=== PATIENT | female | born 1965 | race Two or more races ===

== ENCOUNTER 2020-08-12 08:19 | Outpatient (REF) | payer MEDICAID, SELFPAY ==
--- NOTE | 2020-08-12 08:50 | EMG_ITS ---
HISTORY OF PRESENT ILLNESS: This is a 54-year-old woman with a 2-year history of bilateral upper extremity pain, numbness, and tingling. Both sides affected equally. She has a history of diabetes for more than 5 years. Complete list of medications not available. PHYSICAL EXAMINATION: On examination, she is alert and oriented with normal intellectual functions. Cranial nerves II through XII are normal. Muscle tone and strength are normal in all 4 extremities. There is mild flattening of the thenar eminences on both sides with weakness of abductor pollicis brevis muscle particularly on the right. No sensory deficits. IMPRESSION: Carpal tunnel syndrome. NERVE CONDUCTION EMG STUDY: Moderately severe carpal tunnel syndrome bilaterally, worse on the left. Normal EMG of the left C5 through T1 innervated muscles. MD RITA Lopez/YESIKA / [phone]
== END 2020-08-12 08:20 | disposition home or self-care (01) ==
LOC: HO.NEURO 08:19
PROVIDERS: Visit Provider Family Medicine
DX: G56.03 Carpal tunnel syndrome, bilateral upper limbs (principal)
CPT/HCPCS: 95860; 95913

== ENCOUNTER → 2020-11-04 13:51 | Outpatient (BNVA) | payer MEDICAID, SELFPAY | PROVIDERS: PCP Family Medicine; Visit Provider Orthopaedic Surgery | DX: G56.02 Carpal tunnel syndrome, left upper limb (principal); G56.01 Carpal tunnel syndrome, right upper limb | CPT/HCPCS: 99202 ==

== ENCOUNTER 2020-12-03 14:24 | Day surgery (SDC) | payer MEDICAID, SELFPAY ==
[2020-12-03 14:42] VITALS: BP 128/70; PULSE 88; RESP 18; TEMP 36.2; O2SAT 97; BMI 50.8
--- NOTE | 2020-12-03 15:02 | MHC.SHP ---
Pre-Procedural Eval Section B Chief Complaint: RTCTS Allergies: Allergies Allergy/AdvReac Type Severity Reaction Status Date / Time No Known Allergies Allergy Verified 11/04/20 13:56 [No Known Allergies*] Plan I have reviewed the history and physical and performed a pertinent physical examination on my patient. No changes have occurred unless specified.
--- NOTE | 2020-12-03 16:50 | W.PM.OPN ---
Operative Note Operative Note Date of Service: 12/03/20 Narrative: Preop diagnosis: 1. Right Carpal tunnel syndrome Postop diagnosis: 1. Right Carpal tunnel syndrome Procedure: 1. Right Carpal tunnel release Surgeon: Olimpia Esteves MD Anesthesia: local block using 1% lidocaine with epinephrine Findings: Thickened transverse carpal ligament. EBL: Less than 5 mL Specimens: None Complications: None Disposition: Brought to recovery room in stable condition Plan: Follow-up for 7-10 days for wound check and suture removal Indications: The patient is 55 years old, with right carpal tunnel syndrome that has been unresponsive to nonoperative management. The risks and benefits of operative treatment including but not limited to risk of damage to blood vessels, nerves, tendons, infection, persistent pain, persistent symptoms, or possible need for additional surgery were discussed with the patient and the patient wishes to proceed with surgery. Procedure: Once consent was obtained a local block was performed using a combination of 1% lidocaine with epinephrine. The patient was then brought back to the operating suite and placed on the operative table in supine position. A tourniquet was applied to the proximal aspect of the right upper extremity and the limb was prepped and draped in a standard surgical fashion. Once assured that we had a good block, a 1.5 cm longitudinal incision was made centered over the right carpal tunnel. The incision was made through the skin to the subcutaneous tissues using a #15 blade. Dissection was made down to the level of the transverse carpal ligament with care being taken to protect the palmar cutaneous nerve. Once the transverse carpal ligament was clearly visualized, a longitudinal incision was made in the transverse carpal ligament 1st using a #15 blade, then using tenotomy scissors under direct visualization. Care was taken to look for and protect the motor branch of the median nerve when seen in this area. Once satisfied with our carpal tunnel release the wound was copiously irrigated with normal saline and hemostasis was obtained with a brief period of local pressure. The skin edges were reapproximated with some 5.0 nylon suture material and a sterile dressing was applied. The patient appears to have tolerated the procedure well and with no complications. All digits were well vascularized at the conclusion of the case.
[2020-12-03 18:07] VITALS: BP 130/75; PULSE 82; RESP 20; TEMP 36.6; O2SAT 97
--- NOTE | 2020-12-03 18:15 | PC.NURSE ---
arrived to pacu awake conversing no complaints of pain. right wrist dressing c/d/i. reports pain controlled with regional local anesthetic. vss. assisted to dress at bedside.
== END 2020-12-03 18:18 | disposition home or self-care (01) ==
PROVIDERS: Visit Provider Orthopaedic Surgery
PROC: (CPT 64721; principal; 2020-12-03 15:40)
DX: G56.01 Carpal tunnel syndrome, right upper limb (principal); I10 Essential (primary) hypertension; J45.909 Unspecified asthma, uncomplicated; Z79.899 Other long term (current) drug therapy
CPT/HCPCS: 64721

== ENCOUNTER → 2020-12-16 09:27 | Outpatient (BNVA) | payer MEDICAID, SELFPAY | PROVIDERS: Visit Provider Orthopaedic Surgery | DX: G56.02 Carpal tunnel syndrome, left upper limb (principal); G56.01 Carpal tunnel syndrome, right upper limb | CPT/HCPCS: 99212 ==

== ENCOUNTER → 2021-01-13 11:03 | Outpatient (BNVA) | payer MEDICAID, SELFPAY | PROVIDERS: Visit Provider Orthopaedic Surgery | DX: G56.01 Carpal tunnel syndrome, right upper limb (principal); G56.02 Carpal tunnel syndrome, left upper limb | CPT/HCPCS: 99212 ==

== ENCOUNTER 2021-01-25 08:46 | Outpatient (REF) | payer MEDICAID, SELFPAY ==
--- NOTE | ~2021-01-25 | MM_ITS ---
EXAMINATION: MM SCREENING DIGITAL BREAST TOMOSYNTHESIS, BILATERAL CLINICAL INFORMATION: Screening. Asymptomatic. The lifetime risk of breast cancer based on the Tyrer-Cuzick Model is 11.4%. COMPARISON: Mammography: November 05, 2019 and studies dating back to July 31, 2018 TECHNIQUE: Digital breast tomosynthesis is performed in both the craniocaudal and mediolateral oblique views along with computer-aided detection (CAD). Synthesized 2D images are generated from the tomosynthesis. FINDINGS: The breasts are almost entirely fatty (ACR BI-RADS breast composition Category a). There are no significant masses, abnormal calcifications, or other abnormalities. Stable intramammary lymph nodes seen bilaterally. MM/MM tomosynthesis screening BI IMPRESSION: There are no significant changes from prior study. ASSESSMENT: BI-RADS 2: Benign RECOMMENDATION: Routine annual mammography screening. This patient's information was entered into a reminder system with a target due date for their next mammogram.
== END 2021-01-25 08:47 | disposition home or self-care (01) ==
LOC: HO.MAMMO 08:46
PROVIDERS: PCP Family Medicine; Visit Provider Family Medicine
DX: Z12.31 Encounter for screening mammogram for malignant neoplasm of breast (principal)
CPT/HCPCS: 77063; 77067

== ENCOUNTER 2021-03-04 09:44 | Day surgery (SDC) | payer MEDICAID, SELFPAY ==
[2021-03-04 10:59] VITALS: BMI 50.8
[2021-03-04 11:07] VITALS: BP 144/71; PULSE 80; RESP 18; TEMP 36.9; O2SAT 97
[2021-03-04] MEDS: Lidocaine HCl 1%/Epi 1:100,000 20 ML VIAL 9 ML INFILTRATI (13:35)
[2021-03-04 14:18] VITALS: BP 108/59; PULSE 79; RESP 18; TEMP 37; O2SAT 97
--- NOTE | 2021-03-04 14:51 | MHC.SHP ---
Pre-Procedural Eval Section B Chief Complaint: carpal tunnel syndrome Allergies: Allergies Allergy/AdvReac Type Severity Reaction Status Date / Time No Known Allergies Allergy Verified 01/13/21 11:14 [No Known Allergies*] Plan I have reviewed the history and physical and performed a pertinent physical examination on my patient. No changes have occurred unless specified.
--- NOTE | 2021-03-04 14:51 | W.PM.OPN ---
Operative Note Operative Note Date of Service: 03/04/21 Narrative: Preop diagnosis: 1. Left Carpal tunnel syndrome Postop diagnosis: same Procedure: 1. Left Carpal tunnel release Surgeon: Olimpia Esteves MD Anesthesia: local block using 1% lidocaine with epinephrine Findings: Thickened transverse carpal ligament. EBL: Less than 5 mL Specimens: None Complications: None Disposition: Brought to recovery room in stable condition Plan: Follow-up for 7-10 days for wound check and suture removal Indications: The patient is 55 years old, with left carpal tunnel syndrome that has been unresponsive to nonoperative management. The risks and benefits of operative treatment including but not limited to risk of damage to blood vessels, nerves, tendons, infection, persistent pain, persistent symptoms, or possible need for additional surgery were discussed with the patient and the patient wishes to proceed with surgery. Procedure: Once consent was obtained a local block was performed using a combination of 1% lidocaine with epinephrine. The patient was then brought back to the operating suite and placed on the operative table in supine position. A tourniquet was applied to the proximal aspect of the left upper extremity and the limb was prepped and draped in a standard surgical fashion. Once assured that we had a good block, a 1.5 cm longitudinal incision was made centered over the carpal tunnel. The incision was made through the skin to the subcutaneous tissues using a #15 blade. Dissection was made down to the level of the transverse carpal ligament with care being taken to protect the palmar cutaneous nerve. Once the transverse carpal ligament was clearly visualized, a longitudinal incision was made in the transverse carpal ligament 1st using a #15 blade, then using tenotomy scissors under direct visualization. Care was taken to look for and protect the motor branch of the median nerve when seen in this area. Once satisfied with our carpal tunnel release the wound was copiously irrigated with normal saline and hemostasis was obtained with a brief period of local pressure. The skin edges were reapproximated with some 5.0 nylon suture material and a sterile dressing was applied. The patient appears to have tolerated the procedure well and with no complications. All digits were well vascularized at the conclusion of the case.
== END 2021-03-04 14:59 | disposition home or self-care (01) ==
PROVIDERS: PCP Internal Medicine; Visit Provider Orthopaedic Surgery
PROC: (CPT 64721; principal; 2021-03-04 11:40)
DX: G56.02 Carpal tunnel syndrome, left upper limb (principal); I10 Essential (primary) hypertension; Z79.899 Other long term (current) drug therapy
CPT/HCPCS: 64721

== ENCOUNTER → 2021-03-15 08:08 | Outpatient (BNVA) | payer MEDICAID, SELFPAY | PROVIDERS: PCP Internal Medicine; Visit Provider Orthopaedic Surgery | DX: G56.02 Carpal tunnel syndrome, left upper limb (principal); G56.01 Carpal tunnel syndrome, right upper limb | CPT/HCPCS: 99212 ==

== ENCOUNTER → 2021-03-25 13:51 | Outpatient (REF) | payer MEDICAID, SELFPAY | LOC: HO.SL 13:51 | PROVIDERS: PCP Internal Medicine; Visit Provider Internal Medicine | DX: G47.9 Sleep disorder, unspecified (principal); R06.81 Apnea, not elsewhere classified | CPT/HCPCS: 95806 ==

== ENCOUNTER 2021-08-25 19:27 | Emergency (ER) | payer MEDICAID, SELFPAY ==
--- NOTE | ~2021-08-25 | XR_ITS ---
EXAMINATION: XR CHEST CLINICAL INFORMATION: Chest pain COMPARISON: 06/11/2019 TECHNIQUE: Frontal view of the chest was obtained. FINDINGS: Cardiac leads overlie the chest. The lungs are well expanded. There is no focal consolidation, edema, or effusion. No pneumothorax. The cardiomediastinal silhouette is within normal limits. No acute osseous abnormality. XR/XR chest 1V IMPRESSION: No acute pulmonary finding.
--- NOTE | 2021-08-25 19:31 | ECG_ITS ---
Test Reason : CHEST PAIN Blood Pressure : / mmHG Vent. Rate : 092 BPM Atrial Rate : 092 BPM P-R Int : 148 ms QRS Dur : 072 ms QT Int : 360 ms P-R-T Axes : 052 006 035 degrees QTc Int : 445 ms Normal sinus rhythm Possible Left atrial enlargement Borderline ECG No significant changes seen Referred By: Generic ED Physician Electronically Signed By:CUONG FATIMA MD
--- NOTE | 2021-08-25 19:58 | ED.CHESTPAIN ---
HPI - Chest Pain General Chief Complaint: Chest Pain Stated Complaint: chest pain and left arm Time Seen by Provider: 08/25/21 19:58 Source: patient and family Mode of arrival: ambulatory Limitations: language barrier History of Present Illness HPI narrative: Patient with history of hypertension been feeling dizzy for last 2 weeks especially on turning her head to the right side associated with nausea no headache for last 2 days patient having some sharp chest pain localized mid chest lasting for few minutes radiating to left shoulder and left head no diaphoresis no shortness of breath also she has tinnitus in the left ear no significant headache no fever no shortness of breath no history of coronary artery disease Related Data Home Medications Medication Instructions Recorded Confirmed losartan 25 mg tablet 25 mg PO DAILY 11/04/20 Previous Rx's Medication Instructions Recorded hydrocodone 5 mg-acetaminophen 325 1 tab PO BID PRN 3 Days #6 tab 03/05/21 mg tablet meclizine 25 mg tablet 25 mg PO TID PRN #30 tab 08/25/21 Allergies Allergy/AdvReac Type Severity Reaction Status Date / Time No Known Allergies Allergy Verified 03/15/21 08:12 [No Known Allergies*] Review of Systems Review of Systems: Yes all other systems are reviewed and are negative [facility] Past Medical History Medical History Asthma Diabetes Hypertension Migraines Surgical History History of carpal tunnel release (~12/03/20) Family History Family History Mother No problems noted. Father No problems noted. Social History Social History Alcohol intake: never Second Hand Smoke Exposure: No Advance Directives: No Patient : No Current occupational status: retired Current occupation: right and left handed Physical Exam Vital Signs: Vital Signs: Last Vital Signs Temp 98.3 F 08/25/21 21:26 Pulse 87 08/25/21 21:26 Resp 14 08/25/21 21:26 BP 143/76 H 08/25/21 21:26 Pulse Ox 97 08/25/21 21:26 Body Mass Index 48.8 Appearance: Alert. Oriented X3. No acute distress. Eyes: PERRLA, No Nystagmus increased dizziness on turning the head to the right side ENT: Pharynx normal. Oral Mucosa moist Neck: Normal inspection. Neck supple. CVS: Normal heart rate and rhythm. Pulses normal. Respiratory: No respiratory distress. Equal air entry bilateral, no wheezing/rales/rhonchi Abdomen: Soft and nontender. Bowel sounds are present, no mass palpable, no CVA tenderness Skin: Skin warm and dry. Normal skin color. Normal skin turgor. Extremities: No lower extremity edema. No calf tenderness Neuro: Oriented X 3. No motor deficit. No sensory deficit.No cerebellar signs , cranial nerves II-XII intact MDM - Chest Pain MDM Narrative Medical decision making narrative: Patient with benign positional vertigo with atypical chest pain workup is negative will discharge patient home on meclizine Lab Data Attestation: I reviewed the patient's lab results. Result diagrams: 08/25/21 19:57 08/25/21 19:57 Labs: Lab Results 08/25/21 08/25/21 08/25/21 Range/Units 19:57 19:57 19:57 WBC 11.5 H (4.8-10.8) X10*3/uL RBC 4.90 (4.20-5.50) X10*6/uL Hgb 13.7 (12.0-16.0) g/dl Hct 41.0 (37-47) % MCV 83.7 (80-98) fL MCH 28.0 (27.0-33.0) pg MCHC 33.4 (31.0-35.0) g/dl RDW 13.9 (11.0-16.0) % Plt Count 291 (160-400) X10*3/uL MPV 10.4 (9.4-12.3) fL Immature Gran % (Auto) 0.3 (0.0-0.4) % Neut % (Auto) 65.2 (45-73) % Lymph % (Auto) 26.2 (20-40) % Rankin % (Auto) 5.6 (2-11) % Eos % (Auto) 2.4 (0-4) % Baso % (Auto) 0.3 (0-2) % Lymph # (Auto) 3.0 (1.2-4.9) X10*3/uL Rankin # (Auto) 0.6 (0.1-1.2) X10*3/uL Eos # (Auto) 0.3 (0.0-0.4) X10*3/uL Baso # (Auto) 0.0 (0.0-0.2) X10*3/uL Abs Immat Gran (auto) 0.03 (0.00-0.03) X10*3/uL Absolute Neuts (auto) 7.5 (2.0-8.3) X10*3/uL Absolute Nucleated RBC 0.000 (0.0-0.012) X10*3/uL Nucleated RBC % (auto) 0.0 (0.0-0.2) /100WBC Sodium 141 (135-145) mmol/L Potassium 4.1 (3.3-5.1) mmol/L Chloride 104 (96-108) mmol/L Carbon Dioxide 26 (22-29) mmol/L Anion Gap 15 (12-20) BUN 11 (9-16) mg/dL Creatinine 0.77 (0.5-1.4) mg/dL Estim Creat Clear Calc 96.9 Estimated GFR > 60 Random Glucose 129 H (60-115) mg/dL Calcium 10.1 (8.4-10.2) mg/dL Troponin I High Sens < 3.5 (<3.5-17.0) ng/L ECG Data ECG #1: Attestation: I personally reviewed and interpreted this ECG as follows: Interpretation: Normal sinus rhythm heart rate 92 beats per minute normal intervals normal axis no acute ST wave changes no acute ischemia Discharge Plan Discharge Clinical Impression: Chest pain, Benign paroxysmal positional vertigo Patient Disposition: Home, Self-Care Instructions: Chest Pain (ED), Benign Paroxysmal Positional Vertigo (ED) Additional Instructions: Follow-up with your PCP of further management including stress test if chest pain continues Take baby aspirin daily Take medication for dizziness as prescribed Tami un seguimiento con hayward PCP para un tratamiento adicional, incluida doug prueba de esfuerzo, si el dolor en el pecho contin?a. [place] aspirina para beb?s todos los d?as [place] los medicamentos para los mareos seg?n lo prescrito. Prescriptions: New meclizine 25 mg tablet 25 mg PO TID PRN (Reason: dizziness) Qty: 30 RF: 0 No Action hydrocodone-acetaminophen 5-325 mg tablet 1 tab PO BID PRN (Reason: pain) 3 Days Qty: 6 RF: 0 Interventions: ED Discharge Assessment Last Done: 08/25/21 22:26 Discharge Date/Time: 08/25/21 22:26 Print Language: Taiwanese
[2021-08-25 20:04] LABS: MANUAL DIFF FLAG NO
[2021-08-25 20:05] VITALS: BP 141/72; PULSE 86; RESP 18; TEMP 37; O2SAT 97; BMI 48.8
[2021-08-25 20:19] LABS: Anion Gap 15 (12-20); Blood Urea Nitrogen 11 mg/dL (9-16); Calcium 10.1 mg/dL (8.4-10.2); Carbon Dioxide 26 mmol/L (22-29); Chloride 104 mmol/L (96-108); Creatinine Clr Calc Pharmacy 96.9; Estimated Glomerular Filt Rate > 60; Glucose Random 129 mg/dL (60-115); Potassium 4.1 mmol/L (3.3-5.1); Sodium 141 mmol/L (135-145)
[2021-08-25 20:25] LABS: Basophils Percent Auto 0.3 % (0-2); Eosinophils Absolute Auto 0.3 X10*3/uL (0.0-0.4); Eosinophils Percent Auto 2.4 % (0-4); Hemoglobin 13.7 g/dl (12.0-16.0); Imm Gran Abs Auto 0.03 X10*3/uL (0.00-0.03); Imm Gran Pct Auto 0.3 % (0.0-0.4); Lymphocytes Percent Auto 26.2 % (20-40); Mean Corpuscular HGB Conc 33.4 g/dl (31.0-35.0); Mean Corpuscular Volume 83.7 fL (80-98); Mean Platelet Volume 10.4 fL (9.4-12.3); Monocytes Absolute Auto 0.6 X10*3/uL (0.1-1.2); Monocytes Percent Auto 5.6 % (2-11); Neutrophils Absolute Auto 7.5 X10*3/uL (2.0-8.3); Neutrophils Percent Auto 65.2 % (45-73); Platelet Count 291 X10*3/uL (160-400); Red Cell Distribution Width 13.9 % (11.0-16.0); White Blood Count 11.5 X10*3/uL (4.8-10.8)
[2021-08-25 20:26] LABS: Troponin-I High Sensitivity < 3.5 ng/L (<3.5-17.0)
[2021-08-25 21:26] VITALS: BP 143/76; PULSE 87; RESP 14; TEMP 36.8; O2SAT 97
[2021-08-25] MEDS: Meclizine HCl 25 MG TABLET 50 MG PO (22:24)
== END 2021-08-25 22:26 | disposition home or self-care (01) ==
PROVIDERS: Emergency Provider Internal Medicine; PCP Emergency Medicine
DX: R07.9 Chest pain, unspecified (principal); H81.10 Benign paroxysmal vertigo, unspecified ear; I10 Essential (primary) hypertension; E11.9 Type 2 diabetes mellitus without complications; J45.909 Unspecified asthma, uncomplicated
CPT/HCPCS: 36415; 71045; 80048; 84484; 85025; 93005; 99283; 99284

== ENCOUNTER 2022-01-03 09:52 | Outpatient (REF) | payer MEDICAID, SELFPAY ==
--- NOTE | ~2022-01-03 | XR_ITS ---
EXAMINATION: RIGHT HIP 2 VIEWS LEFT HIP 2 VIEWS CLINICAL INFORMATION: Trochanteric bursitis bilateral hips COMPARISON: None TECHNIQUE: AP neutral and frog-leg lateral views of the right hip. AP neutral and frog-leg lateral views of the left hip. FINDINGS: Right hip: Alignment is anatomic. The joint space is preserved. No significant degenerative changes. No fracture or suspicious lesion. Left hip: Alignment is anatomic. The joint space is preserved. No significant degenerative changes. No fracture or suspicious lesion. XR/XR hip RT min 2V IMPRESSION: Unremarkable examination.
--- NOTE | ~2022-01-03 | XR_ITS ---
EXAMINATION: XR LUMBOSACRAL SPINE CLINICAL INFORMATION: Pain. COMPARISON: None TECHNIQUE: Three views of the lumbosacral spine. FINDINGS: Vertebral body heights are maintained. The disc spaces are preserved. Facet arthrosis at L4-L5 and L5-S1. The bowel gas pattern is unremarkable. XR/XR lumbar spine 2-3V IMPRESSION: Bilateral facet facet disease L4-L5 and L5-S1. No significant degenerative disc space narrowing.
--- NOTE | ~2022-01-03 | XR_ITS ---
EXAMINATION: XR KNEE, RIGHT CLINICAL INFORMATION: Right knee pain. COMPARISON: None TECHNIQUE: Two views of the right knee. FINDINGS: Bones and soft tissues are normal. No fracture or joint effusion. Alignment is anatomic. Joint spaces are well maintained. No abnormal soft tissue calcification. XR/XR knee RT 2V IMPRESSION: Normal right knee.
--- NOTE | ~2022-01-03 | XR_ITS ---
EXAMINATION: RIGHT HIP 2 VIEWS LEFT HIP 2 VIEWS CLINICAL INFORMATION: Trochanteric bursitis bilateral hips COMPARISON: None TECHNIQUE: AP neutral and frog-leg lateral views of the right hip. AP neutral and frog-leg lateral views of the left hip. FINDINGS: Right hip: Alignment is anatomic. The joint space is preserved. No significant degenerative changes. No fracture or suspicious lesion. Left hip: Alignment is anatomic. The joint space is preserved. No significant degenerative changes. No fracture or suspicious lesion. XR/XR hip LT min 2V IMPRESSION: Unremarkable examination.
== END 2022-01-03 09:53 | disposition home or self-care (01) ==
LOC: HO.XRAY 09:52
PROVIDERS: PCP Internal Medicine; Visit Provider Internal Medicine
DX: M25.561 Pain in right knee (principal); M70.61 Trochanteric bursitis, right hip; M70.62 Trochanteric bursitis, left hip
CPT/HCPCS: 72100; 73502; 73560

== ENCOUNTER 2022-01-07 09:28 | Emergency (ER) | payer MEDICAID, SELFPAY ==
--- NOTE | ~2022-01-07 | XR_ITS ---
EXAMINATION: XR CHEST CLINICAL INFORMATION: Elevated blood pressure. Pain and dizziness. COMPARISON: Previous chest x-ray most recent July 2021 TECHNIQUE: 2 views of the chest were obtained. FINDINGS: The cardiac and mediastinal contours are stable. The lungs are clear. There is no pleural effusion or pneumothorax. Bony structures are unremarkable. XR/XR chest 2V IMPRESSION: No evidence for acute disease in the chest.
--- NOTE | ~2022-01-07 | CT_ITS ---
EXAMINATION: CT angio head neck CLINICAL INFORMATION: Neck pain and dizziness. COMPARISON: CT scan of the head 01/07/2022. TECHNIQUE: Insect[employer] images were obtained. A CT angiogram of the head and neck was performed in the arterial phase after the intravenous administration of 70 mL Omnipaque 350. Delayed postcontrast images of the head were also obtained. MIP reconstructions were generated in multiple orientations at the acquisition workstation. Multiple three-dimensional surface rendered images and maximum intensity projection images were generated on a dedicated 3-D lab workstation. Arterial stenoses are measured in accordance with NASCET criteria or similar method if applicable. This CT examination was performed using dose optimization techniques as appropriate, including one or more of the following: Automated exposure control, iterative reconstruction, and adjustment of technique factors (mA and/or kVp) according to patient size (this includes techniques or standardized protocols for targeted exams where dose is matched to indication/reason for exam). Total exam dose-length product 1457 mGy-cm FINDINGS: Head: Postcontrast images reveal no abnormal intracranial mass or enhancement. There is no intracranial mass effect or midline shift. Lateral and third ventricles are normal. No hydrocephalus. Pavon-white matter differentiation is preserved and there is no evidence of acute territorial infarct. The calvarium and skull base are intact. Mastoid air cells and middle ear cavities are well aerated. No active paranasal sinus disease. CT angiogram neck: [place] is normal. Origins of the major aortic branches are patent. Common carotid arteries and carotid bifurcations are normal. No stenosis of the extracranial internal carotid arteries. The cervical segments of the vertebral arteries as well as their origins are patent. CT angiogram head: Intracranial internal carotid arteries are patent. The intradural vertebral artery segments and basilar artery are patent. Anterior, middle, and posterior cerebral artery complexes are normal. No intracranial large vessel occlusion. Other: There are a few symmetrically enlarged albeit otherwise unremarkable cervical lymph nodes involving level I. Soft tissues of the neck are otherwise unremarkable. Visualized lung apices are clear. No acute osseous finding. Specifically no worrisome lytic or blastic osseous lesion. CT/CT angio head neck IMPRESSION: There is no stenosis of the cervical carotid or vertebral arteries. No intracranial large vessel occlusion. No evidence of acute territorial infarct or hemorrhage. No abnormal intracranial mass or hydrocephalus. Incidentally there are a few symmetrically enlarged albeit otherwise unremarkable level I cervical lymph nodes.
--- NOTE | ~2022-01-07 | CT_ITS ---
EXAMINATION: CT HEAD WITHOUT CONTRAST CLINICAL INFORMATION: Elevated blood pressure, neck pain COMPARISON: None TECHNIQUE: Contiguous axial imaging was performed from the skull base to vertex without intravenous administration of contrast. This CT examination was performed using dose optimization techniques as appropriate, variously including the following: *Automated exposure control *Adjustment of mA and/or kV according to patient size (this includes techniques or standardized protocols for targeted exams where dose is matched to indication/reason for exam; i.e. extremities or head) *Use of iterative reconstruction technique DLP: 631 mGy-cm FINDINGS: There is no evidence of acute intracranial hemorrhage or territorial infarction. No abnormal mass effect or midline shift is seen. Pavon to white matter differentiation is well preserved. No extra-axial fluid collections are identified. The ventricles are normal in size. There is no abnormal attenuation within the brain parenchyma. The osseous structures and soft tissues are normal. The mastoid air cells and visualized portions of the paranasal sinuses are well aerated. CT/CT head/brain wo con IMPRESSION: Unremarkable exam.
[2022-01-07 09:59] VITALS: BP 147/87; PULSE 83; RESP 18; TEMP 36.6; O2SAT 97; BMI 50.5
--- NOTE | 2022-01-07 12:49 | ECG_ITS ---
Test Reason : NECK PAIN Blood Pressure : / mmHG Vent. Rate : 076 BPM Atrial Rate : 076 BPM P-R Int : 158 ms QRS Dur : 074 ms QT Int : 398 ms P-R-T Axes : 017 000 021 degrees QTc Int : 447 ms Normal sinus rhythm Normal ECG When compared with ECG of 25-AUG-2021 19:49, No significant change was found Referred By: Maris Dejesus Electronically Signed By:KENYETTA MERCADO MD
[2022-01-07 13:22] LABS: MANUAL DIFF FLAG NO
[2022-01-07] MEDS: diazePAM 5 MG TABLET PO (13:22)
[2022-01-07 13:28] LABS: Basophils Percent Auto 0.1 % (0-2); Eosinophils Absolute Auto 0.4 X10*3/uL (0.0-0.4); Eosinophils Percent Auto 3.7 % (0-4); Hematocrit 41.3 % (37.0-47.0); Hemoglobin 13.2 g/dl (12.0-16.0); Imm Gran Abs Auto 0.02 X10*3/uL (0.00-0.03); Imm Gran Pct Auto 0.2 % (0.0-0.4); Lymphocytes Absolute Auto 2.5 X10*3/uL (1.2-4.9); Lymphocytes Percent Auto 26.3 % (20-40); Mean Corpuscular Volume 84.5 fL (80.0-98.0); Mean Platelet Volume 10.2 fL (9.4-12.3); Monocytes Absolute Auto 0.6 X10*3/uL (0.1-1.2); Monocytes Percent Auto 6.3 % (2-11); Neutrophils Percent Auto 63.4 % (45-73); Platelet Count 285 X10*3/uL (160-400); Red Blood Count 4.89 X10*6/uL (4.20-5.50); Red Cell Distribution Width 13.8 % (11.0-16.0); White Blood Count 9.4 X10*3/uL (4.8-10.8)
[2022-01-07 13:34] LABS: INTERNATIONAL NORM RATIO 1.1 (0.9-1.1)
[2022-01-07 13:46] LABS: Troponin-I High Sensitivity < 3.5 ng/L (<3.5-17.0)
[2022-01-07 13:47] LABS: Alanine Aminotransferase 22 U/L (0-31); Albumin Level 4.2 g/dL (3.5-5.0); Alkaline Phosphatase 53 U/L (39-117); Anion Gap 16 (12-20); Aspartate Amino Transferase 23 U/L (5-31); Bilirubin Total 0.6 mg/dL (0.0-1.0); Blood Urea Nitrogen 9 mg/dL (9-16); Calcium 10.3 mg/dL (8.4-10.2); Carbon Dioxide 24 mmol/L (22-29); Chloride 105 mmol/L (96-108); Creatinine Clr Calc Pharmacy 123.6; Estimated Glomerular Filt Rate > 60; Glucose Random 98 mg/dL (60-115); Magnesium 1.8 mg/dL (1.6-2.6); Potassium 4.5 mmol/L (3.3-5.1); Sodium 140 mmol/L (135-145); Total Protein 7.7 g/dL (6.5-8.0)
[2022-01-07 14:04] LABS: B Type Natriuretic Peptide 21 pg/mL (<100)
[2022-01-07] MEDS: iohexoL 350 MG/ML 100 ML INFUS..BTL IV (14:12)
[2022-01-07 14:39] VITALS: BP 172/94; PULSE 78; O2SAT 99
[2022-01-07] MEDS: Lidocaine 4 % Patch ADH..PATCH 1 PATCH TRANSDERMA (14:40)
[2022-01-07 15:22] VITALS: BP 145/86; PULSE 75; O2SAT 100
--- NOTE | 2022-01-07 15:27 | ED.NECK ---
HPI - Neck Pain/Injury General Chief Complaint: General Medical Stated Complaint: hb l side pain Time Seen by Provider: 01/07/22 12:49 Source: patient Mode of arrival: ambulatory Limitations: language barrier ([place]ish-speaking) History of Present Illness HPI Narrative: 56-year-old female with a past medical history of hypertension currently on losartan taking as prescribed, asthma, migraine headaches and diabetes not on any medications for her diabetes presenting to the ED with complaints of a traumatic constant left-sided neck pain that has been present for approximately 1 week with associated intermittent headaches and intermittent dizziness and nausea. She reports that she was seen by her PCP and diagnosed trazodone, meloxicam and muscle relaxers in the past few days and no symptomatic relief. She reports that it feels like a neck spasm although she is nervous because her blood pressure has been high in the 150s over 90s when she has been checking it despite taking her blood pressure medication. She reports she has a history of photophobia. She denies any head trauma or injuries, being on any blood thinners, recent falls, changes in vision, paresthesias, jaw pain, vomiting, chest pain, shortness of breath, dyspnea on exertion, orthopnea, palpitations, lower extremity edema or calf tenderness, abdominal pain, constipation, black or bloody stools, dysuria, hematuria, rashes or any other symptoms complaints or concerns at this time. MD complaint: neck pain and other (And high blood pressure) Onset (ago): week(s) (1) Place: home Radiation: left lateral Severity: severe, constant and similar to prior neck pain Severity scale (1-10): >10 Quality: spasming Duration: constant and progressively worsening Relieving factors: none Exacerbating factors: movement of neck (And palpation of the neck) Context: unknown Associated symptoms: headache (And dizziness) and nausea Treatments prior to arrival: none Related Data Home Medications Medication Instructions Recorded Confirmed losartan 25 mg tablet 25 mg PO DAILY 11/04/20 Previous Rx's Medication Instructions Recorded hydrocodone 5 mg-acetaminophen 325 1 tab PO BID PRN 3 Days #6 tab 03/05/21 mg tablet meclizine 25 mg tablet 25 mg PO TID PRN #30 tab 08/25/21 diazepam 5 mg tablet (Valium) 5 mg PO TID PRN #14 tab 01/07/22 lidocaine 5 % topical patch 1 patch TOPICAL DAILY #15 ea 01/07/22 (Lidoderm) naproxen 500 mg tablet 500 mg PO BID PRN #10 tab 01/07/22 oxycodone 5 mg tablet 5 mg PO Q6H PRN #14 tab 01/07/22 Allergies Allergy/AdvReac Type Severity Reaction Status Date / Time No Known Allergies Allergy Verified 01/07/22 09:58 [No Known Allergies*] Review of Systems Review of Systems: Constitutional : No trauma, No Weight loss, No Fever, No Chills, ENT/Mouth : No Hearing loss, No Ear Pain, No Nasal Congestion, No Sinus Pain, No Hoarseness, No sore throat, No Rhinorrhea, No Swallowing Difficulty Cardiovascular : No Chest Pain, No SOB Respiratory : No Cough, No Dyspnea Gastrointestinal : No Nausea, No Vomiting, No Diarrhea, No abdominal Pain, No Hematochezia, No Melena Genitourinary : No Dysuria, No Urinary Frequency, No Hematuria, No Urinary or Bowel Incontinence/retention Musculoskeletal : + Neck pain, No Back pain, No joint stiffness, No joint swelling Skin : No Skin Lesions, No rash or signs of infection Neuro : nO Tingling to b/l arms/legs, No Weakness, No radiation, No Numbness, + headache/dizziness, no loss of bowel or bladder incontinence, no saddle anesthesia Denies history of IV drug usage. Yes all other systems are reviewed and are negative [facility] Past Medical History Attestation statement: The following information was validated with the patient. Medical History Asthma Diabetes Hypertension Migraines Surgical History History of carpal tunnel release (~12/03/20) Family History Family History Mother No problems noted. Father No problems noted. Social History Social History Alcohol intake: never Second Hand Smoke Exposure: No Advance Directives: No Advance Directives Information Provided: Yes Current occupational status: retired Current occupation: right and left handed Physical Exam Vital Signs: Vital Signs: Last Vital Signs Temp 97.8 F 01/07/22 09:59 Pulse 75 01/07/22 15:22 Resp 18 01/07/22 09:59 BP 145/86 H 01/07/22 15:22 Pulse Ox 100 01/07/22 15:22 BMI result Body Mass Index 50.5 vital signs have been reviewed as normal and appeared to be correct. Blood pressure 147/87. Heart rate normal. Respiration rate normal. Temperature normal. Oxygen saturation normal. Appearance: Alert. Oriented X3. No acute distress. Head: Normal external exam. Normocephalic. Atraumatic. Able to rotate head bilaterally. Eyes: PERRLA. EOMI. No nystagmus noted. Conjunctiva and sclera normal. Eyelids normal. Corneal reflex normal. ENT: EAC normal. TM's Normal. Hearing normal. Pharynx normal. Uvula midline. tongue midline. Moist mucous membranes. No trismus noted. No drooling noted. No muffled voice noted. No nystagmus noted. Neck: Normal inspection. Neck supple. FROM. No adenopathy. Thyroid Normal. Trachea midline. No meningeal signs. No neck mass noted. Tender to palpation of bilateral paracervical musculature althought worsde of left lateral aspect and neck spasm noted. No mid cervical tenderness. No step-offs or deformities noted. Patient neuro intact bilaterally and distally on all 4 extremities. Reflexes intact bilaterally and distally in all 4 extremities. No rashes/lesion/induration/fluctuance or signs of infection noted. No edema noted. CVS: Normal heart rate and rhythm. Heart sound normal. No murmurs noted. Pulses normal throughout. Respiratory: No respiratory distress. Painless inspiration. Breath sounds normal. No wheezes/rales/rhonchi noted. Chest nontender. No accessory muscle usage noted or decreased air movement noted. Abdomen: Soft and nontender. Bowel sounds normal in all 4 quadrants. No distention noted. No organomegaly noted. No visible injury noted. Back: No CVA tenderness. Full range of motion noted. Skin: Skin warm and dry. Normal skin color. Normal skin turgor. No rashes/lesions/lacerations noted. Extremities: No lower extremity edema. Extremities exhibit normal range of motion. Extremities nontender. Able to shrug shoulders bilaterally and keep up against resistance. Neuro: Oriented X 3. No motor deficit. No sensory deficit. Reflexes normal. Moving all extremities. No focal motor deficits. Cranial nerves II-XI intact bilaterally. Facial strength normal. Normal cognition. Speech normal. Gait normal. Strength 5/5 throughout. No pronator drift. No tremor noted. No fasciculations noted. No rigidity noted. Muscle tone normal throughout. No asterixis noted. [id number] test normal. Heel to trammell test normal. Tandem gait normal. Does not sway with eyes open. Romberg test negative. Rapid alternating movement upper extremity normal. Rapid alternating movement lower extremity normal. Hand drop from overhead Misses face. NIHSS score 0. Vascular: +2 radial pulses bilaterally. +2 distal pedal pulses bilaterally. No cyanosis noted to upper and lower extremities. Normal capillary refill to upper and lower extremities. Course Course Course Narrative: 1pm - 56-year-old female with a past medical history of hypertension currently on losartan taking as prescribed, asthma, migraine headaches and diabetes not on any medications for her diabetes presenting to the ED with complaints of a traumatic constant left-sided neck pain that has been present for approximately 1 week with associated intermittent headaches and intermittent dizziness and nausea. She reports that she was seen by her PCP and diagnosed trazodone, meloxicam and muscle relaxers in the past few days and no symptomatic relief. She reports that it feels like a neck spasm although she is nervous because her blood pressure has been high in the 150s over 90s when she has been checking it despite taking her blood pressure medication. She reports she has a history of photophobia. - Pt c likely muscular pain, but could be herniated disc. Neuro exam shows no deficits. Not c/w vascular etiology, perivertebral / other soft tissue neck / airway infection, or spinal fx / process. Plan: Labs, EKG, chest x-ray, CT scan of brain without contrast, CTA of head and neck. Provide a Lidoderm patch in 5 mg of Valium then re-evaluate. Reevaluation(s) Reevaluation #1: - labs reviewed and calcium 10.3 otherwise all other labs are within normal limits including troponin which is negative. - CT scan of brain within normal limits no acute processes are noted. - CTA of head and neck negative for any acute processes. - EKG is normal sinus rhythm no acute ischemic changes were noted and similar compared to priors. - patient reports mild improvement with the Lidoderm patch and Valium 5 mg. She reports it is worse when she moves her neck and when we palpate her neck therefore most likely this is all muscular due to all her labs and imaging is pretty much all negative. I explained to her that I can give her some Toradol and a short course of oxycodone and instructions to follow-up with PCP and to return if any new or worsening symptoms. Patient understands agrees with this plan. Time: 15:53 MDM - Neck Pain/Injury Medical Records Attestation: I reviewed the patient's medical records. Lab Data Attestation: I reviewed the patient's lab results. Result diagrams: 01/07/22 13:17 01/07/22 13:17 Labs: Lab Results 01/07/22 01/07/22 01/07/22 Range/Units 13:17 13:17 13:17 WBC 9.4 (4.8-10.8) X10*3/uL RBC 4.89 (4.20-5.50) X10*6/uL Hgb 13.2 (12.0-16.0) g/dl Hct 41.3 (37.0-47.0) % MCV 84.5 (80.0-98.0) fL MCH 27.0 (27.0-33.0) pg MCHC 32.0 (31.0-35.0) g/dl RDW 13.8 (11.0-16.0) % Plt Count 285 (160-400) X10*3/uL MPV 10.2 (9.4-12.3) fL Immature Gran % (Auto) 0.2 (0.0-0.4) % Neut % (Auto) 63.4 (45-73) % Lymph % (Auto) 26.3 (20-40) % [place] % (Auto) 6.3 (2-11) % Eos % (Auto) 3.7 (0-4) % Baso % (Auto) 0.1 (0-2) % Lymph # (Auto) 2.5 (1.2-4.9) X10*3/uL [place] # (Auto) 0.6 (0.1-1.2) X10*3/uL Eos # (Auto) 0.4 (0.0-0.4) X10*3/uL Baso # (Auto) 0.0 (0.0-0.2) X10*3/uL Abs Immat Gran (auto) 0.02 (0.00-0.03) X10*3/uL Absolute Neuts (auto) 6.0 (2.0-8.3) x10*3/uL Absolute Nucleated RBC 0.000 (0.0-0.012) X10*3/uL Nucleated RBC % (auto) 0.0 (0.0-0.2) /100WBC PT 12.0 (9.9-13.0) SEC INR 1.1 (0.9-1.1) Sodium 140 (135-145) mmol/L Potassium 4.5 (3.3-5.1) mmol/L Chloride 105 (96-108) mmol/L Carbon Dioxide 24 (22-29) mmol/L Anion Gap 16 (12-20) BUN 9 (9-16) mg/dL Creatinine 0.61 (0.5-1.4) mg/dL Estim Creat Clear Calc 123.6 Estimated GFR > 60 Random Glucose 98 (60-115) mg/dL Calcium 10.3 H (8.4-10.2) mg/dL Magnesium 1.8 (1.6-2.6) mg/dL Total Bilirubin 0.6 (0.0-1.0) mg/dL AST 23 (5-31) U/L ALT 22 (0-31) U/L Alkaline Phosphatase 53 (39-117) U/L Troponin I High Sens (<3.5-17.0) ng/L B-Natriuretic Peptide (<100) pg/mL Total Protein 7.7 (6.5-8.0) g/dL Albumin 4.2 (3.5-5.0) g/dL 01/07/22 01/07/22 Range/Units 13:17 13:17 WBC (4.8-10.8) X10*3/uL RBC (4.20-5.50) X10*6/uL Hgb (12.0-16.0) g/dl Hct (37.0-47.0) % MCV (80.0-98.0) fL MCH (27.0-33.0) pg MCHC (31.0-35.0) g/dl RDW (11.0-16.0) % Plt Count (160-400) X10*3/uL MPV (9.4-12.3) fL Immature Gran % (Auto) (0.0-0.4) % Neut % (Auto) (45-73) % Lymph % (Auto) (20-40) % [place] % (Auto) (2-11) % Eos % (Auto) (0-4) % Baso % (Auto) (0-2) % Lymph # (Auto) (1.2-4.9) X10*3/uL [place] # (Auto) (0.1-1.2) X10*3/uL Eos # (Auto) (0.0-0.4) X10*3/uL Baso # (Auto) (0.0-0.2) X10*3/uL Abs Immat Gran (auto) (0.00-0.03) X10*3/uL Absolute Neuts (auto) (2.0-8.3) x10*3/uL Absolute Nucleated RBC (0.0-0.012) X10*3/uL Nucleated RBC % (auto) (0.0-0.2) /100WBC PT (9.9-13.0) SEC INR (0.9-1.1) Sodium (135-145) mmol/L Potassium (3.3-5.1) mmol/L Chloride (96-108) mmol/L Carbon Dioxide (22-29) mmol/L Anion Gap (12-20) BUN (9-16) mg/dL Creatinine (0.5-1.4) mg/dL Estim Creat Clear Calc Estimated GFR Random Glucose (60-115) mg/dL Calcium (8.4-10.2) mg/dL Magnesium (1.6-2.6) mg/dL Total Bilirubin (0.0-1.0) mg/dL AST (5-31) U/L ALT (0-31) U/L Alkaline Phosphatase (39-117) U/L Troponin I High Sens < 3.5 (<3.5-17.0) ng/L B-Natriuretic Peptide 21 (<100) pg/mL Total Protein (6.5-8.0) g/dL Albumin (3.5-5.0) g/dL Imaging Data Chest x-ray: Attestation: I personally reviewed and interpreted this imaging study as follows: Radiologist's impression: FINDINGS: The cardiac and mediastinal contours are stable. The lungs are clear. There is no pleural effusion or pneumothorax. Bony structures are unremarkable. XR/XR chest 2V IMPRESSION: No evidence for acute disease in the chest. CT scan of brain without contrast: Attestation: I personally reviewed and interpreted this imaging study as follows: Radiologist's impression: FINDINGS: There is no evidence of acute intracranial hemorrhage or territorial infarction. No abnormal mass effect or midline shift is seen. Pavon to white matter differentiation is well preserved. No extra-axial fluid collections are identified. The ventricles are normal in size. There is no abnormal attenuation within the brain parenchyma. The osseous structures and soft tissues are normal. The mastoid air cells and visualized portions of the paranasal sinuses are well aerated. ? CT/CT head/brain wo con IMPRESSION: Unremarkable exam. CTA of head and neck with IV contrast: Attestation: I personally reviewed and interpreted this imaging study as follows: Radiologist's impression: FINDINGS: Head: Postcontrast images reveal no abnormal intracranial mass or enhancement. There is no intracranial mass effect or midline shift. Lateral and third ventricles are normal. No hydrocephalus. Pavon-white matter differentiation is preserved and there is no evidence of acute territorial infarct. The calvarium and skull base are intact. Mastoid air cells and middle ear cavities are well aerated. No active paranasal sinus disease. CT angiogram neck: [place] is normal. Origins of the major aortic branches are patent. Common carotid arteries and carotid bifurcations are normal. No stenosis of the extracranial internal carotid arteries. The cervical segments of the vertebral arteries as well as their origins are patent. CT angiogram head: Intracranial internal carotid arteries are patent. The intradural vertebral artery segments and basilar artery are patent. Anterior, middle, and posterior cerebral artery complexes are normal. No intracranial large vessel occlusion. Other: There are a few symmetrically enlarged albeit otherwise unremarkable cervical lymph nodes involving level I. Soft tissues of the neck are otherwise unremarkable. Visualized lung apices are clear. No acute osseous finding. Specifically no worrisome lytic or blastic osseous lesion. CT/CT angio head neck IMPRESSION: There is no stenosis of the cervical carotid or vertebral arteries. No intracranial large vessel occlusion. No evidence of acute territorial infarct or hemorrhage. No abnormal intracranial mass or hydrocephalus. Incidentally there are a few symmetrically enlarged albeit otherwise unremarkable level I cervical lymph nodes.? ? ECG Data Attestation: I personally reviewed and interpreted this ECG as follows: ECG interpretation date: 01/07/22 ECG interpretation time: 14:33 Interpretation: Normal sinus rhythm and a ventricular rate of 76 with a normal DE interval normal QRS duration normal QT/QTC interval. No acute ischemic change are noted similar compared to prior EKG 08/25/2021. Critical Care Time Critical Care Time Critical Care Time: Yes Total Critical Care Time: 60 Attestation: I personally attest to this time spent taking care of the patient Discharge Plan Discharge Clinical Impression: Cervical muscle strain Patient Disposition: Home, Self-Care Instructions: Cervical Strain (DC), Muscle Strain (DC) Additional Instructions: The naproxen I am giving you is like a Motrin therefore do not take any other NSAIDs with this naproxen. I am also giving you a muscle relaxer please do not take any other muscle relaxed with this. The muscle relaxer I am giving you is sedated along with oxycodone therefore you should not drink or drive or go to work on these medications. Return if any new or worsening symptoms follow up with her primary care provider. Prescriptions: New lidocaine [Lidoderm] 5 % adhesive patch,medicated 1 patch topical DAILY Qty: 15 0RF Rx Instructions: leave on most painful area for up to 12 hrs. May be substituted naproxen 500 mg tablet 500 mg PO BID PRN (Reason: pain) Qty: 10 0RF diazepam [Valium] 5 mg tablet 5 mg PO TID PRN (Reason: muscle spasm) Qty: 14 0RF oxycodone 5 mg tablet 5 mg PO Q6H PRN (Reason: pain) Qty: 14 0RF No Action hydrocodone-acetaminophen 5-325 mg tablet 1 tab PO BID PRN (Reason: pain) 3 Days Qty: 6 0RF meclizine 25 mg tablet 25 mg PO TID PRN (Reason: dizziness) Qty: 30 0RF Referrals: Vera rFeeman MD [Primary Care Provider] - 2 days Print Language: Luxembourgish
[2022-01-07] MEDS: Ketorolac Tromethamine 30 MG/ML VIAL IVPUSH (16:07)
[2022-01-07] MEDS: oxyCODONE HCl Immed Release 5 MG TABLET PO (16:07)
== END 2022-01-07 16:30 | disposition home or self-care (01) ==
PROVIDERS: Physician Assistant Medical; Emergency Provider Emergency Medicine; PCP Internal Medicine
DX: S16.1XXA Strain of muscle, fascia and tendon at neck level, initial encounter (principal); X58.XXXA Exposure to other specified factors, initial encounter; R51.9 Headache, unspecified; I10 Essential (primary) hypertension; E11.9 Type 2 diabetes mellitus without complications; Y93.9 Activity, unspecified; Y92.9 Unspecified place or not applicable; Y99.9 Unspecified external cause status
CPT/HCPCS: 36415; 70450; 70496; 70498; 71046; 80053; 83735; 83880; 84484; 85025; 85610; 93005; 96374; 99284; 99291; J1885; Q9967

== ENCOUNTER 2022-03-02 13:57 | Outpatient (REF) | payer MEDICAID, SELFPAY ==
[2022-03-03 14:53] LABS: H Pylori Breath Test Negative (Negative)
== END 2022-03-02 13:58 | disposition home or self-care (01) ==
LOC: HO.LNP 13:57
PROVIDERS: PCP Internal Medicine; Referring Provider Internal Medicine; Visit Provider Nurse Practitioner Family
DX: K21.9 Gastro-esophageal reflux disease without esophagitis (principal); K58.0 Irritable bowel syndrome with diarrhea; R10.13 Epigastric pain; E11.9 Type 2 diabetes mellitus without complications; I10 Essential (primary) hypertension; E55.9 Vitamin D deficiency, unspecified; E66.9 Obesity, unspecified; Z68.42 Body mass index [BMI] 45.0-49.9, adult; Z11.0 Encounter for screening for intestinal infectious diseases; Z12.11 Encounter for screening for malignant neoplasm of colon
CPT/HCPCS: 83013; 99202

== ENCOUNTER 2022-03-03 10:00 | Outpatient (RCR) | payer MEDICAID, SELFPAY ==
[2022-01-18 10:03] VITALS: BP 128/72; PULSE 91
== END 2022-03-03 10:55 | disposition home or self-care (01) ==
LOC: HO.PT 10:00
PROVIDERS: PCP Internal Medicine; Visit Provider Internal Medicine
DX: M25.561 Pain in right knee (principal)
CPT/HCPCS: 97110; 97112; 97140; 97161; 97530

== ENCOUNTER 2022-04-07 13:04 | Outpatient (REF) | payer MEDICAID, SELFPAY ==
[2022-04-07 14:29] LABS: Estimated Average Glucose 117 mg/dL; Hemoglobin A1C 129.7912 umol/L; Hemoglobin A1c % 5.7 %
[2022-04-07 15:00] LABS: TSH reflex Free T4 1.61 uIU/mL (0.32-4.0)
[2022-04-07 15:17] LABS: Folate 11.7 ng/mL (> or = 4.0); Vitamin B12 181 pg/mL (200-900)
[2022-04-12 13:36] LABS: Vitamin D 25-OH, D2 <4 ng/mL; Vitamin D 25-OH, D3 22 ng/mL; Vitamin D 25-OH, Total 22 ng/mL (30-100)
[2022-04-15 06:52] LABS: Transglutaminase Ab IgG <1.0 U/mL; Transglutaminase IgA <1.0 U/mL
== END 2022-04-07 13:05 | disposition home or self-care (01) ==
LOC: HO.LAB 13:04
PROVIDERS: PCP Internal Medicine; Visit Provider Nurse Practitioner Family
DX: R10.9 Unspecified abdominal pain (principal); E11.9 Type 2 diabetes mellitus without complications; R19.7 Diarrhea, unspecified; E55.9 Vitamin D deficiency, unspecified; K58.9 Irritable bowel syndrome, unspecified
CPT/HCPCS: 36415; 82306; 82607; 82746; 83036; 84443; 86140; 86364

== ENCOUNTER → 2022-05-04 13:55 | Outpatient (BNVA) | payer MEDICAID, SELFPAY | PROVIDERS: PCP Internal Medicine; Visit Provider Nurse Practitioner Family | DX: K58.2 Mixed irritable bowel syndrome (principal); K59.03 Drug induced constipation; T47.4X5A Adverse effect of other laxatives, initial encounter; R13.12 Dysphagia, oropharyngeal phase | CPT/HCPCS: 99212 ==

== ENCOUNTER 2022-05-31 11:20 | Outpatient (REF) | payer MEDICAID, SELFPAY ==
--- NOTE | ~2022-05-31 | MM_ITS ---
EXAMINATION: MM DIAGNOSTIC DIGITAL BREAST TOMOSYNTHESIS, BILATERAL US DIAGNOSTIC ULTRASOUND BREAST, LEFT CLINICAL INFORMATION: 56-year-old with 2 episodes of left breast bloody discharge approximately 2 months ago with squeezing. No spontaneous discharge. Also itchy sensation left nipple. No rash. No palpable mass. Due for yearly. The lifetime risk of breast cancer based on the Tyrer-Cuzick Model is 6%. COMPARISON: Mammography: 01/25/2021, 11/05/2019, 08/15/2018, 07/31/2018 TECHNIQUE: Digital breast tomosynthesis is performed in both the craniocaudal and mediolateral oblique views along with computer-aided detection (CAD). Synthesized 2D images are generated from the tomosynthesis. Additional bilateral CC and additional bilateral MLO views are obtained. Ultrasound left breast is targeted to the retroareolar and periareolar region. Grayscale imaging and color Doppler are performed without and with harmonics. FINDINGS: There are scattered areas of fibroglandular density (ACR BI-RADS breast composition Category b). Parenchymal pattern is similar to prior studies. There is scattered fine nodularity on the right similar to prior studies. Neither breast shows interval dominant mass or architectural abnormality or developing density. There is no retroareolar mass. No abnormal calcifications. The skin contours are smooth. The axilla are unremarkable. Ultrasound demonstrates no cystic or solid mass, architectural abnormality, or focal duct ectasia. No skin thickening or edema tracking in soft tissue planes. No abnormal color flow. Results are discussed with the patient at time of visit, using an system safety manager. MM/MM tomosynthesis diagnostic BI IMPRESSION: No mammographic evidence of malignancy or inflammatory changes. No significant changes from prior studies. ASSESSMENT: BI-RADS 2: Benign RECOMMENDATION: 1. Patient should be managed based on the clinical impression. If there is recurrent unexplained unilateral nipple discharge, further assessment may be considered with breast MRI without and with gadolinium contrast. 2. Otherwise, routine annual screening mammography. This patient's information was entered into a reminder system with a target due date for their next mammogram.
== END 2022-05-31 11:21 | disposition home or self-care (01) ==
LOC: HO.MAMMO 11:20
PROVIDERS: Visit Provider Internal Medicine
DX: N64.52 Nipple discharge (principal)
CPT/HCPCS: 76642; 77062; 77066

== ENCOUNTER 2022-06-20 14:07 | Outpatient (REF) | payer MEDICAID, SELFPAY ==
--- NOTE | ~2022-06-20 | FL_ITS ---
EXAMINATION: FL MODIFIED BARIUM SWALLOW CLINICAL INFORMATION: Dysphagia of the proximal esophagus times years. COMPARISON: None. TECHNIQUE: Routine modified barium swallow was performed in presence of speech therapist under lateral fluoroscopy in upright view. FINDINGS: Following oral administration of thick and thin barium, barium pudding, barium chicken and saltine crackers, there is normal propagation of bolus from the oral cavity through the pharynx and esophagus without obstruction, narrowing or retention in the valleculae or piriform sinuses. No laryngeal penetration or aspiration seen. FLUOROSCOPY TIME: 1.4 minutes. DOSE AREA PRODUCT: 3.355 uGy-m2 (microgray-meter squared). FL/FL barium swallow modified IMPRESSION: Normal modified barium swallow exam in presence of speech therapist. Correlate with speech therapy results.
--- NOTE | 2022-06-24 17:25 | MHC.SL.IMP ---
Date of Plan of Treatment: 06/20/22 Onset of Symptoms/Illness: 06/20/22 Date Treatment Started: 06/20/22 Admitting Diagnosis: Asthma Diabetes Hypertension Migraines Surgical hx: Carpal tunnel release Hysterectomy total Primary Speech & Language Diagnosis: R13.12 Oropharyngeal Phase Dysphagia Reason for Today's Visit: 42570 Modified Barium Swallow Study Pre-evaluation Dietary Consistencies: Regular Pre-evaluation Liquid Consistency: Thin Pre-evaluation Medication Administration: Whole with Liquid Medical History: [place] Modified Barium Swallow Study Fluoroscopic Evaluation of Swallowing Function CPT Code 62616 Evaluation Year: 2021 Reason for Study: Globus sensation Referring Physician: Lashell VAUGHN Evaluating Clinician: Stephania Gracia MA, CCC-ASSOCIATE [employer] Study Number: 1 Patient Name: Nereida Tejeda Status: Outpatient, Ambulatory Age: 56 Gender: Female MEDICAL HISTORY: Year of Onset or Diagnosis: 2021 Comorbidities: Asthma Diabetes Hypertension Migraines Surgical hx: Carpal tunnel release Hysterectomy total Current (pre-evaluation) Intake/Diet: Route: PO Diet Grade: Regular Liquid Consistencies: Thin Pre-Study Functional Oral Intake Scale (FOIS): 7- Total oral intake with no restrictions Pain: None reported at time of study SUBJECTIVE: Pt is a 56 year old female referred for a modified barium swallow study by Lashell VAUGHN from [facility]. Pt reported difficulty swallowing, mainly solids. Pt denied odynophagia and denied ever having choking episodes. Pt reports that when she eats solid food, she feels a sensation in her throat like she cannot clear her throat. Pt says she drinks water to clear the food. Pt denies having any difficulty swallowing liquids. Pt reports onset of dysphagia ?years ago.? Food and Liquid Trials: Oral Impairment: Lip Closure: Did not test Oral Impairment: Tongue Control During Bolus Hold: 0=Cohesive bolus between tongue to palatal seal Oral Impairment: Bolus Preparation/Mastication: 1=Slow prolonged chewing/mashing with complete re-collection Oral Impairment: Bolus Transport/Lingual Motion: 2=Slowed tongue motion Oral Impairment: Oral Residue: 1=Trace residue lining oral structures Oral Impairment:Initiation of Pharyngeal Swallow: 2=Bolus head at posterior laryngeal surface of epiglottis Pharyngeal Impairment: Soft Palate Elevation: 0=No bolus between soft palate (SP)/pharyngeal wall (PW) Pharyngeal Impairment: Laryngeal Elevation: 1=Partial thyroid cartilage/arytenoids to epiglottic petiole movement Pharyngeal Impairment: Anterior Hyoid Excursion: 1=Partial anterior movement Pharyngeal Impairment: Epiglottic Movement: 0=Complete inversion Pharyngeal Impairment: Laryngeal Vestibular Closure:: 0=Complete: no air/contrast in laryngeal vestibule Pharyngeal Impairment: Pharyngeal Stripping Wave: 1=Present: diminished Pharyngeal Impairment: Pharyngeal Contraction: Did not test Pharyngeal Impairment: Pharyngoesophageal Segment Openin=Complete distension and complete duration: no obstruction of flow Pharyngeal Impairment: Tongue Base (TB) Retraction: 1=Trace column of contrast/air between TB and posterior PW Pharyngeal Impairment: Pharyngeal Residue: 0=Complete pharyngeal clearance Pharyngeal Impairment: Esophageal Clearance Upright Position: 1=Esophageal retention Impressions and Recommendations Clinical Observations: OBJECTIVE: Time-out: performed at 02:45 Evaluation Start: 02:30; Stop: 02:40 Patient Positioning: Seated 70-90 degrees Viewing Planes: LATERAL ONLY Contrast: MBSImP? Standardized Protocol using commercially prepared, standardized Barium viscosities, including: Varibar? THIN LIQUID (40% w/v, <15 cps) , 1/2 Shortbread Cookie (1 x1 x.25 ) MBSImP ID: [id number] MBSImP Results: Lip closure for intraoral bolus containment could not be assessed due to logistical reasons not related to physiologic impairment. Tongue control during bolus hold maintained a cohesive bolus held between tongue to palate seal. Bolus preparation and mastication resulted in slow, prolonged chewing/mashing but with complete re-collection. Bolus transport/lingual motion was with slowed tongue motion. Oral residue was a trace, lining oral structures. Initiation of the pharyngeal swallow occurred as the bolus head was at the posterior laryngeal surface of the epiglottis. Soft palate elevation resulted in no bolus between the soft palate and the pharyngeal wall. Laryngeal elevation was decreased, with partial superior movement of the thyroid cartilage/partial approximation of the arytenoids to the epiglottic petiole. Anterior hyoid excursion demonstrated partial anterior movement. Epiglottic movement resulted in complete inversion. Laryngeal vestibular closure was complete, as indicated by no air or contrast within the laryngeal vestibule at the height of the swallow. Pharyngeal stripping wave was present, but diminished. Pharyngeal contraction could not be determined due to logistical reasons not related to physiologic impairment. Pharyngoesophageal segment opening was completely distended for complete duration with no obstruction of bolus flow. Tongue base retraction allowed a trace column of contrast or air between the retracted tongue base and the posterior pharyngeal wall. Pharyngeal residue was not present. There was complete pharyngeal clearance. Esophageal clearance in the upright position resulted in esophageal retention. Oral Impairment Score: 5 (absence of score, component 1) Pharyngeal Impairment Score: 3 (absence of score, component 13) Esophageal Impairment Score: 1 Laryngeal Penetration and Aspiration: Neither penetration nor aspiration was observed in today's study with Cookie, Thin. ASSESSMENT: Clinician Assessment: This exam was conducted by a multidisciplinary team, which included a speech pathologist, radiologist, and chemistry technician. Pt was seated at 90 degrees for lateral view only. Pt trialed the following liquid and solid consistencies: thin liquid barium by cup, pureed solid (mixture applesauce with barium paste), ground solid (mixture chicken salad with barium paste), and regular solid (Shanna Doone cookie coated with barium paste). Pt demonstrated good tongue control with no premature posterior escape of bolus. Lingual movements were mildly slow. Mastication was mildly slow and prolonged. There was trace oral residue which subsequently cleared. Pharyngeal swallow trigger initiated as bolus head reached posterior laryngeal surface of epiglottis. There was no nasopharyngeal reflux. Laryngeal elevation was incomplete with partial anterior hyoid excursion. Complete epiglottic inversion and complete laryngeal vestibular closure. There was no evidence of aspiration or penetration with solids and liquids during this exam. Complete pharyngeal clearance. There was no obstruction of flow through pharyngoesophageal segment opening. Noted esophageal retention. Liquid Intake Recommendation: Thin Liquid Intake Strategies: Small Sips Dietary Recommendations: Regular Medication Administration: Whole with Liquid Please contact the pharmacy regarding appropriate crushable or liquid drug formulations that are available whenever modified delivery is recommended. Compensatory Strategies Recommended: Sitting Upright (90 deg) Small Bites and Sips Alternate Liquids/Solids Rate of Ingestion Change Supervision during eating and or drinking: None Needed Recommendation for Speech Therapy: NA:Typical Evaluation Text Comment: PLAN: Intake Recommendations: Route: PO Diet Grade: Regular Liquid Consistencies: Thin Post-Study Functional Oral Intake Scale (FOIS): 7- Total oral intake with no restrictions Recommend resume unmodified diet regular solids and thin liquids, w/ continued workup with Denisa. Suggested Referrals: The patient might benefit from a referral to: Gastroenterology Therapy Recommendations: Therapy will be discontinued Prognosis for Improvement: The prognosis for the patient to meet nutritional needs by mouth is excellent based on degree of impairment. Clinician - Supplemental, Miscellaneous Communication: It is important to note MBSS objective studies are snapshots in time and Patient function might vary with factors such as time of day or concomitant medical conditions. For this reason, the final treatment plan for this patient should rest with their medical care team. Additional recommendations should be considered with the totality of the Patient in mind. Thank for the opportunity to participate in the care of this patient. If you have any questions about the content of this report, please contact the [facility] at [facility]. Education: Education regarding findings from today's study and plans for therapy were provided to Patient only through Verbal Instruction. Understanding was expressed by the Patient only. Leather Craftsman Clinician/Clinical Fellow: No Supervisory Statement: N/A Speech Language Pathologist: Stephania Gracia M.A., CCC-ASSOCIATE [employer]
== END 2022-06-20 14:08 | disposition home or self-care (01) ==
LOC: HO.XRAY 14:07
PROVIDERS: Visit Provider Nurse Practitioner Family
DX: R13.10 Dysphagia, unspecified (principal)
CPT/HCPCS: 74230; 92611

== ENCOUNTER → 2022-07-05 08:58 | Outpatient (BNVA) | payer MEDICAID, SELFPAY | PROVIDERS: PCP Internal Medicine; Visit Provider Nurse Practitioner Family | DX: Z12.11 Encounter for screening for malignant neoplasm of colon (principal); K59.04 Chronic idiopathic constipation; K58.1 Irritable bowel syndrome with constipation; K21.9 Gastro-esophageal reflux disease without esophagitis | CPT/HCPCS: 99212 ==

== ENCOUNTER 2022-08-30 09:54 | Outpatient (REF) | payer MEDICAID, SELFPAY ==
[2022-08-30 11:10] LABS: B Type Natriuretic Peptide 19 pg/mL (<100)
[2022-08-30 11:12] LABS: Anion Gap 18 (12-20); Blood Urea Nitrogen 9 mg/dL (9-16); Calcium 10.1 mg/dL (8.4-10.2); Carbon Dioxide 23 mmol/L (22-29); Chloride 105 mmol/L (96-108); Estimated Glomerular Filt Rate > 60; Glucose Random 96 mg/dL (60-115); Potassium 4.3 mmol/L (3.3-5.1); Sodium 142 mmol/L (135-145)
== END 2022-08-30 09:55 | disposition home or self-care (01) ==
LOC: HO.LAB 09:54
PROVIDERS: PCP Internal Medicine; Visit Provider Internal Medicine Cardiovascular Disease
DX: R06.02 Shortness of breath (principal)
CPT/HCPCS: 36415; 80048; 83880

== ENCOUNTER → 2022-09-27 08:51 | Outpatient (REF) | payer MEDICAID, SELFPAY ==
--- NOTE | ~2022-09-27 | NM_ITS ---
EXERCISE MYOCARDIAL PERFUSION STUDY INDICATION: Shortness of breath, assess for coronary disease and ischemia TECHNIQUE: The patient was brought in for an exercise perfusion study on 09/27/2022. Patient performed exercise as per Moisés protocol and was injected 40 mCi of sestamibi once target heart rate was achieved. Images were obtained using the SPECT gamma camera interlaced with the gating device. Images were obtained in supine position. Resting perfusion study was performed on 09/28/2022. Patient was administered 40 mCi of sestamibi intravenously at rest. Images were then obtained in supine position. Images were processed with the software and compared side to side in short axis, horizontal long axis and vertical long axis views. Total DLP 176mGy-cm. FINDINGS: Raw images were reviewed. The stress perfusion study showed no significant perfusion abnormalities. Both uncorrected as well as CT attenuation corrected images were reviewed. The gated study shows normal LV systolic function with calculated LVEF of 67%. LV cavity is normal in size. The gated study shows normal wall thickening and contraction of segments. Resting study shows no significant perfusion abnormality. Gating at rest reveals normal wall motion with ejection fraction at 60%. The findings are consistent with no reversible or fixed perfusion abnormality. NM/NM antonina perf SPECT rest & str IMPRESSION: 1. Myocardial perfusion imaging study shows likely normal myocardial perfusion. 2. Gated LVEF is 67% during stress and 60% during rest. 3. Transient ischemic dilatation not present. EKG component of the test reported separately.
--- NOTE | 2022-09-27 08:58 | CA_ITS ---
Acquisition Time: 2022-09-27 09:17:53 Total Exercise Time: 00:05:00 Test Indications: Dyspnea Medications: TRAZADONE PRO AIR MELOXICAM LOSARTAN LORATADINE CYCLOBENZAPRINE AMLODIPINE Protocol: SHARIF Max HR: 155 BPM 93% of Pred: 166 BPM Max BP: 164/084 mmHG Max Work Load: 7.0 METS Exercise stress test with exercise 5 min of Sharif protocol achieving 87% MPHR, with moderate to severe sob, report of 6/10 sharp left chest pain, without arrythmia, with normotensive response to exercise, without EKG changes meeting criteria for ischemia. In recovery her breathing gradually normalized and CP resolved with 4 min of rest. Nuclear images pending. Test reviewed with Dr Lay. Referred By: Ponce Mcconnell Overread By: TRISTIN HWANG
== END ==
LOC: HO.CARD 08:51
PROVIDERS: PCP Internal Medicine; Visit Provider Internal Medicine Cardiovascular Disease
DX: R06.02 Shortness of breath (principal)
CPT/HCPCS: 78452; 93017; A9500; J0280; J2785

== ENCOUNTER 2022-10-27 09:00 | Day surgery (SDC) | payer MEDICAID, SELFPAY ==
[2022-10-27 09:08] VITALS: BP 134/67; PULSE 65; RESP 16; TEMP 36.9; O2SAT 98
[2022-10-27 09:16] VITALS: BMI 46.8
--- NOTE | 2022-10-27 09:22 | P.CONAN_ITS ---
PENDING SALE TO [facility] Active Problems Active Problems: All Active Problems (Updated 10/21/22 @ 11:56 by Diana Hamilton RN) Carpal tunnel syndrome of left wrist (Acute) Carpal tunnel syndrome of right wrist (Acute) Migraines (Acute) Hypertension (Acute) Diabetes (Acute) Asthma (Acute) Past Medical History Medical History (Updated 10/21/22 @ 11:56 by Diana Hamilton RN) Asthma Chest pain Chronic TMJ pain Diabetes Hypercholesterolemia Hypertension Migraines Obesity Snoring Family History Family History Mother Diabetes Heart attack Ulcer of stomach due to bacteria Father Heart attack HTN (hypertension) Paternal Uncle Colon cancer Sister Lupus Family history of problems with anesthesia: No Surgical History Surgical History (Updated 10/21/22 @ 11:56 by Diana Hamilton RN) History of carpal tunnel release (~12/03/20) Hx of section Hx of cholecystectomy Hx of hysterectomy, total History of Problems with Anesthesia: No Social History Social History Alcohol intake: never Second Hand Smoke Exposure: No Advance Directives: No Advance Directives Information Provided: Yes Current occupational status: retired Current occupation: right and left handed Meds Allergies Allergy/AdvReac Type Severity Reaction Status Date / Time No Known Allergies Allergy Verified 10/21/22 11:56 [No Known Allergies*] Active Medications: Current Medications Albuterol Sulfate (Albuterol Sulfate (0.083%) 2.5 Mg/3 Ml Vial.Neb) 2.5 mg INHALE ONCE PRN PRN Reason: Shortness of Breath/Wheezing Lactated Ringer's (Lr) 1,000 mls @ 50 mls/hr IVCONT .Q20H [facility] Home Medications Medication Instructions Recorded Confirmed Last Taken Type albuterol sulfate 90 mcg/actuation 2 puff inhalation Q4-6H PRN 10/21/22 10/21/22 Unknown History aerosol inhaler (ProAir HFA) Wheezing amlodipine 10 mg tablet 1 tab PO DAILY 10/21/22 10/21/22 Unknown History furosemide 20 mg tablet 1 tab PO DAILY 10/21/22 10/21/22 Unknown History losartan 100 mg tablet 1 tab PO DAILY 10/21/22 10/21/22 Unknown History trazodone 50 mg tablet 0.5 - 1 tab PO BEDTIME 10/21/22 10/21/22 Unknown History Exam Exam Date and Time: October 27, 2022921 Height,Weight and Vital Signs: Last Vital Signs Temp 98.4 F 10/27/22 09:08 Pulse 65 10/27/22 09:08 Resp 16 10/27/22 09:08 BP 134/67 10/27/22 09:08 Pulse Ox 98 10/27/22 09:08 O2 Del Method 10/27/22 09:08 Airway Mallampati Class: III TM Dist: >3cm Neck ROM: Full Loose/Missing/Broken Teeth: Upper and Lower Assessment and Plan Assessment Anesthesia Assessment: Anesthesia Plan Discussed and Chart Reviewed Final Anesthetic Review Family History of Problems with Anesthesia: No History of Problems with Anesthesia: No NPO: Yes ASA Class: III Final Preanesthetic Review: No Changes in Pt Med Stat, Meds/Allgs Chart Reviewed, Consent Obtained/Reviewed and Anes Risks/Benef Reviewed Patient Risk: Intermediate Procedure Risk: Low Anesthetic Plan Anesthetic Plan: MAC: Disposition: Standard PACU
[2022-10-27 09:38] LABS: Glucose, Whole Blood 108 mg/dL (60-115)
[2022-10-27] MEDS: Lactated Ringers 1,000 ML 50 ML IVCONT (09:44)
--- NOTE | 2022-10-27 09:55 | MHC.SHP ---
Pre-Procedural Eval Section A Date of Service: 10/27/22 Section B Chief Complaint: diarrhea, dyspepsia Relevant Family History (Specify if Yes): No Relevant Social History: None Present Medications: see Short Stay Collaborative assessment Medical History: Significant History (Asthma Chest pain Chronic TMJ pain Diabetes Hypercholesterolemia Hypertension Migraines Obesity Snoring) History of Previous Operations: Relevant previous surgery/procedure and date(s) ( History of carpal tunnel release (~12/03/20) Hx of section Hx of cholecystectomy Hx of hysterectomy, total) Allergies: Allergies Allergy/AdvReac Type Severity Reaction Status Date / Time No Known Allergies Allergy Verified 10/27/22 09:28 [No Known Allergies*] Review of Systems Sugical H&P ROS: Negative: Constitution, Cardiovascular, Respiratory, Neurological, Psychiatric, Hem-Onc, Allergic/Immunologic, Gastrointestinal, Genitourinary, Musculoskeletal, Integumentary, Endocrine and Eyes/Ears/Nose/Throat Exam Surgical H&P Exam: Normal: HEENT, Normal: Heart, Normal: Lungs, Normal: Extremities, Normal: Abdomen, Normal: Skin and Normal: Neurological Plan Diagnosis/Plan: Unchanged I have reviewed the history and physical and performed a pertinent physical examination on my patient. No changes have occurred unless specified. Time Spent With Patient Time: Total time managing care of this patient today ____ minutes.
--- NOTE | 2022-10-27 10:18 | P.OP_ITS ---
Operative Note Operative Note Date of Service: 10/27/22 Narrative: Operative Information Procedure Description: EGD, Colonoscopy Indication: diarrhea, dyspepsia Anesthesia: MAC FLEXIBLE TRANSORAL UPPER GASTROINTESTINAL ENDOSCOPY AND COLONOSCOPY PROCEDURE NOTE UPPER ENDOSCOPY Consent: Indications for the procedure and potential complications of bleeding, perforation, reaction to medications and missed diagnosis were discussed with the patient and informed consent was obtained. Instrument: Olympus GIF H 190 J mid size upper endoscope Monitoring: Vital signs and clinical assessment, continuous EKG monitoring, Pulse oximetry, Carbon Dioxide monitoring and blood pressure monitoring were done throughout the procedure. Procedure: The patient was placed in the left lateral decubitis position and pre-procedure medications were administered and a bite block was placed. The endoscope was inserted into the mouth and advanced under direct vision to the third part of duodenum. A careful inspection was made as the upper endoscope was withdrawn including a retroflexed examination of the proximal stomach; Findings and interventions are described below. Findings: Larynx:normal Esophagus: GE junction at 35 cm, diaphragm hiatus at 35 cm, LA grade B erosive esophagitis noted at the GEJ, bx taken due to some nodularity Stomach: Patchy erythema. Biopsies were obtained. Grade 2 flap valve on retroflexed examination of the cardia. Duodenum: patchy erythema and blunting of mucosa, bx taken, but looked like peptic injury Intervention: Biopsies as noted above COLONOSCOPY Instrument: Olympus variable stiffness ADULT scope 190L Colonoscopy Monitoring: Vital signs and clinical assessment, continuous EKG monitoring, Pulse oximetry, Carbon Dioxide monitoring and blood pressure monitoring were done throughout the procedure. Colon withdrawal time was 8 minutes. Procedure: The patient was placed in the left lateral decubitis position and pre-procedure medications were administered. After a digital rectal examination of the ano-rectum, the video colonoscope was inserted into the rectum and advanced through the colon to the cecum/TI. The colonoscope was slowly withdrawn in a retrograde panoramic fashion and the colon mucosa was carefully examined including a retroflexed view of the rectum. Findings and interventions are described below. Procedure Difficulty:moderate due to tight sigmoid Findings: Terminal Ileum-normal, bx taken Random colon bx taken Cecum: 8-9 mm sessile polyp removed with cold snare and x 3 clips applied for hemostasis Ascending Colon: 8 mm sessile polyp removed with cold snare and x 1 clip applied for hemostasis Transverse Colon -normal Descending Colon:normal Sigmoid Colon: 7-9 mm sessile polyp removed piece meal with cold forceps Rectum: Retroflexion with small internal hemorrhoids, grade I Anorectum - normal Colon preparation: [place] Bowel Preparation Scale Right colon; 3 Transverse colon: 2 Left colon; 2 (0 = Unprepared colon segment with mucosa not seen due to solid stool that cannot be cleared. 1 = Portion of mucosa of the colon segment seen, but other areas of the colon segment not well seen due to staining, residual stool and/or opaque liquid. 2 = Minor amount of residual staining, small fragments of stool and/or opaque liquid, but mucosa of colon segment seen well. 3 = Entire mucosa of colon segment seen well with no residual staining, small fragments of stool or opaque liquid) Impression and Post Procedure Diagnosis: Endoscopy Findings: erosive esophagitis gastritis duodenitis Colonoscopy Findings: polyps internal hemorrhoids Plan: Await Pathology results Repeat Colonoscopy in 5 years due to adenomatous appearing polyps or earlier if clinically indicated High fiber diet leaflet avoid straining at stool, epsom salts and sitz bath, anusol supps or cream check nsaid use, PPI compliance, might need increased dose of PPI, if h pylori pos then treat lifestyle changes, weight loss Above findings were reviewed with the patient and relevant handouts were provided if indicated.
[2022-10-27 10:55] VITALS: BP 115/61; PULSE 62; RESP 22; TEMP 36.4; O2SAT 100
[2022-10-27 11:10] VITALS: BP 131/80; PULSE 62; RESP 20; O2SAT 100
[2022-10-27 11:25] VITALS: BP 142/70; PULSE 62; RESP 18; TEMP 36.2; O2SAT 100
== END 2022-10-27 12:13 | disposition home or self-care (01) ==
PROVIDERS: PCP Internal Medicine; Visit Provider Internal Medicine Gastroenterology
PROC: (CPT 45385; principal; 2022-10-27 11:00)
DX: Z12.11 Encounter for screening for malignant neoplasm of colon (principal); D12.0 Benign neoplasm of cecum; D12.2 Benign neoplasm of ascending colon; K51.40 Inflammatory polyps of colon without complications; K64.0 First degree hemorrhoids; K58.1 Irritable bowel syndrome with constipation; R19.7 Diarrhea, unspecified; K21.9 Gastro-esophageal reflux disease without esophagitis; K20.80 Other esophagitis without bleeding; K29.70 Gastritis, unspecified, without bleeding; K29.80 Duodenitis without bleeding; J45.909 Unspecified asthma, uncomplicated; I10 Essential (primary) hypertension; E78.00 Pure hypercholesterolemia, unspecified; E11.9 Type 2 diabetes mellitus without complications; E66.9 Obesity, unspecified; Z68.43 Body mass index [BMI] 50.0-59.9, adult; G43.909 Migraine, unspecified, not intractable, without status migrainosus; Z79.899 Other long term (current) drug therapy
CPT/HCPCS: 45385; 45380; 43239; 82947; 88305; 88342

== ENCOUNTER → 2022-11-11 08:55 | Outpatient (BNVA) | payer MEDICAID, SELFPAY | PROVIDERS: PCP Internal Medicine; Visit Provider Nurse Practitioner Family | DX: D12.2 Benign neoplasm of ascending colon (principal); K59.04 Chronic idiopathic constipation; K58.2 Mixed irritable bowel syndrome; K21.00 Gastro-esophageal reflux disease with esophagitis, without bleeding; K64.9 Unspecified hemorrhoids; Z79.899 Other long term (current) drug therapy; Z98.890 Other specified postprocedural states | CPT/HCPCS: 99212 ==

== ENCOUNTER 2022-11-15 17:14 | Emergency (ER) | payer MEDICAID, SELFPAY ==
--- NOTE | ~2022-11-15 | CT_ITS ---
EXAMINATION: CT ABDOMEN AND PELVIS WITHOUT CONTRAST CLINICAL INFORMATION: Left lower quadrant tenderness on palpation. Concern for diverticulitis. COMPARISON: None TECHNIQUE: Multidetector volumetric imaging was performed from the superior aspect of the liver through the pubic symphysis. Sagittal and coronal reformatted images were obtained on the technologist's workstation. This CT examination was performed using dose optimization techniques as appropriate, variously including the following: *Automated exposure control *Adjustment of mA and/or kV according to patient size (this includes techniques or standardized protocols for targeted exams where dose is matched to indication/reason for exam; i.e. extremities or head) *Use of iterative reconstruction technique DLP: 974 mGy-cm FINDINGS: LUNG BASES: The visualized lung bases are unremarkable. LIVER, GALLBLADDER, AND BILIARY TREE: The liver is normal in size, shape, and attenuation. No focal hepatic lesion or biliary ductal dilatation is present. The gallbladder is unremarkable with no evidence of radiopaque gallstones, gallbladder wall thickening, or obvious pericholecystic inflammatory changes. PANCREAS: Unremarkable. SPLEEN: Unremarkable. ADRENAL GLANDS: Unremarkable. KIDNEYS AND URETERS: There is a 2 mm stone at the upper pole of left kidney. No stone right kidney. No ureteral calculi or hydronephrosis. The BLADDER: Unremarkable. GASTROINTESTINAL TRACT: There are 4 metallic linear objects in the right colon that the cecum and ascending colon. Correlate with history. No dilated bowel loop. Nonobstructive bowel pattern. No focal inflammation. No subarticular for diverticulitis. The appendix is normal. The small bowel loops are unremarkable. Stomach is normal. There is a small hiatal hernia. ABDOMINAL WALL: No significant hernia is appreciated. LYMPH NODES: Normal. VASCULAR: Unremarkable. PELVIC VISCERA: Uterus is absent. No adnexal abnormality. OSSEOUS STRUCTURES: Unremarkable. CT/CT abdomen pelvis wo IV con IMPRESSION: 1. No acute abnormality CT scan abdomen pelvis. 2. There are 4 metallic linear objects in the right colon. Correlate with history. 3. Status post hysterectomy. Fleischner guidelines were followed.
[2022-11-15 17:52] VITALS: BP 143/66; PULSE 113; RESP 18; TEMP 36.3; O2SAT 98; BMI 47.6
--- NOTE | 2022-11-15 17:55 | ED.GENADULT ---
HPI - General Adult General Chief complaint: Abdominal Pain <PRATIMA Sandhu - Last Filed: 11/28/22 09:42> Stated complaint: abdominal pain/ diarrhea/ vomiting <PRATIMA Sandhu - Last Filed: 11/28/22 09:42> Time Seen by Provider: 11/15/22 22:21 <PRATIMA Sandhu - Last Filed: 11/28/22 09:42> Source: patient <Lauren Barrow CNP - Last Filed: 11/16/22 00:23> Mode of arrival: ambulatory <Lauren Barrow CNP - Last Filed: 11/16/22 00:23> Limitations: language barrier (Turkmen-speaking medical research associate utilized) <Lauren Barrow CNP - Last Filed: 11/16/22 00:23> History of Present Illness HPI narrative: Patient is a 56 old female who presents emergency department for evaluation of abdominal pain. Onset of pain was yesterday evening, it is described as sharp and uncomfortable. Abdominal pain is predominantly to the left upper quadrant and has associated nausea without vomiting, and multiple episodes of diarrhea without melena/hematochezia/mucus. Denies any fevers or chills. Denies any recent new foods or eating out at restaurants. No other individuals in home are ill with similar symptoms. She does report a history of IBS but typically she experiences constipation, she is followed by Gastroenterology at [place], and has upcoming colonoscopy scheduled. Denies any upper respiratory symptoms. Denies chest pain, shortness of breath, difficulty breathing, dysuria, urinary frequency/urgency/hesitancy. <Lauren Barrow CNP - Last Filed: 11/16/22 00:23> Related Data Home medications: Home Medications Medication Instructions Recorded Confirmed albuterol sulfate 90 mcg/actuation 2 puff inhalation Q4-6H PRN 10/21/22 10/27/22 aerosol inhaler (ProAir HFA) Wheezing amlodipine 10 mg tablet 1 tab PO DAILY 10/21/22 10/27/22 furosemide 20 mg tablet 1 tab PO DAILY 10/21/22 10/27/22 losartan 100 mg tablet 1 tab PO DAILY 10/21/22 10/27/22 trazodone 50 mg tablet 0.5 - 1 tab PO BEDTIME 10/21/22 10/27/22 Previous Rx's Medication Instructions Recorded meclizine 25 mg tablet 25 mg PO TID PRN dizziness #30 tabs 08/25/21 lidocaine 5 % topical patch 1 patch topical DAILY pain #15 ea 01/07/22 (Lidoderm) naproxen 500 mg tablet 500 mg PO BID PRN pain #10 tabs 01/07/22 cholecalciferol (vitamin D3) 50 50 mcg PO DAILY #90 caps 05/04/22 mcg (2,000 unit) capsule cyanocobalamin (vitamin B-12) 500 500 mcg PO DAILY #30 tabs 05/04/22 mcg tablet (Vitamin B-12) hydrocortisone 2.5 % topical cream 1 appl RI BID-QID PRN hemorrhoids 11/11/22 with perineal applicator #30 grams (Proctosol HC) methylcellulose (laxative) 500 mg 500 mg PO DAILY #90 tabs 11/11/22 tablet (Citrucel) omeprazole 20 mg capsule,delayed 20 mg PO BID #180 caps 11/11/22 release sennosides 8.6 mg tablet (Natural 17.2 mg PO BEDTIME constipation 11/11/22 Senna Laxative) #180 tabs <PRATIMA Sandhu - Last Filed: 11/28/22 09:42> Allergies/adverse reactions: Allergies Allergy/AdvReac Type Severity Reaction Status Date / Time No Known Allergies Allergy Verified 11/11/22 09:11 [No Known Allergies*] <PRATIMA Sandhu - Last Filed: 11/28/22 09:42> Review of Systems Review of Systems: Constitutional : No Weight loss, No Fever, No Chills ENT/Mouth :? No sore throat, No Rhinorrhea Eyes: No Swelling, No Redness Cardiovascular : No Chest Pain, No SOB, No Edema Respiratory : No Cough, No Sputum, No Wheezing Gastrointestinal : Positive Nausea, no Vomiting, positive Diarrhea, positive abdominal pain, No Hematochezia, No Melena Genitourinary : No Dysuria, No Urinary Frequency, No Hematuria, No Urgency? Musculoskeletal : No joint pain, No Myalgias, No Joint Swelling Skin : No Skin Lesions, No rash Neuro : No Weakness, No Numbness, No Dizziness, No Headache Psych : No Anxiety/Panic, No Depression Heme/Lymph: No Bruising, No Lymphadenopathy Endocrine : No Polyuria, No Polydipsia <Lauren Barrow CNP - Last Filed: 11/16/22 00:23> Yes all other systems are reviewed and are negative <Lauren Barrow CNP - Last Filed: 11/16/22 00:23> [facility] Past Medical History Attestation statement: The following information was validated with the patient. <Lauren Barrow CNP - Last Filed: 11/16/22 00:23> Source: old records reviewed <Lauren Barrow CNP - Last Filed: 11/16/22 00:23> Medical History: Medical History Asthma Chest pain Chronic TMJ pain Diabetes Hypercholesterolemia Hypertension Migraines Obesity Snoring Tubular adenoma <PRATIMA Sandhu - Last Filed: 11/28/22 09:42> Surgical History: Surgical History History of carpal tunnel release (~12/03/20) History of esophagogastroduodenoscopy (EGD) Hx of section Hx of cholecystectomy Hx of colonoscopy Hx of hysterectomy, total <PRATIMA Sandhu - Last Filed: 11/28/22 09:42> Family History Family History: Family History Mother Diabetes Heart attack Ulcer of stomach due to bacteria Father Heart attack HTN (hypertension) Paternal Uncle Colon cancer Sister Lupus <PRATIMA Sandhu - Last Filed: 11/28/22 09:42> Social History Social History: Social History Alcohol intake: never Patient Tobacco Use Status: Never used Tobacco Second Hand Smoke Exposure: No Advance Directives: No Advance Directives Information Provided: No Current occupational status: retired Current occupation: right and left handed <PRATIMA Sandhu - Last Filed: 11/28/22 09:42> Physical Exam ED Vital Signs: Vital Signs - 24 hr 11/15/22 17:52 11/15/22 21:44 11/15/22 22:00 Temperature 97.4 F 98.4 F 98.9 F Pulse Rate 113 H 102 H 73 Respiratory Rate 18 20 17 Blood Pressure 143/66 H 126/75 131/69 Pulse Oximetry 98 97 96 Oxygen Delivery Method Room Air Room Air Room Air 11/15/22 23:53 Temperature 98.0 F Pulse Rate 100 Respiratory Rate 18 Blood Pressure 132/74 Pulse Oximetry 95 Oxygen Delivery Method Room Air BMI result Body Mass Index 47.6 <PRATIMA Sandhu - Last Filed: 11/28/22 09:42> Vital Signs - 24 hr 11/15/22 17:52 11/15/22 21:44 11/15/22 22:00 Temperature 97.4 F 98.4 F 98.9 F Pulse Rate 113 H 102 H 73 Respiratory Rate 18 20 17 Blood Pressure 143/66 H 126/75 131/69 Pulse Oximetry 98 97 96 Oxygen Delivery Method Room Air Room Air Room Air 11/15/22 23:53 Temperature 98.0 F Pulse Rate 100 Respiratory Rate 18 Blood Pressure 132/74 Pulse Oximetry 95 Oxygen Delivery Method Room Air BMI result Body Mass Index 47.6 <Lauren Barrow CNP - Last Filed: 11/16/22 00:23> Appearance: Alert.?Oriented to person, place and time. No acute distress.?Normal affect. Eyes: Pupils equal, round and reactive to light.? ENT: Pharynx normal.?? Neck: Normal inspection.? Neck supple.?? CVS: Heart sounds normal. Normal heart rate and rhythm.? Pulses normal.?? Respiratory: No respiratory distress.? Lung sounds clear to auscultation bilaterally?? Abdomen: Soft and non-tender. Negative Guan sign. No rebound tenderness. Normoactive bowel sounds. Skin: Skin warm and dry.? Normal skin color.? ? Extremities: No lower extremity edema.? Neuro: Moves all extremities spontaneously. Sensation intact bilaterally. No focal neuro deficits. Ambulates with normal steady gait. <Lauren Barrow CNP - Last Filed: 11/16/22 00:23> Course Course Course Narrative: RME: 56 yold female presens to the ED for LLQ abdoinal pain with nausea, vomitting, and diarrhea. positive for LLQ tenderness on palpation. labs, CT scan, and SARS ordered <PRATIMA Sandhu - Last Filed: 11/28/22 09:42> Reevaluation(s) Reevaluation #1: CBC reveals mild leukocytosis at 12.7, which may be inflammatory versus infectious no anemia. CMP is overall normal. Lipase within normal limits. Viral testing is negative. CT of the abdomen and pelvis is overall normal, incidental notation of metallic objects within the right colon, per patient clips were placed with polypectomy. Urinalysis without evidence of infection or microscopic hematuria. At this time suspect that symptoms are most likely related to potential gastroenteritis versus IBS. She is tolerating oral solids and fluids while in the emergency department. She is followed by Gastroenterology at [facility]; reviewed recent office visit note from 11/11/2022, patient currently prescribed Senokot 2 tablets every evening, in addition to MiraLax daily, advised patient to hold these medications at this time until diarrhea resolves. Advised to contact GI office to arrange for follow-up. Reviewed worrisome signs and symptoms to return back to emergency department for. All questions answered. Patient ambulatory with a steady gait, she is stable for discharge. <Lauren Barrow CNP - Last Filed: 11/16/22 00:23> Time: 11:30 <Lauren Barrow CNP - Last Filed: 11/16/22 00:23> Medical Decision Making Medical Decision Making [facility] Narrative: Patient is a 56 old female who presents emergency department for evaluation of abdominal pain with associated nausea and diarrhea without vomiting. Overall she is well-appearing at the time of examination. Vital signs within normal limits. Afebrile without tachycardia tachypnea or hypoxia. Abdominal examination is overall benign, no overt tenderness upon palpation, no rigidity and no guarding. Does not appear consistent with acute abdomen. Will obtain CBC to evaluate for leukocytosis/ anemia, CMP and lipase to evaluate for abnormal electrolytes /abnormal renal function/ abnormal hepatic/biliary function, CT of the abdomen and pelvis to evaluate for diverticulitis, colitis, bowel obstruction, appendicitis, cholecystitis, and will obtain Urinalysis. <Lauren Barrow CNP - Last Filed: 11/16/22 00:23> Differential Diagnosis Differential Diagnoses: The differential diagnosis associated with the presentation includes (As noted above) <Lauren Barrow CNP - Last Filed: 11/16/22 00:23> Lab Data [facility] Lab Attestation statement: I reviewed the patient's lab results. <Lauren Barrow CNP - Last Filed: 11/16/22 00:23> Result Diagrams: 11/15/22 18:03 11/15/22 18:03 <PRATIMA Sandhu - Last Filed: 11/28/22 09:42> Labs: Lab Results 11/15/22 11/15/22 11/15/22 Range/Units 18:03 18:03 18:03 WBC 12.7 H (4.8-10.8) X10*3/uL RBC 5.38 (4.20-5.50) X10*6/uL Hgb 14.8 (12.0-16.0) g/dl Hct 43.5 (37.0-47.0) % MCV 80.9 (80.0-98.0) fL MCH 27.5 (27.0-33.0) pg MCHC 34.0 (31.0-35.0) g/dl RDW 13.8 (11.0-16.0) % Plt Count 326 (160-400) X10*3/uL MPV 10.6 (9.4-12.3) fL Immature Gran % (Auto) 0.3 (0.0-0.4) % Neut % (Auto) 87.3 H (45-73) % Lymph % (Auto) 8.2 L (20-40) % [place] % (Auto) 3.5 (2-11) % Eos % (Auto) 0.6 (0-4) % Baso % (Auto) 0.1 (0-2) % Lymph # (Auto) 1.0 L (1.2-4.9) X10*3/uL [place] # (Auto) 0.5 (0.1-1.2) X10*3/uL Eos # (Auto) 0.1 (0.0-0.4) X10*3/uL Baso # (Auto) 0.0 (0.0-0.2) X10*3/uL Abs Immat Gran (auto) 0.04 H (0.00-0.03) X10*3/uL Absolute Neuts (auto) 11.1 H (2.0-8.3) x10*3/uL Absolute Nucleated RBC 0.000 (0.0-0.012) X10*3/uL Nucleated RBC % (auto) 0.0 (0.0-0.2) /100WBC PT 11.7 (10.0-13.1) SEC INR 1.0 (0.9-1.1) APTT 30.5 (26.0-36.4) SEC Sodium 138 (135-145) mmol/L Potassium 4.3 (3.3-5.1) mmol/L Chloride 104 (96-108) mmol/L Carbon Dioxide 20 L (22-29) mmol/L Anion Gap 18 (12-20) BUN 14 (9-16) mg/dL Creatinine 0.69 (0.5-1.4) mg/dL Estim Creat Clear Calc 105.2 Estimated GFR > 60 Random Glucose 134 H (60-115) mg/dL Calcium 9.9 (8.4-10.2) mg/dL Total Bilirubin 0.9 (0.0-1.0) mg/dL AST 29 (5-31) U/L ALT 32 H (0-31) U/L Alkaline Phosphatase 72 (39-117) U/L Total Protein 7.8 (6.5-8.0) g/dL Albumin 4.4 (3.5-5.0) g/dL Lipase 16 (8-78) U/L Urine Color Urine Appearance Urine pH (5.0-9.0) Ur Specific [place] (1.005-1.025) Urine Protein (Neg-Trace) mg/dL Urine Glucose (UA) (Negative) mg/dL Urine Ketones (Negative) mg/dL Urine Blood (Negative) Urine Nitrite (Negative) Ur Leukocyte Esterase (Negative) Influenza Type A (PCR) (Negative) Influenza Type B (PCR) (Negative) RSV RNA Qual (PCR) (Negative) SARS-CoV-2 RNA (RT-PCR) (Negative) 11/15/22 11/15/22 Range/Units 18:03 23:17 WBC (4.8-10.8) X10*3/uL RBC (4.20-5.50) X10*6/uL Hgb (12.0-16.0) g/dl Hct (37.0-47.0) % MCV (80.0-98.0) fL MCH (27.0-33.0) pg MCHC (31.0-35.0) g/dl RDW (11.0-16.0) % Plt Count (160-400) X10*3/uL MPV (9.4-12.3) fL Immature Gran % (Auto) (0.0-0.4) % Neut % (Auto) (45-73) % Lymph % (Auto) (20-40) % [place] % (Auto) (2-11) % Eos % (Auto) (0-4) % Baso % (Auto) (0-2) % Lymph # (Auto) (1.2-4.9) X10*3/uL [place] # (Auto) (0.1-1.2) X10*3/uL Eos # (Auto) (0.0-0.4) X10*3/uL Baso # (Auto) (0.0-0.2) X10*3/uL Abs Immat Gran (auto) (0.00-0.03) X10*3/uL Absolute Neuts (auto) (2.0-8.3) x10*3/uL Absolute Nucleated RBC (0.0-0.012) X10*3/uL Nucleated RBC % (auto) (0.0-0.2) /100WBC PT (10.0-13.1) SEC INR (0.9-1.1) APTT (26.0-36.4) SEC Sodium (135-145) mmol/L Potassium (3.3-5.1) mmol/L Chloride (96-108) mmol/L Carbon Dioxide (22-29) mmol/L Anion Gap (12-20) BUN (9-16) mg/dL Creatinine (0.5-1.4) mg/dL Estim Creat Clear Calc Estimated GFR Random Glucose (60-115) mg/dL Calcium (8.4-10.2) mg/dL Total Bilirubin (0.0-1.0) mg/dL AST (5-31) U/L ALT (0-31) U/L Alkaline Phosphatase (39-117) U/L Total Protein (6.5-8.0) g/dL Albumin (3.5-5.0) g/dL Lipase (8-78) U/L Urine Color Yellow Urine Appearance Cloudy Urine pH 5.5 (5.0-9.0) Ur Specific [place] >= 1.030 H (1.005-1.025) Urine Protein Trace (Neg-Trace) mg/dL Urine Glucose (UA) Negative (Negative) mg/dL Urine Ketones Negative (Negative) mg/dL Urine Blood Negative (Negative) Urine Nitrite Negative (Negative) Ur Leukocyte Esterase Negative (Negative) Influenza Type A (PCR) NEGATIVE (Negative) Influenza Type B (PCR) NEGATIVE (Negative) RSV RNA Qual (PCR) NEGATIVE (Negative) SARS-CoV-2 RNA (RT-PCR) NEGATIVE (Negative) <PRATIMA Sandhu - Last Filed: 11/28/22 09:42> Lab Results 11/15/22 11/15/22 11/15/22 Range/Units 18:03 18:03 18:03 WBC 12.7 H (4.8-10.8) X10*3/uL RBC 5.38 (4.20-5.50) X10*6/uL Hgb 14.8 (12.0-16.0) g/dl Hct 43.5 (37.0-47.0) % MCV 80.9 (80.0-98.0) fL MCH 27.5 (27.0-33.0) pg MCHC 34.0 (31.0-35.0) g/dl RDW 13.8 (11.0-16.0) % Plt Count 326 (160-400) X10*3/uL MPV 10.6 (9.4-12.3) fL Immature Gran % (Auto) 0.3 (0.0-0.4) % Neut % (Auto) 87.3 H (45-73) % Lymph % (Auto) 8.2 L (20-40) % [place] % (Auto) 3.5 (2-11) % Eos % (Auto) 0.6 (0-4) % Baso % (Auto) 0.1 (0-2) % Lymph # (Auto) 1.0 L (1.2-4.9) X10*3/uL [place] # (Auto) 0.5 (0.1-1.2) X10*3/uL Eos # (Auto) 0.1 (0.0-0.4) X10*3/uL Baso # (Auto) 0.0 (0.0-0.2) X10*3/uL Abs Immat Gran (auto) 0.04 H (0.00-0.03) X10*3/uL Absolute Neuts (auto) 11.1 H (2.0-8.3) x10*3/uL Absolute Nucleated RBC 0.000 (0.0-0.012) X10*3/uL Nucleated RBC % (auto) 0.0 (0.0-0.2) /100WBC PT 11.7 (10.0-13.1) SEC INR 1.0 (0.9-1.1) APTT 30.5 (26.0-36.4) SEC Sodium 138 (135-145) mmol/L Potassium 4.3 (3.3-5.1) mmol/L Chloride 104 (96-108) mmol/L Carbon Dioxide 20 L (22-29) mmol/L Anion Gap 18 (12-20) BUN 14 (9-16) mg/dL Creatinine 0.69 (0.5-1.4) mg/dL Estim Creat Clear Calc 105.2 Estimated GFR > 60 Random Glucose 134 H (60-115) mg/dL Calcium 9.9 (8.4-10.2) mg/dL Total Bilirubin 0.9 (0.0-1.0) mg/dL AST 29 (5-31) U/L ALT 32 H (0-31) U/L Alkaline Phosphatase 72 (39-117) U/L Total Protein 7.8 (6.5-8.0) g/dL Albumin 4.4 (3.5-5.0) g/dL Lipase 16 (8-78) U/L Urine Color Urine Appearance Urine pH (5.0-9.0) Ur Specific [place] (1.005-1.025) Urine Protein (Neg-Trace) mg/dL Urine Glucose (UA) (Negative) mg/dL Urine Ketones (Negative) mg/dL Urine Blood (Negative) Urine Nitrite (Negative) Ur Leukocyte Esterase (Negative) Influenza Type A (PCR) (Negative) Influenza Type B (PCR) (Negative) RSV RNA Qual (PCR) (Negative) SARS-CoV-2 RNA (RT-PCR) (Negative) 11/15/22 11/15/22 Range/Units 18:03 23:17 WBC (4.8-10.8) X10*3/uL RBC (4.20-5.50) X10*6/uL Hgb (12.0-16.0) g/dl Hct (37.0-47.0) % MCV (80.0-98.0) fL MCH (27.0-33.0) pg MCHC (31.0-35.0) g/dl RDW (11.0-16.0) % Plt Count (160-400) X10*3/uL MPV (9.4-12.3) fL Immature Gran % (Auto) (0.0-0.4) % Neut % (Auto) (45-73) % Lymph % (Auto) (20-40) % [place] % (Auto) (2-11) % Eos % (Auto) (0-4) % Baso % (Auto) (0-2) % Lymph # (Auto) (1.2-4.9) X10*3/uL [place] # (Auto) (0.1-1.2) X10*3/uL Eos # (Auto) (0.0-0.4) X10*3/uL Baso # (Auto) (0.0-0.2) X10*3/uL Abs Immat Gran (auto) (0.00-0.03) X10*3/uL Absolute Neuts (auto) (2.0-8.3) x10*3/uL Absolute Nucleated RBC (0.0-0.012) X10*3/uL Nucleated RBC % (auto) (0.0-0.2) /100WBC PT (10.0-13.1) SEC INR (0.9-1.1) APTT (26.0-36.4) SEC Sodium (135-145) mmol/L Potassium (3.3-5.1) mmol/L Chloride (96-108) mmol/L Carbon Dioxide (22-29) mmol/L Anion Gap (12-20) BUN (9-16) mg/dL Creatinine (0.5-1.4) mg/dL Estim Creat Clear Calc Estimated GFR Random Glucose (60-115) mg/dL Calcium (8.4-10.2) mg/dL Total Bilirubin (0.0-1.0) mg/dL AST (5-31) U/L ALT (0-31) U/L Alkaline Phosphatase (39-117) U/L Total Protein (6.5-8.0) g/dL Albumin (3.5-5.0) g/dL Lipase (8-78) U/L Urine Color Yellow Urine Appearance Cloudy Urine pH 5.5 (5.0-9.0) Ur Specific [place] >= 1.030 H (1.005-1.025) Urine Protein Trace (Neg-Trace) mg/dL Urine Glucose (UA) Negative (Negative) mg/dL Urine Ketones Negative (Negative) mg/dL Urine Blood Negative (Negative) Urine Nitrite Negative (Negative) Ur Leukocyte Esterase Negative (Negative) Influenza Type A (PCR) NEGATIVE (Negative) Influenza Type B (PCR) NEGATIVE (Negative) RSV RNA Qual (PCR) NEGATIVE (Negative) SARS-CoV-2 RNA (RT-PCR) NEGATIVE (Negative) <Lauren Barrow CNP - Last Filed: 11/16/22 00:23> Radiology Impression Discussion of test interpretation with radiology: I have reviewed the radiologist's reading. <Lauren Barrow CNP - Last Filed: 11/16/22 00:23> Radiologist Impression: CT/CT abdomen pelvis wo IV con IMPRESSION: 1.? No acute abnormality CT scan abdomen pelvis. 2.? There are 4 metallic linear objects in the right colon. Correlate with history. 3.? Status post hysterectomy. <Lauren Barrow CNP - Last Filed: 11/16/22 00:23> Independent Historian Clinical information obtained from an independent historian. History obtained from or confirmed by: Spouse (Patient's is present at bedside who confirms history.) <KHARI Parish Last Filed: 11/16/22 00:23> External Record Review External record reviewed: Outpatient record (Gastroenterology as noted in course) <KHARI Parish Last Filed: 11/16/22 00:23> Prescription Management I considered prescription management with: Pain Medication <Lauren Barrow CNP - Last Filed: 11/16/22 00:23> Discharge Plan Discharge Clinical Impression: Gastroenteritis <PRATIMA Sandhu - Last Filed: 11/28/22 09:42> Patient Disposition: Home, Self-Care <PRATIMA Sandhu - Last Filed: 11/28/22 09:42> Instructions: Gastroenteritis (ED) <PRATIMA Sandhu - Last Filed: 11/28/22 09:42> Additional Instructions: As we discussed, do not use Senokot or MiraLax at this time until your diarrhea resolves. Please be sure to rest, drink plenty of fluids. Introduce a bland diet including crackers, bananas, rice, soup, toast, and boiled vegetables. This may progress to plain baked or boiled chicken or turkey. Avoid dairy products or foods high in fat or grease. Contact Gastroenterology and arrange for a follow-up visit. Return back to the emergency department with any new or worsening symptoms or concerns. <PRATIMA Sandhu - Last Filed: 11/28/22 09:42> Prescriptions: No Action meclizine 25 mg tablet 25 mg PO TID PRN (Reason: dizziness) Qty: 30 0RF lidocaine [Lidoderm] 5 % adhesive patch,medicated 1 patch topical DAILY Qty: 15 0RF Rx Instructions: leave on most painful area for up to 12 hrs. May be substituted naproxen 500 mg tablet 500 mg PO BID PRN (Reason: pain) Qty: 10 0RF trazodone 50 mg tablet 0.5 - 1 tab PO BEDTIME amlodipine 10 mg tablet 1 tab PO DAILY furosemide 20 mg tablet 1 tab PO DAILY albuterol sulfate [ProAir HFA] 90 mcg/actuation HFA aerosol inhaler 2 puff INHALATION Q4-6H PRN (Reason: Wheezing) losartan 100 mg tablet 1 tab PO DAILY cholecalciferol (vitamin D3) 50 mcg (2,000 unit) capsule 50 mcg PO DAILY Qty: 90 3RF cyanocobalamin (vitamin B-12) [Vitamin B-12] 500 mcg tablet 500 mcg PO DAILY Qty: 30 5RF Citrucel 500 mg tablet 500 mg PO DAILY Qty: 90 2RF Rx Instructions: take it with full glass of water sennosides [Natural Senna Laxative] 8.6 mg tablet 17.2 mg PO BEDTIME Qty: 180 3RF omeprazole 20 mg capsule,delayed release(DR/EC) 20 mg PO BID Qty: 180 3RF hydrocortisone [Proctosol HC] 2.5 % cream with perineal applicator 1 appl RI BID-QID PRN (Reason: hemorrhoids) Qty: 30 2RF <PRATIMA Sandhu - Last Filed: 11/28/22 09:42> Referrals: Vera Freeman MD [Primary Care Provider] - Lashell Jason FNP- [Nurse Practitioner] - <PRATIMA Sandhu - Last Filed: 11/28/22 09:42> Interventions: ED Discharge Assessment Last Done: 11/16/22 00:29 <PRATIMA Sandhu - Last Filed: 11/28/22 09:42> Discharge Date/Time: 11/16/22 00:30 <PRATIMA Sandhu - Last Filed: 11/28/22 09:42> Print Language: Turkmen <PRATIMA Sandhu - Last Filed: 11/28/22 09:42>
[2022-11-15 18:17] LABS: MANUAL DIFF FLAG NO
[2022-11-15 18:19] LABS: Basophils Percent Auto 0.1 % (0-2); Eosinophils Absolute Auto 0.1 X10*3/uL (0.0-0.4); Eosinophils Percent Auto 0.6 % (0-4); Hematocrit 43.5 % (37.0-47.0); Hemoglobin 14.8 g/dl (12.0-16.0); Imm Gran Abs Auto 0.04 X10*3/uL (0.00-0.03); Imm Gran Pct Auto 0.3 % (0.0-0.4); Lymphocytes Percent Auto 8.2 % (20-40); Mean Corpuscular Hemoglobin 27.5 pg (27.0-33.0); Mean Corpuscular Volume 80.9 fL (80.0-98.0); Mean Platelet Volume 10.6 fL (9.4-12.3); Monocytes Absolute Auto 0.5 X10*3/uL (0.1-1.2); Monocytes Percent Auto 3.5 % (2-11); Neutrophils Absolute Auto 11.1 x10*3/uL (2.0-8.3); Neutrophils Percent Auto 87.3 % (45-73); Platelet Count 326 X10*3/uL (160-400); Red Blood Count 5.38 X10*6/uL (4.20-5.50); Red Cell Distribution Width 13.8 % (11.0-16.0); White Blood Count 12.7 X10*3/uL (4.8-10.8)
[2022-11-15 18:29] LABS: Prothrombin Time 11.7 SEC (10.0-13.1)
[2022-11-15 18:32] LABS: Partial Thromboplastin Time 30.5 SEC (26.0-36.4)
[2022-11-15 18:35] LABS: Alanine Aminotransferase 32 U/L (0-31); Albumin Level 4.4 g/dL (3.5-5.0); Alkaline Phosphatase 72 U/L (39-117); Anion Gap 18 (12-20); Aspartate Amino Transferase 29 U/L (5-31); Bilirubin Total 0.9 mg/dL (0.0-1.0); Blood Urea Nitrogen 14 mg/dL (9-16); Calcium 9.9 mg/dL (8.4-10.2); Carbon Dioxide 20 mmol/L (22-29); Chloride 104 mmol/L (96-108); Creatinine Clr Calc Pharmacy 105.2; Estimated Glomerular Filt Rate > 60; Glucose Random 134 mg/dL (60-115); Lipase 16 U/L (8-78); Potassium 4.3 mmol/L (3.3-5.1); Sodium 138 mmol/L (135-145); Total Protein 7.8 g/dL (6.5-8.0)
[2022-11-15 18:57] LABS: Influenza A PCR NEGATIVE (Negative); Influenza B PCR NEGATIVE (Negative); Resp Syncy Virus RNA Qual PCR NEGATIVE (Negative); SARS COV2 PCR INHOUSE NEGATIVE (Negative)
[2022-11-15 21:44] VITALS: BP 126/75; PULSE 102; RESP 20; TEMP 36.9; O2SAT 97
[2022-11-15 22:00] VITALS: BP 131/69; PULSE 73; RESP 17; TEMP 37.2; O2SAT 96
[2022-11-15 23:29] LABS: Appearance Urine Cloudy; Color Urine Yellow; Glucose Urine UA Negative (Negative); Leukocyte Esterase Urine Negative (Negative); Nitrite Urine Negative (Negative); PH 5.5 (5.0-9.0); Specific Gravity - Urine >= 1.030 (1.005-1.025); Urine Blood Negative (Negative); Urine Ketones Negative (Negative); Urine Protein Trace mg/dL (Neg-Trace)
[2022-11-15 23:53] VITALS: BP 132/74; PULSE 100; RESP 18; TEMP 36.7; O2SAT 95
== END 2022-11-16 00:30 | disposition home or self-care (01) ==
PROVIDERS: Physician Assistant; Emergency Provider Emergency Medicine Emergency Medical Services; PCP Internal Medicine
DX: K52.9 Noninfective gastroenteritis and colitis, unspecified (principal); R10.32 Left lower quadrant pain; Z20.822 Contact with and (suspected) exposure to COVID-19; Z20.828 Contact with and (suspected) exposure to other viral communicable diseases; Z79.899 Other long term (current) drug therapy
CPT/HCPCS: 0241U; 36415; 74176; 80053; 81003; 83690; 85025; 85610; 85730; 99283; 99284

== ENCOUNTER 2023-02-16 09:26 | Outpatient (REF) | payer MEDICAID, SELFPAY ==
--- NOTE | ~2023-02-16 | XR_ITS ---
EXAMINATION: XR lumbar spine 2-3V CLINICAL INFORMATION: Reason for Exam LOW BACK PAIN COMPARISON: Lumbar spine radiographs 01/03/2022 TECHNIQUE: 3 views of the lumbar spine FINDINGS: 5 nonrib-bearing lumbar-type vertebral bodies. Vertebral body heights are maintained. Alignment is maintained. Minimal degenerative change and small anterior disc osteophyte complexes. Disc space heights are maintained. Paravertebral soft tissues are unremarkable. XR/XR lumbar spine 2-3V IMPRESSION: Mild spondylosis of the lumbar spine, as above detailed.
== END 2023-02-16 09:27 | disposition home or self-care (01) ==
LOC: HO.XRAY 09:26
PROVIDERS: PCP Registered Nurse; Visit Provider Registered Nurse
DX: M54.50 Low back pain, unspecified (principal)
CPT/HCPCS: 72100

== ENCOUNTER 2023-05-12 09:17 | Outpatient (AMB) | payer MEDICAID, SELFPAY ==
--- NOTE | 2023-05-12 09:21 | A.OFFVIS_ITS ---
Intake Vital Signs 05/12/23 09:22 Height 5 ft Weight 258 lb 6.108 oz BMI 50.5 Blood Pressure Location Lt brachial Position Sitting Intake Visit Reasons: 6 month FU Intake Note: Nereida presents in office as a est.patient for 6month f/u for constipation PT CC: pt reports having no concerns pt denies any other GI Issues Green Marketing Specialist Required: Yes Green Marketing Specialist Language: Serbian Accompanied by: Self / Same As Patient Allergies No Known Allergies [No Known Allergies*] Allergy (Verified 05/12/23 09:21) HPI 6 month FU HPI Details LAST VISIT: Tubular adenoma Tubular adenoma without high-grade dysplasia carcinoma found. Patient will need to return for colorectal screening in 5 years. Discussed with patient the importance of her blood relatives to go for early colorectal screening. Constipation Continue Senokot and Citrucel. Patient was encouraged to lose weight, increase fluid intake and activity to promote better bowel motility IBS (irritable bowel syndrome) Postprandial occasional loose stools then no BM for few days. Patient does not feel like she empties completely periods please continue Citrucel and senna. Discussed with patient avoiding dietary triggers. Low FODMAP diet discussed with patient. List of food to avoid as well as list of food recommended given to patient. GERD (gastroesophageal reflux disease) As mentioned above in HPI patient was diagnosed with erosive esophagitis, gastritis and duodenitis. Patient will start taking PPI twice a day. Discussed with patient losing weight. Patient needs to move her bowels better and feel like she empties them completely Hemorrhoids without complication Patient reports occasional blood on the tissue when she wipes went bowel movements and sometimes in the toilet after having a diarrhea. Will send her script for Proctosol. Patient will call us if this not going to be effective. I will see her in 6 months, sooner on as needed basis. Patient is agreeable to this plan and verbalizes understanding of instructions. She was given the opportunity to ask questions and all questions answered. ? Thank you for allowing me to participate in her care Plan Medications New hydrocortisone 2.5% (Proctosol HC) 1 appl MD BID-QID PRN 30 grams 2RF hemorrhoids K64.9 Changed From omeprazole 20 mg PO DAILY 30 caps 3RF K21.9 To omeprazole 20 mg PO BID 180 caps 3RF K21.9 Refilled methylcellulose (laxative) (Citrucel) take it with full glass of water 500 mg PO DAILY 90 tabs 2RF K59.00 sennosides (Natural Senna Laxative) 17.2 mg (2 x 8.6 mg) PO BEDTIME 180 tabs 3RF constipation K59.00 TODAY'S VISIT: Patient is here today for follow-up. Patient reports that she has been doing except for feeling is. Patient reports waking up with dry mouth. Patient is on Lasix and is drinking before going to bed. Frequently patient will wake up feeling nauseous in the morning. Patient denies eating late night. Patient is taking omeprazole half an hour before breakfast and half an hour before dinner. Patient reports that she is moving her bowels better now that she takes Senokot. Patient denies melena, hematochezia, unintentional weight loss or ribbon like stools. Patient denies dyspepsia, dysphagia or odynophagia. Patient denies any other GI concerning symptoms. [facility] Medical History Asthma Chest pain Chronic TMJ pain Diabetes Hypercholesterolemia Hypertension Migraines Obesity Snoring Tubular adenoma Surgical History History of carpal tunnel release (~12/03/20) History of esophagogastroduodenoscopy (EGD) Hx of section Hx of cholecystectomy Hx of colonoscopy Hx of hysterectomy, total Family History Mother Diabetes Heart attack Ulcer of stomach due to bacteria Father Heart attack HTN (hypertension) Paternal Uncle Colon cancer Sister Lupus Social History Alcohol intake: never Patient Tobacco Use Status: Never used Tobacco Smoked in Last 30 Days: No Second Hand Smoke Exposure: No Use of substances other than those prescribed or required for medical reasons: Unable to respond Advance Directives: No Advance Directives Information Provided: No Current occupational status: retired Current occupation: right and left handed Review of Systems Const Denies weight gain and Denies weight loss ENT Reports no additional complaints, Denies dysphagia and Denies odynophagia Card Reports no additional complaints Resp Reports no additional complaints GI Denies abdominal pain, Denies belching, Denies melena, Denies bloating, Denies change in bowel habits, Denies dysphagia, Denies excessive flatus, Denies dyspepsia, Denies heartburn, Denies diarrhea, Denies loose stools, Reports nausea, Denies odynophagia and Denies vomiting Reports no additional complaints Musc Reports no additional complaints Neuro Reports no additional complaints Psych Reports no additional complaints Endo Reports no additional complaints Physical Exam Vital Signs: BMI result Body Mass Index 50.5 Const General: healthy appearing, no acute distress and well developed Nutritional Appearance: obese Orientation/consciousness: patient oriented x3 HEENT Head: Yes normal to inspection, Yes normocephalic and Yes atraumatic Face and sinus: Yes normal facial exam Mouth: Normal oral and palatal mucosa present Throat: Yes posterior oropharynx normal, Yes tonsils normal and Yes uvula midline Eyes General: appearance normal, both eyes and all related structures Neck Neck: Yes normal visual inspection, Yes full ROM and Yes trachea midline Thyroid: Thyroid normal Resp Effort & Inspection: normal respiratory effort, able to speak in complete sentences, no tracheal deviation and symmetric chest movement Auscultation: clear to auscultation bilaterally Cardio Rate: regular rate Heart sounds: S1 normal heart sound present and S2 normal heart sound present GI Inspection: Yes normal to inspection, No distended and Yes obesity Palpation (GI): Soft to palpation, not firm, nontender and No hepatosplenomegaly present Auscultation: normal bowel sounds General: Yes no CVA tenderness Back/Spine/Pelvis Back: no CVA tenderness Skin General skin exam: elasticity normal, turgor normal and dry skin Neuro General: patient oriented x3 Psych Appearance: grossly normal Mental Status: mental status grossly normal Speech and movement: Normal speech and movement present Affect: normal affect Assessment & Plan Assessment & Plan (1) Constipation: Code(s): K59.00 - Constipation, unspecified Qualifiers: Constipation type: slow transit constipation Qualified Code(s): K59.01 - Slow transit constipation Plan: Continue Senokot. Patient was encouraged to increase fluid intake and activity to promote better bowel motility. (2) IBS (irritable bowel syndrome): Code(s): K58.9 - Irritable bowel syndrome without diarrhea Qualifiers: Irritable bowel syndrome type: with constipation Qualified Code(s): K58.1 - Irritable bowel syndrome with constipation Plan: Low FODMAP diet encouraged. (3) GERD (gastroesophageal reflux disease): Code(s): K21.9 - Gastro-esophageal reflux disease without esophagitis Qualifiers: Esophagitis presence: esophagitis presence not specified Qualified Code(s): K21.9 - Gastro-esophageal reflux disease without esophagitis Plan: Will change omeprazole to be taking in the morning. At night time patient will take famotidine. Patient was encouraged to avoid late night snacking and dietary triggers. Staying upright for minimum 3 hours after meals the discussed with patient. Patient is requesting referral to bariatric surgery. Patient states that her sister had a successful surgery and she is feeling well. Referral sent. I will see patient in 6 months, sooner on as needed basis. Patient is agreeable to this plan and verbalizes understanding of instructions. She was given the opportunity to ask questions and all questions answered. Thank you for allowing me to participate in her care Orders: Referrals Bariatric Surgery Referral E66.9 - Obesity, unspecified Medications: New famotidine (Pepcid) 20 mg PO BEDTIME 90 tabs 3RF K21.9 - Gastro-esophageal reflux disease without esophagitis Changed From omeprazole 20 mg PO BID 180 caps 3RF K21.9 - Gastro-esophageal reflux disease without esophagitis To omeprazole 20 mg PO DAILY 90 caps 3RF K21.9 - Gastro-esophageal reflux disease without esophagitis Refilled sennosides (Natural Senna Laxative) 17.2 mg (2 x 8.6 mg) PO BEDTIME 180 tabs 3RF constipation K59.00 - Constipation, unspecified Coding Level of Care Code Est Pt Level 4 (76029) Diagnoses Constipation K59.01 Constipation type: slow transit constipation IBS (irritable bowel syndrome) K58.1 Irritable bowel syndrome type: with constipation GERD (gastroesophageal reflux disease) K21.9 Esophagitis presence: esophagitis presence not specified Time Spent (min) 35 Comment 20 minutes spent with patient and additional 15 minutes spent reviewing her records
[2023-05-12 09:22] VITALS: BMI 50.5
== END 2023-05-12 10:15 | disposition home or self-care (01) ==
PROVIDERS: Visit Provider Nurse Practitioner Family
DX: K59.01 Slow transit constipation (principal); K58.1 Irritable bowel syndrome with constipation; K21.9 Gastro-esophageal reflux disease without esophagitis
CPT/HCPCS: 99214

== ENCOUNTER → 2023-05-12 09:17 | Outpatient (BNVA) | payer MEDICAID, SELFPAY | PROVIDERS: Visit Provider Nurse Practitioner Family | DX: K59.01 Slow transit constipation (principal); K58.1 Irritable bowel syndrome with constipation; K21.9 Gastro-esophageal reflux disease without esophagitis | CPT/HCPCS: 99214 ==

== ENCOUNTER 2023-05-12 11:00 | Outpatient (RCR) | payer MEDICAID, SELFPAY | END 2023-06-23 08:21 | disposition home or self-care (01) | LOC: HO.PT 11:00 | PROVIDERS: PCP Internal Medicine; Visit Provider Registered Nurse | DX: M54.50 Low back pain, unspecified (principal) | CPT/HCPCS: 97014; 97110; 97112; 97162; 97530 ==

== ENCOUNTER 2023-05-25 14:41 | Emergency (ER) | payer MEDICAID, SELFPAY ==
--- NOTE | ~2023-05-25 | XR_ITS ---
EXAMINATION: XR HIP, RIGHT CLINICAL INFORMATION: Right hip pain. COMPARISON: None available. TECHNIQUE: Two views of the right hip. FINDINGS: No fracture. Alignment is anatomic. Hip joint space is maintained. Soft tissues are unremarkable. XR/XR hip RT w PEL1V IMPRESSION: Unremarkable right hip.
--- NOTE | ~2023-05-25 | CT_ITS ---
EXAMINATION: CT LUMBAR SPINE WITHOUT CONTRAST CLINICAL INFORMATION: Severe right lower back pain COMPARISON: 11/15/2022 TECHNIQUE: Multidetector helical imaging was performed through the lumbar spine. Coronal and sagittal reformatted images were created. This CT examination was performed using dose optimization techniques as appropriate, variously including the following: *Automated exposure control *Adjustment of mA and/or kV according to patient size (this includes techniques or standardized protocols for targeted exams where dose is matched to indication/reason for exam; i.e. extremities or head) *Use of iterative reconstruction technique DLP; 919 mGy-cm FINDINGS: There is anatomic alignment of the lumbar vertebral bodies and posterior elements. Vertebral body heights are maintained. Intervertebral disc spaces are also preserved. No acute fracture is seen. There is moderate to severe facet arthropathy of the lower lumbar spine. No significant central or foraminal stenosis is seen, though this is not well assessed on CT. CT/CT lumbar spine wo IV con IMPRESSION: No acute findings identified. Moderate to severe facet arthropathy of the lower lumbar spine. If clinically warranted, MRI would allow for better evaluation of potential spinal stenoses.
--- NOTE | ~2023-05-25 | CT_ITS ---
EXAMINATION: CT PELVIS without contrast CLINICAL INFORMATION: Pain COMPARISON: None TECHNIQUE: Helical scanning was performed with submillimeter collimation through the pelvis. Sagittal and coronal multiplanar 2-D reconstructions were obtained. CONTRAST: None DLP: 524 MGy mGy-cm FINDINGS: PELVIC ORGANS: Rectum, urinary bladder, visualized bowel loops are normal. BONES: Sacrum, iliac bones, acetabula, pubic rami, femoral head and neck are intact. JOINTS: Mild degenerative changes of the symphysis pubis. Mild degenerative changes of both hip joints. There are sclerotic changes around the SI joints symmetrically involving both sides suggesting sacroiliitis. No bridging osteophytes evidence of ankylosis. SOFT TISSUES: There is left lower abdominal wall hernia left of midline containing fat and mesentery measure about 3 x 2.9 cm the neck of which is 1 cm. This does not contain bowel. OTHERS: None CT/CT pelvis wo IV con IMPRESSION: * No CT evidence of fracture. * Left lower abdominal wall hernia containing fat and mesentery measure up to 3 cm. This does not contain bowel. * Mild degenerative changes of the symphysis pubis and both hip joints. * Sclerotic changes around the SI joints symmetrically involving both sides suggesting sacroiliitis. No bridging osteophytes or ankylosis.
[2023-05-25 16:30] VITALS: BP 132/70; PULSE 95; RESP 22; TEMP 36.6; O2SAT 98; BMI 47.5
--- NOTE | 2023-05-25 16:30 | ED.GENADULT ---
HPI - General Adult General Chief complaint: Extremity Problem Stated complaint: r hip and leg pain Time Seen by Provider: 05/25/23 17:51 Source: patient and sumatra opener Mode of arrival: wheelchair Limitations: no limitations History of Present Illness HPI narrative: 57 year old female with history significant for tubular adenoma, bilateral carpal tunnel syndrome, migraine, HTN, DM, and asthma presenting to the ED with right hip/ back pain that began upon waking up yesterday morning. She reports the pain begins under her right buttock and radiates into her right hip, down her lateral right thigh, and into her right groin. She is able to bear weight and ambulate. Reports taking Flexeril and ibuprofen 800mg at home without relief. Reports history of sciatica but notes this pain feels different. Recently completed physical therapy for back pain + right LE weakness with symptom resolution. Denies fall/ injury/ trauma. Denies fever, chills, bowel or bladder incontinence or retention, or saddle paresthesia. She states she did have an instance of not being able to get to the bathroom intime and urinated on herself but she had the sensation she needed to go, just had a hard time getting to the bathroom due to the pain. MD complaint: severe right hip pain Onset (ago): day(s) Location: back, pelvis, buttocks, right and lower extremity Radiation: extremity (Right) Severity: severe Quality: stabbing Pain Consistency: constant Relieving factors: none Exacerbating factors: none Associated symptoms: denies other symptoms Related Data Home Medications Medication Instructions Recorded Confirmed albuterol sulfate 90 mcg/actuation 2 puff inhalation Q4-6H PRN 10/21/22 10/27/22 aerosol inhaler (ProAir HFA) Wheezing amlodipine 10 mg tablet 1 tab PO DAILY 10/21/22 10/27/22 furosemide 20 mg tablet 1 tab PO DAILY 10/21/22 10/27/22 losartan 100 mg tablet 1 tab PO DAILY 10/21/22 10/27/22 trazodone 50 mg tablet 0.5 - 1 tab PO BEDTIME 10/21/22 10/27/22 Previous Rx's Medication Instructions Recorded meclizine 25 mg tablet 25 mg PO TID PRN dizziness #30 tabs 08/25/21 lidocaine 5 % topical patch 1 patch topical DAILY pain #15 ea 01/07/22 (Lidoderm) naproxen 500 mg tablet 500 mg PO BID PRN pain #10 tabs 01/07/22 cholecalciferol (vitamin D3) 50 50 mcg PO DAILY #90 caps 05/04/22 mcg (2,000 unit) capsule cyanocobalamin (vitamin B-12) 500 500 mcg PO DAILY #30 tabs 05/04/22 mcg tablet (Vitamin B-12) methylcellulose (laxative) 500 mg 500 mg PO DAILY #90 tabs 11/11/22 tablet (Citrucel) hydrocortisone 2.5 % topical cream 1 appl MI BID-QID PRN hemorrhoids 03/31/23 with perineal applicator #30 grams (Proctosol HC) famotidine 20 mg tablet (Pepcid) 20 mg PO BEDTIME #90 tabs 05/12/23 omeprazole 20 mg capsule,delayed 20 mg PO DAILY #90 caps 05/12/23 release sennosides 8.6 mg tablet (Natural 17.2 mg PO BEDTIME constipation 05/12/23 Senna Laxative) #180 tabs acetaminophen 325 mg capsule 650 mg PO Q6H PRN pain #45 caps 05/25/23 (Tylenol) lidocaine 5 % topical patch 1 patch topical DAILY #30 ea 05/25/23 (Lidoderm) ondansetron 4 mg disintegrating 4 mg PO Q6-8H PRN nausea and 05/25/23 tablet vomiting #10 tabs prednisone 20 mg tablet 40 mg PO DAILY 5 days #10 tabs 05/25/23 Allergies Allergy/AdvReac Type Severity Reaction Status Date / Time No Known Allergies Allergy Verified 05/12/23 09:21 [No Known Allergies*] Review of Systems Review of Systems: Yes all other systems are reviewed and are negative PMFSH Past Medical History Attestation statement: The following information was validated with the patient. Source: old records reviewed and nursing notes reviewed Medical History Asthma Chest pain Chronic TMJ pain Diabetes Hypercholesterolemia Hypertension Migraines Obesity Snoring Tubular adenoma Surgical History History of carpal tunnel release (~12/03/20) History of esophagogastroduodenoscopy (EGD) Hx of section Hx of cholecystectomy Hx of colonoscopy Hx of hysterectomy, total Family History Family History Mother Diabetes Heart attack Ulcer of stomach due to bacteria Father Heart attack HTN (hypertension) Paternal Uncle Colon cancer Sister Lupus Social History Social History Alcohol intake: never Patient Tobacco Use Status: Never used Tobacco Smoked in Last 30 Days: No Second Hand Smoke Exposure: No Use of substances other than those prescribed or required for medical reasons: Unable to respond Advance Directives: No Advance Directives Information Provided: No Current occupational status: retired Current occupation: right and left handed Physical Exam ED Vital Signs: Vital Signs - 24 hr 05/25/23 16:30 05/25/23 22:12 Temperature 97.9 F 98.8 F Pulse Rate 95 72 Respiratory Rate 22 H 19 Blood Pressure 132/70 125/69 Pulse Oximetry 98 97 Oxygen Delivery Method Room Air Room Air BMI result Body Mass Index 47.5 Appearance: Alert. Oriented X3. No acute distress. Head: normocephalic, atraumatic. Abdomen: Soft and nontender. +BS x4 Skin: Skin warm and dry. Normal skin color. Normal skin turgor. No rashes. Back: No obvious deformity or ecchymosis. TTP of the lumbar and sacral paraspinal region with SI joint tenderness. No midline spinous tenderness. No CVAT. MICHAEL: normal rectal tone Extremities: No lower extremity edema. No joint swelling. Neuro/psych: Oriented X 3. No motor deficit. No sensory deficit. CN II-XII intact. slow but steady gait Course Course Course Narrative: This is an RME: Additional HPI, ROS, PE not included below will be deferred to primary provider. This is a [id number], hx of diabetes, HTN, asthma, presenting to the ER with complaints of right hip pain x several days. Atraumatic. No urinary symptoms. Pain worsens with palpation with movement. No abdominal pain. No fevers chills. Was seen at primary care physician was given muscle relaxants and ibuprofen which she has been taking without any relief. Plan: Right hip x-ray and pelvis ordered Reevaluation(s) Reevaluation #1: signed out to Aye Welch PA-C who will f/u CT scan results and determine dispo plan Time: 18:54 Reevaluation #2: Patient given sign out to me pending CT results. CT revealing mild degenerative changes in the symphysis pubis and both hip joints, sclerotic changes around the SI joints symmetrically involving both sides suggesting sacroiliitis. Also revealing Moderate to severe facet arthropathy of the lower lumbar spine. Discussed these results with pt. Patient becoming nauseated, likely due to medication side effect. Zofran 4mg ODT PO administered to pt. Time: 20:27 Reevaluation #3: Patient now complaining of epigastric pain, nausea and vomiting. Given patient has not had labs, will obtain labs, UA. Patient had a cholecystectomy, will defer right upper quadrant ultrasound. Epigastric TTP. Abdomen is soft, normoactive BS present in all 4 quadrants. Will medicate with GI cocktail. Given sign out to Lauren Barrow NP, pending labs, UA and re-evaluation. Time: 20:45 Additional Reevaluation(s): 2200 - CBC reveals a mild leukocytosis at 11.4, no anemia. Overall unremarkable CMP, mildly elevated AST and ALT, normal lipase, no right upper quadrant or epigastric tenderness at the time my examination. Urinalysis is without evidence of infection. Symptoms improved with GI cocktail. Abdominal examination is benign. Likely had reaction due to medication side effect. Patient is stable for discharge at this time. Medications Administered Discontinued Medications Generic Name Dose Route Start Last Admin Trade Name Freq PRN Reason Stop Dose Admin Al Hydroxide/Mg Hydroxide 30 ml 05/25/23 21:05 05/25/23 21:43 Magnesium Hydrox/Alum Hydrox 30 Ml Oral.Susp PO 05/25/23 21:06 30 ml ONCE ONE Administration Belladonna Alkaloids/Phenobarbital 10 ml 05/25/23 21:05 05/25/23 21:43 Phenobarb/Hyoscy/Atropine/Scop 10 Ml Elixir PO 05/25/23 21:06 10 ml ONCE ONE Administration Famotidine 20 mg 05/25/23 21:05 05/25/23 21:43 Famotidine 20 Mg Tablet PO 05/25/23 21:06 20 mg ONCE ONE Administration Lidocaine HCl 15 ml 05/25/23 21:05 05/25/23 21:45 Lidocaine Hcl Viscous 2 % 15 Ml Solution MUCOUS MEM 05/25/23 21:06 Not Given ONCE ONE Ondansetron HCl 4 mg 05/25/23 20:33 05/25/23 20:40 Ondansetron Odt 4 Mg Tab.Luis A JIMENEZINGU 05/25/23 20:34 4 mg ONCE ONE Administration Oxycodone HCl 10 mg 05/25/23 17:59 05/25/23 18:14 Oxycodone Hcl Immed Release 5 Mg Tablet PO 05/25/23 18:00 10 mg ONCE ONE Administration Medical Decision Making Medical Decision Making MDM Narrative: 57 year old female with history significant for tubular adenoma, bilateral carpal tunnel syndrome, migraine, HTN, DM, and asthma presenting to the ED with atraumatic right buttock/ hip pain with radiation to the lateral right thigh and right groin that began upon waking up yesterday morning. Vital signs are stable. Physical exam notable for tenderness to palpation of the right lumbar paraspinal region, right hip and over the right SI joint, no focal neuro deficits. Plan: right hip xray, pain control Patient's radiographs returned unremarkable. Given patient's intractable pain, will order CT lumbar spine and pelvis. Differential Diagnosis Differential Diagnoses: The differential diagnosis associated with the presentation includes sciatica, muscle sprain/ strain, spinal fracture, pubic rami fracture, spinal stenosis, cauda equina Admission/Observation Consideration of admission/observation: Escalation of care including admission/observation considered severe pain, considered observation Lab Data 05/25/23 21:13 05/25/23 21:13 Labs: Lab Results 05/25/23 05/25/23 05/25/23 Range/Units 20:54 21:13 21:13 WBC 11.4 H (4.8-10.8) X10*3/uL RBC 4.64 (4.20-5.50) X10*6/uL Hgb 12.9 (12.0-16.0) g/dl Hct 39.3 (37.0-47.0) % MCV 84.7 (80.0-98.0) fL MCH 27.8 (27.0-33.0) pg MCHC 32.8 (31.0-35.0) g/dl RDW 13.4 (11.0-16.0) % Plt Count 269 (160-400) X10*3/uL MPV 10.7 (9.4-12.3) fL Immature Gran % (Auto) 0.4 (0.0-0.4) % Neut % (Auto) 62.7 (45-73) % Lymph % (Auto) 28.7 (20-40) % [place] % (Auto) 5.4 (2-11) % Eos % (Auto) 2.5 (0-4) % Baso % (Auto) 0.3 (0-2) % Lymph # (Auto) 3.3 (1.2-4.9) X10*3/uL [place] # (Auto) 0.6 (0.1-1.2) X10*3/uL Eos # (Auto) 0.3 (0.0-0.4) X10*3/uL Baso # (Auto) 0.0 (0.0-0.2) X10*3/uL Abs Immat Gran (auto) 0.04 H (0.00-0.03) X10*3/uL Absolute Neuts (auto) 7.2 (2.0-8.3) x10*3/uL Absolute Nucleated RBC 0.000 (0.0-0.012) X10*3/uL Nucleated RBC % (auto) 0.0 (0.0-0.2) /100WBC Sodium 139 (135-145) mmol/L Potassium 3.8 (3.3-5.1) mmol/L Chloride 105 (96-108) mmol/L Carbon Dioxide 20 L (22-29) mmol/L Anion Gap 18 (12-20) BUN 13 (9-16) mg/dL Creatinine 0.67 (0.5-1.4) mg/dL Estim Creat Clear Calc 107.0 Estimated GFR > 60 Random Glucose 133 H (60-115) mg/dL Calcium 9.9 (8.4-10.2) mg/dL Magnesium 1.8 (1.6-2.6) mg/dL Total Bilirubin 0.4 (0.0-1.0) mg/dL Direct Bilirubin 0.2 (0.0-0.5) mg/dL AST 62 H (5-31) U/L ALT 41 H (0-31) U/L Alkaline Phosphatase 77 (39-117) U/L Total Protein 7.3 (6.5-8.0) g/dL Albumin 3.9 (3.5-5.0) g/dL Lipase 41 (8-78) U/L Urine Color Yellow Urine Appearance Clear Urine pH 6.0 (5.0-9.0) Ur Specific [place] 1.020 (1.005-1.025) Urine Protein Negative (Neg-Trace) mg/dL Urine Glucose (UA) Negative (Negative) mg/dL Urine Ketones Negative (Negative) mg/dL Urine Blood Negative (Negative) Urine Nitrite Negative (Negative) Ur Leukocyte Esterase Negative (Negative) Independent Interpretation I performed an independent interpretation of an: Plain X-Ray Interpretation: Xray hip/ pelvis: no acute fracture or soft tissue abnormalities, agree with radiologists interpretation. Xray lumbar spine: no acute fracture or soft tissue abnormalities, agree with radiologists interpretation. Radiology Impression Discussion of test interpretation with radiology: I have reviewed the radiologist's reading. Radiologist Impression: XR hip RT w [id number] IMPRESSION: Unremarkable right hip. XR lumbar spine 2-3V IMPRESSION: Mild spondylosis of the lumbar spine, as above detailed. External Record Review External record reviewed: Outpatient record, Prior outpatient labs and Prior outpatient radiology Prescription Management I considered prescription management with: Pain Medication Chronic Conditions Patient?s care impacted by: Diabetes, Hypertension and Other (morbid obesity) Critical Care Time Critical Care Time Critical Care Time: No Discharge Plan Discharge Clinical Impression: Acute hip pain, Sacroiliitis Patient Disposition: Home, Self-Care Instructions: Acute Low Back Pain (ED), Sacroiliitis (ED) Additional Instructions: Please take prescribed medication as directed. Please be aware that prednisone can cause your blood sugar levels to be more elevated. Drink plenty of fluids get plenty of rest. If any new or worsening symptoms occur including but not limited to chest pain, shortness of breath, numbness or tingling into your legs, loss of bowel or bladder control, or numbness and tingling into your groin please return for re-evaluation. Please follow-up with your primary care physician for further treatment. [place] los medicamentos recetados seg?n las indicaciones. Tenga en cuenta que la prednisona puede hacer que rhina niveles de az?car en la jeff shane m?s elevados. Miladis mucho l?quido y descanse lo suficiente. Si se presentan s?ntomas nuevos o que empeoran, incluidos, entre otros, dolor en el pecho, dificultad para respirar, entumecimiento u hormigueo en las piernas, p?rdida del control de los intestinos o la vejiga, o entumecimiento y hormigueo en la esme, regrese para doug reevaluaci?n. Por favor, alan un seguimiento con hayward m?dico de atenci?n primaria para recibir tratamiento adicional. Prescriptions: New prednisone 20 mg tablet 40 mg PO DAILY 5 Days Qty: 10 0RF ondansetron 4 mg tablet,disintegrating 4 mg PO Q6-8H PRN (Reason: nausea and vomiting) Qty: 10 0RF acetaminophen [Tylenol] 325 mg capsule 650 mg PO Q6H PRN (Reason: pain) Qty: 45 0RF lidocaine [Lidoderm] 5 % adhesive patch,medicated 1 patch topical DAILY Qty: 30 0RF Rx Instructions: leave on most painful area for up to 12 hrs No Action hydrocortisone [Proctosol HC] 2.5 % cream with perineal applicator 1 appl MI BID-QID PRN (Reason: hemorrhoids) Qty: 30 1RF meclizine 25 mg tablet 25 mg PO TID PRN (Reason: dizziness) Qty: 30 0RF lidocaine [Lidoderm] 5 % adhesive patch,medicated 1 patch topical DAILY Qty: 15 0RF Rx Instructions: leave on most painful area for up to 12 hrs. May be substituted naproxen 500 mg tablet 500 mg PO BID PRN (Reason: pain) Qty: 10 0RF trazodone 50 mg tablet 0.5 - 1 tab PO BEDTIME amlodipine 10 mg tablet 1 tab PO DAILY furosemide 20 mg tablet 1 tab PO DAILY albuterol sulfate [ProAir HFA] 90 mcg/actuation HFA aerosol inhaler 2 puff INHALATION Q4-6H PRN (Reason: Wheezing) losartan 100 mg tablet 1 tab PO DAILY cholecalciferol (vitamin D3) 50 mcg (2,000 unit) capsule 50 mcg PO DAILY Qty: 90 3RF cyanocobalamin (vitamin B-12) [Vitamin B-12] 500 mcg tablet 500 mcg PO DAILY Qty: 30 5RF Citrucel 500 mg tablet 500 mg PO DAILY Qty: 90 2RF Rx Instructions: take it with full glass of water omeprazole 20 mg capsule,delayed release(DR/EC) 20 mg PO DAILY Qty: 90 3RF sennosides [Natural Senna Laxative] 8.6 mg tablet 17.2 mg PO BEDTIME Qty: 180 3RF famotidine [Pepcid] 20 mg tablet 20 mg PO BEDTIME Qty: 90 3RF Print Language: [place]
[2023-05-25] MEDS: oxyCODONE HCl Immed Release 5 MG TABLET 10 MG PO (18:14)
[2023-05-25] MEDS: Ondansetron ODT 4 MG TAB.RAPDIS TRANSLINGU (20:40)
--- NOTE | 2023-05-25 20:46 | PC.NURSE ---
c/o nausea, epigastric pain, pale. ED provider made aware. assisted to bathroom via wheelchair. will reassess.
[2023-05-25 21:02] LABS: Appearance Urine Clear; Color Urine Yellow; Glucose Urine UA Negative (Negative); Leukocyte Esterase Urine Negative (Negative); Nitrite Urine Negative (Negative); Urine Blood Negative (Negative); Urine Ketones Negative (Negative); Urine Protein Negative (Neg-Trace)
[2023-05-25 21:18] LABS: MANUAL DIFF FLAG NO
[2023-05-25 21:35] LABS: Alanine Aminotransferase 41 U/L (0-31); Albumin Level 3.9 g/dL (3.5-5.0); Alkaline Phosphatase 77 U/L (39-117); Anion Gap 18 (12-20); Aspartate Amino Transferase 62 U/L (5-31); Bilirubin Direct 0.2 mg/dL (0.0-0.5); Bilirubin Total 0.4 mg/dL (0.0-1.0); Blood Urea Nitrogen 13 mg/dL (9-16); Calcium 9.9 mg/dL (8.4-10.2); Carbon Dioxide 20 mmol/L (22-29); Chloride 105 mmol/L (96-108); Estimated Glomerular Filt Rate > 60; Glucose Random 133 mg/dL (60-115); Lipase 41 U/L (8-78); Magnesium 1.8 mg/dL (1.6-2.6); Potassium 3.8 mmol/L (3.3-5.1); Sodium 139 mmol/L (135-145); Total Protein 7.3 g/dL (6.5-8.0)
[2023-05-25 21:41] LABS: Basophils Percent Auto 0.3 % (0-2); Eosinophils Absolute Auto 0.3 X10*3/uL (0.0-0.4); Eosinophils Percent Auto 2.5 % (0-4); Hematocrit 39.3 % (37.0-47.0); Hemoglobin 12.9 g/dl (12.0-16.0); Imm Gran Abs Auto 0.04 X10*3/uL (0.00-0.03); Imm Gran Pct Auto 0.4 % (0.0-0.4); Lymphocytes Absolute Auto 3.3 X10*3/uL (1.2-4.9); Lymphocytes Percent Auto 28.7 % (20-40); Mean Corpuscular HGB Conc 32.8 g/dl (31.0-35.0); Mean Corpuscular Hemoglobin 27.8 pg (27.0-33.0); Mean Corpuscular Volume 84.7 fL (80.0-98.0); Mean Platelet Volume 10.7 fL (9.4-12.3); Monocytes Absolute Auto 0.6 X10*3/uL (0.1-1.2); Monocytes Percent Auto 5.4 % (2-11); Neutrophils Absolute Auto 7.2 x10*3/uL (2.0-8.3); Neutrophils Percent Auto 62.7 % (45-73); Platelet Count 269 X10*3/uL (160-400); Red Blood Count 4.64 X10*6/uL (4.20-5.50); Red Cell Distribution Width 13.4 % (11.0-16.0); White Blood Count 11.4 X10*3/uL (4.8-10.8)
[2023-05-25] MEDS: PHENobarb/Hyoscy/Atropine/Scop 10 ML ELIXIR PO (21:43)
[2023-05-25] MEDS: Magnesium Hydrox/Alum Hydrox 30 ML ORAL.SUSP PO (21:43)
[2023-05-25] MEDS: Famotidine 20 MG TABLET PO (21:43)
[2023-05-25 22:12] VITALS: BP 125/69; PULSE 72; RESP 19; TEMP 37.1; O2SAT 97
== END 2023-05-25 23:30 | disposition home or self-care (01) ==
PROVIDERS: Physician Assistant Medical; Emergency Provider Internal Medicine; PCP Internal Medicine
DX: M46.1 Sacroiliitis, not elsewhere classified (principal); M25.552 Pain in left hip; M25.551 Pain in right hip; M54.50 Low back pain, unspecified; Z79.899 Other long term (current) drug therapy
CPT/HCPCS: 36415; 72131; 72192; 73502; 80048; 80076; 81003; 83690; 83735; 85025; 99284

== ENCOUNTER 2023-06-05 14:37 | Emergency (ER) | payer MEDICAID, SELFPAY ==
--- NOTE | ~2023-06-05 | XR_ITS ---
EXAMINATION: XR LUMBOSACRAL SPINE CLINICAL INFORMATION: Low back pain. COMPARISON: Lumbar spine radiographs dated 02/16/2023. CT scan of the lumbar spine dated 05/25/2023. TECHNIQUE: Three views of the lumbosacral spine. FINDINGS: There is normal lumbar lordosis. Minimal anterolisthesis is seen at L4-L5 with mild bilateral neural foraminal narrowing. The vertebral bodies are intact. The soft tissues are unremarkable. XR/XR lumbar spine 2-3V IMPRESSION: L4-L5 minimal grade 1 anterolisthesis and bilateral facet arthropathy without acute abnormality.
[2023-06-05 14:45] VITALS: BP 148/94; PULSE 88; RESP 22; TEMP 36.1; O2SAT 99; BMI 48.8
--- NOTE | 2023-06-05 14:45 | ED_ITS ---
HPI - General Adult General Chief complaint: Back Pain/Injury Stated complaint: Worsening back pain sent by [facility] Time Seen by Provider: 06/05/23 18:18 Source: patient, family and bunch maker hand Mode of arrival: ambulatory Limitations: language barrier History of Present Illness HPI narrative: 57-year-old female presents for evaluation of right lower back pain that radiates into her right leg She reports she has had the pain on and off for several months She reports that her pain improves with physical therapy but ?as soon as I stop physical therapy, the pain comes back. ? She complains of tenderness and right lower back pain Patient reports that she has not Peed since 9:00 a.m. this morning She is able to walk and short distances but complains of worsening pain She reports her pain was improved with her recent prescriptions that she was discharged with which included prednisone, acetaminophen, lidocaine patches and Zofran She was seen here on May 25, [address] scan of the pelvis and lumbar spine which showed moderate to severe facet arthropathy with some L4-L5 anterior listhesis Patient denies any trauma to the area Related Data Home Medications Medication Instructions Recorded Confirmed albuterol sulfate 90 mcg/actuation 2 puff inhalation Q4-6H PRN 10/21/22 10/27/22 aerosol inhaler (ProAir HFA) Wheezing amlodipine 10 mg tablet 1 tab PO DAILY 10/21/22 10/27/22 furosemide 20 mg tablet 1 tab PO DAILY 10/21/22 10/27/22 losartan 100 mg tablet 1 tab PO DAILY 10/21/22 10/27/22 trazodone 50 mg tablet 0.5 - 1 tab PO BEDTIME 10/21/22 10/27/22 Previous Rx's Medication Instructions Recorded meclizine 25 mg tablet 25 mg PO TID PRN dizziness #30 tabs 08/25/21 lidocaine 5 % topical patch 1 patch topical DAILY pain #15 ea 01/07/22 (Lidoderm) naproxen 500 mg tablet 500 mg PO BID PRN pain #10 tabs 01/07/22 cholecalciferol (vitamin D3) 50 50 mcg PO DAILY #90 caps 05/04/22 mcg (2,000 unit) capsule cyanocobalamin (vitamin B-12) 500 500 mcg PO DAILY #30 tabs 05/04/22 mcg tablet (Vitamin B-12) methylcellulose (laxative) 500 mg 500 mg PO DAILY #90 tabs 11/11/22 tablet (Citrucel) hydrocortisone 2.5 % topical cream 1 appl CA BID-QID PRN hemorrhoids 03/31/23 with perineal applicator #30 grams (Proctosol HC) famotidine 20 mg tablet (Pepcid) 20 mg PO BEDTIME #90 tabs 05/12/23 omeprazole 20 mg capsule,delayed 20 mg PO DAILY #90 caps 05/12/23 release sennosides 8.6 mg tablet (Natural 17.2 mg PO BEDTIME constipation 05/12/23 Senna Laxative) #180 tabs acetaminophen 325 mg capsule 650 mg PO Q6H PRN pain #45 caps 05/25/23 (Tylenol) lidocaine 5 % topical patch 1 patch topical DAILY #30 ea 05/25/23 (Lidoderm) ondansetron 4 mg disintegrating 4 mg PO Q6-8H PRN nausea and 05/25/23 tablet vomiting #10 tabs prednisone 20 mg tablet 40 mg PO DAILY 5 days #10 tabs 05/25/23 dexamethasone 4 mg tablet 4 mg PO BID #6 tabs 06/05/23 tramadol 50 mg tablet 50 mg PO Q6H PRN severe pain 06/05/23 (scale score 7-10) #12 tabs Allergies Allergy/AdvReac Type Severity Reaction Status Date / Time No Known Allergies Allergy Verified 06/05/23 14:49 [No Known Allergies*] Review of Systems Constitutional: Constitutional: Reports as per HPI, Denies chills, Denies fatigue, Denies fever(s) and Denies headache(s) ENT: Denies headache(s) Cardiovascular: Cardiovascular: Denies chest pain Musculoskeletal: Musculoskeletal: Reports back pain, Denies muscle weakness, Denies numbness and Reports radiating pain into limb Neurologic: Denies headache(s), Denies focal weakness and Denies numbness Endocrine: Endocrine: Denies fatigue PMFSH Past Medical History Medical History (Updated 06/05/23 @ 20:53 by Mauro Frank) Asthma Chest pain Chronic TMJ pain Diabetes Hypercholesterolemia Hypertension Migraines Obesity Snoring Tubular adenoma Surgical History History of carpal tunnel release (~12/03/20) History of esophagogastroduodenoscopy (EGD) Hx of section Hx of cholecystectomy Hx of colonoscopy Hx of hysterectomy, total Family History Family History Mother Diabetes Heart attack Ulcer of stomach due to bacteria Father Heart attack HTN (hypertension) Paternal Uncle Colon cancer Sister Lupus Social History Social History Alcohol intake: never Patient Tobacco Use Status: Never used Tobacco Second Hand Smoke Exposure: No Advance Directives: No Advance Directives Information Provided: No Current occupational status: retired Current occupation: right and left handed Physical Exam ED Vital Signs: Vital Signs - 24 hr 06/05/23 14:45 06/05/23 19:25 Temperature 97 F 97.9 F Pulse Rate 88 86 Respiratory Rate 22 H 20 Blood Pressure 148/94 H 146/88 H Pulse Oximetry 99 98 Oxygen Delivery Method Room Air Room Air BMI result Body Mass Index 48.8 Const General: healthy appearing, comfortable, no acute distress, alert and awake Nutritional Appearance: well nourished Orientation/consciousness: patient oriented x3 HENMT Head: Yes normocephalic and Yes atraumatic Eyes Eyelids: Yes eyelids normal Conjunctivae: conjunctivae normal Sclerae: sclerae normal Corneas: corneas normal Pupils: Equal, round and reactive pupils present EOM: EOMs intact bilaterally Neck Neck: Yes full ROM Resp Effort & Inspection: normal respiratory effort, able to speak in complete sentences and not labored GI Rectal Exam - Female: visual inspection normal and normal sphincter tone Back/Spine/Pelvis Other: Positive straight leg raise on right. Skin General skin exam: elasticity normal Neuro General: patient oriented x3 Cranial nerves: Yes Equal, round and reactive pupils present and Yes Bilaterally intact EOM present Cognition (Neuro): normal cognition Course Course Course Narrative: RME performed by Magalie Peterson PA-C. Patient is a 57 year old assigned female at presenting to the emergency department with low back pain. Patient states that it has been worsening over the last week and radiates down her right leg. Patient was called in as being a possible cauda equina case however, the patient is able to walk. Labs and imaging ordered. Patient placed back in the waiting room pending room availability and results. Reevaluation(s) Reevaluation #1: Patient's workup largely unremarkable, she has no objective concerns for cauda equina syndrome. She is able to urinate, she is able to ambulate, she has good rectal tone, good strength and no numbness or tingling. I discussed with my attending, Dr. Hoyos who agrees that the patient is stable for discharge this time. I discussed with the patient that she should still likely have an outpatient MRI in the near future but I have an extremely low suspicion for cauda equina syndrome at this time. Will discharge the patient when tramadol and dexamethasone Time: 20:50 Medications Administered Discontinued Medications Generic Name Dose Route Start Last Admin Trade Name Freq PRN Reason Stop Dose Admin Morphine Sulfate 4 mg 06/05/23 19:52 06/05/23 20:10 Morphine Sulfate 4 Mg/Ml Cartridge IM 06/05/23 19:53 4 mg ONCE ONE Administration Protocol Ondansetron HCl 4 mg 06/05/23 19:52 06/05/23 20:10 Ondansetron Odt 4 Mg Tab.Rapdis TRANSLINGU 06/05/23 19:53 4 mg ONCE ONE Administration Medical Decision Making Medical Decision Making [facility] Narrative: 57-year-old female presents for evaluation of acute on chronic lower back pain. She reports that she is able to ambulate. She is able to lift both extremities off stretcher. Patient reports that she has not urinated since 9:00 a.m.. This was approximately 11 hours ago. The patient was bladder scan which showed 705 cc. She was able to urinate immediately after when asked to do so. She got herself onto the commode, will get a postvoid bladder scan as well. Patient medicated with morphine IM and Zofran as well as Decadron. Patient has no physical exam findings concerning for cauda equina syndrome. Will discuss with the patient about doing a rectal exam to check rectal tone Differential Diagnosis Differential Diagnoses: The differential diagnosis associated with the presentation includes Acute on chronic back pain Radiculopathy Sciatica Cauda equina syndrome less likely Lab Data [facility] Lab Attestation statement: I reviewed the patient's lab results. Mild leukocytosis to 11.6, no left shift. No significant anemia. Normal platelet count no electrolyte abnormalities. Normal renal function. 06/05/23 15:28 06/05/23 15:28 Labs: Lab Results 06/05/23 06/05/23 06/05/23 Range/Units 15:28 15:28 15:28 WBC 11.6 H (4.8-10.8) X10*3/uL RBC 5.00 (4.20-5.50) X10*6/uL Hgb 14.0 (12.0-16.0) g/dl Hct 42.6 (37.0-47.0) % MCV 85.2 (80.0-98.0) fL MCH 28.0 (27.0-33.0) pg MCHC 32.9 (31.0-35.0) g/dl RDW 13.6 (11.0-16.0) % Plt Count 313 (160-400) X10*3/uL MPV 10.3 (9.4-12.3) fL Immature Gran % (Auto) 0.3 (0.0-0.4) % Neut % (Auto) 56.5 (45-73) % Lymph % (Auto) 33.7 (20-40) % [place] % (Auto) 6.3 (2-11) % Eos % (Auto) 2.9 (0-4) % Baso % (Auto) 0.3 (0-2) % Lymph # (Auto) 3.9 (1.2-4.9) X10*3/uL [place] # (Auto) 0.7 (0.1-1.2) X10*3/uL Eos # (Auto) 0.3 (0.0-0.4) X10*3/uL Baso # (Auto) 0.0 (0.0-0.2) X10*3/uL Abs Immat Gran (auto) 0.04 H (0.00-0.03) X10*3/uL Absolute Neuts (auto) 6.5 (2.0-8.3) x10*3/uL Absolute Nucleated RBC 0.000 (0.0-0.012) X10*3/uL Nucleated RBC % (auto) 0.0 (0.0-0.2) /100WBC ESR 16 (0-20) MM/HR Sodium 141 (135-145) mmol/L Potassium 4.2 (3.3-5.1) mmol/L Chloride 107 (96-108) mmol/L Carbon Dioxide 23 (22-29) mmol/L Anion Gap 15 (12-20) BUN 9 (9-16) mg/dL Creatinine 0.64 (0.5-1.4) mg/dL Estim Creat Clear Calc 113.9 Estimated GFR > 60 Random Glucose 88 (60-115) mg/dL Calcium 10.3 H (8.4-10.2) mg/dL Magnesium 1.9 (1.6-2.6) mg/dL Total Bilirubin 0.3 (0.0-1.0) mg/dL AST 14 (5-31) U/L ALT 28 (0-31) U/L Alkaline Phosphatase 69 (39-117) U/L C-Reactive Protein 0.55 H (< or = 0.50) mg/dL Total Protein 7.8 (6.5-8.0) g/dL Albumin 4.0 (3.5-5.0) g/dL Urine Color Urine Appearance Urine pH (5.0-9.0) Ur Specific [place] (1.005-1.025) Urine Protein (Neg-Trace) mg/dL Urine Glucose (UA) (Negative) mg/dL Urine Ketones (Negative) mg/dL Urine Blood (Negative) Urine Nitrite (Negative) Ur Leukocyte Esterase (Negative) 06/05/23 Range/Units 20:09 WBC (4.8-10.8) X10*3/uL RBC (4.20-5.50) X10*6/uL Hgb (12.0-16.0) g/dl Hct (37.0-47.0) % MCV (80.0-98.0) fL MCH (27.0-33.0) pg MCHC (31.0-35.0) g/dl RDW (11.0-16.0) % Plt Count (160-400) X10*3/uL MPV (9.4-12.3) fL Immature Gran % (Auto) (0.0-0.4) % Neut % (Auto) (45-73) % Lymph % (Auto) (20-40) % [place] % (Auto) (2-11) % Eos % (Auto) (0-4) % Baso % (Auto) (0-2) % Lymph # (Auto) (1.2-4.9) X10*3/uL [place] # (Auto) (0.1-1.2) X10*3/uL Eos # (Auto) (0.0-0.4) X10*3/uL Baso # (Auto) (0.0-0.2) X10*3/uL Abs Immat Gran (auto) (0.00-0.03) X10*3/uL Absolute Neuts (auto) (2.0-8.3) x10*3/uL Absolute Nucleated RBC (0.0-0.012) X10*3/uL Nucleated RBC % (auto) (0.0-0.2) /100WBC ESR (0-20) MM/HR Sodium (135-145) mmol/L Potassium (3.3-5.1) mmol/L Chloride (96-108) mmol/L Carbon Dioxide (22-29) mmol/L Anion Gap (12-20) BUN (9-16) mg/dL Creatinine (0.5-1.4) mg/dL Estim Creat Clear Calc Estimated GFR Random Glucose (60-115) mg/dL Calcium (8.4-10.2) mg/dL Magnesium (1.6-2.6) mg/dL Total Bilirubin (0.0-1.0) mg/dL AST (5-31) U/L ALT (0-31) U/L Alkaline Phosphatase (39-117) U/L C-Reactive Protein (< or = 0.50) mg/dL Total Protein (6.5-8.0) g/dL Albumin (3.5-5.0) g/dL Urine Color Yellow Urine Appearance Clear Urine pH 8.0 (5.0-9.0) Ur Specific [place] 1.015 (1.005-1.025) Urine Protein Negative (Neg-Trace) mg/dL Urine Glucose (UA) Negative (Negative) mg/dL Urine Ketones Negative (Negative) mg/dL Urine Blood Negative (Negative) Urine Nitrite Negative (Negative) Ur Leukocyte Esterase Negative (Negative) Discharge Plan Discharge Clinical Impression: Acute exacerbation of chronic low back pain Patient Disposition: Home, Self-Care Instructions: Sciatica (ED) Additional Instructions: Your workup in the emergency department today was reassuring Take the dexamethasone twice daily for the next 3 days Check your blood sugars frequently while taking this medication Use tramadol for severe or breakthrough pain This may make you sleepy, did not drink alcohol or drive after taking it You would likely benefit from an outpatient MRI of the lumbar spine within the next few weeks, discuss this with your primary doctor You may also use warm compresses and continue using lidocaine patches You may continue using Tylenol for pain Prescriptions: New dexamethasone 4 mg tablet 4 mg PO BID Qty: 6 0RF tramadol 50 mg tablet 50 mg PO Q6H PRN (Reason: severe pain (scale score 7-10)) Qty: 12 0RF No Action hydrocortisone [Proctosol HC] 2.5 % cream with perineal applicator 1 appl CA BID-QID PRN (Reason: hemorrhoids) Qty: 30 1RF meclizine 25 mg tablet 25 mg PO TID PRN (Reason: dizziness) Qty: 30 0RF lidocaine [Lidoderm] 5 % adhesive patch,medicated 1 patch topical DAILY Qty: 15 0RF Rx Instructions: leave on most painful area for up to 12 hrs. May be substituted naproxen 500 mg tablet 500 mg PO BID PRN (Reason: pain) Qty: 10 0RF trazodone 50 mg tablet 0.5 - 1 tab PO BEDTIME amlodipine 10 mg tablet 1 tab PO DAILY furosemide 20 mg tablet 1 tab PO DAILY albuterol sulfate [ProAir HFA] 90 mcg/actuation HFA aerosol inhaler 2 puff INHALATION Q4-6H PRN (Reason: Wheezing) losartan 100 mg tablet 1 tab PO DAILY prednisone 20 mg tablet 40 mg PO DAILY 5 Days Qty: 10 0RF ondansetron 4 mg tablet,disintegrating 4 mg PO Q6-8H PRN (Reason: nausea and vomiting) Qty: 10 0RF acetaminophen [Tylenol] 325 mg capsule 650 mg PO Q6H PRN (Reason: pain) Qty: 45 0RF lidocaine [Lidoderm] 5 % adhesive patch,medicated 1 patch topical DAILY Qty: 30 0RF Rx Instructions: leave on most painful area for up to 12 hrs cholecalciferol (vitamin D3) 50 mcg (2,000 unit) capsule 50 mcg PO DAILY Qty: 90 3RF cyanocobalamin (vitamin B-12) [Vitamin B-12] 500 mcg tablet 500 mcg PO DAILY Qty: 30 5RF Citrucel 500 mg tablet 500 mg PO DAILY Qty: 90 2RF Rx Instructions: take it with full glass of water omeprazole 20 mg capsule,delayed release(DR/EC) 20 mg PO DAILY Qty: 90 3RF sennosides [Natural Senna Laxative] 8.6 mg tablet 17.2 mg PO BEDTIME Qty: 180 3RF famotidine [Pepcid] 20 mg tablet 20 mg PO BEDTIME Qty: 90 3RF
--- NOTE | 2023-06-05 15:04 | MHC.EDTECH ---
Called 2x no answer for blood work
[2023-06-05 15:46] LABS: MANUAL DIFF FLAG NO
[2023-06-05 15:49] LABS: Basophils Percent Auto 0.3 % (0-2); Eosinophils Absolute Auto 0.3 X10*3/uL (0.0-0.4); Eosinophils Percent Auto 2.9 % (0-4); Hematocrit 42.6 % (37.0-47.0); Imm Gran Abs Auto 0.04 X10*3/uL (0.00-0.03); Imm Gran Pct Auto 0.3 % (0.0-0.4); Lymphocytes Absolute Auto 3.9 X10*3/uL (1.2-4.9); Lymphocytes Percent Auto 33.7 % (20-40); Mean Corpuscular HGB Conc 32.9 g/dl (31.0-35.0); Mean Corpuscular Volume 85.2 fL (80.0-98.0); Mean Platelet Volume 10.3 fL (9.4-12.3); Monocytes Absolute Auto 0.7 X10*3/uL (0.1-1.2); Monocytes Percent Auto 6.3 % (2-11); Neutrophils Absolute Auto 6.5 x10*3/uL (2.0-8.3); Neutrophils Percent Auto 56.5 % (45-73); Platelet Count 313 X10*3/uL (160-400); Red Cell Distribution Width 13.6 % (11.0-16.0); White Blood Count 11.6 X10*3/uL (4.8-10.8)
[2023-06-05 16:13] LABS: Alanine Aminotransferase 28 U/L (0-31); Alkaline Phosphatase 69 U/L (39-117); Anion Gap 15 (12-20); Aspartate Amino Transferase 14 U/L (5-31); Bilirubin Total 0.3 mg/dL (0.0-1.0); Blood Urea Nitrogen 9 mg/dL (9-16); C Reactive Protein 0.55 mg/dL (< or = 0.50); Calcium 10.3 mg/dL (8.4-10.2); Carbon Dioxide 23 mmol/L (22-29); Chloride 107 mmol/L (96-108); Creatinine Clr Calc Pharmacy 113.9; Estimated Glomerular Filt Rate > 60; Glucose Random 88 mg/dL (60-115); Magnesium 1.9 mg/dL (1.6-2.6); Potassium 4.2 mmol/L (3.3-5.1); Sodium 141 mmol/L (135-145); Total Protein 7.8 g/dL (6.5-8.0)
[2023-06-05 17:10] LABS: Erythrocyte Sedimentation Rate 16 MM/HR (0-20)
[2023-06-05 19:25] VITALS: BP 146/88; PULSE 86; RESP 20; TEMP 36.6; O2SAT 98
[2023-06-05] MEDS: Morphine Sulfate 4 MG/ML CARTRIDGE IM (20:10)
[2023-06-05] MEDS: Ondansetron ODT 4 MG TAB.RAPDIS TRANSLINGU (20:10)
[2023-06-05 20:20] LABS: Appearance Urine Clear; Color Urine Yellow; Glucose Urine UA Negative (Negative); Leukocyte Esterase Urine Negative (Negative); Nitrite Urine Negative (Negative); Specific Gravity - Urine 1.015 (1.005-1.025); Urine Blood Negative (Negative); Urine Ketones Negative (Negative); Urine Protein Negative (Neg-Trace)
== END 2023-06-05 21:04 | disposition home or self-care (01) ==
PROVIDERS: Physician Assistant Medical; Emergency Provider Emergency Medicine; PCP Internal Medicine
DX: G89.29 Other chronic pain (principal); M54.50 Low back pain, unspecified; R33.9 Retention of urine, unspecified; I10 Essential (primary) hypertension; E66.9 Obesity, unspecified; Z68.42 Body mass index [BMI] 45.0-49.9, adult
CPT/HCPCS: 36415; 51798; 72100; 80053; 81003; 83735; 85025; 85652; 86140; 96372; 99283; 99284; J2270

== ENCOUNTER 2023-07-04 09:56 | Outpatient (AMB) | payer MEDICAID, SELFPAY ==
--- NOTE | 2023-07-04 09:59 | MHC.OFFVIS ---
Intake Vital Signs 07/04/23 10:02 Height 5 ft Weight 260 lb 6 oz BMI 50.8 BP 142/70 H Blood Pressure Location Rt radial Position Sitting Pulse 80 Pulse Source Pulse Oximeter Pulse Oximetry (%) 96 Oxygen Delivery Method Room Air Intake Visit Reasons: CHRONIC LOW BACK PAIN Intake Note: Pain today 04/08 Community Relations Specialist Required: Yes Community Relations Specialist Language: Customer Solutions Architect Name: Daughter- Nohemi Accompanied by: Daughter Allergies No Known Allergies [No Known Allergies*] Allergy (Verified 07/04/23 10:03) HPI CHRONIC LOW BACK PAIN HPI Details Patient is a pleasant 57 years old Czech speaking, morbidly obese female with presents today with worsening chronic lower back pain over the past year. Denies any recent trauma, injury or falls but reports a shelf from her drawer fell on her head and neck about 10 years ago. She also states pain increased over the past year as she started walking more while grieving when her mom . Her back pain has been gradually getting worse that she went to ER last month for evaluation and reports minimal improvement with Tramadol, NSAIDs, lidocaine patches and dexamethasone. Patient reports her back pain is axial with significnat radicular anterior right leg pain with numbness and tingling, paresthesias in her anterior thigh and trammell. Patient uses cane due to back pain and intermittent weakness in her right lower extremity. Reports occasional incontinent urine episodes with severe back pain. Patient also reports neck pain radiating to her left shoulder and periscapular region. Today we focused on her back as this has been progressively worsening and negatively affecting her mobility, ADLs, sleep, mood and quality of life. She is currently not working and has been on permanent disability. Patient denies previous spine surgery but notes she underwent nerve blocks in the past that provided her 3 years of pain relief. Most recent lumbar spine MRI and hip xray is noted below. Denies any fever, weight loss, abdominal or groin pain, bladder or bowel dysfunction or saddle anesthesia. Location Lower back pain with radiation to RLE in L4-L5 distribution Duration Over one 1 year after started walking for daily physical activity Characteristics of symptom or complaint Aching, tight, burning, numbness, throbbing, shooting, heavy Aggravating or associated factors Walking, prolonged standing, bending, lifting, twitsting, changing position Relieving factors Resting supine, Tramadol, Ibuprofen, lidocaine patches, dexamethasone Treatment PT- currently in, temporary relief while doing PT/HEP, uses cane PFSH Medical History Asthma Chest pain Chronic TMJ pain Diabetes Hypercholesterolemia Hypertension Migraines Obesity Snoring Tubular adenoma Surgical History History of carpal tunnel release (~12/03/20) History of esophagogastroduodenoscopy (EGD) Hx of section Hx of cholecystectomy Hx of colonoscopy Hx of hysterectomy, total Family History Mother Diabetes Heart attack Ulcer of stomach due to bacteria Father Heart attack HTN (hypertension) Paternal Uncle Colon cancer Sister Lupus Social History Alcohol intake: never Patient Tobacco Use Status: Never used Tobacco Second Hand Smoke Exposure: No Current occupational status: retired Current occupation: right and left handed Review of Systems Const All systems reviewed & are unremarkable except as noted in HPI and below Physical Exam Vital Signs: Last Vital Signs Pulse 80 07/04/23 10:02 BP 142/70 H 07/04/23 10:02 Pulse Ox 96 07/04/23 10:02 Oxygen Delivery Method Room Air 07/04/23 10:02 BMI result Body Mass Index 50.8 General: Appears afebrile. Alert and oriented. Mood and affect appropriate. Follows and participates in conversation appropriately. Respiratory effort is unlabored. No cough. Able to transition from sit to stand unassisted. Uses cane with ambulation. Back/Spine/Pelvis Other: Antalgic gait with mild limping. Uses cane with ambulation and transfers. Limited lumbar flexion and extension due pain. Demonstrates 5/5 left and 4/5 right strength of quadriceps bilaterally as well as flexion/dorsiflexion of bilateral feet against resistance. Increased back pain with anterior RLE paresthesias with dorsiflexion and bending. 2+ pedal pulses bilaterally. Seated straight leg rise with dorsiflexion positive on the right. +2 left +1 right patellar and +1 achilles reflexes bilaterally. Facet loading test positive bilaterally. Nj sign + bilaterally, unable to do Irvin?s and Pelvic compression due to pain, Stinchfield tests are positive bilaterally, R>L. No groin pain with I/E hip rotations. Valsalva maneuver negative. No clonus bilaterally. Cervical Spine: cervical muscular tenderness, pain with cervical ROM, cervical spasm and No Cervical spine tenderness Thoracic/Lumbar Spine: thoracic and lumbar spine normal to inspection, No Thoracic/lumbar spine scar(s), Lasegue's sign positive on the right and localized, pain with thoraco-lumbar ROM, paraspinal muscle tenderness on the right greater than left, thoraco-lumbar ROM limited, No thoracic spinal tenderness and lumbar spinal tenderness Pelvis: buttock tenderness on the right and no sciatic notch tenderness Sacroiliac joints: bilaterally tender to palpation Results Reviewed Results Reviewed: XR LUMBOSACRAL SPINE 06/05/23 CLINICAL INFORMATION: Low back pain. COMPARISON: Lumbar spine radiographs dated 02/16/2023. CT scan of the lumbar spine dated 05/25/2023. FINDINGS: There is normal lumbar lordosis. Minimal anterolisthesis is seen at L4-L5 with mild bilateral neural foraminal narrowing. The vertebral bodies are intact. The soft tissues are unremarkable. IMPRESSION: L4-L5 minimal grade 1 anterolisthesis and bilateral facet arthropathy without acute abnormality. MR LUMBAR SPINE WITHOUT CONTRAST 06/10/23 CLINICAL INFORMATION: Right sciatica and leg weakness. Assess for cauda equina. 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 Plain films of the lumbar spine agency 06/05/2023. FINDINGS: VERTEBRAL BODIES AND PARASPINAL STRUCTURES: The study redemonstrates a mild grade 1 anterolisthesis of L4 on L5. There is slight loss of intervertebral disc signal from the levels of L4-L5 and L5-S1. Vertebral body heights are maintained, and no fractures are demonstrated. Overall, marrow signal is slightly heterogenous. The visualized retroperitoneal and pelvic structures are unremarkable. CONUS MEDULLARIS AND CAUDA EQUINA: Normal, terminating at the level of L1. There appears to be ligamenta flava hypertrophy dorsally within the spinal canal at the level of T10-T11, incompletely visualized on these images. There is no definite spinal cord compression or central stenosis, and the neural foramina are patent bilaterally. The lower thoracic spinal cord has normal signal. The cauda equina nerve roots and filum terminale appear normal. SPINAL LEVELS: L1-L2: The facet joints appear normal bilaterally. Disc contour is normal. There is no central stenosis or foraminal narrowing. L2-L3: The facet joints appear normal bilaterally. Disc contour is normal. There is no central stenosis or foraminal narrowing. L3-L4: The facet joints appear normal. There is a left-sided disc protrusion which mildly narrows the left subarticular recess and extends into the left neural foramen, but there is no exiting nerve root impingement. There is no central stenosis. L4-L5: There is markedly severe right and severe left facet arthropathy with a prominent right-sided facet joint effusion. There is unroofing of the disc as a result of anterolisthesis, and there is flattening the ventral thecal sac with narrowing of the bilateral subarticular recesses. There is mild central stenosis. There is no foraminal nerve root impingement. L5-S1: There is mild bilateral facet arthropathy. There is a shallow posterior disc protrusion without mass effect on the thecal sac and there is no central stenosis. The neural foramina are patent bilaterally. IMPRESSION: 1. There is a grade 1 anterolisthesis of L4 on L5 secondary to severe facet arthropathy. There is narrowing of the bilateral subarticular recesses and there is mild central stenosis. There is no foraminal nerve root impingement. 2. At L3-L4 there is a left-sided disc protrusion with narrowing of the left subarticular recess. There is no exiting nerve root impingement and there is no central stenosis. 3. There appears to be ligamenta flava hypertrophy dorsally within the spinal canal at the level of T10-T11, incompletely visualized. There is no definite spinal cord compression or central stenosis, and the neural foramina are patent bilaterally. This could be further evaluated with MRI scan of the thoracic spine. XR HIP, RIGHT 05/25/23 CLINICAL INFORMATION: Right hip pain. FINDINGS: No fracture. Alignment is anatomic. Hip joint space is maintained. Soft tissues are unremarkable. IMPRESSION: Unremarkable right hip. NE electromyogram (EMG); NE nerve conduction velocity 08/12/2020 HISTORY OF PRESENT ILLNESS: This is a 54-year-old woman with a 2-year history of bilateral upper extremity pain, numbness, and tingling. Both sides affected equally. She has a history of diabetes for more than 5 years. Complete list of medications not available. PHYSICAL EXAMINATION: On examination, she is alert and oriented with normal intellectual functions. Cranial nerves II through XII are normal. Muscle tone and strength are normal in all 4 extremities. There is mild flattening of the thenar eminences on both sides with weakness of abductor pollicis brevis muscle particularly on the right. No sensory deficits. IMPRESSION: Carpal tunnel syndrome. NERVE CONDUCTION EMG STUDY: Moderately severe carpal tunnel syndrome bilaterally, worse on the left. Normal EMG of the left C5 through T1 innervated muscles. Assessment & Plan Assessment & Plan (1) Lumbar radiculopathy: Code(s): M54.16 - Radiculopathy, lumbar region (2) Lumbar spondylosis: Code(s): M47.816 - Spondylosis without myelopathy or radiculopathy, lumbar region (3) Lumbar degenerative disc disease: Code(s): M51.36 - Other intervertebral disc degeneration, lumbar region (4) Sacroiliitis: Code(s): M46.1 - Sacroiliitis, not elsewhere classified (5) Morbid obesity with BMI of 50.0-59.9, adult: Code(s): E66.01 - Morbid (severe) obesity due to excess calories; Z68.43 - Body mass index [BMI] 50.0-59.9, adult Plan Discussed treatment options for both her axial low back as well as radicular pain. 1. For ongoing radicular and degenerative pain, will proceed with Right L4-L5 Interlaminar SIVAKUMAR with local and fluoroscopy. 2. For ongoing axial low back pain will tentatively plan for diagnostic bilateral L3-L4 DR L5 medial branch blocks with local and fluoroscopy. If she has significant relief from the diagnostic blocks for her axial low back pain, will consider either therapeutic injections, Sprint PNS trial or RFA depending on her preference. Informational pamphlets provided in Czech. 3. Script for gabapentin provided today. Patient will up titrate gabapentin twice daily after trialling this at bedtime for one week. Side effects and precautions reviewed with patient. All questions and concerns have been answered and the patient agreed with the plan. Follow up after injections and sooner if needed. Anticoagulation: Patient not on anticoagulant Justification for interventional therapy: ? Patient with average pain > 6/10 ? Patient has exhausted conservative therapy, NSAIDs, physical therapy ? Patient continuing home exercise program The risks, consequences, alternatives, and benefits of various treatment options were discussed with the patient in great detail, including conservative management, injections and procedures. I informed patient of the hyperglycemic effects of steroids. Medications: New gabapentin 300 mg PO BEDTIME 30 days 30 caps 0RF pain M47.816 - Spondylosis without myelopathy or radiculopathy, lumbar region, M51.36 - Other intervertebral disc degeneration, lumbar region, M54.16 - Radiculopathy, lumbar region Coding Level of Care Code New Pt Level 4 (79172) Diagnoses Lumbar radiculopathy M54.16 Lumbar spondylosis M47.816 Lumbar degenerative disc disease M51.36 Sacroiliitis M46.1 Morbid obesity with BMI of 50.0-59.9, adult E66.01; Z68.43
[2023-07-04 10:02] VITALS: BP 142/70; PULSE 80; O2SAT 96; BMI 50.8
== END 2023-07-04 10:39 | disposition home or self-care (01) ==
PROVIDERS: PCP Internal Medicine; Visit Provider Nurse Practitioner Family
DX: M54.16 Radiculopathy, lumbar region (principal); M47.816 Spondylosis without myelopathy or radiculopathy, lumbar region; M51.36 Other intervertebral disc degeneration, lumbar region; M46.1 Sacroiliitis, not elsewhere classified; E66.01 Morbid (severe) obesity due to excess calories; Z68.43 Body mass index [BMI] 50.0-59.9, adult
CPT/HCPCS: 99204

== ENCOUNTER → 2023-07-04 09:56 | Outpatient (BNVA) | payer MEDICAID, SELFPAY | PROVIDERS: PCP Internal Medicine; Visit Provider Nurse Practitioner Family | DX: M47.26 Other spondylosis with radiculopathy, lumbar region (principal); M51.36 Other intervertebral disc degeneration, lumbar region; M46.1 Sacroiliitis, not elsewhere classified; E66.01 Morbid (severe) obesity due to excess calories; Z68.43 Body mass index [BMI] 50.0-59.9, adult | CPT/HCPCS: 99212 ==

== ENCOUNTER 2023-07-25 05:58 | Outpatient (REF) | payer MEDICAID, SELFPAY ==
--- NOTE | ~2023-07-25 | FL_ITS ---
EXAMINATION: XR FLUOROSCOPY WITH IMAGES CLINICAL INFORMATION: Radiculopathy, lumbar region. Lumbar injection. COMPARISON: None available. TECHNIQUE: Fluoroscopy Supervised By: Dr. Ari Yuan. Fluoroscopy Time: 0.2 minutes. Cumulative Dose: 15.8 mGy. DAP: 0.239 Gycm2. Images: 1. FINDINGS: Single lateral image demonstrates needle projecting over the posterior elements at the L4-L5 disc space level. FL/FL guidance in treatment room IMPRESSION: Fluoroscopy guidance for pain management procedure
== END 2023-07-25 05:59 | disposition home or self-care (01) ==
LOC: CF 05:58
PROVIDERS: Visit Provider Anesthesiology
DX: M54.16 Radiculopathy, lumbar region (principal); M47.816 Spondylosis without myelopathy or radiculopathy, lumbar region; M51.36 Other intervertebral disc degeneration, lumbar region; M46.1 Sacroiliitis, not elsewhere classified; E66.01 Morbid (severe) obesity due to excess calories; Z68.43 Body mass index [BMI] 50.0-59.9, adult
CPT/HCPCS: 62323; J3301

== ENCOUNTER 2023-07-25 07:58 | Outpatient (AMB) | payer MEDICAID, SELFPAY ==
[2023-07-25 08:09] VITALS: BP 128/70; PULSE 97; RESP 14; O2SAT 97; BMI 50.8
--- NOTE | 2023-07-25 08:09 | A.OFFVIS_ITS ---
Intake Vital Signs 07/25/23 08:09 07/25/23 09:18 Height 5 ft 5 ft Weight 260 lb 260 lb BMI 50.8 50.8 BP 128/70 130/76 Blood Pressure Location Rt brachial Lt radial Position Sitting Sitting Respiration 14 14 Pulse 97 84 Pulse Source Pulse Oximeter Pulse Oximeter Pulse Oximetry (%) 97 97 Oxygen Delivery Method Room Air Room Air Comment Pre-OP post-op Intake Visit Reasons: RIGHT L4, L5 INTERLAMINAR SIVAKUMAR Allergies No Known Allergies [No Known Allergies*] Allergy (Verified 07/25/23 08:10) PFSH Medical History Asthma Chest pain Chronic TMJ pain Diabetes Hypercholesterolemia Hypertension Migraines Obesity Snoring Tubular adenoma Surgical History History of carpal tunnel release (~12/03/20) History of esophagogastroduodenoscopy (EGD) Hx of section Hx of cholecystectomy Hx of colonoscopy Hx of hysterectomy, total Family History Mother Diabetes Heart attack Ulcer of stomach due to bacteria Father Heart attack HTN (hypertension) Paternal Uncle Colon cancer Sister Lupus Social History Alcohol intake: never Patient Tobacco Use Status: Never used Tobacco Second Hand Smoke Exposure: No Current occupational status: retired Current occupation: right and left handed Physical Exam Vital Signs: Last Vital Signs Pulse 97 07/25/23 08:09 Resp 14 07/25/23 08:09 BP 128/70 07/25/23 08:09 Pulse Ox 97 07/25/23 08:09 Oxygen Delivery Method Room Air 07/25/23 08:09 BMI result Body Mass Index 50.8 Assessment & Plan Assessment & Plan (1) Lumbar radiculopathy: Code(s): M54.16 - Radiculopathy, lumbar region Plan: Interlaminar epidural steroid injection L4- L5 more on the right. Informed consent was thoroughly explained to the patient before the procedure. The patient came to the operating room. She was positioned prone on operating table with a pillow under her abdomen. Time-out was performed delineating correct site and side of the procedure, nature of the injection, name and date of of the patient. The lower back of the patient was prepped with ChloraPrep and draped with sterile utility towels. C-arm was brought over the operating field and sq picture of L5 vertebra was demonstrated on the screen. the right side of the L5 lamina projection to the skin was chosen as initial target of the needle insertion. The point of interest was injected with lidocaine 1% and after that the 20 G Tuohy needle was inserted through the skin and advanced to the upper border of the right lamina on the right side as close to the spinois process of L5 as possible. When the needle gently contacted the bone it was deviated cephalad and advanced into interlaminar space under lateral projection with JAUN syringe connected to the needle to detect the epidural space. When JAUN was felt injection of the contrast was performed demonstrating epidurogram. After that injection of the treatment medicine 3 cc of preservative-free lidocaine 1% mixed with Kenalog 40 mg was injected. Injection of the contrast and injection of the treatment medicine was observed live on the screen. No intrathecal and no i ntravascular spread of the contrast was noted. The needle was removed and bandaid was applied the patient tolerated procedure well. (2) Lumbar spondylosis: Code(s): M47.816 - Spondylosis without myelopathy or radiculopathy, lumbar region (3) Lumbar degenerative disc disease: Code(s): M51.36 - Other intervertebral disc degeneration, lumbar region (4) Sacroiliitis: Code(s): M46.1 - Sacroiliitis, not elsewhere classified (5) Morbid obesity with BMI of 50.0-59.9, adult: Code(s): E66.01 - Morbid (severe) obesity due to excess calories; Z68.43 - Body mass index [BMI] 50.0-59.9, adult Plan Discussed treatment options for both her axial low back as well as radicular pain. 1. For ongoing radicular and degenerative pain, will proceed with Right L4-L5 Interlaminar SIVAKUMAR with local and fluoroscopy. 2. For ongoing axial low back pain will tentatively plan for diagnostic bilateral L3-L4 DR L5 medial branch blocks with local and fluoroscopy. If she has significant relief from the diagnostic blocks for her axial low back pain, will consider either therapeutic injections, Sprint PNS trial or RFA depending on her preference. Informational pamphlets provided in Croatian. 3. Script for gabapentin provided today. Patient will up titrate gabapentin twice daily after trialling this at bedtime for one week. Side effects and precautions reviewed with patient. All questions and concerns have been answered and the patient agreed with the plan. Follow up after injections and sooner if needed. Anticoagulation: Patient not on anticoagulant Justification for interventional therapy: ? Patient with average pain > 6/10 ? Patient has exhausted conservative therapy, NSAIDs, physical therapy ? Patient continuing home exercise program The risks, consequences, alternatives, and benefits of various treatment options were discussed with the patient in great detail, including conservative management, injections and procedures. I informed patient of the hyperglycemic effects of steroids. Orders: Orders FL guidance in treatment room Today M54.16 - Radiculopathy, lumbar region Coding Level of Care Code Procedure Only Diagnoses Lumbar radiculopathy M54.16 Lumbar spondylosis M47.816 Lumbar degenerative disc disease M51.36 Sacroiliitis M46.1 Morbid obesity with BMI of 50.0-59.9, adult E66.01; Z68.43
[2023-07-25 09:18] VITALS: BP 130/76; PULSE 84; RESP 14; O2SAT 97; BMI 50.8
== END 2023-07-25 09:10 | disposition home or self-care (01) ==
LOC: HO.PMCPRC 07:59
PROVIDERS: PCP Internal Medicine; Visit Provider Anesthesiology
DX: M54.16 Radiculopathy, lumbar region (principal)
CPT/HCPCS: 62323

== ENCOUNTER 2023-08-22 08:51 | Outpatient (AMB) | payer MEDICAID, SELFPAY ==
[2023-08-22 08:56] VITALS: BP 133/68; PULSE 79; O2SAT 99; BMI 50.8
--- NOTE | 2023-08-22 08:56 | A.OFFVIS_ITS ---
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 Yuan. Patient reports 70% ongoing pain relief with improved mobility, functioning, ADLs and sleep. She reports improvement in her axial low back too but reports pain in her lateral hips and buttocks with prolonged standing while washing dishes or cooking and with changing positions. Today's exam was consistent with bilateral sacroiliac joint pain and localized tenderness. Previously patient had difficulty to complete SIJ provocative examination due to radicular back symptoms at initial office visit. Patient would like to undergo diagnostic SIJ injections to confirm this for potential longer term interventions. She has completed physical therapy on 03/29/23-06/23/23, total 10 treatments with mild improvement in her functioning but with continued pain. Denies any abdominal or groin pain, bladder or bowel dysfunction or saddle anesthesia. Past Procedures: 07/25/23: Right L4-L5 Interlaminar SIVAKUMAR-7 0% ongoing pain relief PRIOR: Patient is a pleasant 57 years old [place] speaking, morbidly obese female with presents today with worsening chronic lower back pain over the past year. Denies any recent trauma, injury or falls but reports a shelf from her drawer fell on her head and neck about 10 years ago. She also states pain increased over the past year as she started walking more while grieving when her mom . Her back pain has been gradually getting worse that she went to ER last month for evaluation and reports minimal improvement with Tramadol, NSAIDs, lidocaine patches and dexamethasone. Patient reports her back pain is axial with significnat radicular anterior right leg pain with numbness and tingling, paresthesias in her anterior thigh and trammell. Patient uses cane due to back pain and intermittent weakness in her right lower extremity. Reports occasional incontinent urine episodes with severe back pain. Patient also reports neck pain radiating to her left shoulder and periscapular region. Today we focused on her back as this has been progressively worsening and negatively affecting her mobility, ADLs, sleep, mood and quality of life. She is currently not working and has been on permanent disability. Patient denies previous spine surgery but notes she underwent nerve blocks in the past that provided her 3 years of pain relief. Most recent lumbar spine MRI and hip xray is noted below. Denies any fever, weight loss, abdominal or groin pain, bladder or bowel dysfunction or saddle anesthesia. Location Lower back pain with radiation to RLE in L4-L5 distribution Duration Over one 1 year after started walking for daily physical activity Characteristics of symptom or complaint Aching, tight, burning, numbness, throbbing, shooting, heavy Aggravating or associated factors Walking, prolonged standing, bending, lifting, twitsting, changing position Relieving factors Resting supine, Tramadol, Ibuprofen, lidocaine patches, dexamethasone Treatment PT- currently in, temporary relief while doing PT/HEP, uses cane PFSH Medical History Tubular adenoma Chronic TMJ pain Hypercholesterolemia Obesity Snoring Chest pain Diabetes Hypertension Migraines Asthma Surgical History History of esophagogastroduodenoscopy (EGD) Hx of colonoscopy Hx of cholecystectomy Hx of hysterectomy, total Hx of section History of carpal tunnel release (~12/03/20) Family History Mother Diabetes Heart attack Ulcer of stomach due to bacteria Father Heart attack HTN (hypertension) Paternal Uncle Colon cancer Sister Lupus Social History Alcohol intake: never Patient Tobacco Use Status: Never used Tobacco Second Hand Smoke Exposure: No Current occupational status: retired Current occupation: right and left handed Review of Systems Const All systems reviewed & are unremarkable except as noted in HPI and below Physical Exam Vital Signs: Last Vital Signs Pulse 79 08/22/23 08:56 BP 133/68 08/22/23 08:56 Pulse Ox 99 08/22/23 08:56 Oxygen Delivery Method Room Air 08/22/23 08:56 BMI result Body Mass Index 50.8 General: Appears afebrile. Alert and oriented. Mood and affect appropriate. Follows and participates in conversation appropriately. Respiratory effort is unlabored. No cough. Able to transition from sit to stand unassisted. Back/Spine/Pelvis Other: Limited lumbar ROM, no significant pain with flexion or extension. Nj sign + bilaterally, Irvin?s, Gaenslen, Stinchfield, Pelvic compression tests are positive bilaterally, R>L. No groin pain with I/E hip rotations, right internal rotation reproduces right lateral hip pain. Valsalva maneuver negative. Cervical Spine: cervical muscular tenderness and No Cervical spine tenderness Thoracic/Lumbar Spine: thoracic and lumbar spine normal to inspection, No Thoracic/lumbar spine scar(s), straight leg raise negative bilaterally, paraspinal muscle tenderness on the right greater than left, thoraco-lumbar ROM limited, No thoracic spinal tenderness and lumbar spinal tenderness Pelvis: buttock tenderness bilaterally Sacroiliac joints: bilaterally tender to palpation Results Reviewed Results Reviewed: XR LUMBOSACRAL SPINE 06/05/23 CLINICAL INFORMATION: Low back pain. COMPARISON: Lumbar spine radiographs dated 02/16/2023. CT scan of the lumbar spine dated 05/25/2023. FINDINGS: There is normal lumbar lordosis. Minimal anterolisthesis is seen at L4-L5 with mild bilateral neural foraminal narrowing. The vertebral bodies are intact. The soft tissues are unremarkable. IMPRESSION: L4-L5 minimal grade 1 anterolisthesis and bilateral facet arthropathy without acute abnormality. MR LUMBAR SPINE WITHOUT CONTRAST 06/10/23 CLINICAL INFORMATION: Right sciatica and leg weakness. Assess for cauda equina. 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 Plain films of the lumbar spine agency 06/05/2023. FINDINGS: VERTEBRAL BODIES AND PARASPINAL STRUCTURES: The study redemonstrates a mild grade 1 anterolisthesis of L4 on L5. There is slight loss of intervertebral disc signal from the levels of L4-L5 and L5-S1. Vertebral body heights are maintained, and no fractures are demonstrated. Overall, marrow signal is slightly heterogenous. The visualized retroperitoneal and pelvic structures are unremarkable. CONUS MEDULLARIS AND CAUDA EQUINA: Normal, terminating at the level of L1. There appears to be ligamenta flava hypertrophy dorsally within the spinal canal at the level of T10-T11, incompletely visualized on these images. There is no definite spinal cord compression or central stenosis, and the neural foramina are patent bilaterally. The lower thoracic spinal cord has normal signal. The cauda equina nerve roots and filum terminale appear normal. SPINAL LEVELS: L1-L2: The facet joints appear normal bilaterally. Disc contour is normal. There is no central stenosis or foraminal narrowing. L2-L3: The facet joints appear normal bilaterally. Disc contour is normal. There is no central stenosis or foraminal narrowing. L3-L4: The facet joints appear normal. There is a left-sided disc protrusion which mildly narrows the left subarticular recess and extends into the left neural foramen, but there is no exiting nerve root impingement. There is no central stenosis. L4-L5: There is markedly severe right and severe left facet arthropathy with a prominent right-sided facet joint effusion. There is unroofing of the disc as a result of anterolisthesis, and there is flattening the ventral thecal sac with narrowing of the bilateral subarticular recesses. There is mild central stenosis. There is no foraminal nerve root impingement. L5-S1: There is mild bilateral facet arthropathy. There is a shallow posterior disc protrusion without mass effect on the thecal sac and there is no central stenosis. The neural foramina are patent bilaterally. IMPRESSION: 1. There is a grade 1 anterolisthesis of L4 on L5 secondary to severe facet arthropathy. There is narrowing of the bilateral subarticular recesses and there is mild central stenosis. There is no foraminal nerve root impingement. 2. At L3-L4 there is a left-sided disc protrusion with narrowing of the left subarticular recess. There is no exiting nerve root impingement and there is no central stenosis. 3. There appears to be ligamenta flava hypertrophy dorsally within the spinal canal at the level of T10-T11, incompletely visualized. There is no definite spinal cord compression or central stenosis, and the neural foramina are patent bilaterally. This could be further evaluated with MRI scan of the thoracic spine. XR HIP, RIGHT 05/25/23 CLINICAL INFORMATION: Right hip pain. FINDINGS: No fracture. Alignment is anatomic. Hip joint space is maintained. Soft tissues are unremarkable. IMPRESSION: Unremarkable right hip. NE electromyogram (EMG); NE nerve conduction velocity 08/12/2020 HISTORY OF PRESENT ILLNESS: This is a 54-year-old woman with a 2-year history of bilateral upper extremity pain, numbness, and tingling. Both sides affected equally. She has a history of diabetes for more than 5 years. Complete list of medications not available. PHYSICAL EXAMINATION: On examination, she is alert and oriented with normal intellectual functions. Cranial nerves II through XII are normal. Muscle tone and strength are normal in all 4 extremities. There is mild flattening of the thenar eminences on both sides with weakness of abductor pollicis brevis muscle particularly on the right. No sensory deficits. IMPRESSION: Carpal tunnel syndrome. NERVE CONDUCTION EMG STUDY: Moderately severe carpal tunnel syndrome bilaterally, worse on the left. Normal EMG of the left C5 through T1 innervated muscles. Assessment & Plan Assessment & Plan (1) Lumbar degenerative disc disease: Code(s): M51.36 - Other intervertebral disc degeneration, lumbar region (2) Lumbar spondylosis: Code(s): M47.816 - Spondylosis without myelopathy or radiculopathy, lumbar region (3) Lumbar radiculopathy: Code(s): M54.16 - Radiculopathy, lumbar region (4) Sacroiliac joint pain: Code(s): M53.3 - Sacrococcygeal disorders, not elsewhere classified (5) Sacroiliitis: Code(s): M46.1 - Sacroiliitis, not elsewhere classified (6) Morbid obesity with BMI of 50.0-59.9, adult: Code(s): E66.01 - Morbid (severe) obesity due to excess calories; Z68.43 - Body mass index [BMI] 50.0-59.9, adult Plan Patient is status post Right Interlaminar L4-L5 SIVAKUMAR with ongoing 70% pain relief, improvement in her daily functioning, ROM and mobility. She also reports partial relief from her axial low back and would like to hold off with diagnostic lumbar MBBs at this time but proceed with Diagnostic Bilateral Sacroiliac Joint Injections with local and fluoroscopy for potential therapeutic injections, Curonix PNS trial, SIJ fusion or RFA depending on her preference. Informational pamphlets provided and procedures discussed in greater detail with patient and her daughter. Continue daily physical activity, weight loss, adequate hydration and good posture. All questions and concerns have been answered and the patient agreed with the plan. Follow up after injections and sooner if needed. Anticoagulation: Patient not on anticoagulant Justification for interventional therapy: ? Patient with average pain > 6/10 ? Patient has exhausted conservative therapy, NSAIDs, physical therapy ? Patient continuing home exercise program The risks, consequences, alternatives, and benefits of various treatment options were discussed with the patient in great detail, including conservative management, injections and procedures. Coding Level of Care Code Est Pt Level 4 (97889) Diagnoses Lumbar degenerative disc disease M51.36 Lumbar spondylosis M47.816 Lumbar radiculopathy M54.16 Sacroiliac joint pain M53.3 Sacroiliitis M46.1 Morbid obesity with BMI of 50.0-59.9, adult E66.01; Z68.43
== END 2023-08-22 09:15 | disposition home or self-care (01) ==
PROVIDERS: PCP Internal Medicine; Visit Provider Nurse Practitioner Family
DX: M51.36 Other intervertebral disc degeneration, lumbar region (principal); M47.816 Spondylosis without myelopathy or radiculopathy, lumbar region; M54.16 Radiculopathy, lumbar region; M53.3 Sacrococcygeal disorders, not elsewhere classified; M46.1 Sacroiliitis, not elsewhere classified; E66.01 Morbid (severe) obesity due to excess calories; Z68.43 Body mass index [BMI] 50.0-59.9, adult
CPT/HCPCS: 99214

== ENCOUNTER → 2023-08-22 08:51 | Outpatient (BNVA) | payer MEDICAID, SELFPAY | PROVIDERS: PCP Internal Medicine; Visit Provider Nurse Practitioner Family | DX: M51.36 Other intervertebral disc degeneration, lumbar region (principal); M47.816 Spondylosis without myelopathy or radiculopathy, lumbar region; M54.16 Radiculopathy, lumbar region; M53.3 Sacrococcygeal disorders, not elsewhere classified; M46.1 Sacroiliitis, not elsewhere classified; E66.01 Morbid (severe) obesity due to excess calories; Z68.43 Body mass index [BMI] 50.0-59.9, adult | CPT/HCPCS: 99212 ==

== ENCOUNTER 2023-08-29 06:18 | Outpatient (REF) | payer MEDICAID, SELFPAY ==
--- NOTE | ~2023-08-29 | FL_ITS ---
EXAMINATION: XR FLUOROSCOPY WITH IMAGES CLINICAL INFORMATION: Sacrococcygeal disorders, not elsewhere classified. COMPARISON: None available. TECHNIQUE: Fluoroscopy Supervised By: Dr. Ari Yuan. Fluoroscopy Time: 0.2 minutes. Cumulative Dose: 4.33 mGy. DAP: 0.0622 Gycm2. Images: 2. FINDINGS: Images demonstrate needle placement and contrast injection over the bilateral sacroiliac joints FL/FL guidance in treatment room IMPRESSION: Fluoroscopy guidance for pain management procedure
== END 2023-08-29 06:19 | disposition home or self-care (01) ==
LOC: CF 06:18
PROVIDERS: Visit Provider Anesthesiology
DX: M53.3 Sacrococcygeal disorders, not elsewhere classified (principal); M51.36 Other intervertebral disc degeneration, lumbar region; M47.26 Other spondylosis with radiculopathy, lumbar region; M46.1 Sacroiliitis, not elsewhere classified; E66.01 Morbid (severe) obesity due to excess calories; Z68.43 Body mass index [BMI] 50.0-59.9, adult
CPT/HCPCS: 27096; J2795; Q9967

== ENCOUNTER 2023-08-29 12:42 | Outpatient (AMB) | payer MEDICAID, SELFPAY ==
--- NOTE | 2023-08-29 12:50 | A.OFFVIS_ITS ---
Intake Vital Signs 08/29/23 12:51 08/29/23 13:41 BP 132/82 126/72 Blood Pressure Location Rt radial Rt radial Position Sitting Sitting Respiration 14 12 Pulse 73 73 Pulse Source Pulse Oximeter Pulse Oximeter Pulse Oximetry (%) 99 100 Oxygen Delivery Method Room Air Room Air Intake Visit Reasons: BILATERAL DIAGNOSTIC SIJ INJECTIONS Allergies No Known Allergies [No Known Allergies*] Allergy (Verified 08/29/23 12:51) PFSH Medical History Tubular adenoma Chronic TMJ pain Hypercholesterolemia Obesity Snoring Chest pain Diabetes Hypertension Migraines Asthma Surgical History History of esophagogastroduodenoscopy (EGD) Hx of colonoscopy Hx of cholecystectomy Hx of hysterectomy, total Hx of section History of carpal tunnel release (~12/03/20) Family History Mother Diabetes Heart attack Ulcer of stomach due to bacteria Father Heart attack HTN (hypertension) Paternal Uncle Colon cancer Sister Lupus Social History Alcohol intake: never Patient Tobacco Use Status: Never used Tobacco Second Hand Smoke Exposure: No Current occupational status: retired Current occupation: right and left handed Physical Exam Vital Signs: Last Vital Signs Pulse 73 08/29/23 13:41 Resp 12 08/29/23 13:41 BP 126/72 08/29/23 13:41 Pulse Ox 100 08/29/23 13:41 Oxygen Delivery Method Room Air 08/29/23 13:41 Assessment & Plan Assessment & Plan (1) Lumbar degenerative disc disease: Code(s): M51.36 - Other intervertebral disc degeneration, lumbar region (2) Lumbar spondylosis: Code(s): M47.816 - Spondylosis without myelopathy or radiculopathy, lumbar region (3) Lumbar radiculopathy: Code(s): M54.16 - Radiculopathy, lumbar region (4) Sacroiliac joint pain: Code(s): M53.3 - Sacrococcygeal disorders, not elsewhere classified Plan: Bilateral diagnostic sacroiliac joint injection. Informed consent was explained thoroughly to the patient. All questions about benefits and risks for the procedure were answered. Patient came to the operating room and was positioned prone on the operating table with the pillow under the pelvis. Time out was performed delineating name and of the patient, allergies and the nature of the procedure. The lower back and buttocks of the patient were prepped with ChloraPrep prepped and draped with sterile utility towels. C-arm was brought over the operating field and sq picture of patient's pelvis was demonstrated on the screen. For the right joint tilting C-arm contralateral to the site of the joint the most posterior portion of the joints was superimposed with anterior silhouette of the joint. Skin was injected in the projection of the joint slightly medial to the location of the joint with 25 gauge 1/2 inch needle using local lidocaine 2% .After that 22 gauge 3 and 1/2 inch needle was driven to the right joint in tunnel vision fashion. When needle entered the joint capsule injection of the contrast was performed demonstrating intra-articular and minimally periarticular spread of the contrast. After that 4 cc. of ropivacaine 0.5% was injected into the joint. Upon completion of the injections the needle was removed ab=nd the procedure was repeated in the mirroring fashion on the left SI joint. Sterile d ressing was applied. Upon completion of the injection patient was taken outside of the operating room to the recovery room where she recovered uneventfully. (5) Sacroiliitis: Code(s): M46.1 - Sacroiliitis, not elsewhere classified (6) Morbid obesity with BMI of 50.0-59.9, adult: Code(s): E66.01 - Morbid (severe) obesity due to excess calories; Z68.43 - Body mass index [BMI] 50.0-59.9, adult Plan Patient is status post Right Interlaminar L4-L5 SIVAKUMAR with ongoing 70% pain relief, improvement in her daily functioning, ROM and mobility. She also reports partial relief from her axial low back and would like to hold off with diagnostic lumbar MBBs at this time but proceed with Diagnostic Bilateral Sacroiliac Joint Injections with local and fluoroscopy for potential therapeutic injections, Curonix PNS trial, SIJ fusion or RFA depending on her preference. Informational pamphlets provided and procedures discussed in greater detail with patient and her daughter. Continue daily physical activity, weight loss, adequate hydration and good posture. All questions and concerns have been answered and the patient agreed with the plan. Follow up after injections and sooner if needed. Anticoagulation: Patient not on anticoagulant Justification for interventional therapy: ? Patient with average pain > 6/10 ? Patient has exhausted conservative therapy, NSAIDs, physical therapy ? Patient continuing home exercise program The risks, consequences, alternatives, and benefits of various treatment options were discussed with the patient in great detail, including conservative management, injections and procedures. Orders: Orders FL guidance in treatment room 08/29/23 M53.3 - Sacrococcygeal disorders, not elsewhere classified Coding Level of Care Code Procedure Only Diagnoses Lumbar degenerative disc disease M51.36 Lumbar spondylosis M47.816 Lumbar radiculopathy M54.16 Sacroiliac joint pain M53.3 Sacroiliitis M46.1 Morbid obesity with BMI of 50.0-59.9, adult E66.01; Z68.43
[2023-08-29 12:51] VITALS: BP 132/82; PULSE 73; RESP 14; O2SAT 99
[2023-08-29 13:41] VITALS: BP 126/72; PULSE 73; RESP 12; O2SAT 100
== END 2023-08-29 13:37 | disposition home or self-care (01) ==
LOC: HO.PMCPRC 12:42
PROVIDERS: PCP Internal Medicine; Visit Provider Anesthesiology
DX: M53.3 Sacrococcygeal disorders, not elsewhere classified (principal); M46.1 Sacroiliitis, not elsewhere classified
CPT/HCPCS: 27096

== ENCOUNTER 2023-09-05 12:52 | Outpatient (AMB) | payer MEDICAID, SELFPAY ==
--- NOTE | 2023-09-05 13:01 | MHC.OFFVIS ---
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 Yuan. Patient reports 80% pain relief for first 24 hours with residual pressure in her buttocks and lateral hips. She reports no pain today and is content with pain improvement and improvement in her functinonig, mobility and sleep. Patient will monitor her symptoms and would like to proceed with therapeutic bilateral SIJ injections when pain returns to baseline. Denies any abdominal or groin pain, bladder or bowel dysfunction or saddle anesthesia. Past Procedures: 08/29/23: Bilateral Diagnostic Sacroiliac Joint Injections-80% pain relief for 24 hours, 1 week out-no pain still 07/25/23: Right L4-L5 Interlaminar SIVAKUMAR-70% ongoing pain relief PRIOR: Patient is a pleasant 57 years old Croatian speaking, morbidly obese female with presents today with worsening chronic lower back pain over the past year. Denies any recent trauma, injury or falls but reports a shelf from her drawer fell on her head and neck about 10 years ago. She also states pain increased over the past year as she started walking more while grieving when her mom . Her back pain has been gradually getting worse that she went to ER last month for evaluation and reports minimal improvement with Tramadol, NSAIDs, lidocaine patches and dexamethasone. Patient reports her back pain is axial with significnat radicular anterior right leg pain with numbness and tingling, paresthesias in her anterior thigh and trammell. Patient uses cane due to back pain and intermittent weakness in her right lower extremity. Reports occasional incontinent urine episodes with severe back pain. Patient also reports neck pain radiating to her left shoulder and periscapular region. Today we focused on her back as this has been progressively worsening and negatively affecting her mobility, ADLs, sleep, mood and quality of life. She is currently not working and has been on permanent disability. Patient denies previous spine surgery but notes she underwent nerve blocks in the past that provided her 3 years of pain relief. Most recent lumbar spine MRI and hip xray is noted below. Denies any fever, weight loss, abdominal or groin pain, bladder or bowel dysfunction or saddle anesthesia. Location Lower back pain with radiation to RLE in L4-L5 distribution Duration Over one 1 year after started walking for daily physical activity Characteristics of symptom or complaint Aching, tight, burning, numbness, throbbing, shooting, heavy Aggravating or associated factors Walking, prolonged standing, bending, lifting, twitsting, changing position Relieving factors Resting supine, Tramadol, Ibuprofen, lidocaine patches, dexamethasone Treatment PT- currently in, temporary relief while doing PT/HEP, uses cane PFSH Medical History Tubular adenoma Chronic TMJ pain Hypercholesterolemia Obesity Snoring Chest pain Diabetes Hypertension Migraines Asthma Surgical History History of esophagogastroduodenoscopy (EGD) Hx of colonoscopy Hx of cholecystectomy Hx of hysterectomy, total Hx of section History of carpal tunnel release (~12/03/20) Family History Mother Diabetes Heart attack Ulcer of stomach due to bacteria Father Heart attack HTN (hypertension) Paternal Uncle Colon cancer Sister Lupus Social History Alcohol intake: never Patient Tobacco Use Status: Never used Tobacco Second Hand Smoke Exposure: No Current occupational status: retired Current occupation: right and left handed Review of Systems Const All systems reviewed & are unremarkable except as noted in HPI and below Physical Exam Vital Signs: Last Vital Signs Pulse 83 09/05/23 13:06 BP 126/65 09/05/23 13:06 Pulse Ox 99 09/05/23 13:06 Oxygen Delivery Method Room Air 09/05/23 13:06 BMI result Body Mass Index 51.2 General: Appears afebrile. Alert and oriented. Mood and affect appropriate. Follows and participates in conversation appropriately. Respiratory effort is unlabored. No cough. Able to transition from sit to stand unassisted. Back/Spine/Pelvis Other: Limited lumbar ROM, flexion and extension does not reproduce pain today. Minimal pain with Irvin's testing bilaterally. No groin pain with hip rotations. Cervical Spine: cervical muscular tenderness and No Cervical spine tenderness Thoracic/Lumbar Spine: thoracic and lumbar spine normal to inspection, No Thoracic/lumbar spine scar(s), straight leg raise negative bilaterally, paraspinal muscle tenderness on the right greater than left, thoraco-lumbar ROM limited, No thoracic spinal tenderness and lumbar spinal tenderness Pelvis: buttock tenderness bilaterally Sacroiliac joints: bilaterally tender to palpation Assessment & Plan Assessment & Plan (1) Lumbar degenerative disc disease: Code(s): M51.36 - Other intervertebral disc degeneration, lumbar region (2) Lumbar spondylosis: Code(s): M47.816 - Spondylosis without myelopathy or radiculopathy, lumbar region (3) Sacroiliac joint pain: Code(s): M53.3 - Sacrococcygeal disorders, not elsewhere classified (4) Sacroiliitis: Code(s): M46.1 - Sacroiliitis, not elsewhere classified Plan Patient is status post bilateral diagnostic SIJ injections on 08/29/23 with ongoing 100% pain relief, with improvement in her daily functioning, ROM and mobility. Patient will notify our office when her pain returns to baseline. We will tentatively plan for Bilateral Therapeutic Sacroiliac Joint Injections with local and fluoroscopy. Also reviewed neuromodulation with Curonix PNS, SIJ fusion, RFA. Continue daily physical activity, weight loss, adequate hydration and good posture. All questions and concerns have been answered and the patient agreed with the plan. Follow up after injections and sooner if needed. Anticoagulation: Patient not on anticoagulant Justification for interventional therapy: ? Patient with average pain > 6/10 ? Patient has exhausted conservative therapy, NSAIDs, physical therapy ? Patient continuing home exercise program The risks, consequences, alternatives, and benefits of various treatment options were discussed with the patient in great detail, including conservative management, injections and procedures. Coding Level of Care Code Est Pt Level 3 (65646) Diagnoses Lumbar degenerative disc disease M51.36 Lumbar spondylosis M47.816 Sacroiliac joint pain M53.3 Sacroiliitis M46.1
[2023-09-05 13:06] VITALS: BP 126/65; PULSE 83; O2SAT 99; BMI 51.2
== END 2023-09-05 13:14 | disposition home or self-care (01) ==
PROVIDERS: PCP Internal Medicine; Visit Provider Nurse Practitioner Family
DX: M51.36 Other intervertebral disc degeneration, lumbar region (principal); M47.816 Spondylosis without myelopathy or radiculopathy, lumbar region; M53.3 Sacrococcygeal disorders, not elsewhere classified; M46.1 Sacroiliitis, not elsewhere classified
CPT/HCPCS: 99213

== ENCOUNTER → 2023-09-05 12:52 | Outpatient (BNVA) | payer MEDICAID, SELFPAY | PROVIDERS: PCP Internal Medicine; Visit Provider Nurse Practitioner Family | DX: M51.36 Other intervertebral disc degeneration, lumbar region (principal); M47.816 Spondylosis without myelopathy or radiculopathy, lumbar region; M53.3 Sacrococcygeal disorders, not elsewhere classified; M46.1 Sacroiliitis, not elsewhere classified | CPT/HCPCS: 99212 ==

== ENCOUNTER → 2023-10-24 13:18 | Outpatient (BNVA) | payer MEDICAID, SELFPAY | PROVIDERS: PCP Internal Medicine; Visit Provider Surgery ==

== ENCOUNTER 2023-11-13 09:21 | Outpatient (AMB) | payer MEDICAID, SELFPAY ==
--- NOTE | 2023-11-13 09:31 | MHC.OFFVIS ---
Intake Vital Signs 11/13/23 09:33 Height 5 ft Weight 257 lb 0.944 oz BMI 50.2 BP 139/86 Blood Pressure Location Rt brachial Position Sitting Pulse 73 Intake Visit Reasons: 6 month fu Intake Note: Nereida presents in office today in 6month f/u for constipation. CC: Patient reports that about 2-3 weeks ago she began to feel like her medications are not going down through the right pipe. Per patient this also occurs with meats and she feels the meat scratching inside while it goes down. She also c/o nausea. She states she is having BMs and GERD is well managed with medication. 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 Patient was encouraged to increase fluid intake and activity to promote better bowel motility. IBS (irritable bowel syndrome) Low FODMAP diet encouraged. GERD (gastroesophageal reflux disease) Will change omeprazole to be taking in the morning. At night time patient will take famotidine. Patient was encouraged to avoid late night snacking and dietary triggers. Staying upright for minimum 3 hours after meals the discussed with patient. Patient is requesting referral to bariatric surgery. Patient states that her sister had a successful surgery and she is feeling well. Referral sent. I will see patient in 6 months, sooner on as needed basis. Patient is agreeable to this plan and verbalizes understanding of instructions. She was given the opportunity to ask questions and all questions answered. ? Thank you for allowing me to participate in her care Plan Orders Referrals Bariatric Surgery Referral E66.9 - Obesity, unspecified Medications New famotidine (Pepcid) 20 mg PO BEDTIME 90 tabs 3RF K21.9 - Gastro-esophageal reflux disease without esophagitis Changed From omeprazole 20 mg PO BID 180 caps 3RF K21.9 - Gastro-esophageal reflux disease without esophagitis To omeprazole 20 mg PO DAILY 90 caps 3RF K21.9 - Gastro-esophageal reflux disease without esophagitis Refilled sennosides (Natural Senna Laxative) 17.2 mg (2 x 8.6 mg) PO BEDTIME 180 tabs 3RF constipation K59.00 - Constipation, unspecified TODAY'S VISIT: Patient is here today for follow-up. Patient reports that she has been doing better. States that her symptoms of acid reflux are currently suppressed. Patient is taking omeprazole in the morning and famotidine at bedtime. Patient continues to have occasional trouble swallowing medications or solid food. Patient reports that she feels like food gets stuck in her throat. Previously patient had modified barium swallow that was normal. Patient reports that those symptoms do not happen all the time. Patient started wearing CPAP after being diagnosed with sleep apnea and states that her symptoms of dry mouth are better. Patient denies dyspepsia or odynophagia. Patient denies any melena, hematochezia, unintentional weight loss or ribbon like stools. [facility] Medical History Tubular adenoma Chronic TMJ pain Hypercholesterolemia Obesity Snoring Chest pain Diabetes Hypertension Migraines Asthma Surgical History History of esophagogastroduodenoscopy (EGD) Hx of colonoscopy Hx of cholecystectomy Hx of hysterectomy, total Hx of section History of carpal tunnel release (~12/03/20) Family History Mother Diabetes Heart attack Ulcer of stomach due to bacteria Father Heart attack HTN (hypertension) Paternal Uncle Colon cancer Sister Lupus Social History Alcohol intake: never Patient Tobacco Use Status: Never used Tobacco Second Hand Smoke Exposure: No Current occupational status: retired Current occupation: right and left handed Review of Systems Const Denies weight gain and Denies weight loss ENT Reports no additional complaints, Reports dysphagia and Denies odynophagia Card Reports no additional complaints Resp Reports no additional complaints GI Denies abdominal pain, Denies belching, Denies melena, Denies bloating, Denies change in bowel habits, Reports dysphagia, Denies excessive flatus, Denies dyspepsia, Denies heartburn, Denies diarrhea, Denies loose stools, Reports nausea (Occasional), Denies odynophagia and Denies vomiting Reports no additional complaints Musc Reports no additional complaints Neuro Reports no additional complaints Psych Reports no additional complaints Endo Reports no additional complaints Physical Exam Vital Signs: Last Vital Signs Pulse 73 11/13/23 09:33 BP 139/86 11/13/23 09:33 BMI result Body Mass Index 50.2 Const General: healthy appearing, no acute distress and well developed Nutritional Appearance: well nourished Orientation/consciousness: patient oriented x3 Resp Effort & Inspection: normal respiratory effort, able to speak in complete sentences, no tracheal deviation and symmetric chest movement Auscultation: clear to auscultation bilaterally Cardio Rate: regular rate GI Inspection: Yes normal to inspection and No distended Palpation (GI): Soft to palpation, not firm, nontender and No hepatosplenomegaly present Auscultation: normal bowel sounds General: Yes no CVA tenderness Back/Spine/Pelvis Back: no CVA tenderness Skin General skin exam: elasticity normal, turgor normal and dry skin Neuro General: patient oriented x3 Psych Appearance: grossly normal Mental Status: mental status grossly normal Assessment & Plan Assessment & Plan (1) Constipation: Code(s): K59.00 - Constipation, unspecified Qualifiers: Constipation type: slow transit constipation Qualified Code(s): K59.01 - Slow transit constipation (2) IBS (irritable bowel syndrome): Code(s): K58.9 - Irritable bowel syndrome without diarrhea Qualifiers: Irritable bowel syndrome type: without diarrhea Qualified Code(s): K58.9 - Irritable bowel syndrome without diarrhea (3) GERD (gastroesophageal reflux disease): Code(s): K21.9 - Gastro-esophageal reflux disease without esophagitis Qualifiers: Esophagitis presence: without esophagitis Qualified Code(s): K21.9 - Gastro-esophageal reflux disease without esophagitis (4) Dysphagia: Code(s): R13.10 - Dysphagia, unspecified Qualifiers: Dysphagia type: oropharyngeal phase Qualified Code(s): R13.12 - Dysphagia, oropharyngeal phase Plan Patient will continue omeprazole and famotidine. Avoid dietary triggers in late night snacking. Staying upright for minimum 3 hours after meals discussed with patient. Patient was encouraged to drink water before eating solid food to prevent difficulty of swallowing. As those symptoms happen only occasionally, possibility that patient does have a dry mouth and tablets or solid food can get stuck. Patient can also try lemon candy. Continue senna daily. Patient was encouraged to increase fluid intake and activity to promote better bowel motility. Patient has an appointment with bariatric services to help her lose weight. I will see her in 6 months, sooner on as needed basis. Patient is agreeable to this plan and verbalizes understanding of instructions. She was given the opportunity to ask questions and all questions answered. Thank you for allowing me to participate in her care Medications: New famotidine (Pepcid) 20 mg PO BEDTIME 90 tabs 3RF K21.9 - Gastro-esophageal reflux disease without esophagitis omeprazole 20 mg PO DAILY 90 caps 2RF K21.9 - Gastro-esophageal reflux disease without esophagitis Refilled sennosides (Natural Senna Laxative) 17.2 mg (2 x 8.6 mg) PO BEDTIME 180 tabs 3RF constipation K59.00 - Constipation, unspecified Coding Level of Care Code Est Pt Level 3 (76923) Diagnoses Slow transit constipation K59.01 Constipation type: slow transit constipation Irritable bowel syndrome without diarrhea K58.9 Irritable bowel syndrome type: without diarrhea Gastroesophageal reflux disease without esophagitis K21.9 Esophagitis presence: without esophagitis Oropharyngeal dysphagia R13.12 Dysphagia type: oropharyngeal phase Time Spent (min) 30 Comment 20 minutes spent with patient and additional 10 minutes spent reviewing her records
[2023-11-13 09:33] VITALS: BP 139/86; PULSE 73; BMI 50.2
== END 2023-11-13 10:05 | disposition home or self-care (01) ==
PROVIDERS: PCP Internal Medicine; Visit Provider Nurse Practitioner Family
DX: K58.1 Irritable bowel syndrome with constipation (principal); K21.9 Gastro-esophageal reflux disease without esophagitis; R13.12 Dysphagia, oropharyngeal phase
CPT/HCPCS: 99213

== ENCOUNTER → 2023-11-13 09:21 | Outpatient (BNVA) | payer MEDICAID, SELFPAY | PROVIDERS: PCP Internal Medicine; Visit Provider Nurse Practitioner Family | DX: K59.01 Slow transit constipation (principal); K58.9 Irritable bowel syndrome, unspecified; K21.9 Gastro-esophageal reflux disease without esophagitis; R13.12 Dysphagia, oropharyngeal phase | CPT/HCPCS: 99212 ==

== ENCOUNTER 2023-11-20 08:35 | Outpatient (AMB) | payer MEDICAID, SELFPAY ==
--- NOTE | 2023-11-20 10:17 | MHC.OFFVISWM ---
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* Allergies No Known Allergies [No Known Allergies*] Allergy (Verified 11/20/23 10:17) Medication List - Last Reconciled 11/20/23 by Bentley Murrell MD amlodipine 1 tab PO DAILY atorvastatin 40 mg PO QAM famotidine (Pepcid) 20 mg PO BEDTIME fluticasone propionate 50 mcg/actuation 1 spray intranasal QAM losartan 1 tab PO DAILY omeprazole 20 mg PO DAILY sennosides (Natural Senna Laxative) 17.2 mg (2 x 8.6 mg) PO BEDTIME tramadol 50 mg PO Q6H PRN trazodone 0.5 - 1 tabs PO BEDTIME 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* HPI Details Start time: 10.00am, End time: 11.10am ?I spent 60 minutes speaking with the patient on the phone plus an additional 10 minutes reviewing and updating records for a total of 70 minutes HPI Comments History of Present Illness Details Previous weight loss: OTC diet pills and self diets Wakes up: 8am, Sleeps: 11pm Breakfast: 9am (bread with crackers) Lunch: 1pm (rice and meat) Dinner: 5pm (potatoes, vegetables, meat) Snacks: 10am, 2pm and 8pm (candy, cakes) Exercise: none Fluids: Coffee (sugar) 1-2/day, Tea: none, soda: Gingerale (several per day), juice: (rare), ETOH: none PFSH Medical History (Updated 11/20/23 @ 10:48 by Bentley Murrell MD) Gastroesophageal reflux disease Prediabetes DJD (degenerative joint disease) Insomnia Morbid obesity Tubular adenoma Chronic TMJ pain Hypercholesterolemia Obesity Snoring Chest pain Diabetes Hypertension Migraines Asthma Surgical History History of esophagogastroduodenoscopy (EGD) Hx of colonoscopy Hx of cholecystectomy Hx of hysterectomy, total Hx of section History of carpal tunnel release (~12/03/20) Family History Mother Diabetes Heart attack Ulcer of stomach due to bacteria Father Heart attack HTN (hypertension) Paternal Uncle Colon cancer Sister Lupus Social History Alcohol intake: never Patient Tobacco Use Status: Never used Tobacco Second Hand Smoke Exposure: No Current occupational status: retired Current occupation: right and left handed Physical Exam Vital Signs: BMI result Body Mass Index 49.3 Assessment & Plan Assessment & Plan (1) Morbid obesity: Code(s): E66.01 - Morbid (severe) obesity due to excess calories Plan: 1.? Plan for lap sleeve gastrectomy. If diaphragmatic or ventral hernias are present at time of surgery, these will be repaired laparoscopically as well. Risks and complications were discussed in detail including possible conversion to an open procedure, anastomotic leak, bleeding requiring transfusion, small bowel obstruction, , DVT and pulmonary embolism, cardiac, or pulmonary complications, as long term acute care registered nurse complications such as anastomotic ulcer, insufficient weight loss and vitamin deficiencies. I emphasized the importance of close follow-up, adherence to instructions and good communication. 2. Nutritional counseling. Start with 2 CELEBRATE REBUILD protein (buy at [facility]) shakes (ONE scoop EACH in 8oz low fat unsweetened almond milk each) at 9am-11am and 12pm-2pm, 1 protein bar (CELEBRATE protein bars, buy at [facility] [employer]) at 3pm-5pm, dinner at 6pm (10 forks of protein and 10 forks of salad/vegetables) AND one more protein bar after dinner at 8pm-10pm. If hungry, she can have another HALF protein bar between 11pm-12am. So you do 2 protein shakes, 2 to 2.5 protein bars and one meal per day. Meal to include lean meat (beef, fish, pork, turkey, chicken), or romanian yogurt, or egg whites, or beans with a salad with olive oil and fruits (berries, pears, apples, kiwi). Avoid salt, breads, potatoes, rice, pasta, desserts. 3. Each shake would be drunk slowly, like coffee in a period of 2 hours. You may add your coffee into your shakes if flavors match. 4. Cut each bar in 4 pieces and eat each piece in 30min ?to make each bar last 2 hours. 5. I emphasized the importance of measuring accurately the food portion and measure it when serving the food in plate 6. The meal portions include 10 full-size forks of meat and 10 full-size forks of salad. You always eat the meat portion but you can replace up to 5 forks for salad/vegetables with rice, potatoes or pasta, or a fruit ?if you like. The less you do it the better weight loss will be. 7. One full-size fork is what it can be scooped on the fork without falling aside and not what can be bit with the fork. Use regular forks like those you find in a typical restaurant. 8.? Please send me weight measurements as soon as possible and then once a week. Always include your diet and exercise plan. 9. Start Elliptical with an incline of 2.0 and resistance of 4.0. Increase resistance by 1 every 3 min to a max resistance of 10.0, and repeat cycles for 300 calories. 9. Start treadmill with an incline of 2.0 and speed of 3.0. Increase incline by 1 every 3 min to a max incline of 8.0, stay 3min at 8.0 and then return to 2.0 and repeat same steps until calorie goal is met. Goal is to burn 2000 calories per week on exercise, which means either 300 calories daily, or 400 calories 5 days per week, or 500 calories 4 days per week, or 650 calories 3 days per week. Start also weight exercises with 20-30lbs for chest/shoulders/abdomen and 40-50lbs for thighs doing 2 sets of 15 repetitions each. 9. Start walking outside daily, tracking calories with a goal of 300 calories per day, daily. Goal is to burn 2000 calories per week on exercise, which means either 300 calories daily, or 400 calories 5 days per week, or 500 calories 4 days per week, or 650 calories 3 days per week. 10. The best choice would be to purchase a stationary bike, elliptical or treadmill at home that can track calories. Let me know if you do so I can give you an exercise plan. 11.?Goal is to lose at least 1.5-2lbs per week 12. Goal to lose 10% of your weight before surgery, which is about 25lbs. Ultimate weight goal: 227lbs before surgery 13. Please follow the diet plan exactly without any change. If you don't like something about the plan or you feel hungry you need to communicate with me so I can help you revise the plan. You should not change the plan yourself. Orders: Orders Insulin Today E66.01 - Morbid (severe) obesity due to excess calories, E78.00 - Pure hypercholesterolemia, unspecified, K21.9 - Gastro-esophageal reflux disease without esophagitis, R73.03 - Prediabetes Hemoglobin A1c Today E66.01 - Morbid (severe) obesity due to excess calories, E78.00 - Pure hypercholesterolemia, unspecified, K21.9 - Gastro-esophageal reflux disease without esophagitis, R73.03 - Prediabetes IRON PROFILE Today E66.01 - Morbid (severe) obesity due to excess calories, E78.00 - Pure hypercholesterolemia, unspecified, K21.9 - Gastro-esophageal reflux disease without esophagitis, R73.03 - Prediabetes Comprehensive Met. Panel Today E66.01 - Morbid (severe) obesity due to excess calories, E78.00 - Pure hypercholesterolemia, unspecified, K21.9 - Gastro-esophageal reflux disease without esophagitis, R73.03 - Prediabetes Zinc Today E66.01 - Morbid (severe) obesity due to excess calories, E78.00 - Pure hypercholesterolemia, unspecified, K21.9 - Gastro-esophageal reflux disease without esophagitis, R73.03 - Prediabetes Vitamin D 25-OH Total Today E66.01 - Morbid (severe) obesity due to excess calories, E78.00 - Pure hypercholesterolemia, unspecified, K21.9 - Gastro-esophageal reflux disease without esophagitis, R73.03 - Prediabetes H Pylori Breath Test Today E66.01 - Morbid (severe) obesity due to excess calories, E78.00 - Pure hypercholesterolemia, unspecified, K21.9 - Gastro-esophageal reflux disease without esophagitis, R73.03 - Prediabetes Complete Blood Count Auto Diff Today E66.01 - Morbid (severe) obesity due to excess calories, E78.00 - Pure hypercholesterolemia, unspecified, K21.9 - Gastro-esophageal reflux disease without esophagitis, R73.03 - Prediabetes Lipid Panel Today E66.01 - Morbid (severe) obesity due to excess calories, E78.00 - Pure hypercholesterolemia, unspecified, K21.9 - Gastro-esophageal reflux disease without esophagitis, R73.03 - Prediabetes Vitamin B12 and Folate Today E66.01 - Morbid (severe) obesity due to excess calories, E78.00 - Pure hypercholesterolemia, unspecified, K21.9 - Gastro-esophageal reflux disease without esophagitis, R73.03 - Prediabetes C Reactive Protein Today E66.01 - Morbid (severe) obesity due to excess calories, E78.00 - Pure hypercholesterolemia, unspecified, K21.9 - Gastro-esophageal reflux disease without esophagitis, R73.03 - Prediabetes Vitamin B1 Today E66.01 - Morbid (severe) obesity due to excess calories, E78.00 - Pure hypercholesterolemia, unspecified, K21.9 - Gastro-esophageal reflux disease without esophagitis, R73.03 - Prediabetes Vitamin A Today E66.01 - Morbid (severe) obesity due to excess calories, E78.00 - Pure hypercholesterolemia, unspecified, K21.9 - Gastro-esophageal reflux disease without esophagitis, R73.03 - Prediabetes TSH reflex Free T4 Today E66.01 - Morbid (severe) obesity due to excess calories, E78.00 - Pure hypercholesterolemia, unspecified, K21.9 - Gastro-esophageal reflux disease without esophagitis, R73.03 - Prediabetes Ferritin Today E66.01 - Morbid (severe) obesity due to excess calories, E78.00 - Pure hypercholesterolemia, unspecified, K21.9 - Gastro-esophageal reflux disease without esophagitis, R73.03 - Prediabetes US abdomen comp w elastography Today E66.01 - Morbid (severe) obesity due to excess calories, E78.00 - Pure hypercholesterolemia, unspecified, K21.9 - Gastro-esophageal reflux disease without esophagitis, R73.03 - Prediabetes XR chest 2V Today E66.01 - Morbid (severe) obesity due to excess calories, E78.00 - Pure hypercholesterolemia, unspecified, K21.9 - Gastro-esophageal reflux disease without esophagitis, R73.03 - Prediabetes ECG 12 lead EKG Today E66.01 - Morbid (severe) obesity due to excess calories, E78.00 - Pure hypercholesterolemia, unspecified, K21.9 - Gastro-esophageal reflux disease without esophagitis, R73.03 - Prediabetes FL upper GI w air Today E66.01 - Morbid (severe) obesity due to excess calories, E78.00 - Pure hypercholesterolemia, unspecified, K21.9 - Gastro-esophageal reflux disease without esophagitis, R73.03 - Prediabetes Referrals Behavioral Health Referral E66.01 - Morbid (severe) obesity due to excess calories, E78.00 - Pure hypercholesterolemia, unspecified, K21.9 - Gastro-esophageal reflux disease without esophagitis, R73.03 - Prediabetes Nutrition/Dietitian Referral E66.01 - Morbid (severe) obesity due to excess calories, E78.00 - Pure hypercholesterolemia, unspecified, K21.9 - Gastro-esophageal reflux disease without esophagitis, R73.03 - Prediabetes Telehealth Telehealth Location of provider rendering services: practice address Location of patient: address on file Patient Identification confirmed using: Name, : Yes Telehealth method: voice only Patient verbally consented to treatment: Yes Patient verbally consented to billing insurance company: Yes Patient informed of any privacy concerns related to visit: Yes Minutes spent on Phone/Video with Pt.: 70 Coding Level of Care Code Tele [facility] Pt Level 5 (18538) Diagnoses Morbid obesity E66.01 Time Spent (min) 70 Comment With a Czech speaking brush finisher
[2023-11-20 10:49] VITALS: BMI 49.3
== END 2023-11-20 11:11 | disposition home or self-care (01) ==
LOC: HO.HBS 08:35
PROVIDERS: PCP Internal Medicine; Referring Provider Internal Medicine; Visit Provider Surgery
DX: E66.01 Morbid (severe) obesity due to excess calories (principal); Z68.42 Body mass index [BMI] 45.0-49.9, adult
CPT/HCPCS: 99205

== ENCOUNTER → 2023-11-20 08:35 | Outpatient (BNVA) | payer MEDICAID, SELFPAY | PROVIDERS: PCP Internal Medicine; Visit Provider Surgery ==

== ENCOUNTER 2023-11-24 07:48 | Outpatient (REF) | payer MEDICAID, SELFPAY ==
--- NOTE | ~2023-11-24 | XR_ITS ---
EXAMINATION: XR CHEST CLINICAL INFORMATION: Morbid obesity COMPARISON: 01/07/2022 TECHNIQUE: 2 views of the chest were obtained. FINDINGS: Lungs are well-inflated and clear. Trachea is midline in position. No interstitial disease, consolidation or mass. No pleural effusion or pneumothorax. Cardiac silhouette and pulmonary vessels are normal in size. The mediastinum and hilda have normal contour. Large body habitus. Mild spondylosis of the thoracic spine. XR/XR chest 2V IMPRESSION: Lungs have a normal appearance. No acute cardiopulmonary abnormality.
--- NOTE | 2023-11-24 08:00 | ECG_ITS ---
Test Reason : OBESITY Blood Pressure : / mmHG Vent. Rate : 071 BPM Atrial Rate : 071 BPM P-R Int : 154 ms QRS Dur : 074 ms QT Int : 402 ms P-R-T Axes : 039 003 018 degrees QTc Int : 436 ms Normal sinus rhythm Normal ECG When compared with ECG of 07-JAN-2022 14:33, No significant change was found Referred By: Bentley Murrell Electronically Signed By:Weston Lay
[2023-11-24 08:06] LABS: MANUAL DIFF FLAG NO
[2023-11-24 08:16] LABS: Basophils Percent Auto 0.4 % (0-2); Eosinophils Absolute Auto 0.2 X10*3/uL (0.0-0.4); Eosinophils Percent Auto 2.8 % (0-4); Hematocrit 38.4 % (37.0-47.0); Hemoglobin 12.7 g/dl (12.0-16.0); Imm Gran Abs Auto 0.01 X10*3/uL (0.00-0.03); Imm Gran Pct Auto 0.1 % (0.0-0.4); Lymphocytes Absolute Auto 2.3 X10*3/uL (1.2-4.9); Lymphocytes Percent Auto 31.6 % (20-40); Mean Corpuscular HGB Conc 33.1 g/dl (31.0-35.0); Mean Corpuscular Hemoglobin 28.5 pg (27.0-33.0); Mean Corpuscular Volume 86.1 fL (80.0-98.0); Mean Platelet Volume 10.4 fL (9.4-12.3); Monocytes Absolute Auto 0.5 X10*3/uL (0.1-1.2); Monocytes Percent Auto 6.6 % (2-11); Neutrophils Absolute Auto 4.2 x10*3/uL (2.0-8.3); Neutrophils Percent Auto 58.5 % (45-73); Platelet Count 261 X10*3/uL (160-400); Red Blood Count 4.46 X10*6/uL (4.20-5.50); Red Cell Distribution Width 13.4 % (11.0-16.0); White Blood Count 7.2 X10*3/uL (4.8-10.8)
[2023-11-24 08:29] LABS: Estimated Average Glucose 117 mg/dL; Hemoglobin A1c % 5.7 % (<6.0)
[2023-11-24 08:59] LABS: Alanine Aminotransferase 18 U/L (0-31); Alkaline Phosphatase 51 U/L (39-117); Anion Gap 16 (12-20); Aspartate Amino Transferase 15 U/L (5-31); Bilirubin Total 0.5 mg/dL (0.0-1.0); Blood Urea Nitrogen 13 mg/dL (9-16); Calcium 9.4 mg/dL (8.4-10.2); Carbon Dioxide 21 mmol/L (22-29); Chloride 109 mmol/L (96-108); Cholesterol 219 mg/dL (<200); Estimated Glomerular Filt Rate > 60; Glucose Random 112 mg/dL (60-115); HDL Cholesterol 47 mg/dL (>40); Iron 71 mcg/dL (30-160); LDL Cholesterol Calculated 144 mg/dL (<100); Percent Iron Saturation 20 % (15-50); Potassium 3.9 mmol/L (3.3-5.1); Sodium 142 mmol/L (135-145); Total Iron Binding Capacity 360 mcg/dL (228-428); Total Protein 7.2 g/dL (6.5-8.0); Triglycerides 142 mg/dL (<150); Unsaturated Iron Binding 289 ug/dL
[2023-11-24 09:15] LABS: Ferritin 92 ng/mL (10-250); Insulin 25 uU/mL (2-29); TSH reflex Free T4 2.22 uIU/mL (0.32-4.0); Vitamin D 25-OH Total 26.6 ng/mL (>30)
[2023-11-24 09:22] LABS: Folate 9.3 ng/mL (> or = 4.0); Vitamin B12 369 pg/mL (200-900)
[2023-11-28 00:49] LABS: Zinc 69 mcg/dL (60-130)
[2023-11-29 00:09] LABS: Vitamin A 49 mcg/dL (38-98)
[2023-11-30 15:28] LABS: Vitamin B1 9 nmol/L (8-30)
== END 2023-11-24 07:49 | disposition home or self-care (01) ==
LOC: HO.XRAY 07:48
PROVIDERS: PCP Internal Medicine; Visit Provider Surgery
DX: E66.01 Morbid (severe) obesity due to excess calories (principal); R73.03 Prediabetes; E78.00 Pure hypercholesterolemia, unspecified; K21.9 Gastro-esophageal reflux disease without esophagitis
CPT/HCPCS: 36415; 71046; 80053; 80061; 82306; 82607; 82728; 82746; 83036; 83525; 83540; 84425; 84443; 84590; 84630; 85025; 86140; 93005

== ENCOUNTER → 2023-11-24 08:00 | Outpatient (BNV) | payer MEDICAID, SELFPAY | PROVIDERS: PCP Internal Medicine; Visit Provider Internal Medicine Cardiovascular Disease | DX: E66.9 Obesity, unspecified (principal) | CPT/HCPCS: 93010 ==

== ENCOUNTER 2023-12-11 08:14 | Outpatient (AMB) | payer MEDICAID, SELFPAY ==
--- NOTE | 2023-12-11 09:58 | MHC.OFFVISWM ---
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* HPI Details Start time: 9.56am, End time: 10.17am ?I spent 16 minutes speaking with the patient on the phone plus an additional 5 minutes reviewing and updating records for a total of 21 minutes HPI Comments History of Present Illness Details Overall weight loss: 5.2lbs, or 2.06% TBWL Is doing 2 Celebrate Rebuild protein shakes (1 scoop each in 8oz almond milk), 2 Celebrate protein bars and one meal (10 forks of protein and 10 forks of salad or vegetables) Exercise: home floor exercises [facility] Medical History (Updated 11/25/23 @ 11:41 by Bentley Murrell MD) Gastroesophageal reflux disease Prediabetes DJD (degenerative joint disease) Insomnia Morbid obesity Tubular adenoma Chronic TMJ pain Hypercholesterolemia Obesity Snoring Chest pain Diabetes Hypertension Migraines Asthma Surgical History History of esophagogastroduodenoscopy (EGD) Hx of colonoscopy Hx of cholecystectomy Hx of hysterectomy, total Hx of section History of carpal tunnel release (~12/03/20) Family History Mother Diabetes Heart attack Ulcer of stomach due to bacteria Father Heart attack HTN (hypertension) Paternal Uncle Colon cancer Sister Lupus Social History Alcohol intake: never Patient Tobacco Use Status: Never used Tobacco Second Hand Smoke Exposure: No Current occupational status: retired Current occupation: right and left handed Physical Exam Vital Signs: BMI result Body Mass Index 48.3 Assessment & Plan Assessment & Plan (1) Morbid obesity: Code(s): E66.01 - Morbid (severe) obesity due to excess calories Plan: 1. Continue same nutritional plan of 2 Celebrate Rebuild protein shakes (1 scoop each in 8oz almond milk), 2 Celebrate protein bars and one meal (10 forks of protein and 10 forks of salad or vegetables) 2. Try to buy a stationary bike as soon as possible 3. Continue to send me weight measurements weekly on Saturdays Telehealth Telehealth Location of provider rendering services: practice address Location of patient: address on file Patient Identification confirmed using: Name, : Yes Telehealth method: voice only Patient verbally consented to treatment: Yes Patient verbally consented to billing insurance company: Yes Patient informed of any privacy concerns related to visit: Yes Minutes spent on Phone/Video with Pt.: 21 Coding Level of Care Code Tele Est Pt Level 3 (01387) Diagnoses Morbid obesity E66.01 Time Spent (min) 21
[2023-12-11 09:59] VITALS: BMI 48.3
== END 2023-12-11 10:18 | disposition home or self-care (01) ==
LOC: HO.HBS 08:14
PROVIDERS: PCP Internal Medicine; Visit Provider Surgery
DX: E66.01 Morbid (severe) obesity due to excess calories (principal); Z68.42 Body mass index [BMI] 45.0-49.9, adult
CPT/HCPCS: 99213

== ENCOUNTER 2023-12-11 15:17 | Outpatient (REF) | payer MEDICAID, SELFPAY | END 2023-12-11 15:18 | disposition home or self-care (01) | LOC: HO.MAMMO 15:17 | PROVIDERS: PCP Internal Medicine; Visit Provider Internal Medicine | DX: Z12.31 Encounter for screening mammogram for malignant neoplasm of breast (principal) | CPT/HCPCS: 77063; 77067 ==

== ENCOUNTER → 2023-12-11 15:45 | Outpatient (BNV) | payer MEDICAID, SELFPAY | PROVIDERS: PCP Internal Medicine; Visit Provider Radiology Diagnostic Radiology | DX: Z12.31 Encounter for screening mammogram for malignant neoplasm of breast (principal) | CPT/HCPCS: 77063; 77067 ==

== ENCOUNTER 2023-12-14 14:34 | Outpatient (AMB) | payer MEDICAID, SELFPAY ==
--- NOTE | 2023-12-14 14:16 | A.OFFVIS_ITS ---
Intake Intake Visit Reasons: TV Initial Nutrition SWL *SPA* Butcher Apprentice Required: Yes Butcher Apprentice Name: [id number] Information Interpreted: non-clinical & clinical Allergies No Known Allergies [No Known Allergies*] Allergy (Verified 11/20/23 10:17) HPI Nutrition Presentation Reason for consult elevated BMI Diet Assmnt Details Pt reports following nutrition plan from Dr. Murrell. she reports she didn't like the protein bars, but did not notify her provider. she will do this and find a brand she likes better. SWL online classes: none Dietary counseling reduction Diagnosis Nutrition problem #1 overweight/obesity As related to (etiology) #1 excess energy intake and physical inactivity As evidenced by (sign/symptom) #1 high BMI Monitoring/Goals Nutrition problem monitoring total energy intake, level of knowledge/skill, total PRO intake, total CHO intake, weight and oral fluids Outcome progress progressing Learning/Education Readiness to learn good Stages of change action Educational materials provided Yes Most Recent Diabetes Results: Cholesterol 219 mg/dL (<200) H 11/24/23 HDL Cholesterol 47 mg/dL (>40) 11/24/23 Triglycerides 142 mg/dL (<150) 11/24/23 Creatinine 0.69 mg/dL (0.5-1.4) 11/24/23 Blood Urea Nitrogen 13 mg/dL (9-16) 11/24/23 Sodium 142 mmol/L (135-145) 11/24/23 Potassium 3.9 mmol/L (3.3-5.1) 11/24/23 Chloride 109 mmol/L (96-108) H 11/24/23 Carbon Dioxide 21 mmol/L (22-29) L 11/24/23 Calcium 9.4 mg/dL (8.4-10.2) 11/24/23 AST 15 U/L (5-31) 11/24/23 ALT 18 U/L (0-31) 11/24/23 Total Protein 7.2 g/dL (6.5-8.0) 11/24/23 Albumin 4.0 g/dL (3.5-5.0) 11/24/23 COUNTS INCLUDE 234 BEDS AT [facility] Medical History (Updated 11/25/23 @ 11:41 by Bentley Murrell MD) Gastroesophageal reflux disease Prediabetes DJD (degenerative joint disease) Insomnia Morbid obesity Tubular adenoma Chronic TMJ pain Hypercholesterolemia Obesity Snoring Chest pain Diabetes Hypertension Migraines Asthma Surgical History History of esophagogastroduodenoscopy (EGD) Hx of colonoscopy Hx of cholecystectomy Hx of hysterectomy, total Hx of section History of carpal tunnel release (~12/03/20) Family History Mother Diabetes Heart attack Ulcer of stomach due to bacteria Father Heart attack HTN (hypertension) Paternal Uncle Colon cancer Sister Lupus Social History Alcohol intake: never Patient Tobacco Use Status: Never used Tobacco Second Hand Smoke Exposure: No Current occupational status: retired Current occupation: right and left handed Assessment & Plan Assessment & Plan (1) Morbid (severe) obesity due to excess calories: Code(s): E66.01 - Morbid (severe) obesity due to excess calories Plan: will be seen again once she completes all online classes for review Telehealth Telehealth Location of provider rendering services: practice address Location of patient: address on file Patient Identification confirmed using: Name, : Yes Telehealth method: voice only Patient verbally consented to treatment: Yes Patient verbally consented to billing insurance company: Yes Patient informed of any privacy concerns related to visit: Yes Minutes spent on Phone/Video with Pt.: 20 Coding Level of Care Code Nutr Indiv Intake (38645) Diagnoses Morbid (severe) obesity due to excess calories E66.01 Time Spent (min) 20
== END 2023-12-14 15:24 | disposition home or self-care (01) ==
LOC: HO.HBS 14:34
PROVIDERS: PCP Internal Medicine; Visit Provider Dietitian, Registered
DX: E66.01 Morbid (severe) obesity due to excess calories (principal)

== ENCOUNTER → 2023-12-14 14:34 | Outpatient (BNVA) | payer MEDICAID, SELFPAY | PROVIDERS: PCP Internal Medicine; Visit Provider Dietitian, Registered | DX: E66.01 Morbid (severe) obesity due to excess calories (principal) | CPT/HCPCS: 97802 ==

== ENCOUNTER 2023-12-15 | Outpatient (REF) | payer MEDICAID, SELFPAY ==
[2023-12-21 11:37] LABS: H Pylori Breath Test Negative (Negative)
== END 2023-12-15 00:01 | disposition home or self-care (01) ==
LOC: HO.LNP
PROVIDERS: Visit Provider Surgery
DX: E66.01 Morbid (severe) obesity due to excess calories (principal); R73.03 Prediabetes; E78.00 Pure hypercholesterolemia, unspecified; K21.9 Gastro-esophageal reflux disease without esophagitis
CPT/HCPCS: 83013

== ENCOUNTER → 2023-12-15 14:00 | Outpatient (BNVA) | payer MEDICAID, SELFPAY | PROVIDERS: PCP Internal Medicine; Visit Provider Physician Assistant Surgical | DX: Z11.0 Encounter for screening for intestinal infectious diseases (principal) | CPT/HCPCS: 99211 ==

== ENCOUNTER 2023-12-18 09:04 | Outpatient (REF) | payer MEDICAID, SELFPAY ==
--- NOTE | ~2023-12-18 | US_ITS ---
EXAMINATION: US COMPLETE ABDOMEN WITH LIVER ELASTOGRAPHY CLINICAL INFORMATION: Morbid obesity. COMPARISON: CT abdomen and pelvis dated 11/15/2022. TECHNIQUE: Real-time imaging of the abdominal viscera. Noninvasive ultrasound liver fibrosis assessment is performed using Manolo ElastPQ point quantification shear wave elastography (2D-SWE) with a C5-2 MHz transducer. Multiple elastography samples are obtained. FINDINGS: PANCREAS: Normal. The visualized pancreatic head and body are normal in appearance. The remainder of the pancreas is obscured from visualization by the overlying bowel gas. ABDOMINAL AORTA: The proximal, middle, and distal aortic segments are normal in caliber. INFERIOR VENA CAVA: Visualized portions are normal. LIVER: The liver demonstrates normal size, contour and increased echogenicity. No focal lesion or intrahepatic biliary duct dilatation. The right lobe measures 15.8 cm in length. The left lobe measures 12.8 cm in length. Portal flow is towards the liver (hepatopetal). Shear wave liver elastography median stiffness is 1.25 m/s (reference: normal median stiffness is 1.3 m/s or less). IQR/median stiffness to assess sampling precision is 0.14 (reference: good quality data set is IQR/median stiffness of 0.15 or less). GALLBLADDER: Normal. The gallbladder is physiologically distended without evidence of stones, sludge, polyps, wall thickening or pericholecystic fluid. COMMON BILE DUCT: Normal in caliber measuring 0.5 cm in diameter. RIGHT KIDNEY: Normal. No hydronephrosis. No renal calculi or focal parenchymal lesions. The kidney measures 12.1 cm in maximum dimension. LEFT KIDNEY: There are persistent lobulations. No hydronephrosis. No renal calculi or focal parenchymal lesions. The kidney measures 12.8 cm in maximum dimension. SPLEEN: Normal. The spleen measures 10.3 cm in maximum dimension. FREE FLUID: None. US/US abdomen comp w elastography IMPRESSION: 1. There is generalized increase in hepatic echotexture, consistent with fatty infiltration or hepatocellular disease. Please correlate clinically. No focal hepatic mass or intrahepatic biliary dilatation is seen. 2. Liver elastography: Measurements are consistent with a high probability of normal liver stiffness. 3. The gallbladder is surgically absent. REFERENCE: Society of Radiologists in Ultrasound Liver Stiffness Thresholds (2020): LIVER STIFFNESS THRESHOLDS: *Liver Stiffness equal or less than 1.3 m/s: High probability of being normal. *Liver Stiffness less than 1.7 m/s: In the absence of other known clinical signs, rules out compensated advanced chronic liver disease. *Liver Stiffness 1.7-2.1 m/s: Suggestive of compensated advanced chronic liver disease but need further test for confirmation. *Liver Stiffness over 2.1 m/s: Rules in compensated advanced chronic liver disease. *Liver Stiffness over 2.4 m/s: Suggestive of clinically significant portal hypertension. QUALITY OF DATA SET: *IQR/Median value equal or less than 0.15 implies a quality data set. *IQR/Median value over 0.15 implies a poor quality data set. SIGNIFICANT CHANGE FROM PRIOR EXAM: Significant change if liver stiffness measurement is 10% or greater from prior exam. OTHER CONSIDERATIONS: The stage of liver fibrosis may be overestimated in the setting of acute hepatitis, liver inflammation, elevated liver function tests, hepatic vascular congestion, obstructive cholestasis, non-fasting state, and infiltrative diseases such as amyloidosis and lymphoma. In some patients with NAFLD, the liver stiffness thresholds for compensated advanced chronic liver disease may be lower. In causes other than viral hepatitis and NAFLD, liver stiffness thresholds are not well established.
== END 2023-12-18 09:05 | disposition home or self-care (01) ==
LOC: HO.US 09:04
PROVIDERS: PCP Internal Medicine; Visit Provider Surgery
DX: E66.01 Morbid (severe) obesity due to excess calories (principal); R73.03 Prediabetes; E78.00 Pure hypercholesterolemia, unspecified; K21.9 Gastro-esophageal reflux disease without esophagitis
CPT/HCPCS: 76700; 76981

== ENCOUNTER 2024-01-05 08:17 | Outpatient (AMB) | payer MEDICAID, SELFPAY ==
[2024-01-05 08:55] VITALS: BMI 47.6
--- NOTE | 2024-01-05 08:55 | A.OFFVIS_ITS ---
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* HPI Details Start time: 8.47am, End time: 9.07am ?I spent 15 minutes speaking with the patient on the phone plus an additional 5 minutes reviewing and updating records for a total of 20 minutes HPI Comments History of Present Illness Details Overall weight loss: 8.8 lbs, or 3.5% TBWL Is doing 2 Celebrate Rebuild protein shakes (1 scoop each in 8oz almond milk), 2 Celebrate protein bars and one meal (10 forks of protein and 10 forks of salad or vegetables) Exercise: will start the stationary bike she purchased today [facility] Medical History (Updated 11/25/23 @ 11:41 by Bentley Murrell MD) Gastroesophageal reflux disease Prediabetes DJD (degenerative joint disease) Insomnia Morbid obesity Tubular adenoma Chronic TMJ pain Hypercholesterolemia Obesity Snoring Chest pain Diabetes Hypertension Migraines Asthma Surgical History History of esophagogastroduodenoscopy (EGD) Hx of colonoscopy Hx of cholecystectomy Hx of hysterectomy, total Hx of section History of carpal tunnel release (~12/03/20) Family History Mother Diabetes Heart attack Ulcer of stomach due to bacteria Father Heart attack HTN (hypertension) Paternal Uncle Colon cancer Sister Lupus Social History Alcohol intake: never Patient Tobacco Use Status: Never used Tobacco Second Hand Smoke Exposure: No Current occupational status: retired Current occupation: right and left handed Assessment & Plan Assessment & Plan (1) Morbid obesity: Code(s): E66.01 - Morbid (severe) obesity due to excess calories Plan: 1. Continue same nutritional plan of 2 Celebrate Rebuild protein shakes (1 scoop each in 8oz almond milk), 2 Celebrate protein bars and one meal (10 forks of protein and 10 forks of salad or vegetables) 2. Start stationary bike daily burning 150 calories twice per day, daily 3. 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
== END 2024-01-05 09:08 | disposition home or self-care (01) ==
LOC: HO.HBS 08:17
PROVIDERS: PCP Internal Medicine; Visit Provider Surgery
DX: E66.01 Morbid (severe) obesity due to excess calories (principal); Z68.42 Body mass index [BMI] 45.0-49.9, adult
CPT/HCPCS: 99213

== ENCOUNTER → 2024-01-05 08:17 | Outpatient (BNVA) | payer MEDICAID, SELFPAY | PROVIDERS: PCP Internal Medicine; Visit Provider Surgery ==

== ENCOUNTER 2024-01-17 07:41 | Outpatient (REF) | payer MEDICAID, SELFPAY ==
--- NOTE | ~2024-01-17 | FL_ITS ---
EXAMINATION: XR FLUOROSCOPY UPPER GI WITH AIR CLINICAL INFORMATION: Preop evaluation prior to bariatric surgery COMPARISON: None. Modified barium swallow 06/20/2022. TECHNIQUE: Fluoroscopic air contrast upper GI examination was performed utilizing standard techniques with thin and thick barium and effervescent granules. Numerous spot images were obtained. FINDINGS: Dual and single contrast images of the esophagus demonstrate normal caliber, contour, and mucosal pattern. No evidence of stricture, mass, or ulcerations identified. Esophageal peristalsis is mildly disorganized Small type I hiatus hernia. No significant gastroesophageal reflux was seen during the course of the examination and on reflux views. Dual contrast and single contrast images of the stomach demonstrated normal contour and mucosal pattern without evidence of mass, ulceration, or other abnormality. Contrast freely passed into the gastric antrum and duodenal bulb without delay. Single and air-contrast images of the duodenal bulb demonstrate no abnormality. The duodenal sweep has a normal appearance, course, and mucosal fold appearance. No malrotation. The imaged proximal jejunum has a normal fold pattern and caliber. FLUOROSCOPY TIME: 3 minutes 17 seconds Number of Spot Images: 13 Number of Cine: 10 DOSE AREA PRODUCT: 2719 uGy-m2 (microgray-meter squared) FL/FL upper GI w air IMPRESSION: 1. Mildly disorganized esophageal peristalsis. 2. Small type I hiatus hernia. This procedure was performed by Mauro Gonsalez PA-C, and supervised by Dr. Gomez
== END 2024-01-17 07:42 | disposition home or self-care (01) ==
LOC: HO.XRAY 07:41
PROVIDERS: Visit Provider Surgery
DX: Z01.818 Encounter for other preprocedural examination (principal); E66.01 Morbid (severe) obesity due to excess calories; R73.03 Prediabetes; E78.00 Pure hypercholesterolemia, unspecified; K21.9 Gastro-esophageal reflux disease without esophagitis
CPT/HCPCS: 74246

== ENCOUNTER → 2024-01-17 07:43 | Outpatient (BNV) | payer MEDICAID, SELFPAY | PROVIDERS: Visit Provider Physician Assistant Surgical | DX: Z01.818 Encounter for other preprocedural examination (principal); E66.01 Morbid (severe) obesity due to excess calories | CPT/HCPCS: 74246 ==

== ENCOUNTER 2024-01-31 08:24 | Outpatient (AMB) | payer OTHER, SELFPAY ==
--- NOTE | 2024-01-31 09:19 | MHC.WMTHER ---
Intake Intake Visit Reasons: VIDEO Intake Allergies No Known Allergies [No Known Allergies*] Allergy (Verified 11/20/23 10:17) [facility] Medical History (Updated 11/25/23 @ 11:41 by Bentley Murrell MD) Gastroesophageal reflux disease Prediabetes DJD (degenerative joint disease) Insomnia Morbid obesity Tubular adenoma Chronic TMJ pain Hypercholesterolemia Obesity Snoring Chest pain Diabetes Hypertension Migraines Asthma Surgical History History of esophagogastroduodenoscopy (EGD) Hx of colonoscopy Hx of cholecystectomy Hx of hysterectomy, total Hx of section History of carpal tunnel release (~12/03/20) Family History Mother Diabetes Heart attack Ulcer of stomach due to bacteria Father Heart attack HTN (hypertension) Paternal Uncle Colon cancer Sister Lupus Social History Alcohol intake: never Patient Tobacco Use Status: Never used Tobacco Second Hand Smoke Exposure: No Current occupational status: retired Current occupation: right and left handed Behavioral Health Assessment Weight Management Therapy Therapy Notes Details PT is 58 y/o , spanich-speaking female who presents for initial assessment as part of surgical weight-loss program. PT shares her interest in bariatric surgery to improve her health in the long-term. She disclosed a history of attending counseling due to grief, after losing her mother. However, besides that she has never been in treatment again or before that, never inpatient and/or in mental health crisis, and denies any Hx or active concern with self-harm/other-harm. Ther eis no reported Hx of substance use and/or other addictive behavior. PT scores in PHQ-9 indicates minimal Sx or no concerns around depression, and BES scores from intake showed moderate risk for BInge eating behavior. However, today we reflected on her responses and she stated marked changes on eating behavior and per assessment client doesn;t have any Hx of an eating disorder and since started the program and being on the meal plan she has been improving her needs around food choices, hunger due to not proper eating and cravings due to this. On the other hand, Mental status exam indicates patients functioning is intac and no risk was identified. PT has been cleared from standpoint. Presenting Concerns Referral Source [facility] provider. PT sees Dr. Prasad. She was initially referred to [facility] by one of her providers. Reason for referral Completion of behavioral health assessment as part of process for weight-loss surgery. Precipitating Event PT reports her sister had bariatric surgery and she has seen the positive changes, which has been a motivation for her to make a change. Then last summer she got sick with COVID and got severe complication, now she is looking to work on improving her health, as she has risk conditions such as high blood pressure, vertigo, obesity, migraines, pre-diabetes, among others to improve her health. Living Situation Current Living Situation Rent At risk of losing current housing? No Satisfied with current living situation? Yes Comments PT lives with her . Food/Weight/Diet Expectations of change Started the program at 252Lbs, today she is 241Lbs. PT wants to feel better and improve her health. She doesn't have a final number but she thinks that she will be happy to be under 150 lbs. History/Relationship with food Example of meals before starting the program Breakfast: @8am coffee with crackers or a piece of bread. Lunch: skip Dinner: @4-5pm, -style. (Rice, beans, meat, plantains or pasta) Was eating candy through the day. Late snack: candy. . At times she would wake up at night and feel in need to eat something (Candy) and then go back to sleep. . PT reports she's selective with eating options as she doesn't like everything but she's open to trying new things. So far she's doing well with the meal plan provided and feels satiated. History/Relationship with weight Never overweight as a child. Started slowly gaining weight after getting at age 19. Also had weight gain with each . 240Lbs lowest weight in the last 10 years and 278Lbs her highest. History/Relationship with dieting Tried OTD pills, daily walks, short-term diets (keto, tuna-diet, etc), and intermittent fasting. The longest she did any of these was 2 months, was able to lose 25Lbs with the Keto diet, but gained all the weight back once returned to regular eating habits. Binge Eating Do you frequently eat large amounts of food in short periods of time, not feeling physically hungry? No Do you feel out of control when you eat a large amount of food in a short period of time? No Do you eat large amounts of food rapidly and typically alone? No Night Eating Do you wake up at least once during the night to eat? Yes If you wake up in the night, do you find that it is necessary to eat something in order to fall back asleep? Yes Do you have little or no appetite in the morning and feel very hungry in the evening, often overeating between dinner and when you go to bed? Yes Social History Family history and relationship Pt is 38 years ago. They have 3 adult children (They are 37 y/o son, 31 y/o son and 29 y/o daughter). She has family around and in [place], she's very close to her youngest brother. She has 6 siblings alive. 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 Developmental history and status Within normal limits. Social support Family. Her kids walk with her when she's not motivated. Community support Providers. Druze/Spirituality Evangelic. Attends pentecostalism 3 times at week. Cultural/Ethnic information PT was born and raised in [place]. She moved to [place] in 2018 as her mother needed care. PT is New Zealander-speaker. Legal Involvement and History Current or historical involvement with the legal system? None reported. Education Highest grade completed 12, HS. 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 Preferred learning style Auditory, Written and Visual Currently enrolled in educational program? No Interested in further educational program? No Educational Interests/Skills She does online biblical classes. Enjoys sewing and anything around crafts. Employment Employment Status Unemployed (Hasn't worked since 2018 as she had to take care of his elder mother. ) and Other (Disabled for about a year due to multiple health conditions. currently receives social security benefits.) Wants help to find employment? No Meaningful activities Arts, crafts, knitting. Financial Situation Describe current financial situation Occasional struggle Financial assistance? Food [place] and SSDI Service Service? No Mental Health and Addiction Treatment Current/Past substance abuse? No Current/Past addictive behavior concerns? No Psychiatric history PT gets prescribed by PCP Trazodone for sleep and depression. She had a complicated grief after her mother in 2020, she went to counseling during that time for about 7 months. She was discharged as she was feeling better. Never been in counseling before that. Pt denies ever being inpatient and/or in crisis for mental health. Denies any Self-harm, other harm concern, and/or SI, SA. Medical and Physical Health Summary Additional Medical History not covered in history None reported Sexual History concerns None reported Physical exam in the last year? Yes Pain Screening Current pain? No Pain in the last few months? No Medications Is the patient compliant with medications? Yes Does the patient have Roberts Guardian in place? Not applicable Does the patient use complimentary health approaches? No Trauma/Abuse History History of trauma? No Questionnaires PHQ-9 Over the last 2 weeks, how often have you been bothered by any of the following problems? 1. Little interest or pleasure in doing things: not at all 2. Feeling down, depressed, or hopeless: not at all 3. Trouble falling or staying asleep, or sleeping too much: more than half the days (Due to sleep apnea.) 4. Feeling tired or having little energy: not at all 5. Poor appetite or overeating: not at all 6. Feeling bad about yourself - or that you are a failure or have let yourself or your family down: not at all 7. Trouble concentrating on things, such as reading the newspaper or watching television: several days 8. Moving or speaking so slowly that other people could have noticed. Or the opposite - being so fidgety or restless that you have been moving around a lot more than usual: several days (More active.) 9. Thoughts that you would be better off or of hurting yourself in some way: not at all Total score: 4 Depression Screening Interpretation: Negative Depression Screening Done: Yes 82085 - PHQ-9 Billing: Yes Source: Developed by Drs. Chris Lewis, Pat Valdovinos, Ab Dickens and colleagues, with an educational miguel from [employer]. Binge Eating Scale Group 1 A. I don't feel self-conscious about my wt. or body size when I'm with others. B. I feel concerned about how I look to others, but it normally does not make me fell disappointed with myself C. I do get self-conscious about my appearance and wt. which makes me feel disappointed in myself. D. I feel very self-conscious about my wt. and frequently I feel intense shame and disgust for myself. I try to avoid social contacts because of my self-consciousness. Response Group 1: D Group 2 A. I don't have any difficulty eating slowly in the proper manner. B. Although I seem to gobble down foods, I don't end up feeling stuffed because of eating to much. C. At times, I tend to eat quickly and then, I feel uncomfortably full afterwards. D. I have the habit of bolting down my food, without really chewing it. When this happens I usually feel uncomfortably stuffed because I've eaten to much. Response Group 2: D Group 3 A. I feel capable to control my eating urges when I want to. B. I feel like I have failed to control my eating more than the average person. C. I feel utterly helpless when it comes to feeling in control of my eating urges. D. Because I feel so helpless about controlling my eating I have become very desperate about trying to get control. Response Group 3: A Group 4 A. I don't have the habit of eating when I'm bored. B. I sometimes eat when I'm bored, but often I'm able to get busy and get my mind off food. C. I have a regular habit of eating when I'm bored, but occasionally, I can use some other activity to get my mind off eating. D. I have a strong habit of eating when I'm bored. Nothing seems to help me breath the habit. Response Group 4: B Group 5 A. I'm usually physically hungry when I eat something. B. Occasionally, I eat something on impulse even though I really am not hungry. C. I have the regular habit of eating foods, that I might not really enjoy, to satisfy a hungry feeling even though physically, I don't need the food. D. Although I'm not physically hungry, I get a hungry feeling in my mouth that only seems to be satisfied when I eat a food, like sandwich, that fills my mouth. Sometimes, when I eat the food to satisfy my mouth hunger, I then spit the food out so I won't gain weight. Response Group 5: D Group 6 A. I don't feel any guilt or self-hate after I overeat. B. After I overeat, occasionally I feel guilt or self-hate. C. Almost all the time I experience strong guilt or self-hate after I overeat. Response Group 6: C Group 7 A. I don't lose total control of my eating when dieting even after periods when I overeat. B. Sometimes when I eat a forbidden food on a diet, I feel like I blew it and eat even more. C. Frequently, I have the habit of saying to myself, I've blown it now, why not go all the way, when I overeat on a diet. When that happens I eat more. D. I have a regular habit of starting a strict diets for myself but I break the diets by going on an eating binge. My life seems to be either a feast or famine. Response Group 7: A Group 8 A. I rarely eat so much food that I feel uncomfortably stuffed afterwards. B. Usually about once a month, I each such a quantity of food, I end up feeling very stuffed. C. I have regular periods during the month when I eat large amounts of food, either at mealtime or at snacks. D. I eat so much food that I regularly feel quite uncomfortable after eating and sometimes a bit nauseous. Response Group 8: A Group 9 A. My level of calorie intake does not go up very high or go down very low on a regular basis. B. Sometimes after I overeat, I will try to reduce my caloric intake to almost nothing to compensate for the excess calories I've eaten. C. I have a regular habit of overeating during the night. It seems that my routine is not to be hungry in the morning but overeat in the evening. D. In my adult years, I have had week-long periods where I practically starve myself. This follows periods when I overeat. It seems I live a life of either feast or famine. Response Group 9: B Group 10 A. I usually am able to stop eating when I want to. I know when enough is enough. B. Every so often, I experience a compulsion to eat which I can't seem to control. C. Frequently, I experience strong urges to eat which I seem unable to control, but at other times I can control my eating urges. D. I feel incapable of controlling urges to eat. I have a fear of not being able to stop eating voluntarily. Response Group 10: A Group 11 A. I don't have any problem stopping eating when I feel full. B. I usually can stop eating when I feel full but occasionally overeat leaving me feeling uncomfortably stuffed. C. I have a problem stopping eating once I start and usually I feel uncomfortably stuffed after I eat a meal. D. Because I have a problem not being able to stop eating when I want, I sometimes have to induce vomiting to relieve my stuffed feeling. Response Group 11: C Group 12 A. I seem to eat just as much when I'm with others, Family social gatherings as when I'm by myself. B. Sometimes, when I'm with other persons, I don't eat as much as I want to eat because I'm self-conscious about my eating. C. Frequently, I eat only a small amount of food when others are present, because I'm very embarrassed about my eating. D. I feel so ashamed about overeating that I pick times to overeat when I know no one will see me. I feel like a closet eater. Response Group 12: C Group 13 A. I eat three meals a day with only an occasional between meal snack. B. I eat 3 meals a day, but I also normally snack between meals. C. When I am snacking heavily, I get in the habit of skipping regular meals. D. There are regular periods when I seem to be continually eating, with no planned meals. Response Group 13: B Group 14 A. I don't think much about trying to control unwanted eating urges. B. At least some of the time, I feel my thoughts are pre-occupied with trying to control my eating urges. C. I feel that frequently I spend much time thinking about how much I ate or about trying not to eat anymore. D. It seems to me that most of my waking hours are pre-occupied by thoughts about eating or not eating. I feel like I'm constantly struggling not to eat. Response Group 14: C Group 15 A. I don't think about food a great deal. B. I have strong craving for food but they last only for brief periods of time. C. I have days when I can't seem to think about anything else but food. D. Most of my days seem to be pre-occupied with thoughts about food. I feel like I live to eat. Response Group 15: B Group 16 A. I usually know whether or not I'm physically hungry. I take the right portion of food to satisfy me. B. Occasionally, I feel uncertain about knowing whether or not I'm physically hungry. A these times it's hard to know how much food I should take to satisfy me. C. Even though I might know how many calories I should eat, I don't have any idea what is a normal amount of food for me. Response Group 16: B Binge Eating Score: 22 Score less than 17 Minimal Risk Score between 18-26 Moderate Risk Score between 27-46 High Risk Assessment & Plan Assessment & Plan (1) Adjustment disorder in remission: Code(s): F43.20 - Adjustment disorder, unspecified Plan After completing the assessment at this time, there are no concerns about patient's mental status so the patient has been cleared from BH standpoint and there is no need for follow up before surgery unless she requests that for support. Clinician has advised client about available resources if ever in need to access additional support and has encourage to maintain communication with office. She will be seen again 4-8 weeks post-op for support. Telehealth Telehealth Location of provider rendering services: other (Home office. [place], [place]) Location of patient: other (At hospital) Patient Identification confirmed using: Name, : Yes Telehealth method: video Patient verbally consented to treatment: Yes Patient verbally consented to billing insurance company: Yes Patient informed of any privacy concerns related to visit: No Minutes spent on Phone/Video with Pt.: 55 Coding Level of Care Code New Pt Tele Psy Diag Eval (82838) Patient Type New Diagnoses Adjustment disorder in remission F43.20 Time Spent (min) 55
== END 2024-01-31 10:00 | disposition home or self-care (01) ==
PROVIDERS: PCP Internal Medicine; Visit Provider Counselor Mental Health
DX: F43.20 Adjustment disorder, unspecified (principal)
CPT/HCPCS: 90791

== ENCOUNTER → 2024-01-31 08:24 | Outpatient (BNVA) | payer MEDICAID, SELFPAY | PROVIDERS: PCP Internal Medicine; Visit Provider Counselor Mental Health ==

== ENCOUNTER 2024-02-02 08:01 | Outpatient (AMB) | payer MEDICAID, SELFPAY ==
--- NOTE | 2024-02-02 10:08 | MHC.OFFVISWM ---
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* HPI Details Start time: 10.00am, End time: 10.25am ?I spent 20 minutes speaking with the patient on the phone plus an additional 5 minutes reviewing and updating records for a total of 25 minutes HPI Comments History of Present Illness Details Overall weight loss: 13.4lbs, or 5.3% TBWL Is doing 2 Celebrate Rebuild protein shakes (1 scoop in 8oz almond milk), 2 Celebrate protein bars and one meal (10 forks of protein and 10 forks of salad or vegetables) Exercise: is doing the stationary daily, twice per day for 350 calories per work-out [facility] Medical History (Updated 11/25/23 @ 11:41 by Bentley Murrell MD) Gastroesophageal reflux disease Prediabetes DJD (degenerative joint disease) Insomnia Morbid obesity Tubular adenoma Chronic TMJ pain Hypercholesterolemia Obesity Snoring Chest pain Diabetes Hypertension Migraines Asthma Surgical History History of esophagogastroduodenoscopy (EGD) Hx of colonoscopy Hx of cholecystectomy Hx of hysterectomy, total Hx of section History of carpal tunnel release (~12/03/20) Family History Mother Diabetes Heart attack Ulcer of stomach due to bacteria Father Heart attack HTN (hypertension) Paternal Uncle Colon cancer Sister Lupus Social History Alcohol intake: never Patient Tobacco Use Status: Never used Tobacco Second Hand Smoke Exposure: No Current occupational status: retired Current occupation: right and left handed Assessment & Plan Assessment & Plan (1) Morbid obesity: Code(s): E66.01 - Morbid (severe) obesity due to excess calories Plan: 1. Continue same nutritional plan of 2 Celebrate Rebuild protein shakes (1 scoop in 8oz almond milk), 2 Celebrate protein bars and one meal (10 forks of protein and 10 forks of salad or vegetables) 2. Exercise: continue the stationary daily, twice per day for 350 calories per work-out 3. Continue to send me weight measurements weekly on Sundays Telehealth Telehealth Location of provider rendering services: practice address Location of patient: address on file Patient Identification confirmed using: Name, : Yes Telehealth method: voice only Patient verbally consented to treatment: Yes Patient verbally consented to billing insurance company: Yes Patient informed of any privacy concerns related to visit: Yes Minutes spent on Phone/Video with Pt.: 25 Coding Level of Care Code Tele Est Pt Level 3 (07466) Diagnoses Morbid obesity E66.01 Time Spent (min) 25 Comment With a [place] speaking conditioning coach
[2024-02-02 10:09] VITALS: BMI 46.7
== END 2024-02-02 10:26 | disposition home or self-care (01) ==
LOC: HO.HBS 08:01
PROVIDERS: PCP Internal Medicine; Visit Provider Surgery
DX: E66.01 Morbid (severe) obesity due to excess calories (principal); Z68.42 Body mass index [BMI] 45.0-49.9, adult
CPT/HCPCS: 99213

== ENCOUNTER → 2024-02-02 08:01 | Outpatient (BNVA) | payer MEDICAID, SELFPAY | PROVIDERS: PCP Internal Medicine; Visit Provider Surgery | DX: E66.01 Morbid (severe) obesity due to excess calories (principal) ==

== ENCOUNTER 2024-03-02 08:54 | Emergency (ER) | payer MEDICAID, SELFPAY ==
--- NOTE | ~2024-03-02 | XR_ITS ---
EXAMINATION: XR HIP, RIGHT CLINICAL INFORMATION: Pain post fall COMPARISON: Previous x-ray April 2023 TECHNIQUE: Two views of the right hip. One view of the pelvis. FINDINGS: Bone alignment is normal. No fracture or dislocation. Soft tissue calcification or ossification projects over the superior lateral right hip joint unchanged. Left hip joint and bones of the pelvis are normal. Mild degenerative changes of the lower lumbar spine. Soft tissues are normal. XR/XR hip RT w PEL1V IMPRESSION: No fracture or dislocation.
--- NOTE | ~2024-03-02 | XR_ITS ---
EXAMINATION: XR SHOULDER, RIGHT. XR CLAVICLE, RIGHT. CLINICAL INFORMATION: Pain after a fall COMPARISON: Right shoulder radiographs 11/11/2019 TECHNIQUE: 3 views of the right shoulder. AP view of the right clavicle. FINDINGS: No glenohumeral fracture or malalignment. Mild acromioclavicular osteoarthritis. No clavicle fracture or acromioclavicular joint space widening. Previously demonstrated supraspinatus calcific tendinitis is no longer apparent. XR/XR shoulder RT min 2V IMPRESSION: No fracture or malalignment. Mild acromioclavicular osteoarthritis.
--- NOTE | ~2024-03-02 | XR_ITS ---
EXAMINATION: XR SHOULDER, RIGHT. XR CLAVICLE, RIGHT. CLINICAL INFORMATION: Pain after a fall COMPARISON: Right shoulder radiographs 11/11/2019 TECHNIQUE: 3 views of the right shoulder. AP view of the right clavicle. FINDINGS: No glenohumeral fracture or malalignment. Mild acromioclavicular osteoarthritis. No clavicle fracture or acromioclavicular joint space widening. Previously demonstrated supraspinatus calcific tendinitis is no longer apparent. XR/XR clavicle RT IMPRESSION: No fracture or malalignment. Mild acromioclavicular osteoarthritis.
[2024-03-02 09:27] VITALS: PULSE 17; BMI 45.7
--- NOTE | 2024-03-02 09:33 | ED_ITS ---
HPI - Fall General Chief Complaint: Fall Stated Complaint: Fall T-1/Head neck R side pain Time Seen by Provider: 03/02/24 09:26 Source: patient and stave and bolt equalizer Mode of arrival: ambulatory Limitations: no limitations History of Present Illness HPI Narrative: 58 y/o Monegasque speaking female with history of obesity, asthma, DM, HLD, chronic low back pain, GERD who presents to the ER from home c/o right shoulder pain s/p slip and fall in the bathroom last night. +head strike but no LOC. She states she fell onto her right shoulder and she has been unable to move her right arm since. She states the pain is in her upper arm, collar bone and is worse with any movement. She denies headache or neck pain, no chest pain or abdominal pain. She is not on anticoagulation. MD complaint: fall Onset (ago): hour(s) Fall from: standing Place fall occurred: home Loss of consciousness: none Prolonged down time: no Symptoms prior to fall: none Context: tripped/slipped Location of injury: head Location of injury - extremities: right: shoulder and arm Severity scale (1-10): 9 Quality: aching Associated symptoms (after fall): denies Related Data Home Medications ?Medication ?Instructions ?Recorded ?Confirmed amlodipine 10 mg tablet 1 tab PO DAILY 10/21/22 11/20/23 losartan 100 mg tablet 1 tab PO DAILY 10/21/22 11/20/23 trazodone 50 mg tablet 0.5 - 1 tab PO BEDTIME 10/21/22 11/20/23 atorvastatin 40 mg tablet 40 mg PO M 11/13/23 11/20/23 fluticasone propionate 50 1 spray intranasal [facility] 11/13/23 11/20/23 mcg/actuation nasal spray,suspension Previous Rx's ?Medication ?Instructions ?Recorded tramadol 50 mg tablet 50 mg PO Q6H PRN severe pain 06/05/23 (scale score 7-10) #12 tabs famotidine 20 mg tablet (Pepcid) 20 mg PO BEDTIME #90 tabs 11/13/23 omeprazole 20 mg capsule,delayed 20 mg PO DAILY #90 caps 11/13/23 release sennosides 8.6 mg tablet (Natural 17.2 mg (2 x 8.6 mg) PO BEDTIME 11/13/23 Senna Laxative) constipation #180 tabs cholecalciferol (vitamin D3) 125 125 mcg PO DAILY #90 caps 11/25/23 mcg (5,000 unit) capsule mecobalamin (vitamin B12) 1,000 1,000 mcg sublingual DAILY #60 tabs 11/25/23 mcg disintegrating tablet,sublingual lidocaine 5 % topical patch 1 patch topical DAILY #15 ea 03/02/24 naproxen 500 mg tablet 500 mg PO BID PRN pain #20 tabs 03/02/24 Allergies Allergy/AdvReac Type Severity Reaction Status Date / Time No Known Allergies Allergy Verified 03/02/24 09:32 [No Known Allergies*] Review of Systems Review of Systems: Yes all other systems are reviewed and are negative [facility] Past Medical History Medical History (Updated 03/02/24 @ 11:18 by PRATIMA Mathews) Gastroesophageal reflux disease Prediabetes DJD (degenerative joint disease) Insomnia Morbid obesity Tubular adenoma Chronic TMJ pain Hypercholesterolemia Obesity Snoring Chest pain Diabetes Hypertension Migraines Asthma Surgical History History of esophagogastroduodenoscopy (EGD) Hx of colonoscopy Hx of cholecystectomy Hx of hysterectomy, total Hx of section History of carpal tunnel release (~12/03/20) Family History Family History Mother Diabetes Heart attack Ulcer of stomach due to bacteria Father Heart attack HTN (hypertension) Paternal Uncle Colon cancer Sister Lupus Social History Social History Alcohol intake: never Patient Tobacco Use Status: Never used Tobacco Second Hand Smoke Exposure: No Advance Directives: No Advance Directives Information Provided: Yes Current occupational status: retired Current occupation: right and left handed Physical Exam Vital Signs: Vital Signs: Last Vital Signs Temp 97.7 F 03/02/24 11:34 Pulse 65 03/02/24 11:34 Resp 18 03/02/24 11:34 BP 107/59 L 03/02/24 11:34 Pulse Ox 99 03/02/24 11:34 O2 Del Method Room Air 03/02/24 11:34 BMI result Body Mass Index 45.7 Appearance: Alert. Oriented X3. No acute distress. Head: normocephalic, atraumatic. Eyes: Pupils equal, round and reactive to light. ENT: Pharynx normal. No tonsillar swelling or exudate. Neck: Normal inspection. Neck supple. No midline tenderness. Soft tissue tenderness on the right lateral side w/ palpable spasm CVS: Normal heart rate and rhythm. Pulses normal. Respiratory: No respiratory distress. Breath sounds normal. Abdomen: Soft and nontender. +BS x4 Skin: Skin warm and dry. Normal skin color. Normal skin turgor. No rashes. Extremities: No lower extremity edema. No joint swelling. RUE held in adduction and flexion, tenderness to the proximal humerus and clavicle. no gross deformities. unable to abduct arm. normal palpation of right elbow and right wrist. NV intact distally. Neuro/psych: Oriented X 3. No motor deficit. No sensory deficit. CN II-XII intact. Normal speech and cognition. Steady gait Medications Administered Discontinued Medications Generic Name Dose Route Start Last Admin Trade Name Freq PRN Reason Stop Dose Admin Acetaminophen 975 mg 03/02/24 09:33 03/02/24 09:38 Acetaminophen 325 Mg Tablet PO 03/02/24 09:34 975 mg ONCE ONE Administration Ibuprofen 600 mg 03/02/24 09:33 03/02/24 09:39 Ibuprofen 600 Mg Tablet PO 03/02/24 09:34 600 mg ONCE ONE Administration Medical Decision Making Medical Decision Making [facility] Narrative: 58 yo female presenting for evaluation of right shoulder and clavicular pain s/p mechanical fall last night. +head strike but no LOC. not on a/c. no headache or neck pain today. limited ROM on exam w/ tenderness of the proximal humerus and distal clavicle. ambulated into the room but reports right him pain XRs ordered - given motrin and tylenol pain improved XRs without acute fracture staff intrepreter used to discuss results and plain - RICE, NSAIDs. ortho follow up PRN stable for d/c Differential Diagnosis Differential Diagnoses: The differential diagnosis associated with the presentation includes clavicular fracture, proximal humerus fracture, shoulder dislocation, shoulder sprain, shoulder contusion, closed head injury, low suspicion for concussion, ICH/SAH Independent Interpretation I performed an independent interpretation of an: Plain X-Ray Interpretation: no acute fractures appreciated, agree w/ radiology read Radiology Impression Discussion of test interpretation with radiology: I have reviewed the radiologist's reading. Radiologist Impression: EXAMINATION: XR HIP, RIGHT CLINICAL INFORMATION: Pain post fall COMPARISON: Previous x-ray April 2023 TECHNIQUE: Two views of the right hip. One view of the pelvis. FINDINGS: Bone alignment is normal. No fracture or dislocation. Soft tissue calcification or ossification projects over the superior lateral right hip joint unchanged. Left hip joint and bones of the pelvis are normal. Mild degenerative changes of the lower lumbar spine. Soft tissues are normal. XR/XR hip RT w PEL1V IMPRESSION: No fracture or dislocation. EXAMINATION: XR SHOULDER, RIGHT. XR CLAVICLE, RIGHT. CLINICAL INFORMATION: Pain after a fall COMPARISON: Right shoulder radiographs 11/11/2019 TECHNIQUE: 3 views of the right shoulder. AP view of the right clavicle. FINDINGS: No glenohumeral fracture or malalignment. Mild acromioclavicular osteoarthritis. No clavicle fracture or acromioclavicular joint space widening. Previously demonstrated supraspinatus calcific tendinitis is no longer apparent. XR/XR shoulder RT min 2V IMPRESSION: No fracture or malalignment. Mild acromioclavicular osteoarthritis. Independent Historian Clinical information obtained from an independent historian. History obtained from or confirmed by: Spouse External Record Review External record reviewed: Office record, Outpatient record, Prior outpatient labs and Prior outpatient radiology Tests considered The following testing was considered but not selected: CT head and cervical spine considered, exam reassuring, not on blood thinners. Prescription Management I considered prescription management with: Pain Medication Chronic Conditions Patient?s care impacted by: Diabetes and Other (morbid obesity) Critical Care Time Critical Care Time Critical Care Time: No Discharge Plan Discharge Clinical Impression: Fall Qualifiers: Encounter type: initial encounter Qualified Code(s): W19.XXXA - Unspecified fall, initial encounter Contusion of right shoulder Qualifiers: Encounter type: initial encounter Qualified Code(s): S40.011A - Contusion of right shoulder, initial encounter Patient Disposition: Home, Self-Care Instructions: Fall Prevention (ED), Shoulder Pain (ED) Additional Instructions: your x-rays today did not show any broken bones take the prescribed anti-inflammatory pain medication as needed - take it with food wear the sling for the next 1-2 days and then slowly increase your range of motion and use of the arm apply ice as needed for pain follow up with your doctor if no improvement with rest, ice, anti-inflammatories recommend following up with orthopedics for further evaluation and treatment If you develop new or worsening symptoms call 911 or come back to the ER for further evaluation. Prescriptions: New lidocaine 5 % adhesive patch,medicated 1 patch topical DAILY Qty: 15 0RF Rx Instructions: leave on most painful area for up to 12 hrs naproxen 500 mg tablet 500 mg PO BID PRN (Reason: pain) Qty: 20 0RF No Action cholecalciferol (vitamin D3) 125 mcg (5,000 unit) capsule 125 mcg PO DAILY Qty: 90 0RF mecobalamin (vitamin B12) 1,000 mcg tablet,disintegrating 1,000 mcg sublingual DAILY Qty: 60 0RF Rx Instructions: place tablet under tongue and allow to dissolve for at least30 secs before swallowing trazodone 50 mg tablet 0.5 - 1 tab PO BEDTIME amlodipine 10 mg tablet 1 tab PO DAILY losartan 100 mg tablet 1 tab PO DAILY tramadol 50 mg tablet 50 mg PO Q6H PRN (Reason: severe pain (scale score 7-10)) Qty: 12 0RF atorvastatin 40 mg tablet 40 mg PO QAM fluticasone propionate 50 mcg/actuation spray,suspension 1 spray intranasal QAM sennosides [Natural Senna Laxative] 8.6 mg tablet 17.2 mg PO BEDTIME Qty: 180 3RF omeprazole 20 mg capsule,delayed release(DR/EC) 20 mg PO DAILY Qty: 90 2RF famotidine [Pepcid] 20 mg tablet 20 mg PO BEDTIME Qty: 90 3RF Referrals: [facility] [Provider Group] (shoulder pain s/p fall) Vera Freeman MD [Primary Care Provider] - Interventions: ED Discharge Assessment Last Done: 03/02/24 11:34 Discharge Date/Time: 03/02/24 11:34 Print Language: Monegasque
[2024-03-02] MEDS: Acetaminophen 325 MG TABLET 975 MG PO (09:38)
[2024-03-02] MEDS: Ibuprofen 600 MG TABLET PO (09:39)
--- NOTE | 2024-03-02 09:55 | PC.NURSE ---
Applied sling to right arm, patient tolerated well, awaiting x-ray results.
[2024-03-02 11:34] VITALS: BP 107/59; PULSE 65; RESP 18; TEMP 36.5; O2SAT 99
== END 2024-03-02 11:34 | disposition home or self-care (01) ==
PROVIDERS: Emergency Provider Emergency Medicine; PCP Internal Medicine
DX: S40.011A Contusion of right shoulder, initial encounter (principal); W01.0XXA Fall on same level from slipping, tripping and stumbling without subsequent striking against object, initial encounter; Y93.89 Activity, other specified; Y92.002 Bathroom of unspecified non-institutional (private) residence as the place of occurrence of the external cause; Y99.9 Unspecified external cause status
CPT/HCPCS: 73000; 73030; 73502; 99283

== ENCOUNTER 2024-03-08 08:13 | Outpatient (AMB) | payer MEDICAID, SELFPAY ==
[2024-03-08 14:49] VITALS: BMI 47.1
--- NOTE | 2024-03-08 14:49 | MHC.OFFVISWM ---
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 Has not been doing recently due to a fall [facility] Medical History (Updated 03/03/24 @ 00:00 by Candie Kohler) Gastroesophageal reflux disease Prediabetes DJD (degenerative joint disease) Insomnia Morbid obesity Tubular adenoma Chronic TMJ pain Hypercholesterolemia Obesity Snoring Chest pain Diabetes Hypertension Migraines Asthma Surgical History History of esophagogastroduodenoscopy (EGD) Hx of colonoscopy Hx of cholecystectomy Hx of hysterectomy, total Hx of section History of carpal tunnel release (~12/03/20) Family History Mother Diabetes Heart attack Ulcer of stomach due to bacteria Father Heart attack HTN (hypertension) Paternal Uncle Colon cancer Sister Lupus Social History Alcohol intake: never Patient Tobacco Use Status: Never used Tobacco Second Hand Smoke Exposure: No Current occupational status: retired Current occupation: right and left handed Telehealth Telehealth Telehealth Platform: Telephone Location of provider rendering services: practice address Location of patient: address on file Patient Identification confirmed using: Name, : Yes Telehealth method: voice only Patient verbally consented to treatment: Yes Patient verbally consented to billing insurance company: Yes Patient informed of any privacy concerns related to visit: Yes Minutes spent on Phone/Video with Pt.: 20 Assessment & Plan Assessment & Plan (1) Morbid obesity: Code(s): E66.01 - Morbid (severe) obesity due to excess calories Category: Medical Plan: 1. Plan for lap sleeve gastrectomy including upper GI endoscopy. All tests has been completed and reviewed and the patient is cleared for the surgery. ?If diaphragmatic or ventral hernias are present at time of surgery, these will be repaired laparoscopically as well. Risks and complications were discussed in detail including possible conversion to an open procedure, anastomotic leak, bleeding requiring transfusion, small bowel obstruction, , DVT and pulmonary embolism, cardiac, or pulmonary complications, as terminal block assembler complications such as anastomotic ulcer, insufficient weight loss and vitamin deficiencies. I emphasized the importance of close follow-up, adherence to instructions and good communication. So far she has proven to be an excellent communicator and very compliant with all our directions accomplishing a great weight loss. I believe that she is an excellent candidate and she is ready. 2. The patient participated in a structured preoperative lifestyle intervention program supervised by a physician the 4 months preceding the surgical procedure. The lifestyle intervention included a structured nutritional plan with a specific daily protein intake goal, an exercise plan with a 2000 calorie burn weekly goal, weekly behavior modification guidance and completion of eight 1-hour online nutritional classes and passing successfully the corresponding quizzes. Adherence to preoperative care plan was demonstrated by completing an extensive preoperative work-up. Program participation was demonstrated by completing 6 visits with our medical team and by sharing weekly weight measurements weekly for 4 consecutive months via an approved body composition scale. Compliance to the lifestyle intervention was demonstrated by achieving a 11.4lbs weight-loss or 4.51% total body weight loss (TBWL). No medications were used to achieve this weight loss. 3. Continue same nutritional plan of 2 Celebrate Rebuild protein shakes (1 scoop in 8oz almond milk), 2 Celebrate protein bars and one meal (10 forks of protein and 10 forks of salad or vegetables) 4. Exercise: continue the stationary daily, twice per day for 150 calories per work-out for a total of 300 calories per day, daily. Goal is to burn 2000 calories per week on the bike 5. Continue to send me weight measurements weekly on Sundays
== END 2024-03-08 15:02 | disposition home or self-care (01) ==
LOC: HO.HBS 08:13
PROVIDERS: PCP Internal Medicine; Visit Provider Surgery
DX: E66.01 Morbid (severe) obesity due to excess calories (principal); Z68.42 Body mass index [BMI] 45.0-49.9, adult
CPT/HCPCS: 99213

== ENCOUNTER → 2024-03-08 08:13 | Outpatient (BNVA) | payer MEDICAID, SELFPAY | PROVIDERS: PCP Internal Medicine; Visit Provider Surgery ==

== ENCOUNTER 2024-03-29 07:55 | Outpatient (AMB) | payer MEDICAID, SELFPAY ==
--- NOTE | 2024-03-29 12:03 | A.OFFVIS_ITS ---
VS Expanded 03/29/24 12:05 Height 5 ft Weight 236 lb 8 oz BMI 46.2 Body Fat % 63.6 Body Fat Mass 150.6 Fat Free Mass 86.2 Visceral Fat Rating 27 Body Water % 24.9 Body Water Mass 58.9 Basal Metabolic Rate/Score 1,219 Intake Visit Reasons: TV Pre Op LSG 04/09/24 *[facility]* Allergies No Known Allergies [No Known Allergies*] Allergy (Verified 03/29/24 12:04) Medication List - Last Reconciled 03/29/24 by Bentley Murrell MD amlodipine 1 tab PO DAILY atorvastatin 40 mg PO QAM cholecalciferol (vitamin D3) 125 mcg PO DAILY famotidine (Pepcid) 20 mg PO BEDTIME fluticasone propionate 50 mcg/actuation 1 spray intranasal QAM lidocaine 5% 1 patch topical DAILY losartan 1 tab PO DAILY mecobalamin (vitamin B12) 1,000 mcg sublingual DAILY naproxen 500 mg PO BID PRN omeprazole 20 mg PO DAILY ondansetron 4 mg PO Q12H pantoprazole 40 mg PO DAILY polyethylene glycol 3350 17 grams PO DAILY sennosides (Natural Senna Laxative) 17.2 mg (2 x 8.6 mg) PO BEDTIME sucralfate 10 mL PO BID tramadol 50 mg PO Q6H PRN trazodone 0.5 - 1 tabs PO BEDTIME HPI HPI TV Pre Op LSG 04/09/24 *[facility]*: Details: Start time: 12.08pm, End time: 12.28pm ?I spent 15 minutes speaking with the patient on the phone plus an additional 5 minutes reviewing and updating records for a total of 20 minutes HPI Comments Details: Overall weight loss: 16lbs, or 6.33% TBWL Is doing 2 Celebrate Rebuild protein shakes (1 scoop in 8oz almond milk), 2 Celebrate protein bars and one meal (10 forks of protein and 10 forks of salad or vegetables) Exercise: is doing the stationary daily, twice per day for 350 calories per work-out. Has not been doing recently due to a fall [facility] Medical History (Updated 03/03/24 @ 00:00 by Candie Kohler) Gastroesophageal reflux disease Prediabetes DJD (degenerative joint disease) Insomnia Morbid obesity Tubular adenoma Chronic TMJ pain Hypercholesterolemia Obesity Snoring Chest pain Diabetes Hypertension Migraines Asthma Surgical History History of esophagogastroduodenoscopy (EGD) Hx of colonoscopy Hx of cholecystectomy Hx of hysterectomy, total Hx of section History of carpal tunnel release (~12/03/20) Family History Mother Diabetes Heart attack Ulcer of stomach due to bacteria Father Heart attack HTN (hypertension) Paternal Uncle Colon cancer Sister Lupus Social History Alcohol intake: never Patient Tobacco Use Status: Never used Tobacco Second Hand Smoke Exposure: No Current occupational status: retired Current occupation: right and left handed Physical Exam Vital Signs: BMI result Body Mass Index 46.2 Telehealth Telehealth Telehealth Platform: Telephone Location of provider rendering services: practice address Location of patient: address on file Patient Identification confirmed using: Name, : Yes Telehealth method: voice only Patient verbally consented to treatment: Yes Patient verbally consented to billing insurance company: Yes Patient informed of any privacy concerns related to visit: Yes Minutes spent on Phone/Video with Pt.: 20 Assessment & Plan Assessment & Plan (1) Morbid obesity: Code(s): E66.01 - Morbid (severe) obesity due to excess calories Category: Medical Plan: 1. Plan for lap sleeve gastrectomy including upper GI endoscopy. All tests has been completed and reviewed and the patient is cleared for the surgery. ?If diaphragmatic or ventral hernias are present at time of surgery, these will be repaired laparoscopically as well. Risks and complications were discussed in detail including possible conversion to an open procedure, anastomotic leak, bleeding requiring transfusion, small bowel obstruction, , DVT and pulmonary embolism, cardiac, or pulmonary complications, as terminal operations manager complications such as anastomotic ulcer, insufficient weight loss and vitamin deficiencies. I emphasized the importance of close follow-up, adherence to instructions and good communication. So far she has proven to be an excellent communicator and very compliant with all our directions accomplishing a great weight loss. I believe that she is an excellent candidate and she is ready. 2. Preop prescriptions were provided and explained the purpose of each one. Need to be purchased preop. Start Pantoprazole now as you get it from the pharmacy, 1 pill per day. Sucralfate and Zofran are for after surgery as needed. 3. Bowel prep: please do 7 packets ?of Miralax mixing each one with a an 8oz glass of water, crystal light, gatorade zero, or propel ?on 04/07/24 and the same amount on 04/08/24. The Miralax you begin with one packet at a time in 8oz water or crystal light, gatorade zero, or propel ?as early in the day as you can and you do them back to back until you finish them. Continue the protein shakes during? the bowel prep. 4. Needs to purchase 1oz medicine cups . 5. Needs to purchase Children's liquid Tylenol for postop pain control. 6. She needs to stop all the Naproxyn as of today 03/29/24. Avoid aspirin, motrin, Advil, Aleve, Ibuprofen, Naproxyn. Tylenol is OK. 7. She needs to purchase the Celebrate 4:1 protein shakes from the hospital's gift shop. 8. Will do basic preop blood work-up any day between Monday04/01/24 and Monday04/05/24 fasting for 12 hours and is scheduled to see the Anesthesiologist prior to the day of surgery. 9. Importance of adherence to postop folllow-up and recommendations was underscored and she understands that. 10. Stop food and bars as of today 03/29/24 and continue with 2 Celebrate Rebuild protein shakes (ONE scoop EACH in 8oz almond milk) at 7am-9am and 10am-12pm, and three more Celebrate protein shakes with TWO scoops EACH in 8oz of almond milk at 1pm-3pm, 4pm-6pm amd 7pm-9pm 11. No soups, broths or V8 12. The patient's?medical?history has been reviewed and they are considered low risk for post op DVT and therefore DVT prophylaxis is not considered necessary. Travel after surgery was reviewed. The patient has not disclosed any travel plans during the first 30 days after surgery and they have been advised that within the first 30 days after surgery any bus, plane, train or car travel over 2 hours in duration is contraindicated due to the possibility of developing blood clots from immobility. Any travel, needs to include periods of ambulation of 10 minutes in duration every 2 hours.? Patient was instructed to discuss any plans for travel during this period with their bariatric surgeon.? 13. Use your CPAP daily and bring it to the hospital with your mask 14. Please take at the day of surgery the following medications: Only the Amlodipine and the Losartan based on the following parameters: Measure your blood pressure daily in the morning. If the blood pressure is: Below 120/70: do not take the Amlodipine or the Losartan 121/71 to 135/85: take HALF pill of Amlodipine and HALF pill of Losartan Over 136/86: ?take the whole pill of Amlodipine and the whole pill of Losartan 15. Stop any control pills and don't use them for one month after surgery 16. Absolutely no smoking or vaping, or marijuana until the surgery and for at least the first 4 weeks. Only nicotine patches are allowed. 17. Send me weight measurements on Monday03/31/24, Monday04/07/24 and then on Monday04/09/24 the day of surgery before you go to the hospital. 18. Avoid any steroids by mouth for any reason. Let me know if someone prescribes them to you 19. These instructions supersede anything else you read in the handbook, anything you watched in videos or classes or you were told by any other provider. If there is any conflict, you follow the above instructions and nothing else. Orders: Orders Comprehensive Met. Panel Today E66.01 - Morbid (severe) obesity due to excess calories, R73.03 - Prediabetes, Z68.43 - Body mass index [BMI] 50.0-59.9, adult Vitamin A Today E66.01 - Morbid (severe) obesity due to excess calories, R73.03 - Prediabetes, Z68.43 - Body mass index [BMI] 50.0-59.9, adult Prothrombin Time INR Today E66.01 - Morbid (severe) obesity due to excess calories, R73.03 - Prediabetes, Z68.43 - Body mass index [BMI] 50.0-59.9, adult Lipid Panel Today E66.01 - Morbid (severe) obesity due to excess calories, R73.03 - Prediabetes, Z68.43 - Body mass index [BMI] 50.0-59.9, adult Vitamin B12 Today E66.01 - Morbid (severe) obesity due to excess calories, R73.03 - Prediabetes, Z68.43 - Body mass index [BMI] 50.0-59.9, adult C Reactive Protein Today E66.01 - Morbid (severe) obesity due to excess calories, R73.03 - Prediabetes, Z68.43 - Body mass index [BMI] 50.0-59.9, adult Zinc Today E66.01 - Morbid (severe) obesity due to excess calories, R73.03 - Prediabetes, Z68.43 - Body mass index [BMI] 50.0-59.9, adult IRON PROFILE Today E66.01 - Morbid (severe) obesity due to excess calories, R73.03 - Prediabetes, Z68.43 - Body mass index [BMI] 50.0-59.9, adult TSH reflex Free T4 Today E66.01 - Morbid (severe) obesity due to excess calories, R73.03 - Prediabetes, Z68.43 - Body mass index [BMI] 50.0-59.9, adult Hemoglobin A1c Today E66.01 - Morbid (severe) obesity due to excess calories, R73.03 - Prediabetes, Z68.43 - Body mass index [BMI] 50.0-59.9, adult Vitamin B1 Today E66.01 - Morbid (severe) obesity due to excess calories, R73.03 - Prediabetes, Z68.43 - Body mass index [BMI] 50.0-59.9, adult Type and Screen Today E66.01 - Morbid (severe) obesity due to excess calories, R73.03 - Prediabetes, Z68.43 - Body mass index [BMI] 50.0-59.9, adult Partial Thromboplastin Time Today E66.01 - Morbid (severe) obesity due to excess calories, R73.03 - Prediabetes, Z68.43 - Body mass index [BMI] 50.0-59.9, adult Vitamin D 25-OH Total Today E66.01 - Morbid (severe) obesity due to excess calories, R73.03 - Prediabetes, Z68.43 - Body mass index [BMI] 50.0-59.9, adult Complete Blood Count Auto Diff Today E66.01 - Morbid (severe) obesity due to excess calories, R73.03 - Prediabetes, Z68.43 - Body mass index [BMI] 50.0-59.9, adult Ferritin Today E66.01 - Morbid (severe) obesity due to excess calories, R73.03 - Prediabetes, Z68.43 - Body mass index [BMI] 50.0-59.9, adult Insulin Today E66.01 - Morbid (severe) obesity due to excess calories, R73.03 - Prediabetes, Z68.43 - Body mass index [BMI] 50.0-59.9, adult Medications: New pantoprazole 40 mg PO DAILY 90 tabs 0RF K21.9 - Gastro-esophageal reflux disease without esophagitis ondansetron Only take one every 12 hours as needed if you have nausea 4 mg PO Q12H 20 tabs 0RF nausea and vomiting R11.0 - Nausea polyethylene glycol 3350 Mix each measuring cup with 8oz of water, Crystal light, or Gatorade zero, or Propel and do 7 measuring cups on 04/07/24 and another 7 measuring cups on 04/08/24 17 grams PO DAILY 238 grams 0RF Z01.818 - Encounter for other preprocedural examination sucralfate 10 mL PO BID 600 mL 2RF K21.9 - Gastro-esophageal reflux disease without esophagitis
[2024-03-29 12:05] VITALS: BMI 46.2
== END 2024-03-29 12:55 | disposition home or self-care (01) ==
LOC: HO.HBS 07:55
PROVIDERS: PCP Internal Medicine; Visit Provider Surgery
DX: E66.01 Morbid (severe) obesity due to excess calories (principal); Z68.42 Body mass index [BMI] 45.0-49.9, adult
CPT/HCPCS: 99499

== ENCOUNTER → 2024-03-29 07:55 | Outpatient (BNVA) | payer MEDICAID, SELFPAY | PROVIDERS: PCP Internal Medicine; Visit Provider Surgery ==

== ENCOUNTER → 2024-04-05 08:53 | Outpatient (BNVA) | payer MEDICAID, SELFPAY | PROVIDERS: PCP Internal Medicine; Visit Provider Physician Assistant Surgical ==

== ENCOUNTER 2024-04-09 07:03 | Inpatient (IN) | payer MEDICAID, SELFPAY ==
[2024-04-02 08:44] VITALS: BMI 46.1
[2024-04-05 07:55] LABS: Basophils Percent Auto 0.5 % (0-2); Eosinophils Absolute Auto 0.2 X10*3/uL (0.0-0.4); Eosinophils Percent Auto 2.5 % (0-4); Hematocrit 40.9 % (37.0-47.0); Hemoglobin 13.7 g/dl (12.0-16.0); Imm Gran Abs Auto 0.01 X10*3/uL (0.00-0.03); Imm Gran Pct Auto 0.2 % (0.0-0.4); Lymphocytes Absolute Auto 2.1 X10*3/uL (1.2-4.9); Lymphocytes Percent Auto 33.4 % (20-40); MANUAL DIFF FLAG SCAN; Mean Corpuscular HGB Conc 33.5 g/dl (31.0-35.0); Mean Corpuscular Volume 83.6 fL (80.0-98.0); Mean Platelet Volume 10.9 fL (9.4-12.3); Monocytes Absolute Auto 0.5 X10*3/uL (0.1-1.2); Monocytes Percent Auto 7.4 % (2-11); Neutrophils Absolute Auto 3.6 x10*3/uL (2.0-8.3); Platelet Count 227 X10*3/uL (160-400); Red Blood Count 4.89 X10*6/uL (4.20-5.50); Red Cell Distribution Width 13.8 % (11.0-16.0); SCAN SMEAR FLAG 1; White Blood Count 6.4 X10*3/uL (4.8-10.8)
[2024-04-05 08:01] LABS: Estimated Average Glucose 114 mg/dL; Hemoglobin A1c % 5.6 % (<6.0); INTERNATIONAL NORM RATIO 1.1 (0.9-1.1); Prothrombin Time 12.9 SEC (11.1-13.3)
[2024-04-05 08:04] LABS: Partial Thromboplastin Time 34.9 SEC (26.0-36.8)
[2024-04-05 08:26] LABS: SLIDE REVIEW VERIFIED
[2024-04-05 08:38] LABS: Alanine Aminotransferase 16 U/L (0-31); Albumin Level 4.2 g/dL (3.5-5.0); Alkaline Phosphatase 54 U/L (39-117); Anion Gap 11 (12-20); Aspartate Amino Transferase 19 U/L (5-31); Bilirubin Total 0.5 mg/dL (0.0-1.0); Blood Urea Nitrogen 14 mg/dL (9-16); Calcium 10.5 mg/dL (8.4-10.2); Carbon Dioxide 29 mmol/L (22-29); Chloride 108 mmol/L (96-108); Cholesterol 137 mg/dL (<200); Creatinine Clr Calc Pharmacy 105.3; Estimated Glomerular Filt Rate > 60; Glucose Random 102 mg/dL (60-115); HDL Cholesterol 33 mg/dL (>40); Iron 57 mcg/dL (30-160); LDL Cholesterol Calculated 90 mg/dL (<100); Percent Iron Saturation 17 % (15-50); Potassium 4.1 mmol/L (3.3-5.1); Sodium 144 mmol/L (135-145); Total Iron Binding Capacity 343 mcg/dL (228-428); Total Protein 7.5 g/dL (6.5-8.0); Triglycerides 71 mg/dL (<150); Unsaturated Iron Binding 286 ug/dL
[2024-04-05 08:57] LABS: Ferritin 89 ng/mL (10-250); Insulin 14 uU/mL (2-29); TSH reflex Free T4 2.22 uIU/mL (0.32-4.0); Vitamin D 25-OH Total 32.5 ng/mL (>30)
[2024-04-05 09:02] LABS: Vitamin B12 811 pg/mL (200-900)
--- NOTE | 2024-04-05 12:25 | P.CONAN_ITS ---
Documented by User: Lily Wilhelm NP 04/05/24 12:26 HPI - Anesthesia Eval Consult details Narrative: 58yo F for Gastrectomy Sleeve,EGD,possible diaphragmatic hernia,possible ventral hernia,possible Open PMFSH Active Problems Active Problems: All Active Problems Vitamin B12 deficiency (Acute) Vitamin D deficiency (Acute) Sacroiliac joint pain (Acute) Morbid obesity with BMI of 50.0-59.9, adult (Acute) Lumbar degenerative disc disease (Acute) Lumbar spondylosis (Acute) Lumbar radiculopathy (Acute) Diabetes (Acute) Carpal tunnel syndrome of right wrist (Acute) Carpal tunnel syndrome of left wrist (Acute) Gastroesophageal reflux disease (Acute) Prediabetes (Acute) DJD (degenerative joint disease) (Acute) Insomnia (Acute) Morbid obesity (Acute) Hypercholesterolemia (Acute) Chronic TMJ pain (Acute) Tubular adenoma (Acute) Migraines (Acute) Hypertension (Acute) Asthma (Acute) Past Medical History Medical History Sleep apnea Gastroesophageal reflux disease Prediabetes DJD (degenerative joint disease) Insomnia Morbid obesity Tubular adenoma Chronic TMJ pain Hypercholesterolemia Snoring Chest pain Hypertension Migraines Asthma Family History Family History Mother Diabetes Heart attack Ulcer of stomach due to bacteria Father Heart attack HTN (hypertension) Paternal Uncle Colon cancer Sister Lupus Family history of problems with anesthesia: No Surgical History Surgical History History of esophagogastroduodenoscopy (EGD) Hx of colonoscopy Hx of cholecystectomy Hx of hysterectomy, total Hx of section History of carpal tunnel release (~12/03/20) History of Problems with Anesthesia: No Social History Social History Are you a primary career coordinator to a significant other at home: No Do you presently have visiting nurse or other home services: No Alcohol intake: never Patient Tobacco Use Status: Never used Tobacco Second Hand Smoke Exposure: No Use of substances other than those prescribed or required for medical reasons: No Have you been hit, kicked, punched, or otherwise hurt by someone within the past year? If so, by whom?: No Are you DNR?: No Advance Directives: No Advance Directives Information Provided: No Advance Directives on File: No Recently lost weight without trying: No Eating poorly because of decreased appetite: No Nutrition Risks: No Nutritional Risk Patient : No (had hysterectomy) FDLMP: N/A Current occupational status: retired Current occupation: right and left handed Meds Allergies Allergy/AdvReac Type Severity Reaction Status Date / Time No Known Allergies Allergy Verified 03/29/24 12:04 [No Known Allergies*] Home Medications ?Medication ?Instructions ?Recorded ?Confirmed ?Last Taken ?Type amlodipine 10 mg tablet 1 tab PO BEDTIME 10/21/22 04/09/24 04/06/24 History losartan 100 mg tablet 1 tab PO DAILY 10/21/22 04/09/24 10/27/22 History trazodone 50 mg tablet 1 tab PO BEDTIME 10/21/22 04/09/24 04/08/24 History atorvastatin 40 mg tablet 40 mg PO DAILY 11/13/23 04/09/24 04/06/24 History fluticasone propionate 50 1 spray intranasal DAILY 11/13/23 04/09/24 Unknown History mcg/actuation nasal spray,suspension albuterol sulfate 90 mcg/actuation 2 puff inhalation Q6H PRN 04/01/24 04/09/24 Unknown History aerosol inhaler (Ventolin HFA) Shortness Of Breath Or Wheezing cholecalciferol (vitamin D3) 125 125 mcg PO BEDTIME 04/09/24 04/09/24 04/06/24 History mcg (5,000 unit) capsule mecobalamin (vitamin B12) 1,000 1,000 mcg sublingual DAILY@1200 04/09/24 04/09/24 04/06/24 History mcg disintegrating tablet,sublingual ondansetron 4 mg disintegrating 4 mg PO Q12H PRN nausea and 04/09/24 04/09/24 Unknown History tablet vomiting pantoprazole 40 mg tablet,delayed 40 mg PO DAILY@0630 04/09/24 04/09/24 Unknown History release Exam Height,Weight and Vital Signs: Height 5 ft Weight 107.048 kg Pertinent Lab Results Pertinent Lab Results: Laboratory Tests 04/05/24 04/05/24 04/05/24 07:40 07:40 07:40 WBC RBC Hgb Hct MCV MCH MCHC RDW Plt Count MPV Immature Gran % (Auto) Neut % (Auto) Lymph % (Auto) Gonzales % (Auto) Eos % (Auto) Baso % (Auto) Lymph # (Auto) Gonzales # (Auto) Eos # (Auto) Baso # (Auto) Abs Immat Gran (auto) Absolute Neuts (auto) Absolute Nucleated RBC Nucleated RBC % (auto) Smear Tech's Comments PT INR APTT Sodium Potassium Chloride Carbon Dioxide Anion Gap BUN Creatinine Estim Creat Clear Calc Estimated GFR Random Glucose Estimat Average Glucose Hemoglobin A1c % Insulin Level Calcium Iron TIBC % Saturation Unsat Iron Binding Ferritin Total Bilirubin AST ALT Alkaline Phosphatase C-Reactive Protein Total Protein Albumin Triglycerides Cholesterol LDL Cholesterol, Calc HDL Cholesterol Vitamin B12 25-OH Vitamin D Total TSH Blood Type A Positive Antibody Screen POSITIVE Antibody Identification Inconclusive Antigen Identification E Antigen - NEGATIVE Jkb Antigen - POSITIVE K Antigen - NEGATIVE 04/05/24 07:48 WBC 6.4 RBC 4.89 Hgb 13.7 Hct 40.9 MCV 83.6 MCH 28.0 MCHC 33.5 RDW 13.8 Plt Count 227 MPV 10.9 Immature Gran % (Auto) 0.2 Neut % (Auto) 56.0 Lymph % (Auto) 33.4 Gonzales % (Auto) 7.4 Eos % (Auto) 2.5 Baso % (Auto) 0.5 Lymph # (Auto) 2.1 Gonzales # (Auto) 0.5 Eos # (Auto) 0.2 Baso # (Auto) 0.0 Abs Immat Gran (auto) 0.01 Absolute Neuts (auto) 3.6 Absolute Nucleated RBC 0.000 Nucleated RBC % (auto) 0.0 Smear Tech's Comments VERIFIED PT 12.9 INR 1.1 APTT 34.9 Sodium 144 Potassium 4.1 Chloride 108 Carbon Dioxide 29 Anion Gap 11 L BUN 14 Creatinine 0.66 Estim Creat Clear Calc 105.3 Estimated GFR > 60 Random Glucose 102 Estimat Average Glucose 114 Hemoglobin A1c % 5.6 Insulin Level 14 Calcium 10.5 H D Iron 57 TIBC 343 % Saturation 17 Unsat Iron Binding 286 Ferritin 89 Total Bilirubin 0.5 AST 19 ALT 16 Alkaline Phosphatase 54 C-Reactive Protein 0.20 Total Protein 7.5 Albumin 4.2 Triglycerides 71 Cholesterol 137 LDL Cholesterol, Calc 90 HDL Cholesterol 33 L Vitamin B12 811 25-OH Vitamin D Total 32.5 TSH 2.22 Blood Type Antibody Screen Antibody Identification Antigen Identification Narrative Narrative: EKG 10/2023 Vent. Rate : 071 BPM Atrial Rate : 071 BPM P-R Int : 154 ms QRS Dur : 074 ms QT Int : 402 ms P-R-T Axes : 039 003 018 degrees QTc Int : 436 ms Normal sinus rhythm Normal ECG When compared with ECG of 07-JAN-2022 14:33, No significant change was found Assessment and Plan Assessment Anesthesia Assessment: Chart Reviewed Final Anesthetic Review Family History of Problems with Anesthesia: No History of Problems with Anesthesia: No Documented by User: Margarette Robert MD 04/09/24 11:12 COUNT INCLUDES THE [facility] Past Medical History Medical History Sleep apnea Gastroesophageal reflux disease Prediabetes DJD (degenerative joint disease) Insomnia Morbid obesity Tubular adenoma Chronic TMJ pain Hypercholesterolemia Snoring Chest pain Hypertension Migraines Asthma Family History Family History Mother Diabetes Heart attack Ulcer of stomach due to bacteria Father Heart attack HTN (hypertension) Paternal Uncle Colon cancer Sister Lupus Surgical History Surgical History History of esophagogastroduodenoscopy (EGD) Hx of colonoscopy Hx of cholecystectomy Hx of hysterectomy, total Hx of section History of carpal tunnel release (~12/03/20) Social History Social History Are you a primary career coordinator to a significant other at home: No Do you presently have visiting nurse or other home services: No Alcohol intake: never Patient Tobacco Use Status: Never used Tobacco Second Hand Smoke Exposure: No Use of substances other than those prescribed or required for medical reasons: No Have you been hit, kicked, punched, or otherwise hurt by someone within the past year? If so, by whom?: No Are you DNR?: No Advance Directives: No Advance Directives Information Provided: No Advance Directives on File: No Recently lost weight without trying: No Eating poorly because of decreased appetite: No Nutrition Risks: No Nutritional Risk Patient : No (had hysterectomy) FDLMP: N/A Current occupational status: retired Current occupation: right and left handed Meds Allergies Allergy/AdvReac Type Severity Reaction Status Date / Time No Known Allergies Allergy Verified 03/29/24 12:04 [No Known Allergies*] Home Medications ?Medication ?Instructions ?Recorded ?Confirmed ?Last Taken ?Type amlodipine 10 mg tablet 1 tab PO BEDTIME 10/21/22 04/09/24 04/06/24 History losartan 100 mg tablet 1 tab PO DAILY 10/21/22 04/09/24 10/27/22 History trazodone 50 mg tablet 1 tab PO BEDTIME 10/21/22 04/09/24 04/08/24 History atorvastatin 40 mg tablet 40 mg PO DAILY 11/13/23 04/09/24 04/06/24 History fluticasone propionate 50 1 spray intranasal DAILY 11/13/23 04/09/24 Unknown History mcg/actuation nasal spray,suspension albuterol sulfate 90 mcg/actuation 2 puff inhalation Q6H PRN 04/01/24 04/09/24 Unknown History aerosol inhaler (Ventolin HFA) Shortness Of Breath Or Wheezing cholecalciferol (vitamin D3) 125 125 mcg PO BEDTIME 04/09/24 04/09/24 04/06/24 History mcg (5,000 unit) capsule mecobalamin (vitamin B12) 1,000 1,000 mcg sublingual DAILY@1200 04/09/24 04/09/24 04/06/24 History mcg disintegrating tablet,sublingual ondansetron 4 mg disintegrating 4 mg PO Q12H PRN nausea and 04/09/24 04/09/24 Unknown History tablet vomiting pantoprazole 40 mg tablet,delayed 40 mg PO DAILY@0630 04/09/24 04/09/24 Unknown History release Exam Airway Mallampati Class: II TM Dist: >3cm Neck ROM: Full Loose/Missing/Broken Teeth: No Heart: RRR Lungs: CTA Assessment and Plan Assessment Anesthesia Assessment: Anesthesia Plan Discussed Final Anesthetic Review NPO: Yes ASA Class: III Final Preanesthetic Review: Meds/Allgs Chart Reviewed, Consent Obtained/Reviewed and Anes Risks/Benef Reviewed Patient Risk: Intermediate Procedure Risk: Intermediate Anesthetic Plan Anesthetic Plan: GA Disposition: Standard PACU
[2024-04-09] VITALS (13 sets, daily range): BP systolic 117–154; BP diastolic 61–77; PULSE 62–84; RESP 13–18; TEMP 35.8–36.5; O2SAT 94–99; BMI 43.9
[2024-04-09 01:29] LABS: Zinc 83 mcg/dL (60-130)
--- OUTSIDE RECORDS SUMMARY | 2024-04-09 07:09 | XMS_ITS | Continuity of Care Document ---
Author Organization [facility] ter Address [address] [place] [id number]- Care Team Providers Care Speech Language Pathology Assistant Name Role Phone Lydia CARROLL, Vera Meraz Primary Care Physician [place] [facility] [place] 07/[place]/[address] [address] Attending Physician: Not on Staff, Attending MD Admitting Physician: Not on Staff, Admitting MD Referring Physician: Not on Staff, Referring MD Allergies, Adverse Reactions, Alerts No Known Allergies Immunizations Given and Recorded Vaccine Date Status Refusal Reason influenza virus vaccine, inactivated 08/02/22 Finesse rded influenza virus vaccine, inactivated 07/18/21 Finesse rded influenza virus vaccine, inactivated 07/23/18 Finesse rded SARS-CoV-2 (COVID-19) mRNA-1273 vaccine 04/05/21 R ecorded SARS-CoV-2 (COVID-19) mRNA-1273 vaccine 03/08/21 R ecorded Medications acetaminophen 325 mg oral tablet TAKE 2 TABLETS BY MOUTH EVERY 6 HOURS NEEDED FOR PAIN Start Date: 06/13/23 Status: Ordered amLODIPine 10 mg oral tablet TAKE 1 TABLET BY MOUTH ONCE DAILY Start Date: 06/13/23 Status: Ordered atorvastatin 40 mg oral tablet TAKE 1 TABLET BY MOUTH DAILY IN THE MORNING Start Date: 06/13/23 Status: Ordered diclofenac 1% topical gel = 2 Gm, Topically, 4 times a day, PRN Pain , Moderate, Please use if pain not well controlled with lidocaine patch. Apply to left shoulder or back. External use only. not to exceed 8 grams/day/singlejoint of upper extremities, # 100 Gm, 0 Refills, M... Start Date: 06/16/23 Status: Ordered ergocalciferol 97813 iu oral capsule TAKE 1 CAPSULE BY MOUTH ONCE A WEEK Start Date: 06/13/23 Status: Ordered famotidine 20 mg oral tablet TAKE 1 TABLET BY MOUTH DAILY AT BEDTIME Start Date: 06/13/23 Status: Ordered fluticasone 50 mcg/inh nasal spray USE 1 SPRAY IN EACH NOSTRIL DAILY IN THE MORNING Start Date: 06/13/23 Status: Ordered lidocaine 5% topical film APPLY 1 PATCH TOPICALLY TO SKIN, LEAVE ON FOR 12 HOURS AND OFF FOR 12 HOURS DIRECTED Start Date: 06/13/23 Status: Ordered losartan 100 mg oral tablet TAKE 1 TABLET BY MOUTH EVERY DAY Start Date: 06/13/23 Status: Ordered omeprazole 20 mg oral enteric coated capsule TAKE 1 CAPSULE BY MOUTH DAILY Start Date: 06/13/23 Status: Ordered Senna 8.6 mg oral tablet TAKE 2 TABLETS BY MOUTH DAILY AT BEDTIME FOR CONSTIPATION Start Date: 06/13/23 Status: Ordered traMADol 50 mg oral tablet TAKE 1 TABLET BY MOUTH EVERY 6 HOURS NEEDED FOR SEVERE PAIN (PAIN SCALE 7-10) Start Date: 06/13/23 Status: Ordered Ventolin HFA 108 mcg/inh inhalation aerosol with adapter 2 puffs, Inhalation, Every 4 hours, PRN for wheezing, # 18 Gm, 0 Refills, Maintenance, 06/13/23 19:37:00 EDT, Aerosol, Partial fill upon patient request if the prescription is for a schedule II opioid drug. Start Date: 06/13/23 Status: Ordered Problem List Condition Confirmation Course Effective Dates Status Health [facility] Informant COVID-19 1 Confirmed 06/16/23 Active Severe obesity Confirmed Active 1Problem added by Discern Expert Social History Social History Type Response Smoking Status Never (less than 100 in lifetime) entered on: 06/13/23 Sex Patient Care team information Care Team Personnel Name: Vera Freeman MD Position: S Outreach Member Role: PCP Address: Address: [address] [place] [address] Name: Mariya Hines RN Position: S RN Member Role: Primary Care Nurse Name: [place] Dinero RN Position: S RN Member Role: Primary Care Nurse
--- OUTSIDE RECORDS SUMMARY | 2024-04-09 07:09 | XMS_ITS | Continuity of Care Document ---
Author Organization [facility] ter Address [address] [place] [id number]- Care Team Providers Care [employer] Nurse Name Role Phone Lydia CARROLL, Vera Meraz Primary Care Physician [place] [facility] [place]): [place]13[place] - 06/16/[address] [id number] Discharge Disposition: A-Transfer VNA/Home Health Attending Physician: Maia Torres MD Admitting Physician: Maris Graves MD Referring Physician: Not on Staff, Referring [...] FOR PAIN Start Date: 06/13/23 Status: Ordered acetaminophen 325 mg oral tablet 975 mg, Tablet, By Mouth, 06/16/23 9:00:00 EDT Start Date: 06/16/23 Stop Date: 06/16/23 Status: Completed amLODIPine 10 mg oral tablet TAKE 1 TABLET BY MOUTH ONCE DAILY Start Date: 06/13/23 Status: Ordered amLODIPine 10 mg oral tablet 10 mg, Tablet, By Mouth, 06/16/23 9:00:00 EDT Start Date: 06/16/23 Stop Date: 06/16/23 Status: Completed atorvastatin 40 mg oral tablet TAKE 1 [...] M... Start Date: 06/16/23 Status: Ordered ergocalciferol 57103 iu oral capsule TAKE 1 CAPSULE BY [...] EVERY DAY Start Date: 06/13/23 Status: Ordered losartan 50 mg oral tablet 100 mg, Tablet, By Mouth, 06/16/23 9:00:00 EDT Start Date: 06/16/23 Stop Date: 06/16/23 Status: Completed omeprazole 20 mg oral enteric coated capsule TAKE 1 CAPSULE BY MOUTH DAILY Start Date: 06/13/23 Status: Ordered Senna 8.6 mg oral tablet TAKE 2 TABLETS BY MOUTH DAILY AT BEDTIME FOR CONSTIPATION Start Date: 06/13/23 Status: Ordered traMADol 50 mg oral tablet TAKE 1 TABLET BY MOUTH EVERY 6 HOURS NEEDED FOR SEVERE PAIN (PAIN SCALE 7-10) Start Date: 06/13/23 Status: Ordered traMADol 50 mg oral tablet 50 mg, Tablet, By Mouth, 06/16/23 12:00:00 EDT Start Date: 06/16/23 Stop Date: 06/16/23 Status: Completed Ventolin HFA 108 mcg/inh inhalation aerosol with adapter 2 puffs, Inhalation, Every 4 hours, PRN for wheezing, # 18 Gm, 0 Refills, Maintenance, 06/13/23 19:37:00 EDT, Aerosol, Partial fill upon patient request if the prescription is for a schedule II opioid drug. Start Date: 06/13/23 Status: Ordered Problem List Condition Confirmation Course Effective Dates Status Health St at Informant COVID-19 1 Confirmed 06/16/23 Active Severe obesity Confirmed Active 1Problem added by Discern Expert Results Radiology Reports * Exam Date Time Procedure Performing Provider Status 06/14/23 5:[address] Angio Chest Mayra Roberts; Auth (Verified) Notes: (CT Angio Chest) Reason For Exam: PE suspected, low prob, unknown D-dimer;Other: RESULT: CT Angio Chest EXAMINATION: CT Angio Chest INDICATION: Right pleuritic pain near the scapula. Currently being treated for COVID infection. TECHNIQUE: Spiral CTA of the chest was performed after rapid IV contrast administration without cardiac gating, triggered by an PAUL on the main pulmonary artery. Images are formatted in multiple planes using 2-D multiplanar and 3-D maximum intensity projection. 70 cc of Omnipaque 300 was administered intravenously. Weight-based protocol using automatic tube modulation was used to optimize exposure parameters. CTDIvol Body: 13.33 mGy, DLP Body: 808 mGy*cm. COMPARISONS: None FINDINGS: Pulmonary arteries: No pulmonary embolism to the subsegmental level. Normal caliber pulmonary arteries. Aorta: No acute aortic abnormality seen on this study performed without cardiac gating. Envelope Machine Adjuster View Findings, Lines and Tubes: None. Trachea and Airways: Patent without evidence of tracheal or endobronchial lesion. Lungs and Pleura: Diffuse bilateral ill-defined groundglass nodular opacities, predominantly in theperipheral distribution, slightly increase in the bilateral lower lobes. No effusion or pneumothorax. Mediastinum and hilda: No mass or hematoma. No mediastinal or hilar lymphadenopathy. Small sliding hiatal hernia. Heart: Heart is normal in size. No pericardial effusion. No ventricular septal bowing or IVC reflux. Chest Wall Soft Tissues: Normal. Diaphragm and upper abdomen: No significant abnormality. Bones: Normal. IMPRESSION: 1. No evidence of pulmonary embolism. 2. Multifocal inflammatory groundglass nodules consistent with COVID infection. I have personally reviewed the images and I agree with this report. WSN: [id number] Ordering Physician: Love Fox Dictated By: Fito Mitchell MD Dictated Date/Time: 06/14/23 6:35 pm Reviewed By: Masood Quintanilla MD Signed By: Masood Quintanilla MD Signed Date/Time: 06/14/23 6:40 pm Transcribed By: LIAN Transcribed Date/Time: 06/14/23 6:25 pm * Exam Date Time Procedure Performing Provider Status 06/13/23 7:56 PM MRI Thoracic Spine W+W/O Contrast Skye Escobar (Verified) Notes: (MRI Thoracic Spine W+W/O Contrast) Reason For Exam: Back Pain RESULT: MRI Thoracic Spine W+W/O Contrast MRI Thoracic Spine W+W/O Contrast INDICATION: Back pain. TECHNIQUE: MRI of the thoracic spine was performed with and without intravenous contrast utilizing sagittal T1, sagittal T2, sagittal STIR, axial T1, and fat- saturated axial T2-weighted sequences, and post-contrast sagittal T1 and fat- saturated axial T1-weighted sequences. 25 mL of Clariscan was administered intravenously. COMPARISON: None available. FINDINGS: LOCALIZER: No additional findings on limited localizer images. ALIGNMENT, VERTEBRAE, MARROW, AND DISCS: Vertebral body height, curvature, and alignment are normal. There is mild multilevel disc space narrowing. No abnormal signal or enhancement is seen within the disc spaces or endplates to suggest discitis/osteomyelitis. There is no evidence of septic arthritis. CORD: The thoracic cord is normal in signal and contour. There is no abnormal enhancement. PARASPINAL TISSUES: Visualized paraspinal soft tissues are unremarkable. There is no paraspinal edema FINDINGS BY LEVEL: At T9-10 there is no significant disc bulge. There is posterior ligamentous thickening partially effacing the dorsal CSF space without significant canal stenosis. At T10-11 there is no significant disc bulge. Prominent posterior ligamentous calcification is seeneffacing the dorsal CSF causing overall mild canal stenosis without contact of the cord. No other significant degenerative changes are seen in the thoracic spine. The neural foramen are patent. IMPRESSION: No evidence of infection in the thoracic spine. Minor degenerative changes are seen as described without significant canal stenosis. Similar preliminary report provided by [facility]. WSN: [id number] Ordering Physician: Jeanne Dougherty Dictated By: Jazzy Sanchez MD Dictated Date/Time: 06/14/23 7:46 am Reviewed By: Jazzy Sanchez MD Signed By: Jazzy Sanchez MD Signed Date/Time: 06/14/23 7:46 am Transcribed By: ILAN Transcribed Date/Time: 06/14/23 7:41 am * Exam Date Time Procedure Performing Provider Status 06/13/23 9:38 AM Chest 2 Views Frontal and Lat Vanessa Wilburn; Terry (Verified) Notes: (Chest 2 Views Frontal and Lat) Reason For Exam: Chest Pain;Other: RESULT: Chest 2 Views Frontal and Lat Examination: Chest performed on 06/13/2023. History: Chest pain. Findings: Frontal and lateral views of the chest are submitted without comparison. The cardiac and mediastinal silhouettes are within normal limits. Prominence of the pulmonary vasculature is seen without overt edema. There are no focal infiltrates. The osseous and soft tissue structures are unremarkable. Impression: There is no acute cardiopulmonary disease. WSN: [id number] Ordering Physician: Ori Ruiz MD Dictated By: Christine Bettencourt MD Dictated Date/Time: 06/13/23 9:45 am Reviewed By: Christine Bettencourt MD Signed By: Christine Bettencourt MD Signed Date/Time: 06/13/23 9:45 am Transcribed By: LIAN Transcribed Date/Time: 06/13/23 9:44 am Vital Signs Most recent to oldest [Reference Range]: 1 2 3 Height 155 cm (06/16/23 11:26 AM) 155 cm (06/16/23 8:29 AM) 155 cm (06/16/23 6:43 AM) Weight 118.5 kg (06/13/23 3:02 PM) 118.5 kg (06/13/23 2:15 PM) 118.5 kg (06/13/23 12:00 PM) Oxygen Saturation [94-100 %] 97 % (06/16/23 11:26 AM) 98 % (06/16/23 8:29 AM) 100 % (06/16/23 6:43 AM) Pulse Rate [55-90 bpm] 67 bpm (06/16/23 11:26 AM) 78 bpm (06/16/23 8:29 AM) 68 bpm (06/16/23 6:43 AM) Body Mass Index [18.5-24.99 kg/m2] 49.32 kg/m2 *>HHI* (06/13/23 3:02 PM) 49.32 kg/m2 *>HHI* (06/13/23 2:15 PM) 49.32 kg/m2 *>HHI* (06/13/23 12:00 PM) Blood Pressure [90-138/55-84 mm Hg] 112/57mm Hg (06/16/23 11:26 AM) 130/59mm Hg (06/16/23 10:22 AM) 130/59mm Hg (06/16/23 10:21 AM) Respiratory Rate [16-30 br/min] 16 br/min (06/16/23 3:01 PM) 17 br/min (06/16/23 11:26 AM) 16 br/min (06/16/23 11:21 AM) Temperature [96.8-100.4 DegF] 98.0 DegF (06/16/23 11:26 AM) 98.1 DegF (06/16/23 8:29 AM) 98.0 DegF (06/16/23 6:43 AM) Liters per Minute 0 L/min (06/16/23 11:26 AM) Mode of Delivery (Oxygen) Room air (06/16/23 11:26 AM) Room air (06/16/23 8:29 AM) Room air (06/16/23 6:43 AM) Blood pressure sites Arm, right (06/16/23 11:26 AM) Arm, right (06/16/23 8:29 AM) Arm, right (06/16/23 6:43 AM) Temperature Route Oral (06/16/23 11:26 AM) Oral (06/16/23 8:29 AM) Oral (06/16/23 6:43 AM) Dry Weight 118.5 kg (06/13/23 3:02 PM) 118.5 kg (06/13/23 2:15 PM) 118.5 kg (06/13/23 12:00 PM) Social History Social History Type Response Smoking Status Never (less than 100 in lifetime) entered on: 06/13/23 Sex Admission evaluation note * Alma Carlisle NP: PERFORM, MODIFY, MODIFY, MODIFY, MODIFY, MODIFY, MODIFY, MODIFY, MODIFY Event Display: Admission Note Authored Date: [id number] Patient: ??EDUARDO COLVIN ? Age:??57 Years?Sex:??Female?:??1965?? History of Present Illness The patient is a 57 year old Moroccan speaking??female,??with history of HTN, HLD, GERD, asthma. whounderstands some Sudanese, is here with her daughter who aids in??translation.?The patient??presents with upper back pain on the??right side, radiating down her thigh.?She reports symptoms have been present since Monday, and now getting worse..?? She also endorses chest pain, shortness of breath, cough and subjective fevers. ??Her pain is??increased with breathing and moving.?? She has trialed albuterol and tramadol with limited relief.?She reports that she feels weak all over but denies any focal neuro changes. ??She endorses some slight urinary incontinence for the last 2 weeks or so.??She denies any??spinal injections.?? She reports some nausea but denies vomiting, ??abdominal pain.??She denies??leg swelling or history of blood clots.?? She had an MRI performed of her lumbar spine on an emergent basis on Monday to evaluate for severe right lower back pain/sciatica. She states this was done through her primary doctor but she does not know?? the results .?? Per her daughter, it was done at [facility], [address] [place] [address]??St??. ?? In the ED, the patient is afebrile with elevated blood pressure initially, now resolved and otherwise stable vital signs. Chest X-ray is nonacute.?? EKG is NSR, ??nonischemic.?? Laboratory data issignificant for ESR 42, D dimer 0.22, Lactate 2.9->2.6->1.5. MRI thoracic spine is pending.??HS troponin is 7, <6.?? Covid is positive.?? The patient is admitted for back pain, rule out SEA., and Covid. Review of Systems Constitutional:??No weight loss, fever. Chills, weakness, fatigue. Allergy/Immune: Denies any??Eczema or hives Eyes:??No visual loss, blurred vision, double vision or yellow sclera ENT:??No hearing loss, sneezing, congestion, runny nose or sore throat. Respiratory:??Shortness of breath, cough. Cardiovascular:?? Chest pain. No palpitations or pedal edema. Gastrointestinal:??Nausea. No??vomiting or diarrhea. No abdominal pain or blood in stool. Genitourinary:??No burning micturition. Urinary frequency, incontinence. Neurologic:??No headache, dizziness, syncope, unilateral weakness, ataxia, numbness or tingling in the extremities. No change in bowel or bladder control. Musculoskeletal: Back pain, myalgia. Hematologic/Lymphatics:??No bleeding or bruising. No painful lymph nodes. Skin:??No rash or itching. Endocrine:??No reports of sweating. No cold or heat intolerance. No polyuria or polydipsia. Psychiatric:??No depression or anxiety. Objective Vital Signs?? Temperature:??100.6 DegF??High (06/13/23:25:) Temperature Route: Oral (06/13/23:25:00) Pulse Rate: 86 bpm (06/13/23:25:00) Respiratory Rate: 20 br/min (06/13/23:25:) Systolic Blood Pressure: 134 mm Hg (06/13/23:25:00) Diastolic Blood Pressure: 65 mm Hg (06/13/23:25:00) Blood pressure sites: Arm, left (06/13/23::00) Mean Arterial Pressure: 88 mm Hg (06/13/23:25:00) Pulse Pressure: 69 mm Hg (06/13/23:25:00) Oxygen Saturation: 98 % (06/13/23:25:00) Mode of Delivery (Oxygen): Room air (06/13/23:25:00) Early Warning Score: 0 (06/13/23::57) ? Intake/Output? No Data Available ? Physical Exam Constitutional: Alert,??moderate distress. Mental Status: Oriented to person, place and time. Head: Normocephalic. Eyes: Pupils are equal, round and reactive to light. Extraocular muscles intact. Ear, Nose and Throat: Oropharynx clear, mucous membranes moist. Ears and nose without masses, lesions or deformities. Trachea midline. Neck: Supple, Full range of motion. Respiratory: Clear to auscultation. No wheezing, rales or rhonchi. Cardiovascular: S1 S2 regular. No murmurs, rubs or gallops. Gastrointestinal: Abdomen soft, non-tender, non-distended. Normal bowel sounds. No pulsatile mass. Genitourinary: No costovertebral angle tenderness. Neurologic: Cranial nerves II-XII grossly intact. No focal neurological deficits. Flexor plantar response. Moves all extremities spontaneously. Sensation intact bilaterally. Skin: No rashes or lesions. No petechiae or purpura.?? Musculoskeletal: No cyanosis or clubbing. No gross deformities. Normal range of motion. Heme/Lymphatics/Immun: Palpation of neck reveals no swelling or tenderness of neck nodes. Psychiatric: Normal mood and affect Assessment/Plan Assessment:??The patient is a 57 year old Moroccan speaking female, with history of HTN, HLD, GERD, asthma. who understands some Sudanese, is here with her daughter who aids in translation. The patientpresents with upper back pain on the right side, radiating down her thigh. She reports symptoms have been present since Monday, and now getting worse.. She also endorses chest pain, shortness of breath, cough and subjective fevers. Her pain is increased with breathing and moving. She has trialed albuterol and tramadol with limited relief. She reports that she feels weak all over but denies any focal neuro changes. She endorses some slight urinary incontinence for the last 2 weeks or so. She denies any spinal injections. She reports some nausea but denies vomiting, abdominal pain. She denies leg swelling or history of blood clots. She had an MRI performed of her lumbar spine on an emergent basis on Monday to evaluate for severe right lower back pain/sciatica. She states this was done through her primary doctor but she does not know the results. Per her daughter, it was done at [address] . ?? In the ED, the patient is afebrile with elevated blood pressure initially, now resolved and otherwise stable vital signs. Chest X-ray is nonacute. EKG is NSR, nonischemic. Laboratory data is significant for ESR 42, D dimer 0.22, Lactate 2.9->2.6->1.5. MRI thoracic spine is pending. HS troponin is 7, <6. Covid is positive. The patient is admitted for back pain, rule out SEA., and Covid. ?? Back Pain: Rule out SEA: 57 year old Moroccan speaking female, with history of HTN, HLD, GERD, asthma. who understands some Sudanese, is here with her daughter who aids in translation. The patient presents with upper back painon the right side, radiating down her thigh. She reports symptoms have been present since Monday, and now getting worse.. She also endorses chest pain, shortness of breath, cough and subjective fevers. Her pain is increased with breathing and moving. She had an MRI performed of her lumbar spine on an emergent basis on Monday at [facility], [address]?? MRI thoracic spine done here with results pending. -Follow up thoracic MRI. -Obtain Lumbar MRI results from [facility], . ?? Covid: History of Asthma: Oxygen saturation is 98% on RA. -Supportive Care.?? -Enhanced precautions. -prn albuterol. -Consult antimicrobial stewardship for consideration of Paxlovid. ?? Hypertension: -Continue home dose of amlodipine, losartan. ?? Hyperlipidemia: -Continue home dose of atorvastatin. ?? GERD: -Continue famotidine. -Substitute Pantoprazole for omeprazole. ?? Diet:?Cardiac. ?? DVT prophylaxis:?? Heparin SC. ?? Code Status: Full Code. ?? Discharge Planning:?? OMN-Covid. ?? Histories Allergies Allergies ?(Active and Proposed Allergies Only) NKA? (Severity: Unknown severity, Onset: Unknown) ? Past Medical History/Problem List Active Problems??(1) Severe obesity ? Past Surgical History No surgery history documented. ? Social History Tobacco Details:??Use: Never (less than 100 in lifetime). ? Psychosocial History ? Family History No family history recorded. ? Medications Home Medications Acetaminophen (acetaminophen 325 mg oral tablet)?TAKE 2 TABLETS BY MOUTH EVERY 6 HOURS NEEDEDFOR PAIN Albuterol (Ventolin HFA 108 mcg/inh inhalation aerosol with adapter)?2?puff(s)?Inhalation?Every 4 hours?as needed?for wheezing Amlodipine (amLODIPine 10 mg oral tablet)?TAKE 1 TABLET BY MOUTH ONCE DAILY Atorvastatin (atorvastatin 40 mg oral tablet)?TAKE 1 TABLET BY MOUTH DAILY IN THE MORNING Dexamethasone (dexamethasone 4 mg oral tablet)?TAKE 1 TABLET BY MOUTH TWICE DAILY Ergocalciferol (ergocalciferol 95559 iu oral capsule)?TAKE 1 CAPSULE BY MOUTH ONCE A WEEK Famotidine (famotidine 20 mg oral tablet)?TAKE 1 TABLET BY MOUTH DAILY AT BEDTIME Fluticasone Nasal (fluticasone 50 mcg/inh nasal spray)?USE 1 SPRAY IN EACH NOSTRIL DAILY IN THE MORNING Lidocaine Topical (lidocaine 5% topical film)?APPLY 1 PATCH TOPICALLY TO SKIN, LEAVE ON FOR 12 HOURS AND OFF FOR 12 HOURS DIRECTED Losartan (losartan 100 mg oral tablet)?TAKE 1 TABLET BY MOUTH EVERY DAY Omeprazole (omeprazole 20 mg oral enteric coated capsule)?TAKE 1 CAPSULE BY MOUTH DAILY Ondansetron (ondansetron 4 mg oral tablet, disintegrating)?DISSOLVE 1 TABLET ON TONGUE EVERY 6 TO 8 HOURS NEEDED FOR NAUSEA AND VOMITING PredniSONE (predniSONE 20 mg oral tablet)?TAKE 2 TABLETS (40 MG) BY MOUTH ONCE DAILY FOR 5 DAYS Senna (Senna 8.6 mg oral tablet)?TAKE 2 TABLETS BY MOUTH DAILY AT BEDTIME FOR CONSTIPATION Tramadol (traMADol 50 mg oral tablet)?TAKE 1 TABLET BY MOUTH EVERY 6 HOURS NEEDED FOR SEVERE PAIN (PAIN SCALE 7-10) ? Inpatient Medications Medications (17) Active SCHEDULED: (10) Amlodipine 10 mg Tablet (amLODIPine 10 mg oral tablet) ??10 mg, By Mouth, Daily Atorvastatin 40 mg Tablet (atorvastatin 40 mg oral tablet) ??40 mg, By Mouth, Daily Famotidine 20 mg Tablet (famotidine 20 mg oral tablet) ??20 mg, By Mouth, Daily at bedtime Fluticasone Propionate 50mcg/inh Nasal [place] (fluticasone 50 mcg/inh nasal spray) ??50 mcg 1 sprays, Nares, Both, Daily Heparin 5000 units/mL Inj (1 mL) (Heparin Inj) ??7,500 units 1.5 mL, Subcutaneous Injection, 3 times a day Lidocaine 5% Ointment (Lidocaine 5% Topical) ??1 application, Topically, Daily Losartan 50 mg Tablet (losartan 50 mg oral tablet) ??100 mg, By Mouth, Daily NaCl 0.9% Flush 3ml (NaCL 0.9% Flush) ??3 mL, IV Push, Every 8 hours Pantoprazole 20 mg EC Tablet (pantoprazole 20 mg oral delayed release tablet) ??20 mg, By Mouth, Daily TraMADOL 50 mg Tablet (traMADol 50 mg oral tablet) ??50 mg, By Mouth, Every 6 hours CONTINUOUS: (0) PRN: (7) Acetaminophen 325 mg Tablet (Acetaminophen Tablet) ??650 mg, By Mouth, Every 4 hours Albuterol 90mcg/Inhalation Inhaler HFA (Ventolin 90 mcg Inhaler) ??180 mcg 2 puffs, Inhalation, Every 4 hours Melatonin 3 mg Tablet (Melatonin Tablet) ??3 mg, By Mouth, Daily at bedtime MorPHINE 4 mg Inj Syringe (MorPHINE Inj) ??4 mg, IV Push Slowly, Every 15 minutes MorPHINE 4 mg Inj Syringe (MorPHINE Inj) ??4 mg, IV Push Slowly, Every 4 hours NaCl 0.9% Flush 3ml (NaCL 0.9% Flush) ??3 mL, IV Push, Every 8 hours Senna 8.6 mg / Docusate 50 mg tablet (Docusate/Senna Tablet) ??1 tablet, By Mouth, 2 times a day ? Results Recent Labs BLOOD COUNT & DIFF WBC 8.4 k/mm3 ()?? 06/13/2023 08:57 RBC 5.04 m/mm3 ()?? 06/13/2023 08:57 Hgb 13.9 Gm/dL ()?? 06/13/2023 08:57 Hct 41.6 % ()?? 06/13/2023 08:57 MCV 82.5 femtoliters ()?? 06/13/2023 08:57 MCH 27.6 pg ()?? 06/13/2023 08:57 MCHC 33.4 g/dL ()?? 06/13/2023 08:57 Platelet Count 288 k/mm3 ()?? 06/13/2023 08:57 RDW-SD 41.3 femtoliters ()?? 06/13/2023 08:57 MPV 10.0 femtoliters ()?? 06/13/2023 08:57 Nucleated RBC (Automated) 0.0 #/100 WBC'S ()?? 06/13/2023 08:57 Abs. NRBC 0.0 k/mm3 ()?? 06/13/2023 08:57 Abs. Neut 5.7 k/mm3 ()?? 06/13/2023 08:57 Abs. Lymph 2.0 k/mm3 ()?? 06/13/2023 08:57 Abs. [place] 0.7 k/mm3 ()?? 06/13/2023 08:57 Abs. Eo 0.0 k/mm3 ()?? 06/13/2023 08:57 Abs. Baso 0.0 k/mm3 ()?? 06/13/2023 08:57 Neut % 68.2 % ()?? 06/13/2023 08:57 Lymph % 23.4 % ()?? 06/13/2023 08:57 [place] % 7.8 % ()?? 06/13/2023 08:57 Eos % 0.1 % ()?? 06/13/2023 08:57 Baso % 0.1 % ()?? 06/13/2023 08:57 Imm Gran 0.4 % ()?? 06/13/2023 08:57 Abs. Imm Gran 0.0 k/mm3 ()?? 06/13/2023 08:57 ?? CARDIAC High Sensitivity Troponin (HSTnT) <6 ng/L ()?? 06/13/2023 12:07 ?? CHEM GENERAL Sodium 136 mmol/L ()?? 06/13/2023 08:57 Potassium 5.0 mmol/L ()?? 06/13/2023 08:57 Chloride 101 mmol/L ()?? 06/13/2023 08:57 Bicarbonate Level 21 mmol/L (Low)?? 06/13/2023 08:57 Anion Gap 14 ()?? 06/13/2023 08:57 Glucose Level 99 mg/dL ()?? 06/13/2023 08:57 BUN 14 mg/dL ()?? 06/13/2023 08:57 Creatinine-Blood 0.6 mg/dL ()?? 06/13/2023 08:57 Estimated GFR Creatinine 106 ML/MIN/1.73 M2 ()?? 06/13/2023 08:57 Calcium 9.6 mg/dL ()?? 06/13/2023 08:57 Protein, Total 7.1 Gm/dL ()?? 06/13/2023 08:57 Albumin 4.1 Gm/dL ()?? 06/13/2023 08:57 AG Ratio 1.4 ()?? 06/13/2023 08:57 Alkaline Phosphatase 78 units/L ()?? 06/13/2023 08:57 Lipase 38 units/L ()?? 06/13/2023 08:57 AST (SGOT) 17 units/L ()?? 06/13/2023 08:57 ALT (SGPT) 23 units/L ()?? 06/13/2023 08:57 Bilirubin, Total 0.4 mg/dL ()?? 06/13/2023 08:57 Lactate 1.5 mmol/L ()?? 06/13/2023 16:26 ?? COAG D-Dimer 0.22 mg/L FEU ()?? 06/13/2023 12:07 ?? HEME OTHER Sed Rate 42 mm/hr (High)?? 06/13/2023 12:07 Hold Blue Top SPECIMEN DISCARDED AFTER 4 HOURS. ()?? 06/13/2023 08:57 ?? URINE OTHER Est Creatinine Clearance 80.03 mL/min ()?? 06/13/2023 10:12 ?? VIROLOGY COVID-19 by RT-PCR POSITIVE (Abnormal)?? 06/13/2023 22:03 ? EKG study * Event Display: EKG Authored Date: * Event Display: ECG 12-Lead Authored Date: Please click on pdf link to open report * Event Display: ECG 12-Lead Authored Date: [id number] Ventricular Rate: 83 BPM Atrial Rate: 83 BPM P-R Interval: 134 ms QRS Duration: 68 ms Q-T Interval: 366 ms QTC Calculation(Bazett): 430 ms P Sandwich: 5 degrees R Sandwich: 11 degrees T Sandwich: 32 degrees Normal sinus rhythm Probably normal ekg No previous ECGs available Confirmed by KATERIN ESPARZA ([id number]) on 06/13/2023 10:58:26 AM [place]: KATERIN ESPARZA [facility] Progress note * Liss Miranda RN: PERFORM, SIGN, VERIFY Event Display: Progress Note Hospital Authored Date: [id number] Patient: EDUARDO COLVIN Age: 57 years Sex: Female : 1965 Associated Diagnoses: None Author: Liss Miranda RN Findings Problem Related to Alteration in Comfort : Alteration in Comfort/new 06/15/2023 23:00 EDT Alteration in Comfort Related to Injury Goals & Outcomes: Comfort Pt will report acceptable level of comfort & pain control, Pt will state importance of adhering to pain strategy regime, Pt will demonstrate necessary skills to manage pain Interventions Implemented: Comfort Assess pain using appropriate pain scale/tools, Assess aggravating factors & prevent them accordingly, Assess alleviating factors & promote them accordingly Goals/Interventions, Comfort Yes Comfort, Problem Start 06/14/2023 4:51 Reviewed plan with, Comfort Patient Patient Progression, Comfort Patient not progressing according to plan Comfort, Problem Ongoing Yes . Alteration in Respiratory Function (new) : Alteration in Respiratory Function/new 06/15/2023 23:00 EDT Alteration in Resp Status Related to COVID - 19 Goals & Outcomes, Respiratory Pt will maintain/resume baseline physical assessment, Pt will maintain adequate nutritional intake, Pt will maintain/resume normal fluid/electrolyte balance, Pt willnot develop complications r/t immobility, Pt will demonstrate proper technique w/self care procedures Interventions, Respiratory Assess for and report S&S of respiratory distress, Position for comfort & optimal oxygenation Goals/Interventions, Respiratory Yes Respiratory, Problem Start 06/14/2023 4:52 Reviewed Plan with, Respiratory Patient Patient Progression, Respiratory Patient progressing according to plan . Nursing Data Vital Signs : VITAL SIGNS SECTION 06/16/2023 0:47 EDT Temperature 97.8 DegF Temperature Route Oral Pulse Rate 67 bpm Respiratory Rate 17 br/min Systolic Blood Pressure 111 mm Hg Diastolic Blood Pressure 64 mm Hg Mean Arterial Pressure 80 mm Hg Pulse Pressure 47 mm Hg Oxygen Saturation 100 % Mode of Delivery (Oxygen) Room air . Narrative/Incidental Pt A+O X 3. c/o 6/10 pain to left shoulder. Tylenol and Tramadol given with some effect. Lung sounds clear. Pt ambulates to bathroom, daughter at bedside. Pt slept on and off during night. Call ji in reach. Precautions maintained.. Discharge Information Rehabilitation Discharge : Rehab Discharge Index 06/15/2023 9:07 EDT Comments on treatment indicated 57 y/o F presents for evaluation of severe rightlower back pain/sciatica. PT for balance, strengthening, bed mobility, transfers c RW, amb c RW. Rec home c services. Distance pt will ambulate 30' c SPC Full chart review completed Yes Plan of care PT Gait training, Transfer training, Therapeutic exercise, Functional Activities, Balance training, Neuromuscular education * Aram CARROLL, Manisha: PERFORM Event Display: Progress Note Hospital Authored Date: [id number] Patient: ??EDUARDO COLVIN ? Age:??57 Years?Sex:??Female?:??1965?? Subjective Pt is doing okay. She is having continued back pain which radiates into LT arm and shoulder. She denies SOB, chest pain. She states she does not prefer morphine which has been noted and since removedfrom PRNs. ?? Review of Systems All systems negative except as noted above. Objective Pain Scores 1 - 10 Pain Scale Score: 5 (00:38) ? Physical Exam General: Pt resting comfortably in bed, in no acute distress. Obese. Cardiovascular: RRR, no additional heart sounds appreciated. Respiratory: Lungs clear to auscultation bilaterally. Abdominal: No tenderness to palpation. Extremities: No b/l extremity edema appreciated. _ Home Medications Acetaminophen (acetaminophen 325 mg oral tablet)?TAKE 2 TABLETS BY MOUTH EVERY 6 HOURS NEEDEDFOR PAIN Albuterol (Ventolin HFA 108 mcg/inh inhalation aerosol with adapter)?2?puff(s)?Inhalation?Every 4 hours?as needed?for wheezing Amlodipine (amLODIPine 10 mg oral tablet)?TAKE 1 TABLET BY MOUTH ONCE DAILY Atorvastatin (atorvastatin 40 mg oral tablet)?TAKE 1 TABLET BY MOUTH DAILY IN THE MORNING Dexamethasone (dexamethasone 4 mg oral tablet)?TAKE 1 TABLET BY MOUTH TWICE DAILY Ergocalciferol (ergocalciferol 00930 iu oral capsule)?TAKE 1 CAPSULE BY MOUTH ONCE A WEEK Famotidine (famotidine 20 mg oral tablet)?TAKE 1 TABLET BY MOUTH DAILY AT BEDTIME Fluticasone Nasal (fluticasone 50 mcg/inh nasal spray)?USE 1 SPRAY IN EACH NOSTRIL DAILY IN THE MORNING Lidocaine Topical (lidocaine 5% topical film)?APPLY 1 PATCH TOPICALLY TO SKIN, LEAVE ON FOR 12 HOURS AND OFF FOR 12 HOURS DIRECTED Losartan (losartan 100 mg oral tablet)?TAKE 1 TABLET BY MOUTH EVERY DAY Omeprazole (omeprazole 20 mg oral enteric coated capsule)?TAKE 1 CAPSULE BY MOUTH DAILY Ondansetron (ondansetron 4 mg oral tablet, disintegrating)?DISSOLVE 1 TABLET ON TONGUE EVERY 6 TO 8 HOURS NEEDED FOR NAUSEA AND VOMITING PredniSONE (predniSONE 20 mg oral tablet)?TAKE 2 TABLETS (40 MG) BY MOUTH ONCE DAILY FOR 5 DAYS Senna (Senna 8.6 mg oral tablet)?TAKE 2 TABLETS BY MOUTH DAILY AT BEDTIME FOR CONSTIPATION Tramadol (traMADol 50 mg oral tablet)?TAKE 1 TABLET BY MOUTH EVERY 6 HOURS NEEDED FOR SEVERE PAIN (PAIN SCALE 7-10) ? Inpatient Medications Medications (18) Active SCHEDULED: (13) Acetaminophen 325 mg Tablet (acetaminophen 325 mg oral tablet) ??975 mg, By Mouth, 3 times a day Amlodipine 10 mg Tablet (amLODIPine 10 mg oral tablet) ??10 mg, By Mouth, Daily Atorvastatin 40 mg Tablet (atorvastatin 40 mg oral tablet) ??40 mg, By Mouth, Daily Famotidine 20 mg Tablet (famotidine 20 mg oral tablet) ??20 mg, By Mouth, Daily at bedtime Fluticasone Propionate 50mcg/inh Nasal [place] (fluticasone 50 mcg/inh nasal spray) ??50 mcg 1 sprays, Nares, Both, Daily Heparin 5000 units/mL Inj (1 mL) (Heparin Inj) ??7,500 units 1.5 mL, Subcutaneous Injection, 3 times a day Lidocaine 5% Ointment (Lidocaine 5% Topical) ??1 application, Topically, Daily Lidocaine 5% Topical Patch (Lidocaine 5% Patch) ??2 each, Topically, Daily Losartan 50 mg Tablet (losartan 50 mg oral tablet) ??100 mg, By Mouth, Daily NaCl 0.9% Flush 3ml (NaCL 0.9% Flush) ??3 mL, IV Push, Every 8 hours Pantoprazole 20 mg EC Tablet (pantoprazole 20 mg oral delayed release tablet) ??20 mg, By Mouth, Daily Remove Patch (Remove Lidocaine Patch) ??2 each, Topically, Daily at bedtime TraMADOL 50 mg Tablet (traMADol 50 mg oral tablet) ??50 mg, By Mouth, Every 6 hours CONTINUOUS: (0) PRN: (5) Albuterol 90mcg/Inhalation Inhaler HFA (Ventolin 90 mcg Inhaler) ??180 mcg 2 puffs, Inhalation, Every 4 hours Diclofenac Topical 1% Gel (diclofenac 1% topical gel) ??2 Gm, Topically, 4 times a day Melatonin 3 mg Tablet (Melatonin Tablet) ??3 mg, By Mouth, Daily at bedtime NaCl 0.9% Flush 3ml (NaCL 0.9% Flush) ??3 mL, IV Push, Every 8 hours Senna 8.6 mg / Docusate 50 mg tablet (Docusate/Senna Tablet) ??1 tablet, By Mouth, 2 times a day ? Results Recent Labs BLOOD COUNT & DIFF WBC 6.6 k/mm3 ()?? 06/14/2023 07:44 RBC 4.79 m/mm3 ()?? 06/14/2023 07:44 Hgb 13.4 Gm/dL ()?? 06/14/2023 07:44 Hct 39.9 % ()?? 06/14/2023 07:44 MCV 83.3 femtoliters ()?? 06/14/2023 07:44 MCH 28.0 pg ()?? 06/14/2023 07:44 MCHC 33.6 g/dL ()?? 06/14/2023 07:44 Platelet Count 210 k/mm3 ()?? 06/14/2023 07:44 RDW-SD 41.9 femtoliters ()?? 06/14/2023 07:44 MPV 9.6 femtoliters ()?? 06/14/2023 07:44 Nucleated RBC (Automated) 0.0 #/100 WBC'S ()?? 06/14/2023 07:44 Abs. NRBC 0.0 k/mm3 ()?? 06/14/2023 07:44 ?? CHEM GENERAL Sodium 136 mmol/L ()?? 06/14/2023 07:44 Potassium 3.6 mmol/L ()?? 06/14/2023 07:44 Chloride 103 mmol/L ()?? 06/14/2023 07:44 Bicarbonate Level 21 mmol/L (Low)?? 06/14/2023 07:44 Anion Gap 12 ()?? 06/14/2023 07:44 Glucose Level 126 mg/dL (High)?? 06/14/2023 07:44 BUN 8 mg/dL ()?? 06/14/2023 07:44 Creatinine-Blood 0.5 mg/dL ()?? 06/14/2023 07:44 Estimated GFR Creatinine 110 ML/MIN/1.73 M2 ()?? 06/14/2023 07:44 Calcium 8.8 mg/dL ()?? 06/14/2023 07:44 ?? COAG D-Dimer 0.53 mg/L FEU ()?? 06/14/2023 07:44 ?? URINE OTHER Est Creatinine Clearance 96.04 mL/min ()?? 06/14/2023 09:08 ? Abnormal Labs No lab data available. ? Assessment/Plan Ms. Duran is a 57 year old Moroccan speaking female with a past medical history of HTN, HLD, GERD, asthma and obesity who presented to the emergency department on 06/13 due to intractable back pain,found to have COVID-19 and admitted for further work up and management. Recent lumbar MRI report reviewed and nonacute showing grade 1 anterolisthesis of L4-L5, L3-L4 left sided disc protrusion with narrowing of the left subarticular recess, no exiting nerve root impingement or central stenosis. MRI thoracic spine nonacute. CTA chest negative for PE (ground glass opacities d/t COVID) PT eval for disposition. ?? 1) Intractable back pain Reports recent lumbar MRI done as outpatient for urinary incontinence and reports of pain, per EMR,??report reviewed w/ neurosurg and nonacute as above MRI thoracic spine done here showing minor degenerative changes are seen as described without significant canal stenosis Her pain is pleuritic and located over her scapula, despite a normal d-dimer (though has doubled within 24 hours: 0.22 to 0.53), there was concern for PE given recent COVID diagnosis. CTA negative. Received one 4mg push morphine overnight. Pt does not prefer morphine, removed. Tylenol currently 650 PRN. Plan: -Continue neurochecks q4h -Pain control: Tylenol increased 975mg TID scheduled, Lidocaine patch, Diclofenac gel PRN. -F/u PT eval for disposition ?? 2) COVID-19 History of asthma Initial positive test: 06/13 Isolation duration: 06/13-06/23 Imaging: CXR, nonacute. CTA??done to r/o PE??showed??multifocal inflammatory ground-glass nodules consistent with COVID infection. Oxygen requirements: Room air COVID treatment: None indicated DVT prophylaxis: SubQHeparin (7500 U) Plan: -Continue to monitor O2 (goal >94%) -At this time, no indication for steroids/abx -Albuterol PRN -No indication for steroids or antibiotic coverage ?? Chronic, stable or resolved medical conditions: Hypertension: Continue amlodipine, losartan Hyperlipidemia: Continue atorvastatin GERD: Continue famotidine, PPI ?? Quality measures: Diet: Regular DVT prophylaxis: Heparin SC Code status: Full code Likely d/c tomorrow. Contact (no HCP): Calvin (daughter) ?? Patient seen and discussed with attending physician, Dr. Brian Chiu [id number] Anesthesia PGY-1 ? * Maia Torres MD: PERFORM Event Display: Progress Note Hospital Authored Date: [id number] Attending Attestation: I have seen and evaluated this patient on 06/15/23.?? I have discussed the case and its management with the resident and agree with the findings and plan as documented in the resident???s note. * Liss Miranda RN: PERFORM, SIGN, VERIFY Event Display: Progress Note Hospital Authored Date: Patient: EDUARDO COLVIN Age: 57 years Sex: Female : 1965 Associated Diagnoses: None Author: Liss Miranda RN Findings Problem Related to Alteration in Comfort : Alteration in Comfort/new 06/14/2023 19:00 EDT Alteration in Comfort Related to Injury Goals & Outcomes: Comfort Pt will report acceptable level of comfort & pain control, Pt will state importance of adhering to pain strategy regime, Pt will demonstrate necessary skills to manage pain Interventions Implemented: Comfort Assess pain using appropriate pain scale/tools, Assess aggravating factors & prevent them accordingly, Assess alleviating factors & promote them accordingly Goals/Interventions, Comfort Yes Comfort, Problem Start 06/14/2023 4:51 Reviewed plan with, Comfort Patient Patient Progression, Comfort Pt progressing according to plan Comfort, Problem Ongoing Yes . Alteration in Respiratory Function (new) : Alteration in Respiratory Function/new 06/14/2023 19:00 EDT Alteration in Resp Status Related to COVID - 19 Goals & Outcomes, Respiratory Pt will maintain/resume baseline physical assessment, Pt will maintain adequate nutritional intake, Pt will maintain/resume normal fluid/electrolyte balance, Pt willnot develop complications r/t immobility, Pt will demonstrate proper technique w/self care procedures Interventions, Respiratory Assess/monitor tolerance to IV infusions; verify rate/dose, Assess for and report S&S of respiratory distress, Position for comfort & optimal oxygenation, Initiate pulmonary rehab nurse consult, Monitor sputum color & consistency. Report changes to MD, Teach/encourage use of incentive spirometer, Teach the proper use of inhalers, Teach Pt/caregiver Smoking cessation education, Teach purse lip breathing as needed for breathing retraining, Teach tripod positioning to promote air exchange Goals/Interventions, Respiratory Yes Respiratory, Problem Start 06/14/2023 4:52 Reviewed Plan with, Respiratory Patient Patient Progression, Respiratory Patient progressing according to plan . Nursing Data Vital Signs : VITAL SIGNS SECTION 06/14/2023 23:42 EDT Early Warning Score 0.00 06/14/2023 23:42 EDT Temperature 98.3 DegF Temperature Route Oral Pulse Rate 68 bpm Systolic Blood Pressure 117 mm Hg Diastolic Blood Pressure 60 mm Hg Blood pressure sites Arm, right Mean Arterial Pressure 79 mm Hg Pulse Pressure 57 mm Hg Oxygen Saturation 99 % Mode of Delivery (Oxygen) Room air . Narrative/Incidental Pt A+O X3. Moroccan speaking only. c/o pain to Left upper back, Tramadol given with some effect. Lung sounds clear. Pt ambulates to bathroom, daughter at bedside. Pt slept on and off during night. Call ji in reach. Precautions maintained. . Note * Christi Buckley LPN: PERFORM Event Display: Discharge/Transfer Note Hospital Authored Date: [id number] Nursing Discharge Note Entered On: 06/16/2023 15:06 EDT Performed On: 06/16/2023 15:05 EDT by Christi Buckley LPN Nursing Discharge Note 2 Discharge Time : 06/16/2023 15:05 EDT Discharge Level of Care at Discharge : Homehealth/VNA Discharge VNA/Hospice/Home Care(v001) : [facility] [phone] Patient Left Unit Via : Wheelchair Patient Accompanied Off Unit with : Responsible adult DC Instructions Provided & Signed by Pt : Yes Patient Understands D/C Instructions : Yes Patient Instructions Discharge Signed : Yes Did Pt have Specialty Bed or Wound Vac : No Christi Buckley LPN - 06/16/2023 15:05 EDT * Manisha Chiu MD: PERFORM Event Display: Discharge/Transfer Note Hospital Authored Date: [id number] Patient: ??EDUARDO COLVIN ? Age:??57 Years?Sex:??Female?:??1965?? Patient Information Discharge Location: A Primary Care Physician: Vera Freeman MD Admit Date/Time: 06/13/23 15:15 Discharge Disposition Discharge Disposition: Home with Home Health Discharge Diagnosis COVID-19 (U07.1) Intractable back pain ?? _ Discharge Medications Acetaminophen (acetaminophen 325 mg oral tablet)?TAKE 2 TABLETS BY MOUTH EVERY 6 HOURS NEEDEDFOR PAIN Albuterol (Ventolin HFA 108 mcg/inh inhalation aerosol with adapter)?2?puff(s)?Inhalation?Every 4 hours?as needed?for wheezing Amlodipine (amLODIPine 10 mg oral tablet)?TAKE 1 TABLET BY MOUTH ONCE DAILY Atorvastatin (atorvastatin 40 mg oral tablet)?TAKE 1 TABLET BY MOUTH DAILY IN THE MORNING Diclofenac Topical (diclofenac 1% topical gel)?2?gram?Topically?4 times a day?as needed?Pain , Moderate?Please use if pain not well controlled with lidocaine patch. Apply to leftshoulder or back. External use only.not to exceed 8 grams/day/single joint of upper extremities Ergocalciferol (ergocalciferol 93528 iu oral capsule)?TAKE 1 CAPSULE BY MOUTH ONCE A WEEK Famotidine (famotidine 20 mg oral tablet)?TAKE 1 TABLET BY MOUTH DAILY AT BEDTIME Fluticasone Nasal (fluticasone 50 mcg/inh nasal spray)?USE 1 SPRAY IN EACH NOSTRIL DAILY IN THE MORNING Lidocaine Topical (lidocaine 5% topical film)?APPLY 1 PATCH TOPICALLY TO SKIN, LEAVE ON FOR 12 HOURS AND OFF FOR 12 HOURS DIRECTED Losartan (losartan 100 mg oral tablet)?TAKE 1 TABLET BY MOUTH EVERY DAY Omeprazole (omeprazole 20 mg oral enteric coated capsule)?TAKE 1 CAPSULE BY MOUTH DAILY Senna (Senna 8.6 mg oral tablet)?TAKE 2 TABLETS BY MOUTH DAILY AT BEDTIME FOR CONSTIPATION Tramadol (traMADol 50 mg oral tablet)?TAKE 1 TABLET BY MOUTH EVERY 6 HOURS NEEDED FOR SEVERE PAIN (PAIN SCALE 7-10) ? Medications Started Diclofenac gel Medications Discontinued Prednisone, dexamethasone, zofran Doses Changed None PCP Follow-Up/Heads-Up Ms. Duran came into the emergency department on 06/13 due to intractable back pain, found to haveCOVID-19 and admitted for further work up and management. Her imaging was all negative for acute findings, indicative of chronic degenerative disease. Her COVID course has been mild, with no need forO2, remdesivir, or dexamethasone. She is recovering well and stable to continue recovery outside the hospital.??We stopped her prednisone, dexamethasone, and zofran. We started her on??diclofenac gel. ?? Hospital Course Ms. Duran is a 57 year old Moroccan speaking female with a past medical history of HTN, HLD, GERD, asthma and obesity who presented to the emergency department on 06/13 due to intractable back pain,found to have COVID-19 and admitted for further work up and management. Her imaging was all negative for acute findings, indicative of chronic degenerative disease. Her COVID course has been mild, with no need for O2, remdesivir, or dexamethasone. She is recovering well and stable to continue recovery outside the hospital. ?? Objective Assessment and Recommendations Ms. Duran is a 57 year old Moroccan speaking female with a past medical history of HTN, HLD, GERD, asthma and obesity who presented to the emergency department on 06/13 due to intractable back pain,found to have COVID-19 and admitted for further work up and management. Recent lumbar MRI report reviewed and nonacute showing grade 1 anterolisthesis of L4-L5, L3-L4 left sided disc protrusion with narrowing of the left subarticular recess, no exiting nerve root impingement or central stenosis. MRI thoracic spine nonacute. CTA chest negative for PE (ground glass opacities d/t COVID) PT eval for disposition. ?? 1) Intractable back pain Report from lumbar MRI done as outpatient for urinary incontinence and reports of pain, per EMR, reviewed w/ neurosurg and nonacute as above MRI thoracic spine: minor degenerative changes are seen as described without significant canal stenosis Initiated scheduled 975mg Tylenol TID yesterday, and diclofenac gel PRN Pain is improving/returning to baseline of chronic pain. Recommend to continue Tylenol, Lidocaine patch, Diclofenac gel PRN. Face to face given for home services ?? 2) COVID-19 History of asthma Doing well on room air, no SOB, or hypoxia during hospital stay COVID treatment: None indicated Due to stability on room air and lack of significant symptoms, treatment with dexamethasone and remdesivir was not indicated. Please continue isolation measures until 06/23 and thereafter continue with precautions of handwashing, masking, social distancing, etc. as per public health guidelines Please follow up with your PCP once out of isolation. ? Vital Signs?? Temperature: 98 DegF (06/16/23 11::00) Temperature Route: Oral (06/16/23::) Pulse Rate: 67 bpm (06/16/23::00) Respiratory Rate: 17 br/min (06/16/23::00) Systolic Blood Pressure: 112 mm Hg (06/16/23::) Diastolic Blood Pressure: 57 mm Hg (06/16/23::) Blood pressure sites: Arm, right (06/16/23::) Mean Arterial Pressure: 75 mm Hg (06/16/23::) Pulse Pressure: 55 mm Hg (06/16/23::) Oxygen Saturation: 97 % (06/16/23::) Liters per Minute: 0 L/min (06/16/23::) Mode of Delivery (Oxygen): Room air (06/16/23::) Early Warning Score: 0 (06/16/23 11:29:09) ? . Physical Exam General: Pt resting comfortably in bed, in no acute distress. Obese. Cardiovascular: RRR, no additional heart sounds appreciated. Respiratory: Lungs clear to auscultation bilaterally. Abdominal: No tenderness to palpation. Extremities: No b/l extremity edema appreciated. Follow-Up Appointments Added Follow Up ?Time Frame ?Comments Lydia CARROLL, Vera Meraz?Please follow up with your PCP onceyou are finished isolating for the infection. Isolation duration: 06/13-06/23. Please give your PCP office a call to see when they would like you to come in. Patient Instructions Dear Ms. Roger Sanches, ?? You came in because of back pain. All of your imaging showed no acute changes. When you came in, itwas discovered that you were COVID positive. You are doing well and feeling better, and you can continue to heal outside of the hospital at this time. Please continue to isolate once you leave the hospital,??until 06/23. Please give your PCP a call to see when they would like you to come in. You can also continue to follow with?? our PCP regarding your chronic pain. We expect that as your infection resolves, your flare up will also improve with time; however, please continue to seek care for your chronic back pain??from your PCP. ?? Medications started: Diclofenac gel Medications stopped: Prednisone, dexamethasone, zofran Doses changed: none ?? Thank you for trusting [facility] with your care. ?? Sincerely, ?? Dr. Chiu [facility] Face to Face *Denotes mandatory ricardo ?? *I certify that this patient is under my care and that I or an allowed non- physician working with me had a face to face encounter with the patient on this date:??06/16/2023 14:07 ?? *The encounter with the patient was in whole, or in part, for the following medical condition, which is the primary diagnosis(es) for home health care:??COVID-19 (U07.1) ? *Select the indications for the discipline/s that are being arranged for this patient. Nursing (select all that apply): [_] None [_] Medication management (reconciliation, teaching)?? [_] Chronic disease management?? [_] Wound care and treatment?? [_] Home safety evaluation [_] Administer SQ/IM/IV medications?? [_] Cath care?? [_] Drain care?? [_] Trach or GT care?? Other _ Occupation Therapy (select all that apply): [_] None [X_] ADL Management [X_] Fall prevention training [_] Energy conservation [_] Cognitive training Other _ Physical Therapy (select all that apply): [_] None [X_] Functional mobility training [X_] Home exercise program to strengthen [X_] Increase ROM?? [X_] Falls prevention training [_] Home maintenance program for chronic disease Other _ Speech Therapy (select all that apply): [_] None [_] Swallow evaluation and training [_] Speech and language training [_] Cognitive training to process, organize, and/or recall information Other _ ? *Homebound due to (select all that apply): [_] Inability to leave home without assistance/supervision [_X] Inability to ambulate without assistance [_] Pain [X_] Decreased strength and endurance [_] Unsteady gait [_] Severe SOB and fatigue [_] Impaired transfers [_] Inability to negotiate stairs [_] Limited weight bearing [_] Mental status change? *Physician Signature: _Manisha Chiu M.D. ?? *By signing this, I certify that I have personally evaluated the patient and agree with the findings and recommendations as documented above. ?? 30??minutes spent on discharge ?? Patient seen and discussed with attending physician, Dr. Brian Chiu [id number] Anesthesia PGY-1 * Ina SONI, Christi: PERFORM, MODIFY Event Display: Patient Education/Instruction Authored Date: [id number] Inpatient Adult Discharge Instructions [place] [id number] Name: EDUARDO SANCHES : 1965 Visit: 06/13/2023 15:15:00 Current Date: 06/16/2023 14:20 Account: [id number] Inpatient Adult Discharge Instructions We would like to thank you for allowing us to assist you with your healthcare needs. The following includes patient education materials and information regarding your injury/illness. Our entire staffstrives to provide an excellent experience for our patients and their families. PLEASE ENSURE YOU FOLLOW-UP PER THE INSTRUCTIONS BELOW! ?? YOUR OPINION IS IMPORTANT TO US! Please complete the survey you may receive by mail or email. Your feedback will be used to make improvements to the healthcare experiences of our patients and their families. Surveys are administered by [employer] ?? If further treatment with your primary care physician or another doctor is recommended, it is important for you to keep the appointment. Call your primary care physician or return to the Emergency Department immediately if your condition worsens, fails to improve, or new symptoms develop. If you need to find a doctor, you can call [facility] for a referral at [phone] or toll free at [phone] ([phone]) or log in to [email or web address].. ?? You can view and manage your care through the patient portal or by using a health care marsha of your choosing. [employer] is a website that allows you to securely view your medical information including your hospital discharge summary, office visit summaries, medications and follow-up visits. You can also request appointments, renew medications, and request access to your medical information using a health care marsha of your choosing, or just ask a question. You can enroll at [email or web address] or register during your next office visit. You have been discharged from [facility], Patient Care Unit: D6A. If you have any questions regarding these instructions after you leave, please call us and we will be happy to assist you. [facility] Your Care Team Attending Physician Brian CARROLL, Maia Hansen Discharging Providers Manisha Chiu MD Reason for Admission General medical Your Diagnosis COVID-19 Tests Performed Below is a partial list of the tests performed during your hospitalization. You may have had other tests and procedures not included in this list. Please discuss all test results with your provider. Basic Metabolic Panel CBC CBC w/ Differential Comprehensive Metabolic Panel COVID-19 (Novel Coronavirus), Rapid PCR D Dimer High??Sensitivity??Troponin T Hold Blue Top Tube Lactic Acid Level Lipase Magnesium Level Phosphorus Level Sedimentation Rate CT Angio Chest MRI Thoracic Spine W+W/O Contrast XR Chest 2 Views Frontal and Lat Primary Care Provider Vera Freeman MD Advance Directive Health Care Proxy on File No Patient refuses to discuss Discharge Vitals Temperature: 98 DegF Height: 155 cm Pulse Rate: 67 bpm Weight: 118.5 kg Respiratory Rate: 17 br/min Body Mass Index:??49.32 kg/m2??Critical Systolic Blood Pressure: 112 mm Hg Body surface area: 2.26 Diastolic Blood Pressure: 57 mm Hg ?? Oxygen Saturation: 97 % ?? Studies Pending All tests and labs ordered during this hospital stay have been completed unless listed below. Please discuss all pending results with your provider listed above in these instructions. ?? No incomplete studies found What to do next Instructions From Your Doctor Dear Ms. Roger Sanches, ?? You came in because of back pain. All of your imaging showed no acute changes. When you came in, itwas discovered that you were COVID positive. You are doing well and feeling better, and you can continue to heal outside of the hospital at this time. Please continue to isolate once you leave the hospital,??until 06/23. Please give your PCP a call to see when they would like you to come in. You can also continue to follow with?? our PCP regarding your chronic pain. We expect that as your infection resolves, your flare up will also improve with time; however, please continue to seek care for your chronic back pain??from your PCP. ?? Medications started: Diclofenac gel Medications stopped: Prednisone, dexamethasone, zofran Doses changed: none ?? Thank you for trusting [facility] with your care. ?? Sincerely, ?? Dr. Chiu Discharge Orders You Need to Schedule the Following Appointments Follow Up with??Lydia CARROLL, Vera Meraz Why: Please follow up with your PCP once you are finished isolating for the infection. Isolation duration: 06/13-06/23. Please give your PCP office a call to see when they would like you to come in. Where: ?? Discharge Medications EDUARDO COLVIN :1965 Visit Date:06/13/2023 Medications: Please continue your medications until treatment is completed or stopped by your provider. Medications not listed below should be discontinued. Discuss any questions related to medications with your provider. What How Much When Instructions Next Dose New Diclofenac Topical (diclofenac 1% topical gel) 2 gram Topically 4 times a day as needed for Pain , Moderate Please use if pain not well controlled with lidocaine patch. Apply to left shoulder or back. External use only. not to exceed 8 grams/ day/ single joint of upper extremities ?? Pickup at [facility] use as needed Unchanged Acetaminophen (acetaminophen 325 mg oral tablet) every 6 hours as needed TAKE 2 TABLETS BY MOUTH EVERY 6 HOURS NEEDED FOR PAIN ?? use as needed Unchanged Albuterol (Ventolin HFA 108 mcg/ inh inhalation aerosol with adapter) 2 puff(s) Inhalation Every 4 hours as needed for for wheezing two puffs as needed for wheezing or shortness of breath use as needed Unchanged Amlodipine (amLODIPine 10 mg oral tablet) once daily in the am TAKE 1 TABLET BY MOUTH ONCE DAILY ?? 06.17.23??@am Unchanged Atorvastatin (atorvastatin 40 mg oral tablet) once in the morning TAKE 1 TABLET BY MOUTH DAILY IN THE MORNING ?? 06.17.23@am Unchanged Ergocalciferol (ergocalciferol 88425 iu oral capsule) once a week in the am TAKE 1 CAPSULE BY MOUTH ONCE A WEEK ?? Unchanged Famotidine (famotidine 20 mg oral tablet) TAKE 1 TABLET BY MOUTH DAILY AT BEDTIME ?? 06.16.@pm Unchanged Fluticasone Nasal (fluticasone 50 mcg/ inh nasal spray) USE 1 SPRAY IN EACH NOSTRIL DAILY IN THE MORNING ?? 06.17.23@am Unchanged Lidocaine Topical (lidocaine 5% topical film) APPLY 1 PATCH TOPICALLY TO SKIN, LEAVE ON FOR 12 HOURS AND OFF FOR 12 HOURS DIRECTED ?? 06.17.23@am Unchanged Losartan (losartan 100 mg oral tablet) TAKE 1 TABLET BY MOUTH EVERY DAY ?? 06.17.23@am Unchanged Omeprazole (omeprazole 20 mg oral enteric coated capsule) TAKE 1 CAPSULE BY MOUTH DAILY ?? 06.17.23@am Unchanged Senna (Senna 8.6 mg oral tablet) TAKE 2 TABLETS BY MOUTH DAILY AT BEDTIME FOR CONSTIPATION ?? 06.16.23@pm Unchanged Tramadol (traMADol 50 mg oral tablet) TAKE 1 TABLET BY MOUTH EVERY 6 HOURS NEEDED FOR SEVERE PAIN (PAIN SCALE 7-10) ?? 06.16.23@6pm Pharmacy Information [facility] 3: [address] [place], [place] [id number] [phone] ?? What When Comments Stop Taking Dexamethasone (dexamethasone 4 mg oral tablet) TAKE 1 TABLET BY MOUTH TWICE DAILY ?? Stop Taking Ondansetron (ondansetron 4 mg oral tablet, disintegrating) DISSOLVE 1 TABLET ON TONGUE EVERY 6 TO 8 HOURS NEEDED FOR NAUSEA AND VOMITING ?? Stop Taking PredniSONE (predniSONE 20 mg oral tablet) TAKE 2 TABLETS (40 MG) BY MOUTH ONCE DAILY FOR 5 DAYS ?? Test Results Below is a partial list of the most recent Laboratory test results done prior to this discharge. You may have had other tests and procedures not included in this list. Please discuss all test resultswith your provider. Est Creatinine Clearance - 80.03 mL/min (06/16/2023) Basic Metabolic Panel (06/16/2023) ???Sodium - 140 mmol/L???Potassium - 4.2 mmol/L???Chloride - 102 mmol/L???Bicarbonate Level - 24 mmol/L???Anion Gap - 14???Glucose Level - 217 mg/dL???BUN - 11 mg/dL???Creatinine-Blood - 0.6 mg/dL???Estimated GFR Creatinine - 104 ML/MIN/1.73 M2???Calcium - 9.3 mg/dL CBC (06/16/2023) ???WBC - 7.0 k/mm3???RBC - 4.96 m/mm3???Hgb - 13.5 Gm/dL???Hct - 41.9 %???MCV - 84.5 femtoliters???MCH - 27.2 pg???MCHC - 32.2 g/dL???Platelet Count - 236 k/mm3???RDW-SD - 42.3 femtoliters???MPV - 10.3 femtoliters???Nucleated RBC (Automated) - 0.0 #/100 WBC'S???Abs. NRBC - 0.0 k/mm3 CBC w/ Differential (06/13/2023) ???WBC - 8.4 k/mm3???RBC - 5.04 m/mm3???Hgb - 13.9 Gm/dL???Hct - 41.6 %???MCV - 82.5 femtoliters???MCH - 27.6 pg???MCHC - 33.4 g/dL???Platelet Count - 288 k/mm3???RDW-SD - 41.3 femtoliters???MPV - 10.0 femtoliters???Nucleated RBC (Automated) - 0.0 #/100 WBC'S???Abs. NRBC - 0.0 k/mm3???Abs. Neut - 5.7 k/mm3???Abs. Lymph - 2.0 k/mm3???Abs. [place] - 0.7 k/mm3???Abs. Eo - 0.0 k/mm3???Abs. Baso - 0.0 k/mm3???Neut % - 68.2 %???Lymph % - 23.4 %???[place] % - 7.8 %???Eos % - 0.1 %???Baso % - 0.1 %???Imm Gran - 0.4 %???Abs. Imm Gran - 0.0 k/mm3 Comprehensive Metabolic Panel (06/13/2023) ???Sodium - 136 mmol/L???Potassium - 5.0 mmol/L???Chloride - 101 mmol/L???Bicarbonate Level - 21 mmol/L???Anion Gap - 14???Glucose Level - 99 mg/dL???BUN - 14 mg/dL???Creatinine-Blood - 0.6 mg/dL???Estimated GFR Creatinine - 106 ML/MIN/1.73 M2???Calcium - 9.6 mg/dL???Protein, Total - 7.1 Gm/dL???Alb umin - 4.1 Gm/dL???AG Ratio - 1.4???Alkaline Phosphatase - 78 units/L???AST (SGOT) - 17 units/L???ALT (SGPT) - 23 units/L???Bilirubin, Total - 0.4 mg/dL COVID-19 (Novel Coronavirus), Rapid PCR (06/13/2023) ???COVID-19 by RT-PCR - POSITIVE D Dimer (06/14/2023) ???D-Dimer - 0.53 mg/L FEU High??Sensitivity??Troponin T (06/13/2023) ? ?High Sensitivity Troponin (HSTnT) - <6 ng/L Hold Blue Top Tube (06/13/2023) ???Hold Blue Top - SPECIMEN DISCARDED AFTER 4 HOURS. Lactic Acid Level (06/13/2023) ???Lactate - 1.5 mmol/L Lipase (06/13/2023) ???Lipase - 38 units/L Magnesium Level (06/16/2023) ???Magnesium - 2.2 mg/dL Phosphorus Level (06/16/2023) ???Phosphorus - 2.8 mg/dL Sedimentation Rate (06/13/2023) ???Sed Rate - 42 mm/hr Allergies (NKA means No Known Allergies) NKA Problems Active Problems??(2) COVID-19?? Severe obesity?? Education Materials Below is the list of Educational Leaflet Providered with your Discharge Instructions. Valuables and Belongings I fully understand and agree that [facility] accepts no responsibility for all my personal property including clothing, toilet articles, radios, jewelry, dentures, hearing aids, rings, money, or any other property that is in my possession or is brought to me after admission. I understand certain valuables may be placed in a hospital safe for a short period of time. I understand that the hospital is not liable for loss or damage due to accident, fire, or other natural occurrence while said property is in the safe. I accept full responsibility for any personal property that I keep with me, and will not hold the hospital responsible in case of loss or disappearance. I acknowledge that i have been encouraged to send valuables and belongings home. ?? No Valuables/Belongings: No valuables/belongings present Review of Valuable and Belonging List: With patient Date for Pt to Sign Valuables/Belongings: 06/14/23 01:17:00 ?? Other Discharge Information ? Case Management Discharge Plan?? Discharge Plan?? Discharge Agency Information?? 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 Service Categories #1: Occupational Therapy, Physical Therapy ?? Service Comments #1: You will be discharged with [facility] for physical therapy and occupational therapy services in your home. If you have any questions please call the agency directly. ?? Pulmonary Rehab Status?? Pulmonary Rehab Discharge Status?? Respiratory Rate: 17 br/min ? Common Emergency Awareness Tips IS IT A STROKE? Act FAST and Check for these signs: FACE Does the face look uneven? ARM Does one arm drift down? SPEECH Does their speech sound strange? TIME Call at any sign of stroke ?? Heart Attack Signs Chest discomfort: Most heart attacks involve discomfort in the center of the chest and lasts more than a few minutes, or goes away and comes back. It can feel like uncomfortable pressure, squeezing, fullness or pain. Discomfort in upper body: Symptoms can include pain or discomfort in one or both arms, back, neck, jaw or stomach. Shortness of breath: With or without discomfort. Other signs: Breaking out in a cold sweat, nausea, or lightheaded. Remember, MINUTES DO MATTER. If you experience any of these heart attack warning signs, call to get immediate medical attention! ?? Smoking can increase your chances of developing chronic health problems and can cause harmful effects to other family members in your house. If you smoke, you are strongly encouraged to quit. Please call [facility] at [phone] or [phone] ([phone]) or log in to [email or web address] for referrals to smoking cessation programs. ?? 852 Suicide & Crisis Lifeline is available 22/05 if you or someone you know needs to find a reason to keep living. By calling 376 you'll be connected to a skilled, trained counselor at a crisis center in your area. INPATIENT DISCHARGE INSTRUCTIONS SIGNATURE PAGE EDUARDO COLVIN Location:[facility] Registration Date and Time:06/13/2023 15:15 EDT Primary Care Physician: Vera Freeman MD, Attending Physician: Maia Torres MD, I EDUARDO COLVIN, have received the above patient education materials/instructions and have verbalized understanding. If ambulance or transport services are being used I further acknowledge being given a choice of service. ?? If you need to contact me, please call me at this number: . Patient/Apartment House Manager Name: Patient/Apartment House Manager Signature: Relationship to Patient: Witness Name/Signature: Date: Patient Care team information Care Team Personnel Name: Vera Freeman MD Position: [facility] Outreach Member Role: PCP Address: Address: [address] [place] [address] Name: Mariya Hines RN Position: [facility] RN Member Role: Primary Care Nurse Name: Indiana Dinero RN Position: [facility] RN Member Role: Primary Care Nurse Name: Jeanne La Position: [facility] Associate Professional Member Role: ED Physician Top Inventory Control Executive Address: Address: [address] [place] [address] Name: Radha Christian RN Position: [facility] ED RN W/OE and Tasks Member Role: Patient Care Provider Name: Dinah Garcia Position: [facility] ED TA [facility] Member Role: Patient Care Provider Name: Elizabeth Bailey Position: [facility] ED OA Charge Member Role: ED Associate Name: Amara Wells MD Position: [facility] ED Medicine MD Member Role: ED Attending Physician Address: Address: [address] [place] [address]
--- NOTE | 2024-04-09 07:52 | PC.NURSE ---
[facility] called for CPAP check Conf# [id number].
[2024-04-09] MEDS: Aprepitant 32 MG/4.4 ML VIAL IVPUSH (08:06)
[2024-04-09] MEDS: Lactated Ringers 1,000 ML 100 ML IVCONT ×2 (08:06→16:48)
[2024-04-09] MEDS: Lactated Ringers 1,000 ML 999 ML IV (08:06)
[2024-04-09 08:19] LABS: Glucose, Whole Blood 82 mg/dL (60-115)
--- NOTE | 2024-04-09 10:51 | PHA.MEDREC ---
Pharmacy Consult ? Medication Reconciliation Pharmacy has completed the medication reconciliation. Reviewed med rec done by nursing and called [facility] pharmacy to confirm meds.
--- NOTE | 2024-04-09 11:12 | P.BOP_ITS ---
Brief Operative Note Date of Service: 04/09/24 Pre-op diagnosis: Morbid obesity with comorbidities (see below) Post-op diagnosis: same (& extensive abdominal adhesions) Procedure: INITIAL PATIENT BMI ON PRESENTATION AT OUR OFFICE: 49.3 kg/m2 LAST BMI BEFORE SURGERY: 44.2 kg/m2 COMORBIDITIES: Sleep apnea on CPAP, hypertension, hyperlipidemia, GERD, asthma, DJD, insomnia, liver steatosis ?The patient presented to the Weight Management Program with significant obesity that was negatively impacting the patient's comorbidities as listed above.? The program is a phased program with a special focus on preoperative medical weight management to promote substantial weight loss and prepare the patients for the second phase of the program: bariatric surgery. The patient participated in an intensive weekly lifestyle ?intervention and exercise program during which the patient ?has lost between the initial office visit and the last preoperative visit 25lbs, or 10.2% of initial actual body weight. It was deemed appropriate for the patient to now have bariatric surgery. In light of the current Covid-19 pandemic and the well documented strong association of obesity and increased risk of worse outcomes if infected with Covid-19 (REFERENCES: https://pubmed.ncbi.nlm.nih.gov/72335589/ ,? https://pubmed.ncbi.nlm.nih.gov/53660882/ ), any delay in undergoing bariatric surgery may lead to the patient's worsening health condition and increased?risk of more severe Covid-19 disease if infected. In addition a recent?study from [facility] published in MARIE Surgery on 10/25/2021 ([id number]) found that, among patients with obesity, substantial weight loss achieved with surgery was associated with improved outcomes of COVID-19 infection. The findings suggest that obesity can be a modifiable risk factor for the severity of COVID-19 infection. In addition, the patient met the BMI-criteria for bariatric surgery based on the BMI on initial presentation. The patient should not be penalized for achieving such weight loss because ?it is not sustainable long-term without surgical intervention and it was achieved in preparation for bariatric surgery ?under my direction and based on my published research ([email or web address]).[email or web address] and? [email or web address].soard.org/article/[email or web address](43)53130-X/pdf ) ?that a 10% preoperative weight loss improves long-term weight loss after surgery and reduces perioperative complications.? Insurance carriers such as [facility] have en dorsed my recommendations ?and have included in their policies criteria to include a 10% preoperative weight loss requirement. PROCEDURE: Esophago-gastroscopy, laparoscopic extensive lysis of adhesions, laparoscopic sleeve gastrectomy and laparoscopic gastropexy INDICATIONS: This is a 58 year-old female who was electively scheduled for laparoscopic, possibly open sleeve gastrectomy. The risks and complications of the procedure were discussed with the patient in advance, particularly the possibility of ; pulmonary embolism; staple line leak; bleeding; GERD; cardiac, pulmonary, or renal complications; as well as long-term problems such as insufficient weight loss, vitamin deficiency, strictures, or ulcers. The patient understood all the risks, and was in agreement to proceed with surgery. DESCRIPTION OF PROCEDURE: After informed consent was obtained from the patient, the patient was given preoperative antibiotics, and was transferred to the operating room. After successful induction of general anesthesia, pneumatic compression devices were placed on both lower extremities. An upper endoscopy was performed next. The oropharynx and esophagus appeared to be within normal limits. There was a diaphragmatic hernia present of moderate size consistent with the findings of the preoperative upper GI. The stomach was entered. Then after all fluid and air were suctioned and the stomach was fully decompressed, the scope was withdrawn and secured in the mid esophagus. The patient was then prepped and draped in the usual sterile manner, and abdominal access was established at the left upper quadrant with the Veress needle due to a previous large Diomedes incision in the right upper quadrant. Once the abdomen was insufflated with CO2 to a pressure of 15 mmHg, a 5 mm Versi step port was placed slight to the left and superior from the umbilicus. The camera was inserted and there were extensive adhesions everywhere involving the omentum, colon and small bowel loops. The only free space was accross the right flank. Three 5 mm Versi step ports were placed at the right flank at the mid- axillary line. There were adhesions in the abdomen from previous open cholecystectomy and hysterectomy All adhesions until the level of umbilicus were lysed completely with the ultrasonic device. At that point we confirmed that there were no injuries where the Veress needle was inserted and the umbilical port. At that point the 12 mm blunt port was inserted to the right of the midline in the upper abdomen using the Guera technique. Under direct visualization, 3 additional ports were placed, specifically two 5 mm Versi-step ports to the left upper quadrant, and a 5 mm Versi-Step port to the right upper quadrant. 1% lidocaine plain was used to infiltrate all port sites as well as all fascia defects. Following that, the patient was placed in a steep reverse Trendelenburg position. One of the 5 mm ports that was placed to the right flank previously for the adhesiolysis, was for the Mediflex retractor to retract the left lobe of the liver. The gastro-esophageal fat pad was opened with the ultrasonic device (Thunderbeat, Olympus) and the anterior esophagus and hiatus were exposed. The angle of His was opened with the ultrasonic device the fundus of the stomach from any diaphragmatic and splenic attachments. I then opened the gastrocolic ligament between the transverse colon and the greater curvature of the stomach with the ultrasonic device to enter the lesser sac and facilitate the ligation of the short gastric vessels. I started at a mid-point along the greater curvature and using the Thunderbeat, all short gastric vessels were divided all the way to the angle of His until the left cj was completely dissected at its entirety. I then divided the gastro-colic ligament distally to a distance of about 3-4 cm proximal to the pylorus. ? PLEASE REVIEW BEFORE TO INCLUDE THIS SENTENCE There were extensive congenital adhesions between the pancreas and posterior gastric wall. Those were lysed completely with the ultrasonic device. Adhesiolysis took approximately 45 min to complete. The stomach was then divided transversely with two Endo AMANDA-45 purple and three AMANDA-60 articulating purple loads using the EXENDISON stapler and loads. Every effort was made that the gastric sleeve had a tubular shape and an even caliber throughout. Once the sleeve resection was completed, the staple line of the gastric sleeve was reinforced with Hemoclips. The resected stomach was retrieved without difficulty from the Guera port. A gastropexy was then performed in order to prevent postoperative GERD and partial gastric volvulus. Several interrupted 2.0 Surgidac sutures were placed between the sleeve's staple line and the previously divided greater omentum and gastro-colic ligament using the Endo-Stitch device. ?An upper endoscopy was performed. There was no narrowing at the GE junction. The scope was easily advanced all the way to the pylorus which was clearly visualized. There was no narrowing anywhere and the sleeve's caliber was even throughout. The sleeve's staple line was inspected and there was no evidence of ischemia, bleeding or dehiscence. At that point the gastroscope was withdrawn from the patient?s mouth while we were decompressing the bowel and the stomach from any remaining air. I looked into the lesser sac to see how the sleeve was situating and it was situating well. There was no bleeding from the staple line, spleen, or short gastric vessels. The Mediflex retractor was removed, and the undersurface of the liver was inspected and there was no bleeding. The patient was placed in supine position. I closed the fascial defect of the 12 mm port site with a figure of eight #1 Polysorb suture. Then 30cc Ropivacaine plain with 10 mg of Dexamethasone were used to infiltrate the fascial closure as well as all skin incisions. A total of 7ml Zynrelef was applied in the Guera wound. At this point, the abdomen was deflated, all ports were removed under direct vision, and no bleeding was noted from any of the port sites. The skin incisions were irrigated with saline and were closed with 4-0 absorbable monofilament sutures. Steri-Strips and OpSites were used to cover all incisions. The patient was extubated and was transferred in stable condition to the recovery room for further care. I was present and performed all mulligan parts of the procedure. Silvio Magana was the legal support assistant. There were no residents to assist with this case. Elvin Murrell MD, PhD, FACS Surgeon: Bentley Murrell MD Anesthesia: GETA, local and other (TAP block and 7ml Zynrelef) Was an Telephone Service Representative used for this Procedure?: No Telephone Service Representative: Symone Magana Estimated blood loss (mL): 10 IV fluids (mL): 2,800 Urine output (mL): 0 (No Moran to record output) Pathology: other (Stomach) Condition: stable Disposition: PACU
--- NOTE | 2024-04-09 11:16 | P.PNGS_ITS ---
Subjective Subjective Date of Service: 04/10/24 Interval history: Feels well. Mild incisional pain. She is tolerating phase 1 bariatric diet Physical Exam 2 Vital Signs: Vital Signs: Last Vital Signs Temp 96.5 F L 04/09/24 08:08 Pulse 62 04/09/24 08:08 Resp 16 04/09/24 08:08 BP 129/61 04/09/24 08:08 Pulse Ox 99 04/09/24 08:08 O2 Del Method Room Air 04/09/24 08:08 BMI result Body Mass Index 43.9 GI: Inspection: Yes normal to inspection, Yes incision (clean, dry and intact) and Yes obesity Palpation (GI): Soft to palpation Extrem: Right lower extremity: normal to inspection (clean, dry and intact) Left lower extremity: normal to inspection (clean, dry and intact) Objective Data Active Medications Albuterol Sulfate (Albuterol Sulfate (0.083%) 2.5 Mg/3 Ml Vial.Neb) 2.5 mg INHALE ONCE PRN PRN Reason: Shortness of Breath/Wheezing Albuterol Sulfate (Albuterol Sulfate (0.083%) 2.5 Mg/3 Ml Vial.Neb) 2.5 mg INHALE ONCE PRN PRN Reason: Wheezing Stop: 04/09/24 17:13 Fentanyl (Fentanyl Citrate/Pf 100 Mcg/2 Ml Vial) 25 mcg IVPUSH Q5M PRN; Protocol PRN Reason: Pain, Moderate(Pain Scale 4-6) Stop: 04/09/24 17:13 Hydromorphone HCl (Hydromorphone Hcl 0.5 Mg/0.5 Ml Syringe) 0.25 mg IVPUSH Q5M PRN; Protocol PRN Reason: Pain, Severe (Pain Scale 7-10) Stop: 04/09/24 17:13 Lactated Ringer's (Lr) 1,000 mls @ 100 mls/hr IVCONT .Q10H MARA Last Admin: 04/09/24 08:06 Dose: 100 mls/hr Documented By: CASSANDRA Ondansetron HCl (Ondansetron Hcl 4 Mg/2 Ml Vial) 4 mg IVPUSH ONCE PRN PRN Reason: Nausea and Vomiting Stop: 04/09/24 17:13 Labs 04/10/24 07:07 04/10/24 07:07 Labs: Laboratory Results - last 24 hr 04/05/24 04/05/24 04/05/24 07:40 07:40 07:40 POC Glucose Zinc Blood Type A Positive Antibody Screen POSITIVE Antibody Identification Inconclusive Antigen Identification E Antigen - NEGATIVE Jkb Antigen - POSITIVE K Antigen - NEGATIVE Crossmatch (AHG) See Detail 04/05/24 04/09/24 07:48 08:12 POC Glucose 82 Zinc 83 Blood Type Antibody Screen Antibody Identification Antigen Identification Crossmatch (AHG) Procedures Date of Service Date of Service: 04/10/24 Progress Note: A&P Assessment and plan (1) Morbid obesity: Status: Acute Assessment and Plan: s/p laparoscopic sleeve gastrectomy, lysis of adhesions and gastropexy Doing well Will check am labs and if OK the patient will be discharged home (2) Hypercholesterolemia: Status: Acute (3) Insomnia: Status: Acute (4) DJD (degenerative joint disease): Status: Acute (5) Hypertension: Status: Acute (6) Asthma: Status: Acute (7) Gastroesophageal reflux disease: Status: Acute (8) Steatosis, liver: Status: Acute (9) S/P laparoscopic sleeve gastrectomy: Status: Acute (10) Intra-abdominal adhesions: Status: Acute Time Spent With Patient Time: Total time managing care of this patient today ____ minutes. Quality Stroke Does the patient have a stroke diagnosis?: No VTE Prior VTE?: No VTE Risk Level:: Surgical - moderate VTE Device Contraindication: N/A - Device Ordered VTE Drug Contraindication: Treatment Not Indicated
--- NOTE | 2024-04-09 13:03 | PC.NURSE ---
24hr update documented on paper put in paper chart.
[2024-04-09] MEDS: ondansetron HCL 4 MG/2 ML VIAL IVPUSH (14:47)
--- NOTE | 2024-04-09 14:48 | P.DS_ITS ---
DS: Providers Provider Date of Service: 04/10/24 Date of admission: 04/09/24 07:03 Primary care physician: Vera Freeman MD DS: Diagnosis Discharge Diagnosis (1) Morbid obesity: Status: Acute (2) Hypercholesterolemia: Status: Acute (3) Insomnia: Status: Acute (4) DJD (degenerative joint disease): Status: Acute (5) Hypertension: Status: Acute (6) Asthma: Status: Acute (7) Gastroesophageal reflux disease: Status: Acute (8) Steatosis, liver: Status: Acute DS: Summary Hospital Course Hospital Course: ADMITTING DIAGNOSIS: morbid obesity,?HTN, HLD, asthma, prediabetes, GERD, DJD, migraines, LUIS/CPAP ? DISCHARGE DIAGNOSIS: same, s/p laparoscopic sleeve gastrectomy and gastropexy with extensive OLGA ? PAST SURGICAL HISTORY:?open cholecystectomy, , hysterectomy, carpal tunnel ? PROCEDURE: upper endoscopy, laparoscopic sleeve gastrectomy and gastropexy with extensive OLGA ? DISCHARGE SUMMARY: ? History of Present Illness: ? The patient is a? 58? year-old woman with a BMI of? ?43.9? kg/m2 and associated co-morbidities as described above. The patient had extensive work-up, lost? 27.5 ? lbs preoperatively and was electively scheduled for laparoscopic, possible open sleeve gastrectomy and gastropexy. Risks and complications of the surgery were discussed with the patient in advance, particularly the possibility of , pulmonary embolism, anastomotic leak, bleeding, bowel injury, GERD, cardiac, renal or pulmonary complications. The patient understood all the risks and was in agreement with the surgical plan. ? Hospital Course: ? The patient underwent an uneventful laparoscopic sleeve gastrectomy with gastropexy and extensive OLGA on the day of admission. Postoperatively, the patient was transferred to the surgical floor. The patient received IV Acetaminophen and IV dilaudid for pain control. Patient was started on bariatric phase 1 diet POD #0. On postoperative day one, the patient was feeling well with out nausea, vomiting, fevers, or tachycardia. The patient had some mild incisional pain and the abdomen was soft.? ? On the morning of postoperative day one, the patient was continued on 1 ounce of water or ice every half hour. During the day, the patient did fairly well, having some incisional pain, but able to ambulate adequately and to tolerate liquids well. ? Since the patient is doing well, we decided that the patient was ready to be discharged. The patient was given instructions to follow-up with me next week and to call my office for any fever over 101, persistent abdominal pain, nausea, vomiting, GERD, symptoms of DVT such as calf tenderness, or leg swelling, or pulmonary embolism such as chest pain or shortness of breath.? The patient was also instructed to drink 40-60 ounces of liquids per day using the 1-ounce cups. The patient had been given prescriptions for Tylenol for pain, Zofran prn for nausea, and pantoprazole and carafate previously. The patient was encouraged to ambulate and use the incentive spirometer. The patient was allowed to shower, but no baths, and encouraged to stay active at home. All of these instructions were given to the patient personally. All questions were answered and the patient understood all instructions, the instructions were also given to the patient in print. Time Attestation Total time managing care of this patient today: 30 mintues. Discharge Coordination Time (in mins): 30 Quality: Safe Use of Opioids Does Pt have an Active Cancer Diagnosis on the Problem List?: No Quality: Stroke Does the patient have a stroke diagnosis?: No Physical Exam Vital Signs: Vital Signs: Last Vital Signs Temp 97.7 F 04/09/24 14:28 Pulse 84 04/09/24 14:43 Resp 14 04/09/24 14:43 BP 131/77 04/09/24 14:43 Pulse Ox 96 04/09/24 14:43 O2 Del Method Simple Mask 04/09/24 14:43 O2 Flow Rate 6 04/09/24 14:43 BMI result Body Mass Index 43.9 DS: Data Data Completed and Pending Pending studies at discharge: Pending at discharge 04/09/24 14:30 Surgical [PTH] Routine Labs on day of discharge: Laboratory Results - last 24 hr 04/05/24 04/05/24 04/05/24 07:40 07:40 07:40 POC Glucose Zinc Blood Type A Positive Antibody Screen POSITIVE Antibody Identification Inconclusive Antigen Identification E Antigen - NEGATIVE Jkb Antigen - POSITIVE K Antigen - NEGATIVE Crossmatch (AHG) See Detail 04/05/24 04/09/24 07:48 08:12 POC Glucose 82 Zinc 83 Blood Type Antibody Screen Antibody Identification Antigen Identification Crossmatch (AHG) Discharge Plan Discharge Anticipated Discharge Date/Time: 04/10/24 10:00 Patient Disposition: Home, Self-Care Discharge Diagnosis: s/p laparoscopic sleeve gastrectomy with gastropexy Referrals: Vera Freeman MD [Primary Care Provider] - 1 Week Discharge Medications: Continued bisacodyl [Dulcolax (bisacodyl)] 10 mg suppository 10 mg LA DAILY PRN (Reason: constipation) Qty: 12 0RF trazodone 50 mg tablet 1 tab PO BEDTIME lidocaine 5 % adhesive patch,medicated 1 patch topical DAILY Qty: 15 0RF Rx Instructions: leave on most painful area for up to 12 hrs albuterol sulfate [Ventolin HFA] 90 mcg/actuation HFA aerosol inhaler 2 puff INHALATION Q6H PRN (Reason: Shortness Of Breath Or Wheezing) pantoprazole 40 mg tablet,delayed release (DR/EC) 40 mg PO DAILY@0630 ondansetron 4 mg tablet,disintegrating 4 mg PO Q12H PRN (Reason: nausea and vomiting) Rx Instructions: Only take one every 12 hours as needed if you have nausea tramadol 50 mg tablet 50 mg PO Q6H PRN (Reason: severe pain (scale score 7-10)) Qty: 12 0RF sucralfate 100 mg/mL suspension 10 ml PO BID Qty: 600 2RF atorvastatin 40 mg tablet 40 mg PO DAILY fluticasone propionate 50 mcg/actuation spray,suspension 1 spray intranasal DAILY sennosides [Natural Senna Laxative] 8.6 mg tablet 17.2 mg PO BEDTIME Qty: 180 3RF Held amlodipine 10 mg tablet 1 tab PO BEDTIME Hold Instructions: Resume on 04/11/24. Check your blood pressure every mo rning as soon as you wake up and send it to Dr. Murrell. Do no take the blood pressure medication if the blood pressure is below 120/70. Wait every day to hear back from Dr. Murrell before you take the medication. losartan 100 mg tablet 1 tab PO DAILY Hold Instructions: Resume on 04/11/24. Check your blood pressure every morning as soon as you wake up and send it to Dr. Murrell. Do no take the blood pressure medication if the blood pressure is below 120/70. Wait every day to hear back from Dr. Murrell before you take the medication. Discontinued naproxen 500 mg tablet 500 mg PO BID PRN (Reason: pain) Qty: 20 0RF cholecalciferol (vitamin D3) 125 mcg (5,000 unit) capsule 125 mcg PO BEDTIME mecobalamin (vitamin B12) 1,000 mcg tablet,disintegrating 1,000 mcg sublingual DAILY@1200 Rx Instructions: place tablet under tongue and allow to dissolve for at least30 secs before swallowing famotidine [Pepcid] 20 mg tablet 20 mg PO BEDTIME Qty: 90 3RF Discharge Orders: Discharge Order (Routine); Ordered 04/10/24 Ordered By: Bentley Murrell Activity on Discharge: No heavy lifting Stand Alone Forms: Patient Portal Discharge page Print Language: Samoan Care Plan Goals: weight loss Health Concerns: morbid obesity Plan of Treatment: No tub baths, sex or returning to work until discussed at first post op appointment. No alcohol, tobacco or illegal drug use. Continue to use incentive spirometer hourly while awake. Walk in home for 5- 10 minutes every 2 hours during the first week. Wear abdominal binder with activity. Follow all meal plan instructions from your bariatric surgeon. Review bariatric handbook and call with any questions. Discharge Instructions 1. Please call your doctor or come back to the emergency room should any new symptoms arise. 2. Activity: abstain from alcohol,? limited stair climbing, no bending, no driving, no exercise, no illicit substances, no lifting, no sex, no tub bath, no work. 4. Diet: follow your bariatric surgeons recommendations for advancing diet. 5. Dressing Change/Wound Care: Your incisions are covered with waterproof dressings. You can shower with these and pat dry. Do not rub over dressings or incisions. If the area is tender, you may apply an ice pack for short intervals (no more than 20 minutes on, followed by at least 20 minutes off). Do not apply heat. Do not use creams, lotions, or topical antibiotics unless instructed to do so by your surgeon. 6. Call your doctor if: - Your temperature exceeds 101.5 F - You experience excessive pain or swelling - You have an unexpected reaction to medication - You have excessive bleeding - You experience continued vomiting/nausea - Your incision begins to separate - Your incision shows signs of infection such as increased redness, swelling, excessive pain, heat, or drainage (light blood or clear fluid is normal) General instructions: No lifting greater than 10 lbs for the next 6 weeks[address] within 24 hours of taking narcotic pain medications. If you do not move your bowels in the next 2 days, please take milk of magnesia over the counter. Please follow the post op diet and do not advance your diet until you are seen in the office in about 2 weeks. Please walk around your home every hour or two to prevent blood clots from forming in your legs. You do not need to wake from sleeping to walk. Please sleep in a bed or couch to prevent kinking at the hips and knees. Please take your incentive spirometer (your lung administrative executive) home with you and use it for the next few days to prevent pneumonias. You may shower, no hot tubs, baths or swimming pools. Please call the office with any questions or concerns such as increasing abdominal pain, fever, chills, shortness of breath, chest pain, leg pain or swelling, or redness or drainage from your incisions. Please make sure you are consuming 40-60 ounces of total fluids per day. Avoid all carbonation. Do not hesitate to contact the office with any questions at . The patient's medical history has been reviewed and they are considered low risk for post op DVT and therefore DVT prophylaxis is not considered necessary. Travel after surgery was reviewed. The patient has not disclosed any travel plans during the first 30 days after surgery and they have been advised that within the first 30 days after surgery any bus, plane, train or car travel over 2 hours in duration is contraindicated due to the possibility of developing blood clots from immobility. Any travel, needs to include periods of ambulation of 10 minutes in duration every 2 hours.? The patient was instructed to discuss any plans for travel during this period with their bariatric surgeon. Assessment: s/p laparoscopic sleeve gastrectomy with gastropexy Discharge Date/Time: 04/10/24 09:20
[2024-04-09 15:22] LABS: Hematocrit 39.3 % (37.0-47.0)
[2024-04-09 15:28] LABS: Anion Gap 13 (12-20); Blood Urea Nitrogen 8 mg/dL (9-16); Calcium 9.3 mg/dL (8.4-10.2); Carbon Dioxide 26 mmol/L (22-29); Chloride 108 mmol/L (96-108); Creatinine Clr Calc Pharmacy 112.5; Estimated Glomerular Filt Rate > 60; Glucose Random 144 mg/dL (60-115); Potassium 3.9 mmol/L (3.3-5.1); Sodium 143 mmol/L (135-145)
[2024-04-09] MEDS: ceFAZolin Sodium/Dextrose,Iso 2 GM/50 ML PIGGYBACK IV (17:34)
[2024-04-09] MEDS: Famotidine/PF 20 MG/2 ML VIAL IVPUSH (19:31)
[2024-04-09] MEDS: traZODone HCL 50 MG TABLET PO (19:31)
[2024-04-09] MEDS: 0.9 % Sodium Chloride Flush 3 ML SYRINGE IVFLUSH (19:31)
[2024-04-09] MEDS: Acetaminophen 1,000 MG/100 ML PIGGYBACK 16.7 MG IV (19:31)
[2024-04-10] MEDS: Acetaminophen 1,000 MG/100 ML PIGGYBACK 16.7 MG IV (01:19)
[2024-04-10] MEDS: Lactated Ringers 1,000 ML 100 ML IVCONT (02:23)
[2024-04-10 03:14] VITALS: BP 143/72; PULSE 66; RESP 18; TEMP 36.3; O2SAT 96
[2024-04-10 05:28] LABS: Vitamin A 34 mcg/dL (38-98)
[2024-04-10 07:14] VITALS: BP 127/59; PULSE 69; RESP 16; TEMP 36.1; O2SAT 96
[2024-04-10 07:14] LABS: MANUAL DIFF FLAG NO
[2024-04-10 07:21] LABS: Basophils Percent Auto 0.1 % (0-2); Hematocrit 38.6 % (37.0-47.0); Hemoglobin 13.2 g/dl (12.0-16.0); Imm Gran Abs Auto 0.03 X10*3/uL (0.00-0.03); Imm Gran Pct Auto 0.3 % (0.0-0.4); Lymphocytes Percent Auto 11.4 % (20-40); Mean Corpuscular HGB Conc 34.2 g/dl (31.0-35.0); Monocytes Absolute Auto 0.3 X10*3/uL (0.1-1.2); Monocytes Percent Auto 3.2 % (2-11); Neutrophils Absolute Auto 7.5 x10*3/uL (2.0-8.3); Platelet Count 199 X10*3/uL (160-400); Red Blood Count 4.71 X10*6/uL (4.20-5.50); Red Cell Distribution Width 13.7 % (11.0-16.0); White Blood Count 8.9 X10*3/uL (4.8-10.8)
[2024-04-10] MEDS: Famotidine/PF 20 MG/2 ML VIAL IVPUSH (07:23)
[2024-04-10] MEDS: Atorvastatin Calcium 40 MG TABLET PO (07:24)
[2024-04-10 07:32] LABS: Anion Gap 10 (12-20); Blood Urea Nitrogen 6 mg/dL (9-16); Calcium 9.7 mg/dL (8.4-10.2); Carbon Dioxide 29 mmol/L (22-29); Chloride 107 mmol/L (96-108); Creatinine Clr Calc Pharmacy 107.2; Estimated Glomerular Filt Rate > 60; Glucose Random 113 mg/dL (60-115); Potassium 4.2 mmol/L (3.3-5.1); Sodium 142 mmol/L (135-145)
--- NOTE | 2024-04-10 08:37 | MHC.CM.PN ---
PATIENT IS DC HOME - SELF CARE. TRANSPORTATION PREVIOUSLY ARRANGED
--- NOTE | 2024-04-10 15:28 | HO.POSTANES ---
Post Anesthesia Evaluation Post Anesthesia Evaluation Date of Service: 04/10/24 Vital Signs: Vital Signs Temp Pulse Resp BP Pulse Ox O2 Del Method 04/10/24 07:14 96.9 F 69 16 127/59 L 96 Room Air Anesthesia: General Endotracheal-GETA Mental Status: Awake Pain Control: Satisfactory Nausea/Vomiting: None Hydration: Adequate Anesthesia-Related Issues: No Anes. Related Issues
[2024-04-12 06:28] LABS: Vitamin B1 16 nmol/L (8-30)
== END 2024-04-10 09:20 | disposition home or self-care (01) | DRG 403 ==
LOC: HO.SSSA 14:45 → HO.S3 15:23
PROVIDERS: Physician Assistant Surgical; Admitting Provider Surgery; PCP Internal Medicine; Visit Provider Surgery
PROC: 0DB64Z3 Excision of Stomach, Percutaneous Endoscopic Approach, Vertical (ICD-10-PCS; CPT 43845; principal; 2024-04-09 10:40)
DX: E66.01 Morbid (severe) obesity due to excess calories (principal); K76.0 Fatty (change of) liver, not elsewhere classified; E78.5 Hyperlipidemia, unspecified; I10 Essential (primary) hypertension; K21.9 Gastro-esophageal reflux disease without esophagitis; K66.0 Peritoneal adhesions (postprocedural) (postinfection); J45.909 Unspecified asthma, uncomplicated; G47.00 Insomnia, unspecified; Z68.41 Body mass index [BMI] 40.0-44.9, adult; Z79.51 Long term (current) use of inhaled steroids; Z79.899 Other long term (current) drug therapy
CPT/HCPCS: 36415; 80048; 80053; 80061; 82306; 82607; 82728; 82947; 83036; 83525; 83540; 84425; 84443; 84590; 84630; 85014; 85018; 85025; 85610; 85730; 86140; 86850; 86870; 86900; 86901; 86905; 86920; 86922; 88304; 88305; 88307; 88342; A4649; C9088; C9145; J0131; J0690; J1100; J1170; J2250; J2405; J2704; J2795; J3010; J7120

== ENCOUNTER → 2024-04-09 07:03 | Outpatient (BNV) | payer MEDICAID, SELFPAY | PROVIDERS: Admitting Provider Surgery; PCP Internal Medicine; Visit Provider Surgery | DX: E66.01 Morbid (severe) obesity due to excess calories (principal); Z68.41 Body mass index [BMI] 40.0-44.9, adult; Z98.84 Bariatric surgery status; K66.0 Peritoneal adhesions (postprocedural) (postinfection) | CPT/HCPCS: 43659; 43775; 99024; 99499 ==

== ENCOUNTER 2024-04-16 09:46 | Outpatient (AMB) | payer MEDICAID, SELFPAY ==
--- NOTE | 2024-04-16 10:11 | MHC.OFFVISWM ---
VS Expanded 04/16/24 10:58 BP 132/65 Blood Pressure Location Rt brachial Blood Pressure Position Sitting Pulse 62 Pulse Source Pulse Oximeter Temp 96.9 F Temperature Source Temporal Artery Scan Pulse Oximetry 97 Oxygen Delivery Method Room Air Height 5 ft Weight 219 lb 12.8 oz BMI 42.9 Body Fat % 44.2 Body Fat Mass 97.0 Fat Free Mass 122.6 Visceral Fat Rating 15.0 Body Water % 39.7 Body Water Mass 87.0 Muscle Mass/Score 116.4 Basal Metabolic Rate/Score 1,707 Intake Visit Reasons: (OV) PO LSG 04/09/24 Allergies No Known Allergies [No Known Allergies*] Allergy (Verified 04/16/24 10:15) HPI Comments Details: 58-year-old female returns to the office in follow-up. She is approximately 7 days post sleeve gastrectomy performed on 04/09/2024. Tolerating 3 celebrate 4 in 1 shakes with 1 scoop each and approximately 54 oz of fluids total per day. Positive bowel movement no complaints of pain. She has not requiring her amlodipine or losartan with blood pressure readings in the 1 teens to 120s over 70s. [facility] Medical History Sleep apnea Gastroesophageal reflux disease Prediabetes DJD (degenerative joint disease) Insomnia Morbid obesity Tubular adenoma Chronic TMJ pain Hypercholesterolemia Snoring Chest pain Hypertension Migraines Asthma Surgical History History of esophagogastroduodenoscopy (EGD) Hx of colonoscopy Hx of cholecystectomy Hx of hysterectomy, total Hx of section History of carpal tunnel release (~12/03/20) Family History Mother Diabetes Heart attack Ulcer of stomach due to bacteria Father Heart attack HTN (hypertension) Paternal Uncle Colon cancer Sister Lupus Social History Household Members: Spouse Housing: Apartment Are you a primary reproductive healthcare assistant to a significant other at home: No Do you presently have visiting nurse or other home services: No Alcohol intake: never Patient Tobacco Use Status: Never used Tobacco Second Hand Smoke Exposure: No Current occupational status: retired Current occupation: right and left handed Physical Exam GI Inspection: Yes incision (Clean, dry, intact.) Assessment & Plan Assessment & Plan (1) S/P laparoscopic sleeve gastrectomy: Code(s): Z98.84 - Bariatric surgery status Category: Surgical Plan: POD 7 s/p LSG on 04/09/[address] Murrell Weight loss prior to surgery was 17.4 pounds or 6.8 % TBWL. Original weight on 11/20/2023 was 252.8 pounds and op weight was 235.4 pounds. Be sure to text Dr Murrell exactly 1 week after surgery your weight from your home scale so he can adjust your meal plan. Continue meal plan until f/u w [facility] in 2 weeks May shower, no submersion in bath for another week Continue abdominal binder with activity and exercise for the next 2 weeks. Exercise prior to surgery was stationary bike and treadmill and may resume No abdominal exercises for 6 weeks post operatively Will be emailed link to post op video for review Reminded of the pace of drinking, 2 mL per minute, 1 oz/15 min. No longer requiring amlodipine or losartan with blood pressure readings 1 teens to 120s over 70s at home
[2024-04-16 10:58] VITALS: BP 132/65; PULSE 62; TEMP 36.1; O2SAT 97; BMI 42.9
== END 2024-04-16 10:29 | disposition home or self-care (01) ==
PROVIDERS: PCP Internal Medicine; Visit Provider Physician Assistant Surgical
DX: Z98.84 Bariatric surgery status (principal)
CPT/HCPCS: 99024

== ENCOUNTER → 2024-04-16 09:46 | Outpatient (BNVA) | payer MEDICAID, SELFPAY | PROVIDERS: PCP Internal Medicine; Visit Provider Physician Assistant Surgical | DX: Z98.84 Bariatric surgery status (principal) | CPT/HCPCS: 99212 ==

== ENCOUNTER 2024-04-30 12:00 | Outpatient (AMB) | payer MEDICAID, SELFPAY ==
--- NOTE | 2024-04-30 12:07 | A.OFFVIS_ITS ---
VS Expanded 04/30/24 12:18 BP 124/63 Blood Pressure Location Rt brachial Blood Pressure Position Sitting Pulse 68 Pulse Source Pulse Oximeter Temp 97.1 F Temperature Source Temporal Artery Scan Pulse Oximetry 95 Oxygen Delivery Method Room Air Height 5 ft Weight 215 lb 3.2 oz BMI 42.0 Body Fat % 41.6 Body Fat Mass 89.6 Fat Free Mass 125.6 Visceral Fat Rating 14.0 Body Water % 41.5 Body Water Mass 89.2 Muscle Mass/Score 119.2 Basal Metabolic Rate/Score 1,733 Intake Visit Reasons: (OV) PO LSG 04/09/24 Cooker Process Cheese Required: Yes Allergies No Known Allergies [No Known Allergies*] Allergy (Verified 04/30/24 12:11) Medication List - Last Reconciled 04/30/24 by PRATIMA Boyd albuterol sulfate 90 mcg/actuation (Ventolin HFA) 2 puffs inhalation Q6H PRN amlodipine 1 tab PO BEDTIME atorvastatin 40 mg PO DAILY bisacodyl (Dulcolax (bisacodyl)) 10 mg HI DAILY PRN fluticasone propionate 50 mcg/actuation 1 spray intranasal DAILY lidocaine 5% 1 patch topical DAILY losartan 1 tab PO DAILY ondansetron 4 mg PO Q12H PRN pantoprazole 40 mg PO DAILY@0630 sennosides (Natural Senna Laxative) 17.2 mg (2 x 8.6 mg) PO BEDTIME sucralfate 10 mL PO BID tramadol 50 mg PO Q6H PRN trazodone 1 tab PO BEDTIME HPI Comments Details: This?is a?58?yo female who is s/p LSG 3 weeks ago. No complaints of nausea, emesis, abdominal pain or reflux, or constipation. Feels tired but otherwise well. BP meds on hold, BP readings at home well controlled. Present meal plan includes: Celebrate 4:1 2 scoops in UAM x 2 1 bar staying hydrated with water Exercise routine includes: bicycle and walking PFSH Medical History Sleep apnea Gastroesophageal reflux disease Prediabetes DJD (degenerative joint disease) Insomnia Morbid obesity Tubular adenoma Chronic TMJ pain Hypercholesterolemia Snoring Chest pain Hypertension Migraines Asthma Surgical History History of esophagogastroduodenoscopy (EGD) Hx of colonoscopy Hx of cholecystectomy Hx of hysterectomy, total Hx of section History of carpal tunnel release (~12/03/20) Family History Mother Diabetes Heart attack Ulcer of stomach due to bacteria Father Heart attack HTN (hypertension) Paternal Uncle Colon cancer Sister Lupus Social History Household Members: Spouse Housing: Apartment Are you a primary patient care coordinator to a significant other at home: No Do you presently have visiting nurse or other home services: No Alcohol intake: never Patient Tobacco Use Status: Never used Tobacco Second Hand Smoke Exposure: No Current occupational status: retired Current occupation: right and left handed Physical Exam Vital Signs: Last Vital Signs Temp 97.1 F 04/30/24 12:18 Pulse 68 04/30/24 12:18 BP 124/63 04/30/24 12:18 Pulse Ox 95 04/30/24 12:18 Oxygen Delivery Method Room Air 04/30/24 12:18 BMI result Body Mass Index 42.0 Assessment & Plan Assessment & Plan (1) S/P laparoscopic sleeve gastrectomy: Code(s): Z98.84 - Bariatric surgery status Category: Surgical (2) Morbid obesity: Code(s): E66.01 - Morbid (severe) obesity due to excess calories Category: Medical Plan Continue meal plan per Dr Prasad, pt to send measurements today. Exercise with goal of 2000 marilin/week. No heavy lifting until 6w postop. RTC 2 weeks. Patient is morbidly obese and is not considered stable at this time. I spent a total of 30 minutes reviewing/updating records, examining the patient and counseling the patient on weight management as detailed above.
[2024-04-30 12:18] VITALS: BP 124/63; PULSE 68; TEMP 36.2; O2SAT 95; BMI 42.0
== END 2024-04-30 12:53 | disposition home or self-care (01) ==
PROVIDERS: PCP Internal Medicine; Visit Provider Physician Assistant Surgical
DX: E66.01 Morbid (severe) obesity due to excess calories (principal); Z98.84 Bariatric surgery status
CPT/HCPCS: 99024

== ENCOUNTER → 2024-04-30 12:00 | Outpatient (BNVA) | payer MEDICAID, SELFPAY | PROVIDERS: PCP Internal Medicine; Visit Provider Physician Assistant Surgical | DX: E66.01 Morbid (severe) obesity due to excess calories (principal); Z68.41 Body mass index [BMI] 40.0-44.9, adult; Z90.3 Acquired absence of stomach [part of] | CPT/HCPCS: 99212 ==

== ENCOUNTER 2024-06-12 15:36 | Outpatient (AMB) | payer MEDICAID, SELFPAY ==
--- NOTE | 2024-06-12 14:56 | A.OFFVIS_ITS ---
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 Allergies No Known Allergies [No Known Allergies*] Allergy (Verified 04/30/24 12:11) Medication List - Last Reconciled 06/12/24 by PRATIMA Boyd albuterol sulfate 90 mcg/actuation (Ventolin HFA) 2 puffs inhalation Q6H PRN amlodipine 1 tab PO BEDTIME atorvastatin 40 mg PO DAILY bisacodyl (Dulcolax (bisacodyl)) 10 mg ME DAILY PRN fluticasone propionate 50 mcg/actuation 1 spray intranasal DAILY lidocaine 5% 1 patch topical DAILY losartan 1 tab PO DAILY ondansetron 4 mg PO Q12H PRN pantoprazole 40 mg PO DAILY@0630 sennosides (Natural Senna Laxative) 17.2 mg (2 x 8.6 mg) PO BEDTIME sucralfate 10 mL PO BID tramadol 50 mg PO Q6H PRN trazodone 1 tab PO BEDTIME HPI Comments Details: This?is a?58?yo female who is s/p LSG 04/09/2024. Presents for 2 month post op visit. Weight at last visit on 04/30/2024 was 215.4 pounds with a BMI of 42, weight today is 207 pounds, representing an 8 pound weight loss with a BMI today of 40.4.? No complaints of nausea, emesis, abdominal pain or reflux, or constipation. BP meds on hold, BP readings at home well controlled. 116/80 today Present meal plan includes: 8am-10am Celebrate 4:1 2 scoops 11am-1pm bar 2-4pm another shake 5pm 4 forks protein (egg or cottage cheese) 7-9pm another shake Exercise routine includes: bicycle and walking every day PFSH Medical History Sleep apnea Gastroesophageal reflux disease Prediabetes DJD (degenerative joint disease) Insomnia Morbid obesity Tubular adenoma Chronic TMJ pain Hypercholesterolemia Snoring Chest pain Hypertension Migraines Asthma Surgical History History of esophagogastroduodenoscopy (EGD) Hx of colonoscopy Hx of cholecystectomy Hx of hysterectomy, total Hx of section History of carpal tunnel release (~12/03/20) Family History Mother Diabetes Heart attack Ulcer of stomach due to bacteria Father Heart attack HTN (hypertension) Paternal Uncle Colon cancer Sister Lupus Social History Household Members: Spouse Housing: Apartment Are you a primary personal care assistant to a significant other at home: No Do you presently have visiting nurse or other home services: No Alcohol intake: never Patient Tobacco Use Status: Never used Tobacco Second Hand Smoke Exposure: No Current occupational status: retired Current occupation: right and left handed Telehealth Telehealth Telehealth Platform: Telephone Location of provider rendering services: practice address Location of patient: address on file Patient Identification confirmed using: Name, : Yes Telehealth method: voice only Patient verbally consented to treatment: Yes Patient verbally consented to billing insurance company: Yes Patient informed of any privacy concerns related to visit: Yes Minutes spent on Phone/Video with Pt.: 18 Assessment & Plan Assessment & Plan (1) S/P laparoscopic sleeve gastrectomy: Code(s): Z98.84 - Bariatric surgery status Category: Medical (2) Morbid obesity: Code(s): E66.01 - Morbid (severe) obesity due to excess calories Category: Medical Plan Pt to continue to text Dr Prasad weekly with weight updates. Cleared for all exercise. Continue to monitor BP at home. RTC 1 month. I spent a total of 30 minutes reviewing/updating records, examining the patient and counseling the patient on weight management as detailed above.
[2024-06-12 15:09] VITALS: BMI 40.4
== END 2024-06-12 15:36 | disposition home or self-care (01) ==
LOC: HO.HBS 15:36
PROVIDERS: PCP Internal Medicine; Visit Provider Physician Assistant Surgical
DX: E66.01 Morbid (severe) obesity due to excess calories (principal); Z98.84 Bariatric surgery status
CPT/HCPCS: 99024

== ENCOUNTER → 2024-06-12 15:36 | Outpatient (BNVA) | payer MEDICAID, SELFPAY | PROVIDERS: PCP Internal Medicine; Visit Provider Physician Assistant Surgical | DX: Z98.84 Bariatric surgery status (principal); E66.01 Morbid (severe) obesity due to excess calories ==

== ENCOUNTER 2024-07-09 11:01 | Outpatient (AMB) | payer MEDICAID, SELFPAY ==
--- NOTE | 2024-07-09 10:45 | A.OFFVIS_ITS ---
VS Expanded 07/09/24 10:55 Height 5 ft Weight 203 lb BMI 39.6 Intake Visit Reasons: (TV) PO LSG 04/09/24 Allergies No Known Allergies [No Known Allergies*] Allergy (Verified 04/30/24 12:11) Medication List - Last Reconciled 07/09/24 by PRATIMA Boyd albuterol sulfate 90 mcg/actuation (Ventolin HFA) 2 puffs inhalation Q6H PRN amlodipine 1 tab PO BEDTIME atorvastatin 40 mg PO DAILY bisacodyl (Dulcolax (bisacodyl)) 10 mg [place] DAILY PRN fluticasone propionate 50 mcg/actuation 1 spray intranasal DAILY lidocaine 5% 1 patch topical DAILY losartan 1 tab PO DAILY ondansetron 4 mg PO Q12H PRN pantoprazole 40 mg PO DAILY@0630 polyethylene glycol 3350 17 grams PO DAILY sennosides (Natural Senna Laxative) 17.2 mg (2 x 8.6 mg) PO BEDTIME sucralfate 10 mL PO BID tramadol 50 mg PO Q6H PRN trazodone 1 tab PO BEDTIME HPI Comments Details: This?is a?58?yo female who is s/p LSG 04/09/2024. Presents for 3 month post op visit. Weight at last visit on 06/12/2024 was 207 pounds with a BMI of 40.4, weight today is 203 pounds, representing a 4 pound weight loss with a BMI today of 39.6.? No complaints of nausea, emesis, abdominal pain or reflux. Takes senna for constipation. Still taking PPI/carafate, almost done. BP well controlled off meds. Blood sugars also well controlled. Present meal plan includes: 8am-10am Celebrate 4:1 2 scoops 11am-1pm bar 2-4pm another shake 5pm 4 forks protein 7-9pm another shake was eating chips but says the doctor suspended that Exercise routine includes: walks every day PFSH Medical History Sleep apnea Gastroesophageal reflux disease Prediabetes DJD (degenerative joint disease) Insomnia Morbid obesity Tubular adenoma Chronic TMJ pain Hypercholesterolemia Snoring Chest pain Hypertension Migraines Asthma Surgical History History of esophagogastroduodenoscopy (EGD) Hx of colonoscopy Hx of cholecystectomy Hx of hysterectomy, total Hx of section History of carpal tunnel release (~12/03/20) Family History Mother Diabetes Heart attack Ulcer of stomach due to bacteria Father Heart attack HTN (hypertension) Paternal Uncle Colon cancer Sister Lupus Social History Household Members: Spouse Housing: Apartment Are you a primary nurse healthcare manager to a significant other at home: No Do you presently have visiting nurse or other home services: No Alcohol intake: never Patient Tobacco Use Status: Never used Tobacco Second Hand Smoke Exposure: No Current occupational status: retired Current occupation: right and left handed Telehealth Telehealth Telehealth Platform: Telephone Location of provider rendering services: other Location of patient: address on file Patient Identification confirmed using: Name, : Yes Telehealth method: voice only Patient verbally consented to treatment: Yes Patient verbally consented to billing insurance company: Yes Patient informed of any privacy concerns related to visit: Yes Minutes spent on Phone/Video with Pt.: 18 Assessment & Plan Assessment & Plan (1) S/P laparoscopic sleeve gastrectomy: Code(s): Z98.84 - Bariatric surgery status Category: Surgical (2) Obesity: Code(s): E66.9 - Obesity, unspecified Category: Medical Plan Pt to continue to text Dr Prasad weekly with weight measurements. She will ask about other options for solid food/veg. Complete PPI/carafate and monitor reflux. RTC 6 weeks. I spent a total of 30 minutes reviewing/updating records, examining the patient and counseling the patient on weight management as detailed above. Medications: New polyethylene glycol 3350 17 grams PO DAILY 238 grams 3RF
[2024-07-09 10:55] VITALS: BMI 39.6
== END 2024-07-09 11:05 | disposition home or self-care (01) ==
LOC: HO.HBS 11:01
PROVIDERS: PCP Internal Medicine; Visit Provider Physician Assistant Surgical
DX: Z98.84 Bariatric surgery status (principal); E66.9 Obesity, unspecified
CPT/HCPCS: 99214

== ENCOUNTER → 2024-07-09 11:01 | Outpatient (BNVA) | payer MEDICAID, SELFPAY | PROVIDERS: PCP Internal Medicine; Visit Provider Physician Assistant Surgical ==

== ENCOUNTER 2024-07-18 08:22 | Outpatient (REF) | payer MEDICAID, SELFPAY ==
[2024-07-18 10:18] LABS: Cholesterol 213 mg/dL (<200); HDL Cholesterol 51 mg/dL (>40); LDL Cholesterol Calculated 142 mg/dL (<100); Triglycerides 100 mg/dL (<150)
[2024-07-18 10:59] LABS: Reflex LDLD? No
== END 2024-07-18 08:23 | disposition home or self-care (01) ==
LOC: HO.LAB 08:22
PROVIDERS: PCP Internal Medicine; Visit Provider Internal Medicine
DX: E78.5 Hyperlipidemia, unspecified (principal)
CPT/HCPCS: 36415; 80061

== ENCOUNTER 2024-08-21 10:50 | Outpatient (AMB) | payer MEDICAID, SELFPAY ==
--- NOTE | 2024-08-21 10:32 | A.OFFVIS_ITS ---
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 Greeting Card Writer Name: Britt Cannon [id number] Information Interpreted: clinical only Allergies No Known Allergies [No Known Allergies*] Allergy (Verified 04/30/24 12:11) Medication List - Last Reconciled 08/21/24 by PRATIMA Boyd albuterol sulfate 90 mcg/actuation (Ventolin HFA) 2 puffs inhalation Q6H PRN amlodipine 1 tab PO BEDTIME atorvastatin 40 mg PO DAILY bisacodyl (Dulcolax (bisacodyl)) 10 mg [place] DAILY PRN fluticasone propionate 50 mcg/actuation 1 spray intranasal DAILY lidocaine 5% 1 patch topical DAILY losartan 1 tab PO DAILY polyethylene glycol 3350 17 grams PO DAILY sennosides (Natural Senna Laxative) 17.2 mg (2 x 8.6 mg) PO BEDTIME tramadol 50 mg PO Q6H PRN trazodone 1 tab PO BEDTIME HPI Comments Details: This?is a?58?yo female who is s/p LSG 04/09/2024. Presents for 4 month post op visit. Weight at last visit on 07/09/2024 was 203 pounds with a BMI of 39.6, weight today is 201 pounds, representing a 2 pound weight loss with a BMI today of 39.3.? No complaints of nausea, emesis, abdominal pain or reflux, or constipation. Pt reports the last month has been a little bit hard. Pt was not following plan. She reports she has gotten back on track this week. Has not been taking BP meds, checks at home. No reflux off PPI/carafate. Present meal plan includes: 2 Celebrate 4:1 shakes, half scoop and 1 scoop 2 bars 1 meal- 4 forks protein (fish), 4 forks salad Exercise routine includes: walks every day, also using bike PFSH Medical History Sleep apnea Gastroesophageal reflux disease Prediabetes DJD (degenerative joint disease) Insomnia Morbid obesity Tubular adenoma Chronic TMJ pain Hypercholesterolemia Snoring Chest pain Hypertension Migraines Asthma Surgical History History of esophagogastroduodenoscopy (EGD) Hx of colonoscopy Hx of cholecystectomy Hx of hysterectomy, total Hx of section History of carpal tunnel release (~12/03/20) Family History Mother Diabetes Heart attack Ulcer of stomach due to bacteria Father Heart attack HTN (hypertension) Paternal Uncle Colon cancer Sister Lupus Social History Household Members: Spouse Housing: Apartment Are you a primary hearing healthcare practitioner to a significant other at home: No Do you presently have visiting nurse or other home services: No Alcohol intake: never Patient Tobacco Use Status: Never used Tobacco Second Hand Smoke Exposure: No Current occupational status: retired Current occupation: right and left handed Telehealth Telehealth Telehealth Platform: Telephone Location of provider rendering services: other Location of patient: address on file Patient Identification confirmed using: Name, : Yes Telehealth method: voice only Patient verbally consented to treatment: Yes Patient verbally consented to billing insurance company: Yes Patient informed of any privacy concerns related to visit: Yes Minutes spent on Phone/Video with Pt.: 16 Assessment & Plan Assessment & Plan (1) Obesity: Code(s): E66.9 - Obesity, unspecified Category: Medical (2) S/P laparoscopic sleeve gastrectomy: Code(s): Z98.84 - Bariatric surgery status Category: Surgical Plan Pt now back on meal plan and exercise routine. Recommended starting nia MVI now that she is not getting all vitamins from shakes. Texted photo of appropriate MVI to pt. Continue to monitor BP at home. RTC around Oct 09 for 6 month visit. Encouraged her to reach out via text with any concerns between visits. I spent a total of 30 minutes reviewing/updating records, examining the patient and counseling the patient on weight management as detailed above.
[2024-08-21 10:37] VITALS: BMI 39.3
== END 2024-08-21 11:21 | disposition home or self-care (01) ==
LOC: HO.HBS 10:50
PROVIDERS: PCP Internal Medicine; Visit Provider Physician Assistant Surgical
DX: E66.9 Obesity, unspecified (principal); Z98.84 Bariatric surgery status
CPT/HCPCS: 99214

== ENCOUNTER → 2024-08-21 10:50 | Outpatient (BNVA) | payer MEDICAID, SELFPAY | PROVIDERS: PCP Internal Medicine; Visit Provider Physician Assistant Surgical ==

== ENCOUNTER 2024-10-01 09:02 | Outpatient (REF) | payer MEDICAID, SELFPAY ==
[2024-10-01 10:20] LABS: Alanine Aminotransferase 13 U/L (0-31); Albumin Level 4.1 g/dL (3.5-5.0); Alkaline Phosphatase 58 U/L (39-117); Aspartate Amino Transferase 23 U/L (5-31); Bilirubin Direct 0.2 mg/dL (0.0-0.5); Bilirubin Total 0.5 mg/dL (0.0-1.0); Cholesterol 198 mg/dL (<200); HDL Cholesterol 50 mg/dL (>40); LDL Cholesterol Calculated 125 mg/dL (<100); Total Protein 7.1 g/dL (6.5-8.0); Triglycerides 117 mg/dL (<150)
[2024-10-01 12:37] LABS: Reflex LDLD? No
== END 2024-10-01 09:03 | disposition home or self-care (01) ==
LOC: HO.LAB 09:02
PROVIDERS: PCP Internal Medicine; Visit Provider Internal Medicine
DX: E78.00 Pure hypercholesterolemia, unspecified (principal)
CPT/HCPCS: 36415; 80061; 80076

== ENCOUNTER 2024-10-08 11:21 | Outpatient (AMB) | payer MEDICAID, SELFPAY ==
--- NOTE | 2024-10-08 11:06 | A.OFFVIS_ITS ---
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 Electrical Technician Name: Alina [id number] Jose Information Interpreted: clinical only Allergies No Known Allergies [No Known Allergies*] Allergy (Verified 04/30/24 12:11) Medication List - Last Reconciled 10/08/24 by PRATIMA Boyd albuterol sulfate 90 mcg/actuation (Ventolin HFA) 2 puffs inhalation Q6H PRN amlodipine 1 tab PO BEDTIME atorvastatin 40 mg PO DAILY bisacodyl (Dulcolax (bisacodyl)) 10 mg [place] DAILY PRN fluticasone propionate 50 mcg/actuation 1 spray intranasal DAILY lidocaine 5% 1 patch topical DAILY losartan 1 tab PO DAILY polyethylene glycol 3350 17 grams PO DAILY sennosides (Natural Senna Laxative) 17.2 mg (2 x 8.6 mg) PO BEDTIME tramadol 50 mg PO Q6H PRN trazodone 1 tab PO BEDTIME HPI Comments Details: This?is a?58?yo female who is s/p LSG 04/09/2024. Presents for 6mo post op visit. Weight at last visit on 08/21/2024 was 201 pounds with a BMI of 39.3, weight today is 202 pounds, representing a 1 pound weight gain with a BMI today of 39.5.? No complaints of nausea, emesis, abdominal pain or reflux, or constipation. Pt reports poor sleep- 5 hours. Skips meals sometimes due to falling asleep. Does not feel hungry and doesn't feel like eating. Notices bars taste sweeter than previous. BP and blood sugars well controlled, off meds. Present meal plan includes: 2 Celebrate 4:1 shakes, half scoop and 1 scoop 2 Celebrate bars 1 meal- 4 forks protein (fish), 4 forks salad- often skips this meal somtimes also skips the shake in evening takes MVI in evening Exercise routine includes: walks every day, also using bike has not been walking due to weather, uses bike 3x/week for 30 mins Has some excess skin of abdomen, has malodorous itchy rashes in skin fold and belly button. PFSH Medical History Sleep apnea Gastroesophageal reflux disease Prediabetes DJD (degenerative joint disease) Insomnia Morbid obesity Tubular adenoma Chronic TMJ pain Hypercholesterolemia Snoring Chest pain Hypertension Migraines Asthma Surgical History History of esophagogastroduodenoscopy (EGD) Hx of colonoscopy Hx of cholecystectomy Hx of hysterectomy, total Hx of section History of carpal tunnel release (~12/03/20) Family History Mother Diabetes Heart attack Ulcer of stomach due to bacteria Father Heart attack HTN (hypertension) Paternal Uncle Colon cancer Sister Lupus Social History Household Members: Spouse Housing: Apartment Are you a primary director critical care to a significant other at home: No Do you presently have visiting nurse or other home services: No Alcohol intake: never Patient Tobacco Use Status: Never used Tobacco Second Hand Smoke Exposure: No Current occupational status: retired Current occupation: right and left handed Telehealth Telehealth Telehealth Platform: Telephone Location of provider rendering services: practice address Location of patient: address on file Patient Identification confirmed using: Name, : Yes Telehealth method: voice only Patient verbally consented to treatment: Yes Patient verbally consented to billing insurance company: Yes Patient informed of any privacy concerns related to visit: Yes Minutes spent on Phone/Video with Pt.: 17 Assessment & Plan Assessment & Plan (1) Obesity: Code(s): E66.9 - Obesity, unspecified Category: Medical (2) S/P laparoscopic sleeve gastrectomy: Code(s): Z98.84 - Bariatric surgery status Category: Surgical Plan Pt to continue meal plan per Dr. Sarmiento Discussed the importance of getting all protein intake. Also needs to increase exercise with goal 2000 marilin/week. Labs ordered. Clotrimazole ointment ordered for problems of excess skin of abdomen. RTC 3 months. I spent a total of 30 minutes reviewing/updating records, examining the patient and counseling the patient on weight management as detailed above. Orders: Orders Lipid Panel Today Z98.84 - Bariatric surgery status IRON PROFILE Today Z98.84 - Bariatric surgery status Vitamin B12 and Folate Today Z98.84 - Bariatric surgery status Zinc Today Z98.84 - Bariatric surgery status Vitamin A Today Z98.84 - Bariatric surgery status TSH reflex Free T4 Today Z98.84 - Bariatric surgery status Vitamin D 25-OH Total Today Z98.84 - Bariatric surgery status Insulin Today Z98.84 - Bariatric surgery status Hemoglobin A1c Today Z98.84 - Bariatric surgery status Complete Blood Count Auto Diff Today Z98.84 - Bariatric surgery status Comprehensive Met. Panel Today Z98.84 - Bariatric surgery status C Reactive Protein Today Z98.84 - Bariatric surgery status Vitamin B1 Today Z98.84 - Bariatric surgery status Ferritin Today Z98.84 - Bariatric surgery status
[2024-10-08 11:19] VITALS: BMI 39.4
== END 2024-10-08 11:41 | disposition home or self-care (01) ==
LOC: HO.HBS 11:22
PROVIDERS: PCP Internal Medicine; Visit Provider Physician Assistant Surgical
DX: E66.9 Obesity, unspecified (principal); Z98.84 Bariatric surgery status
CPT/HCPCS: 99214

== ENCOUNTER → 2024-10-08 11:21 | Outpatient (BNVA) | payer MEDICAID, SELFPAY | PROVIDERS: PCP Internal Medicine; Visit Provider Physician Assistant Surgical ==

== ENCOUNTER 2024-12-17 15:16 | Outpatient (REF) | payer MEDICAID, SELFPAY | END 2024-12-17 15:17 | disposition home or self-care (01) | LOC: HO.MAMMO 15:16 | PROVIDERS: PCP Internal Medicine; Visit Provider Internal Medicine | DX: Z12.31 Encounter for screening mammogram for malignant neoplasm of breast (principal) | CPT/HCPCS: 77063; 77067 ==

== ENCOUNTER → 2024-12-17 15:30 | Outpatient (BNV) | payer MEDICAID, SELFPAY | PROVIDERS: PCP Internal Medicine; Visit Provider Internal Medicine | DX: Z12.31 Encounter for screening mammogram for malignant neoplasm of breast (principal) | CPT/HCPCS: 77063; 77067 ==

== ENCOUNTER 2025-01-15 09:47 | Outpatient (AMB) | payer MEDICAID, SELFPAY ==
--- NOTE | 2025-01-15 09:37 | MHC.OFFVISWM ---
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: Yes Campus Security Director Name: Alina [id number] Makayla Information Interpreted: clinical only Allergies No Known Allergies [No Known Allergies*] Allergy (Verified 04/30/24 12:11) Medication List - Last Reconciled 01/15/25 by PRATIMA Boyd albuterol sulfate 90 mcg/actuation (Ventolin HFA) 2 puffs inhalation Q6H PRN amlodipine 1 tab PO BEDTIME atorvastatin 40 mg PO DAILY bisacodyl (Dulcolax (bisacodyl)) 10 mg [place] DAILY PRN clotrimazole 1% 1 appl topical BID fluticasone propionate 50 mcg/actuation 1 spray intranasal DAILY lidocaine 5% 1 patch topical DAILY losartan 1 tab PO DAILY polyethylene glycol 3350 17 grams PO DAILY sennosides (senna) 17.2 mg (2 x 8.6 mg) PO BEDTIME tramadol 50 mg PO Q6H PRN trazodone 1 tab PO BEDTIME HPI Comments Details: This?is a?58?yo female who is s/p LSG 04/09/2024. Presents for 6mo post op visit. Weight at last visit on 10/08/2024 was 202 pounds with a BMI of 39.4, pt is unsure of weight today but thinks it may be about the same- scale broke, ordered another on its way.? No complaints of nausea, emesis, abdominal pain or reflux, or constipation. Patient is sleeping better, 6-7 hours instead of 5. BP and blood sugars well controlled, off meds. BS- 90-96, BP 120/80. Present meal plan includes: 2 Celebrate 4:1 shakes, 1 scoop each 2 Celebrate bars- stopped these, too sweet and felt out of control eating them so stopped buying 1 meal- 4 forks protein (fish), 4 forks salad lately has been doing- shake 8am 11am egg with fernandez evening meal of protein and veg 4f takes MVI mixed into shake Exercise routine includes: walks every day, also using bike - restarted walking this week with her now that weather has improved Has some excess skin of abdomen, has malodorous itchy rashes in skin fold and belly button. PFSH Medical History Sleep apnea Gastroesophageal reflux disease Prediabetes DJD (degenerative joint disease) Insomnia Morbid obesity Tubular adenoma Chronic TMJ pain Hypercholesterolemia Snoring Chest pain Hypertension Migraines Asthma Surgical History History of esophagogastroduodenoscopy (EGD) Hx of colonoscopy Hx of cholecystectomy Hx of hysterectomy, total Hx of section History of carpal tunnel release (~12/03/20) Family History Mother Diabetes Heart attack Ulcer of stomach due to bacteria Father Heart attack HTN (hypertension) Paternal Uncle Colon cancer Sister Lupus Social History Household Members: Spouse Housing: Apartment Are you a primary home health aide caregiver to a significant other at home: No Do you presently have visiting nurse or other home services: No Alcohol intake: never Patient Tobacco Use Status: Never used Tobacco Second Hand Smoke Exposure: No Current occupational status: retired Current occupation: right and left handed Telehealth Telehealth Telehealth Platform: Telephone Location of provider rendering services: other Location of patient: address on file Patient Identification confirmed using: Name, : Yes Telehealth method: voice only Patient verbally consented to treatment: Yes Patient verbally consented to billing insurance company: Yes Patient informed of any privacy concerns related to visit: Yes Minutes spent on Phone/Video with Pt.: 17 Assessment & Plan Assessment & Plan (1) Obesity: Code(s): E66.9 - Obesity, unspecified Category: Medical (2) S/P laparoscopic sleeve gastrectomy: Code(s): Z98.84 - Bariatric surgery status Category: Medical Plan Suggested pt use 1 scoop in 1 shake and 2 scoops in 1 shake. Plus breakfast of egg/fernandez and dinner meal of protein/veg. She was likely low on protein previously. Pt will resume increased exercise. Reminded to have labs done. She is waiting for a new scale to arrive. RTC 3 months.
--- OUTSIDE RECORDS SUMMARY | 2025-01-15 11:02 | XMS_ITS | Clinical Summary ---
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 023 Active senna (Senokot) 8.6 MG tablet TAKE 2 TABLETS BY MOUTH AT BEDTIME FOR CONSTIPATION 022 Active lidocaine (Lidoderm) 5 % patch APPLY 1 PATCH TOPICALLY TO SKIN, LEAVE ON FOR 12 HOURS AND OFF FOR 12 HOURS DIRECTED 023 Active traZODone (Desyrel) 50 MG tablet TAKE 1 TABLET BY MOUTH DAILY AT BEDTIME 90 tablet 1 024 Active traMADol (Ultram) 50 MG tablet TAKE 1 TABLET BY MOUTH THREE TIMES DAILY IN THE MORNING, AT NOON, AND AT BEDTIME NEEDED FOR SEVERE PAIN FOR UP TO 20 DAYS 023 Active Diclofenac Sodium 1 % gel APPLY 2 GRAMS TOPICALLY TO AFFECTED AREA(S) FOUR TIMES DAILY. Usar si el parche de lidocana no proporciona suficiente control del dolor. 100 g 1 024 Active atorvastatin (Lipitor) 80 MG tabletIndications:Pure hypercholesterolemia Take 1 tablet (80 mg) by mouth at bedtime. 90 tablet 3 024 2024 Active Multiple Vitamins-Minerals (CELEBRATE MULTI-COMPLETE 18 PO) Take 1 tablet by mouth Once per day. OTC (per bariatric surgery) Active ProAir HFA 108 (90 Base) MCG/ACT inhaler Inhale 2 puffs every 4 (four) hours if needed for shortness of breath or wheezing. 18 g 024 Active fluticasone (Flonase) 50 MCG/ACT nasal sprayIndications:Acute rhinitis Administer 1 spray into each nostril Once per day. 16 g 2 Active acetaminophen (Tylenol) 500 MG tablet Take 1 tablet (500 mg) by mouth every 6 (six) hours if needed for mild pain, moderate pain, headaches or fever. 120 tablet Active Active Problems Problem Noted Date Diagnosed Date Acute rhinitis 10/24/2024 Assessment & Plan (10/24/2024 1:51 PM EST): Viral tests are negative. Use Flonase + NS. Re consult PRN. Dietary counseling 02/26/2024 Severe obesity 02/26/2024 Assessment & Plan (07/25/2024 4:01 PM EDT): Sp bariatric surgery, lost 40+ lb since surgery. Continue dietary modifications, takes protein shakes FU with Bariatric surgery office FU with me in 6m Assessment & Plan (02/26/2024 4:10 PM EDT): Discussed re weight reduction options including exercise, life style modifications, diet, pt is followed by weight reduction program Discussed re lower calorie intake, increase dietary fiber. Exercise counseling 02/26/2024 Tinnitus of both ears 02/26/2024 Assessment & Plan (02/26/2024 4:12 PM EDT): - not associated with hearing loss - f/u in one year or re consult PRN Subacute cough 09/15/2023 Assessment & Plan (09/15/2023 2:37 PM EST): See mild asthma w/ exacerbation Mild intermittent asthma with acute exacerbation 09/15/2023 Assessment & Plan (09/15/2023 2:38 PM EST): Continue Albuterol q6hr Rapid viral tests today are negative Cervical radiculopathy due t o degenerative joint disease of spine 08/01/2023 Assessment & Plan (11/06/2023 12:46 PM EST): Mildly symptomatic, sp PT Recommended accupuncture FU left sided neck pain/spasm. Assessment & Plan (09/15/2023 2:36 PM EST): Improving Continue Tylenol and Flexeril prn Assessment & Plan (08/01/2023 2:38 PM EDT): MRI on 07/14 ([facility]) showed multilevel cervical disc disease with various degrees of foraminal and canal stenosis and disc bulging. Patient agreed to be referred to [facility] for further management of disc disease Continue TENS and home based PT Chronic neck pain 06/28/2023 Assessment & Plan (06/28/2023 1:56 PM EDT): Most likely related to cervical radiculopathy as she's known DDD Spine. Order MRI C-spine as she may need epidural injection on that area Will continue PT and using TENS unit Rx Flexeril/tylenol/tramadol FU with pain clinic Fall 06/28/2023 Assessment & Plan (06/28/2023 2:00 PM EDT): Leg weakness exacerbated by covid recently, patient seen In ED. Sxs are improved now, no further falls for >1w. See above re rx Radiculopathy No need for further isolation re covid COVID-19 06/28/2023 Assessment & Plan (06/28/2023 2:02 PM EDT): Largely asymptomatic, she had mild disease, now recovered. Didn't require steroids, remdesevir or O2 supplementation Completed isolation Will fu at upcoming apt for booster IZ if she wants to. Acute exacerbation of chronic low back pain 05/30 Assessment & Plan (06/28/2023 1:59 PM EDT): Recent MRI at ED showed no cord compression,s he's off steroids FU with pain clinic for radiculopathy rx. Use TENS unit and meds : Tramadol/flexeril and tylenol. DC tizanidine. Counseled re weight reduction Fall prevention discussed with her and her daughter. Assessment & Plan (06/09/2023 9:33 AM EDT): Pt has radiculopathy symptoms at this time, r/o cauda equina syndrome. Will order MRI of the lumbar spine SKYE COntinue dexamethasone and tramadol 50mg + tylenol c1titxh prn pain cousnedl to go to ED if she develops urinary retention, worsening of pain even with medications, severe leg weakness, persistent leg paresthesias r/o right trochanteric bursitis Dysuria 06/09/2023 Assessment & Plan (06/09/2023 9:33 AM EDT): r/o UTI Acute bilateral low back pain with right-sided s ciatica 05/04/2023 Assessment & Plan (05/04/2023 9:32 AM EDT): Doing well at PT at [facility] Will call PT to work out a prescription for TENS unit Continue PT and tylenol PRN Vitamin D deficiency 05/04/2023 Assessment & Plan (05/04/2023 9:32 AM EDT): Significant improvement since last year complete vit d supplemntation for at least 3 more months encouraged outdoor exercise of at least 15 minutes LUIS (obstructive sleep apnea) 05/04/2023 Assessment & Plan (10/24/2024 1:47 PM EST): Advised to continue use of CPAP for now, avoid using it for nasal congestion PRN. Assessment & Plan (07/25/2024 3:56 PM EDT): Using CPAP and is doing well Continue using CPAP every night to decrease morbidity/mortality Assessment & Plan (11/06/2023 10:15 AM EST): Using CPAP and is doing well Continue using CPAP every night to decrease morbidity/mortality Assessment & Plan (09/15/2023 2:35 PM EST): CPAP was finally approved, Pt will start using CPAP every night FU in 3 months Assessment & Plan (05/04/2023 9:33 AM EDT): has severe LUIS will send for titration study and write a prescription accordingly I discused with pt the importance of using CPAP to decrease morbidity and mortality FU in 6 months Hyperlipidemia LDL goal <100 05/04/2023 Assessment & Plan (10/24/2024 1:49 PM EST): We discussed re rx options. Recommended moderate amount of exercise and increase consumption of fruit, vegetables, fish and high fiber foods. Should decrease consumption of highly saturated fats or trans fats. Continue Lipitor. FU lipids in 6 months. Assessment & Plan (07/25/2024 3:59 PM EDT): LDL minimally improving despite weight loss, she was off statin for about 1mo Continue atorvastatin 40mg and repeat lipids in 6mo, advised to continue diet and weight reduction. Recommended moderate amount of exercise and increase consumption of fruit, vegetables, fish and high fiber foods. Should decrease consumption of highly saturated fats or trans fats. Assessment & Plan (02/26/2024 6:00 PM EDT): - LDL not improved, likely related to noncompliance with medications - refer to MTM program for medboxes, continue Atorvastatin same dose and f/u lipids in 3 months Assessment & Plan (05/04/2023 9:33 AM EDT): recently started on atorvastatin 40mg and tolerates well FU lipids in 6 months We discussed re rx options. She wants to be more strict with life style modifications. Recommended moderate amount of exercise and increased consumption of fruit, vegetables, fish and high fiber foods. We discussed about avoiding consumption of highly saturated fats or trans fats. FU lipids in 6m Tubular adenoma of colon 05/04/2023 Assessment & Plan (05/04/2023 1:26 PM EDT): X 2, sp Colonoscopy on 10/27/23 at [facility] Gastroesophageal reflux dise ase with esophagitis without hemorrhage 05/04/2023 Overview (05/04/2023): SP EGD 10/27/23 at [facility] Postnasal drip 03/28/2023 Assessment & Plan (10/24/2024 1:50 PM EST): Use Flonase PRN and re consult PRN. Assessment & Plan (03/28/2023 11:40 AM EDT): Use Flonase once daily, counseled regarding using mask when outdoors. TMJ (dislocation of temporom andibular joint), initial encounter 03/28/2023 Assessment & Plan (03/28/2023 11:40 AM EDT): recommended acupuncture and use diclofenac gel and heat pads on affected area recommended to make an appointment with the dentist Caregiver stress syndrome 03/24/2023 Skin tags, multiple acquired 03/24/2023 Memory impairment 03/24/2023 Grieving 03/24/2023 Chronic pain of right knee 03/24/2023 Disturbance in sleep behavior 03/24/2023 Greater trochanteric pain syndrome 03/24/2023 Adjustment disorder with depressed mood 02/15/20 23 Apnea 02/14/2023 Benign neoplasm of soft tissue 02/14/2023 Chronic arthralgia of temporomandibular joint Assessment & Plan (05/04/2023 12:38 PM EDT): Seen by dentist already and refered to TMJ specialist. Chronic low back pain 02/14/2023 Assessment & Plan (02/19/2023 5:28 PM EDT): -Acute on chronic low back pain -No red flag symptoms -Xray December 2021 w/ following impression: Bilateral facet facet disease L4-L5 and L5-S1. No significant degenerative disc space narrowing. -Repeat XR ordered -Referral to PT for further eval and tx -Continue with symptomatic management at home including rest, light stretching, warm compresses PRN -Start tizanidine PRN muscle spasms, reviewed med use and SE Bursitis of right shoulder 11/13/2019 IFG (impaired fasting glucose) 08/07/2018 Assessment & Plan (10/24/2024 1:50 PM EST): Resolved. Counseled re more frequent low calorie/carb meals. Encouraged physical activity as tolerated. FU in 6 months. Assessment & Plan (10/24/2024 10:13 AM EST): >>ASSESSMENT AND PLAN FOR PREDIABETES WRITTEN ON 03/28/2023 11:42 AM BY EHRO DOTY RBS is at goal Counseled re more frequent low calorie/carb meals. Encouraged physical activity as tolerated. FU in 6 months Assessment & Plan (10/24/2024 10:13 AM EST): >>ASSESSMENT AND PLAN FOR PREDIABETES WRITTEN ON 11/06/2023 12:49 PM BY VERA BURGER MD Doing well, may have more hyperglycemia lately. Counseled re more frequent low calorie/carb meals. Encouraged physical activity as tolerated. FU in 3 months w A1c. Essential hypertension 07/23/2018 Assessment & Plan (10/24/2024 1:48 PM EST): Controlled. Compliant w/meds Medications were DC, s/p geriatric surgery 6 months ago. Counseled re low salt diet/increase moderate physical activity. Check home BP BIW and prn CP/SONG/GUTHRIE Non smoking patient. Assessment & Plan (07/25/2024 3:57 PM EDT): Controlled off meds Continue without meds and counseled re low salt diet/increase moderate physical activity. Check home BP BIW and prn CP/SONG/GUTHRIE, call back PRN if BP > 140/95 for 2 consecutive weeks FU in 3m Non smoking patient. Assessment & Plan (02/26/2024 4:06 PM EDT): Controlled. Compliant w/meds Continue Losartan + amlodipine same dose and CPAP every night Counseled re low salt diet/increase moderate physical activity. Check home BP BIW and prn CP/SONG/GUTHRIE Non smoking patient. Assessment & Plan (11/06/2023 12:48 PM EST): Its probably uncontrolled, she seems to be off amlodipine. 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 Counseled re low salt diet/increase moderate physical activity. Check home BP BIW and prn CP/SONG/GUTHRIE Non smoking patient. Assessment & Plan (06/28/2023 1:58 PM EDT): Uncontrolled today, likely related to acute pain/out of pain meds. It is usually controlled,repeated today is 150/90. No change on BP meds Will attempt for a better pain control as above and patient to check BP at home, call back if persistently > 160/95 Assessment & Plan (05/04/2023 12:37 PM EDT): BP is at goal. Continue losartan 100 mg + amlodipine 10 Counseled re low salt diet/increase moderate physical activity. Check home BP BIW and prn CP/SONG/GUTHRIE Non smoking patient. fu in 6 months Assessment & Plan (03/28/2023 11:43 AM EDT): stage 1, may be related to pain continue same medications and fu next visit when pain is better controlled. Counseled re low salt diet/increase moderate physical activity. Check home BP BIW and prn CP/SONG/GUTHRIE Non smoking patient. Mild intermittent asthma 07/23/2018 Assessment & Plan (11/06/2023 12:47 PM EST): Fairly controlled Continue albuterol prn only. Recommended Covid and Influenza booster, she declined today. Assessment & Plan (03/28/2023 11:41 AM EDT): last exacerbation 3 months ago, controlled with Pro Air PRN COntinue Pro Air PRN and FU in 6 months Spasm of cervical paraspinous muscle 07/23/2018 Resolved Problems Problem Noted Date Diagnosed Date Resolved Date Snoring 03/24/2023 05/04/2023 Pure hypercholesterolemia 02/14/2023 Encounters Date Type Department Care Team Description 01/15/[address] [facility] [address] [facility] [place] [address] Vera Burger MD Acute rhinitis 01/10/2025 Population Health Risk Score [facility] ([facility] Department [address] [place] [phone] Provider, Population Health Generic 12/17/[address] [facility] [address] [facility] [place] [address] Vera Burger MD 10/24/2024 10:15 AM EST Office Visit [facility] [address] [facility] [place] [address] Vera Burger MD LUIS (obstructive sleep apnea) (Primary Dx); Essential hypertension; Hyperlipidemia LDL goal <100; IFG (impaired fasting glucose); Postnasal drip; Acute rhinitis 10/24/2024 Travel from Last 3 Months Immunizations Name Administration Dates Next Due HepB-CpG 08/01/2024,03/27/2024 Influenza Injectable Quadriv alant Preservative Free IIV4 MDCK 08/02/2022 Influenza injectable quadriv alent IIV4 with preservative 07/23/2018 Influenza, IIV3, injectable 08/02/2022,,07/23/2018 Influenza, seasonal, injecta ble, preservative free 08/01/2024 Moderna Covid-19 Vaccine 12+ 03/27/2024(Deferred : Patient decision) Pneumococcal Conjugate PCV 20 03/27/2024 Zoster, Recombinant 09/05/2024 Social History Tobacco Use Types Packs/Day Years Used Date Smoking Tobacco: Never Smokeless Tobacco: Never Tobacco Cessation:Counseling Given: Not Answered Alcohol Use Standard Drinks/Week Comments Never 0 (1 standard drink = 0.6 oz pur e alcohol) PHQ-2 Answer Date Recorded Patient Health Questionnaire-2 Score 0 03/28/2023 Housing Stability Answer Date Recorded What is your housing situation today? I have kaitlynn casas 02/16/[address] you li ve. Do you have problems with any of the following? None of the above 02/16/2024 Food Insecurity Answer Date Recorded Within the past 12 months, y ou worried that your food would run out before you got money to buy more: Never True 02/16/2024 Within the past 12 months,th e food you bought just didn't last and you didn't have enough money to get more: Never True Transportation Answer Date Recorded In the past 12 months, has l ack of transportation kept you from medical appts, meetings, work or from getting things needed for daily living? No 08/22/2023 Utilities Answer Date Recorded In the past 12 months, has t he electric, gas, oil or water company threatened to shut off services in your home? No 08/22/2023 Depression Answer Date Recorded Patient Health Questionnaire-2 Score 0 03/28/2023 Comments Unknown Sex and Gender Information Value Date Recorded Sex Assigned at Female 08/29/2022 10:34 AM EDT Legal Sex Female 10:34 AM EDT Gender Identity Female 08/29/2022 10:34 AM EDT Sexual Orientation Straight 08/29/2022 10 :34 AM EDT Last Filed Vital Signs Vital Sign Reading Time Taken Comments Blood Pressure 123/69 10/24/2024 10:13 AM EST Pulse 71 10/24/2024 10:13 AM EST Temperature 35.6 ??C (96 ??F) 10/24/2024 10:13 AM EST Respiratory Rate 20 10/24/2024 10:13 AM EST Oxygen Saturation 100% 10/24/2024 10:13 AM EST Inhaled Oxygen Concentration - - Weight 92.1 kg (203 lb) 10/24/2024 10:13 AM EST Height 152.4 cm (5') 10/24/2024 10:13 AM EST Body Mass Index 39.65 10/24/2024 10:13 AM EST Plan of Treatment Health Maintenance Due Date Last Done Comments CT Colonography 1967 FIT DNA/Cologuard 1967 FIT 1967 FOBT 1967 HIV Screening 1967 Sigmoidoscopy 1967 Alcohol/Substance Use Screening 1979 Hepatitis C Screening 1985 DTaP/Tdap/Td Vaccines (1 - Tdap) 1986 Pap Smear 1988 Cervical Cancer Screening 1997 HPV/Cotest 1997 Depression Screening 03/28/2024 03/28/2023, 03/28/20 23 Zoster Vaccines (2 of 2) 10/31/2024 09/05/2024 SDOH Screening 02/15/2025 02/16/2024 Tobacco Screening 08/01/2025 08/01/2024 Mammogram 12/17/2025 12/17/2024, 11/30, 05/31/2022, Additional history exists Colonoscopy 10/27/2027 Colorectal Cancer Screening 10/27/2027 Lipid Panel 10/01/2029 10/01/2024, 06/30, 2023, Additional history exists RSV Patients and Patients Aged 60 years or older (1 - 1-dose 75+ series) 2042 COVID-19 Vaccine Discontinued 04/05/2021, 03/08/2021 Pneumococcal Vaccine: 50+ Years Completed 03/27/2024 Hepatitis B Vaccines Completed 08/01/2024, 03/27/20 24 Influenza Vaccine Completed 08/01/2024, , 08/02/2022, Additional history exists HIB Vaccines Aged Out No longer eligi ble based on patient's age to complete this topic HPV Vaccines Aged Out No longer eligi ble based on patient's age to complete this topic Hepatitis A Vaccines Aged Out No long er eligible based on patient's age to complete this topic IPV Vaccines Aged Out No longer eligi ble based on patient's age to complete this topic Meningococcal Vaccine Aged Out No dov serjio eligible based on patient's age to complete this topic RSV under 20 months Aged Out No longe r eligible based on patient's age to complete this topic Rotavirus Vaccines Aged Out No longer eligible based on patient's age to complete this topic Goals Goal Patient Goal Type Associated Problems Recent Progress Patient-Stated? Author Blood Pressure < 140/90 Blood Pressure 123/69( 024 10:13 AM EST) No Andrea Levin Procedures Procedure Name Priority Date/Time Associated Diagnosis Comments BI MAMMOGRAM SCREENING TOMOSYNTHESIS BILATERAL Routine 12/17/2024 3:20 PM EST LIPID PANEL WITH REFLEX TO DIRECT LDL Routine 10/01/2024 9:32 AM EST Pure hypercholesterolemia from Last 3 Months or Most Recently Relevant to Health Maintenance Results * BI Mammogram Screening Tomosynthesis Bilateral (12/17/2024 3:20 PM EST) Anatomical Region Laterality Modality Breast Bilateral Mammography 12/17/2024 3:20 PM EST Narrative 12/23/2024 4:05 PM EST ? [facility] ? [address] ?[place] [address] ? Mammography Report ? Signed ? Patient: Nereida Nair ?MR# ?? : [id number] ? : 1965 ?Acct:[id number] ? Age/Sex: 59 / F ?ADM Date: 12/17/24 ? Loc: HO.MAMMO ? Attending Dr: Vera Burger MD ? Ordering Physician: Vera Burger MD ?Results: 2Be ?? nign Findings ? Date of Service: 12/17/24 ?Follow Up: 1 Year From Orig ?? inal Mammogram ? Procedure(s): MM tomosynthesis screening BI ?? Accession Number(s): [id number] ? cc: Vera Burger MD ? EXAMINATION: ?? MM SCREENING DIGITAL BREAST TOMOSYNTHESIS, BILATERAL ? CLINICAL INFORMATION: ? Screening. Asymptomatic. ? COMPARISON: ?? Mammography: Comparison is made with available priors ? TECHNIQUE: ?? Digital breast mammography with tomosynthesis is performed in both the ?? craniocaudal and mediolateral oblique views along with computer-aided ?? detection (CAD). ? FINDINGS: ?? There are scattered areas of fibroglandular density (ACR BI-RADS breast ?? composition Category b). ?? Bilateral circumscribed oval masses which wax and wane consistent with ?? benign fibrocystic changes. ?? There are no significant masses, abnormal calcifications, or other ?? abnormalities. ? MM/MM tomosynthesis screening BI ?? IMPRESSION: ?? No mammographic evidence of malignancy. ? ASSESSMENT: ? BI-RADS BI-RADS 2 - Benign Findings ? RECOMMENDATION: ?? Routine annual mammography screening. ? 1 year F/U ? This examination should not preclude the clinical evaluation of a ?? suspicious palpable abnormality. ? This patient's information was entered into a reminder system with a ?? target due date for their next mammogram. ? Electronically signed by: ??Maria Luisa Salamanca DO ??12/23/2024 04:02 PM EST ? Dictated By: ?Maria Luisa Salamanca DO ? Signed By: ?<Electronically signed by Maria Luisa Salamanca, DO in OV> ? 12/23/24 1602 ? DD/ 1520 ? TD/TT: 12/17/24 1535 ? Procurement Professional: ? Procedure Note Rupaliwalter, Image - [facility] [address] [place] [address] Mammography Report Signed Patient: Nereida Nair# : [id number] : 1965Acct:[id number] Age/Sex: 59 / FADM Date: 12/17/24 Loc: HO.MAMMO Attending Dr: Vera Burger MD Ordering Physician: Vera Burgeresults: 2Be nign Findings Date of Service: 12/17/24Follow Up: 1 Year From Orig inal Mammogram Procedure(s): MM tomosynthesis screening BI Accession Number(s): [id number] cc: Vera Burger MD EXAMINATION: MM SCREENING DIGITAL BREAST TOMOSYNTHESIS, BILATERAL CLINICAL INFORMATION: Screening. Asymptomatic. COMPARISON: Mammography: Comparison is made with available priors TECHNIQUE: Digital breast mammography with tomosynthesis is performed in both the craniocaudal and mediolateral oblique views along with computer-aided detection (CAD). FINDINGS: There are scattered areas of fibroglandular density (ACR BI-RADS breast composition Category b). Bilateral circumscribed oval masses which wax and wane consistent with benign fibrocystic changes. There are no significant masses, abnormal calcifications, or other abnormalities. MM/MM tomosynthesis screening BI IMPRESSION: No mammographic evidence of malignancy. ASSESSMENT: BI-RADS BI-RADS 2 - Benign Findings RECOMMENDATION: Routine annual mammography screening. 1 year F/U This examination should not preclude the clinical evaluation of a suspicious palpable abnormality. This patient's information was entered into a reminder system with a target due date for their next mammogram. Electronically signed by: Maria Luisa Salamanca DO 12/23/2024 04:02 PM EST Dictated By: Maria Luisa Salamanca DO Signed By: <Electronically signed by Maria Luisa Salamanca DO in OV> 12/23/24 1602 DD/ 1520 TD/TT: 12/17/24 1535 Procurement Professional: Vera Burger MD IMG BI PROCEDURES Final Result * (ABNORMAL) Lipid Panel with Reflex to Direct LDL (10/01/2024 9:32 AM EST) Triglycerides 117 <150 mg/dL [facility] Comment:Desirable Triglyceri de: less than 150 mg/dLBorderline High Triglyceride 150-199 mg/dLHigh Triglyceride: 200-499 mg/dLVery High Triglyceride: greater than or equal to 5OO mg/dL Cholesterol 198 <200 mg/dL [facility] Comment:Desirable Cholestero l: less than 200 mg/dLBorderline High Cholesterol: 200-239 mg/dLHigh Cholesterol: greater than 239 mg/dL LDL Cholesterol Calculated 125(H) <100 mg/dL [facility] Comment:Desirable LDL: less than 100 mg/dLNear Optimal/Above Optimal LDL: 110- 129 mg/dLBorderline High LDL: 130-159 mg/dLHigh LDL: 160-189 mg/dLVery High LDL: greater than or equal to 190 mg/dL HDL Cholesterol 50 >40 mg/dL [facility] Comment:Desirable HDL: great er than 40 mg/dL Note: This HDL assay may give artificially low results in patients with liver disease. 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
--- OUTSIDE RECORDS SUMMARY | 2025-01-15 11:02 | XMS_ITS | Encounter Summary ---
Author Organization [employer] [facility] Address [address] [place] [address] 7t [place] [address] Care Team Providers Care Behaviour Support Teacher Name Role Phone Vera Freeman MD Primary Care Provider + Encounter Details Date Type Department Care Team (Late st Contact Info) Description 11/10/2022 Orders Only [facility] MEDICINE [address] [place] [address] Blanca Mccrary LPN Social History Tobacco Use Types Packs/Day Years Used Date Smoking Tobacco: Never Assessed Comments Unknown Sex and Gender Information Value Date Recorded Sex Assigned at Female 08/29/2022 10:34 AM EDT Legal Sex Female 10:34 AM EDT Gender Identity Female 08/29/2022 10:34 AM EDT Sexual Orientation Straight 08/29/2022 10 :34 AM EDT documented as of this encounter Plan of Treatment Not on file documented as of this encounter Visit Diagnoses Not on filedocumented in this encounter Care Teams Behaviour Support Teacher Relationship Specialty Start Date End Date Vera Freeman MD [address] [place] [address] PCP - General Family Medicine 11/13/20 documented as of this encounter
--- OUTSIDE RECORDS SUMMARY | 2025-01-15 11:02 | XMS_ITS | Encounter Summary ---
Author Organization [employer] Address [address] [facility] 7t [place] [address] Care Team Providers Care Webfocus Developer Name Role Phone Vera Freeman MD Primary Care Provider + Reason for Visit * Reason Comments Med Refill Encounter Details Date Type Department Care Team ([facility] st Contact Info) Description 01/15/2025 Refill [facility] MEDICINE [address] [place], [place] [phone] Vera Freeman MD [address] [place], [place] [phone] Acute rhinitis Social History Tobacco Use Types Packs/Day Years Used Date Smoking Tobacco: Never Smokeless Tobacco: Never Alcohol Use Standard Drinks/Week Comments Never 0 (1 standard drink = 0.6 oz pur e alcohol) PHQ-2 Answer Date Recorded Patient Health Questionnaire-2 Score 0 03/28/2023 Housing Stability Answer Date Recorded What is your housing situation today? I have kaitlynnruth casas 02/16/[address] you [...] on file documented as of this encounter Goals Goal Patient Goal Type Associated Problems Recent Progress Patient-Stated? Author Blood Pressure < 140/90 Blood Pressure 123/69( 024 10:13 AM EST) No Andrea Levin documented as of this encounter Visit Diagnoses Diagnosis Acute rhinitis Acute nasopharyngitis (common cold) documented in this encounter Care Teams Webfocus Developer Relationship Specialty Start Date End Date Vera Freeman MD [address] [place] [id number] PCP - General Family Medicine 11/13/20 documented as of this encounter
--- OUTSIDE RECORDS SUMMARY | 2025-01-15 11:02 | XMS_ITS | Encounter Summary ---
Author Organization [employer] Address [address] [facility] 7t [place] [address] Care Team Providers Care Glass Bulb Silverer Name Role Phone Vera Freeman MD Primary Care Provider + Encounter Details Date Type Department Care Team (Late st Contact Info) Description 12/17/2024 Orders Only [facility] MEDICINE [address] [place], [place] [phone] Vera Freeman MD [address] [place] [address] Social History Tobacco Use Types Packs/Day Years Used Date Smoking Tobacco: Never Smokeless Tobacco: Never Alcohol Use Standard Drinks/Week Comments Never 0 (1 standard drink = 0.6 oz pur e alcohol) PHQ-2 Answer Date Recorded Patient Health Questionnaire-2 Score 0 03/28/2023 Housing Stability Answer Date Recorded What is your housing situation today? I have kaitlynn augusto 02/16/[address] you li [...] Andrea Levin documented as of this encounter Procedures Procedure Name Priority Date/Time Associated Diagnosis Comments BI MAMMOGRAM SCREENING TOMOSYNTHESIS BILATERAL Routine 12/17/2024 3:20 PM EST documented in this encounter Results * BI Mammogram Screening Tomosynthesis Bilateral (12/17/2024 3:20 PM EST) Anatomical Region Laterality Modality Breast Bilateral Mammography 12/17/2024 3:20 PM EST Narrative 12/23/2024 4:05 PM EST ? [facility] ? [address] ?[place] [address] ? Mammography Report ? Signed ? Patient: Nereida Nair ?MR# ?? : [id number] ? : 1965 ?Acct:[id number] ? Age/Sex: 59 / F ?ADM Date: 02/18/25 ? Loc: HO.MAMMO ? Attending Dr: Vera Freeman MD ? Ordering Physician: Vera Freeman MD ?Results: 2Be ?? nign Findings ? Date of Service: 12/17/24 ?Follow Up: 1 Year From Orig ?? inal Mammogram ? Procedure(s): MM tomosynthesis screening BI ?? Accession Number(s): [id number] ? cc: Vera Freeman MD ? EXAMINATION: ?? MM SCREENING DIGITAL [...] Luisa Salamanca DO ??12/23/2024 04:02 PM EST ?? RP ? Dictated By: ?Maria Luisa Salamanca DO ? Signed By: ?<Electronically signed by Maria Luisa Salamanca, DO in OV> ? 12/23/24 1602 ? DD/ 1520 ? TD/TT: 12/17/24 1535 ? Gravel Hauler: ? Procedure Note Donotuseinterpreter, Image - 12/23/2024 [facility] [address] [place] [address] Mammography Report Signed Patient: Nereida Nair# : [id number] : 1965Acct:[id number] Age/Sex: 59 / FADM Date: 12/17/24 Loc: HO.MAMMO Attending Dr: Vera Freeman MD Ordering Physician: Vera Freeman MDResults: 2Be nign Findings Date of Service: 12/17/24Follow Up: 1 Year From Orig inal Mammogram Procedure(s): MM tomosynthesis screening BI Accession Number(s): [id number] cc: Vera Freeman MD EXAMINATION: MM SCREENING DIGITAL BREAST TOMOSYNTHESIS, [...] 12/23/24 1602 DD/ 1520 TD/TT: 12/17/24 1535 Gravel Hauler: us Vera Freeman MD IMG BI PROCEDURES Final Result documented in this encounter Visit Diagnoses Not on filedocumented in this encounter Care Teams Glass Bulb Silverer Relationship Specialty Start Date End Date Vera Freeman MD [address] [place] [id number] PCP - General Family Medicine 11/13/20 documented as of this encounter
--- OUTSIDE RECORDS SUMMARY | 2025-01-15 11:02 | XMS_ITS | Encounter Summary ---
Author Organization [facility] Address [address] [place] [address] 7t [place] [address] Care Team Providers Care Skin Toggler Name Role Phone Vera Freeman MD Primary Care Provider + Encounter Details Date Type Department Care Team (Latest Contact Info) Description 11/20/2019 Abstract [facility] CONVERSIONS Dental, Provider, DDS Social History Tobacco Use Types Packs/Day Years [...] on filedocumented in this encounter Care Teams Skin Toggler Relationship Specialty Start Date End Date Vera Freeman MD [address] [place] [id number] PCP - General Family Medicine 11/13/20 documented as of this encounter
--- OUTSIDE RECORDS SUMMARY | 2025-01-15 11:02 | XMS_ITS | Encounter Summary ---
Author Organization [employer] Address [address] [facility] 7t [place] [address] Care Team Providers Care Blender Laborer Name Role Phone Vera Freeman MD Primary Care Provider + Reason for Visit * Reason Comments Med Refill Encounter Details Date Type Department Care Team ([facility] st Contact Info) Description 09/10/2023 Refill [facility] MEDICINE [address] [place], [place] [phone] Vera Freeman MD 230 [place] [address] Acute exacerbation of chronic low back pain Social History Tobacco Use Types Packs/Day Years Used Date Smoking Tobacco: Never Smokeless Tobacco: Never Alcohol Use Standard Drinks/Week Comments Never 0 (1 standard drink = 0.6 oz pur e alcohol) PHQ-2 Answer Date Recorded Patient Health Questionnaire-2 Score 0 03/28/2023 Housing Stability Answer Date Recorded What is your housing situation today? I have kaitlynn casas 08/08/[address] you li ve. Do you have problems with any of the following? Pests such as bugs, ants, or mice 08/08/2023 Food Insecurity Answer Date Recorded Within the past 12 months, y ou worried that your food would run out before you got money to buy more: Often true 08/22/2023 Within the past 12 months,th e food you bought just didn't last and you didn't have enough money to get more: Often true Transportation Answer Date Recorded In the past [...] of this encounter Visit Diagnoses Diagnosis Acute exacerbation of chronic low back pain documented in this encounter Care Teams Blender Laborer Relationship Specialty Start Date End Date Vera Freeman MD [address] [place] [id number] PCP - General Family Medicine 11/13/20 documented as of this encounter
--- OUTSIDE RECORDS SUMMARY | 2025-01-15 11:02 | XMS_ITS | Encounter Summary ---
Author Organization [employer] Address [address] [facility] 7t [place] [address] Care Team Providers Care Charging Crane Operator Name Role Phone Vera Freeman MD Primary Care Provider + Encounter Details Date Type Department Care Team ([facility] st Contact Info) Description 01/10/2025 Population Health Risk Score [facility] ([facility]) Department [address] [phone] Provider, Population Health Generic Social History Tobacco Use Types Packs/Day Years [...] on filedocumented in this encounter Care Teams Charging Crane Operator Relationship Specialty Start Date End Date Vera Freeman MD [address] [place] [address] PCP - General Family Medicine 11/13/20 documented as of this encounter
--- OUTSIDE RECORDS SUMMARY | 2025-01-15 11:02 | XMS_ITS | Encounter Summary ---
Author Organization [facility] Address [address] [place] [address] 7t [place] [address] Care Team Providers Care Doctor Of Nurse Anesthesia Name Role Phone Vera Freeman MD Primary Care Provider + Encounter Details Date Type Department Care Team ([facility] st Contact Info) Description 06/10/[address] [facility] [employer] Management [address] [place] [address] Vera Freeman MD [address] [place], [place] [phone] Social History Tobacco Use Types Packs/Day Years Used Date Smoking Tobacco: Never Smokeless Tobacco: Never Alcohol Use Standard Drinks/Week Comments Never 0 (1 standard drink = 0.6 oz pur e alcohol) PHQ-2 Answer Date Recorded Patient Health Questionnaire-2 Score 0 03/28/2023 Depression Answer Date Recorded Patient Health Questionnaire-2 [...] on filedocumented in this encounter Care Teams Doctor Of Nurse Anesthesia Relationship Specialty Start Date End Date Vera Freeman MD [address] [place], [place] [phone] PCP - General Family Medicine 11/13/20 documented as of this encounter
== END 2025-01-15 09:54 | disposition home or self-care (01) ==
LOC: HO.HBS 09:47
PROVIDERS: PCP Internal Medicine; Visit Provider Physician Assistant Surgical
DX: E66.812 Obesity, class 2 (principal); Z68.39 Body mass index [BMI] 39.0-39.9, adult; Z90.3 Acquired absence of stomach [part of]; Z98.84 Bariatric surgery status
CPT/HCPCS: 99214

== ENCOUNTER → 2025-01-15 09:47 | Outpatient (BNVA) | payer MEDICAID, SELFPAY | PROVIDERS: PCP Internal Medicine; Visit Provider Physician Assistant Surgical ==

== ENCOUNTER 2025-02-17 07:43 | Outpatient (REF) | payer MEDICAID, SELFPAY ==
[2025-02-17 08:00] LABS: MANUAL DIFF FLAG NO
[2025-02-17 08:24] LABS: Basophils Percent Auto 0.5 % (0-2); Eosinophils Absolute Auto 0.3 X10*3/uL (0.0-0.4); Eosinophils Percent Auto 4.1 % (0-4); Hematocrit 40.2 % (37.0-47.0); Hemoglobin 13.2 g/dl (12.0-16.0); Imm Gran Abs Auto 0.02 X10*3/uL (0.00-0.03); Imm Gran Pct Auto 0.3 % (0.0-0.4); Lymphocytes Absolute Auto 2.4 X10*3/uL (1.2-4.9); Lymphocytes Percent Auto 37.9 % (20-40); Mean Corpuscular HGB Conc 32.8 g/dl (31.0-35.0); Mean Corpuscular Hemoglobin 28.6 pg (27.0-33.0); Mean Platelet Volume 10.7 fL (9.4-12.3); Monocytes Absolute Auto 0.4 X10*3/uL (0.1-1.2); Neutrophils Absolute Auto 3.2 x10*3/uL (2.0-8.3); Neutrophils Percent Auto 50.2 % (45-73); Platelet Count 237 X10*3/uL (160-400); Red Blood Count 4.62 X10*6/uL (4.20-5.50); Red Cell Distribution Width 13.9 % (11.0-16.0); White Blood Count 6.3 X10*3/uL (4.8-10.8)
[2025-02-17 08:44] LABS: Estimated Average Glucose 105 mg/dL; Hemoglobin A1C 121.5577 umol/L; Hemoglobin A1c % 5.3 % (<6.0); Total Hemoglobin (HGBA1C) 3480.8861 umol/L
[2025-02-17 09:19] LABS: Alanine Aminotransferase 12 U/L (0-31); Alkaline Phosphatase 54 U/L (39-117); Anion Gap 12 (12-20); Aspartate Amino Transferase 15 U/L (5-31); Bilirubin Total 0.6 mg/dL (0.0-1.0); Blood Urea Nitrogen 10 mg/dL (9-16); C Reactive Protein 0.16 mg/dL (< or = 0.50); Calcium 9.6 mg/dL (8.4-10.2); Carbon Dioxide 25 mmol/L (22-29); Chloride 110 mmol/L (96-108); Cholesterol 238 mg/dL (<200); Estimated Glomerular Filt Rate > 60; Glucose Random 92 mg/dL (60-115); HDL Cholesterol 56 mg/dL (>40); Iron 119 mcg/dL (30-160); LDL Cholesterol Calculated 155 mg/dL (<100); Percent Iron Saturation 34 % (15-50); Potassium 4.2 mmol/L (3.3-5.1); Sodium 143 mmol/L (135-145); Total Iron Binding Capacity 349 mcg/dL (228-428); Total Protein 6.9 g/dL (6.5-8.0); Triglycerides 138 mg/dL (<150); Unsaturated Iron Binding 230 ug/dL
[2025-02-17 09:22] LABS: Ferritin 77 ng/mL (10-250); TSH reflex Free T4 1.77 uIU/mL (0.32-4.0)
[2025-02-17 09:32] LABS: Folate 12.6 ng/mL (> or = 4.0); Vitamin B12 447 pg/mL (200-900)
[2025-02-17 09:34] LABS: Insulin 13 uU/mL (2-29)
[2025-02-19 16:19] LABS: Zinc 72 mcg/dL (60-130)
[2025-02-21 00:14] LABS: Vitamin A 58 mcg/dL (38-98)
[2025-02-26 17:38] LABS: Vitamin B1 9 nmol/L (8-30)
== END 2025-02-17 07:44 | disposition home or self-care (01) ==
LOC: HO.LAB 07:43
PROVIDERS: PCP Internal Medicine; Visit Provider Physician Assistant Surgical
DX: Z98.84 Bariatric surgery status (principal)
CPT/HCPCS: 36415; 80053; 80061; 82306; 82607; 82728; 82746; 83036; 83525; 83540; 84425; 84443; 84590; 84630; 85025; 86140

== ENCOUNTER 2025-08-18 14:59 | Outpatient (AMB) | payer MEDICARE, MEDICAID, SELFPAY ==
--- NOTE | 2025-08-18 15:05 | MHC.OFFVIS ---
Vital Signs 08/18/25 15:10 08/18/25 15:11 Height 5 ft Weight 220 lb 8 oz BMI 43.1 BP 219/98 H 157/66 H Blood Pressure Location Rt brachial Lt radial Position Sitting Sitting Pulse 72 Pulse Source Pulse Oximeter Pulse Oximetry (%) 100 Oxygen Delivery Method Room Air Comment bp recheck Intake Visit Reasons: Low Back Pain AUSTEN: 09/05/23 Intake Note: Pain today 06/08 Demo Event Specialist Required: Yes Demo Event Specialist Language: Welt Rougher Services: Demo Event Specialist Offered & Declined Demo Event Specialist Name: DaughterElaine Song Information Interpreted: non-clinical & clinical Accompanied by: Daughter Allergies No Known Allergies (No Known Allergies*) Allergy (Verified 08/18/25 15:06) HPI Comments Details: The patient is a 59-year-old female presenting with chronic back pain and sacroiliac joint pain. She has a history of chronic back pain and sacroiliac joint pain, which was previously managed with an L4-L5 epidural steroid injection in 2022 and diagnostic bilateral sacroiliac joint injections in July 2023 with good results. She reports persistent right buttock pain extending from her back and into her right lateral hip and thigh ending at the knee level. The patient reports that the pain is primarily experienced at night when turning in bed, prolonged sitting or driving and upon waking in the morning. She also experiences pain when changing positions, such as sitting to standing, and while sitting for extended periods, such as watching TV or sitting in the bathtub. Walking provides some relief from the pain. The patient has a history of prediabetes, with an A1c of 5.3 as of January, indicating good control. She follows a weight management plan and has underwent bariatric surgery in 2023 and continues dietary modifications. The patient reports bilateral foot and heel pain, which is suspected to be plantar fasciitis and arthritis. She has not had foot x-rays previously, and an x-ray was recommended to rule out degenerative changes or bone spurs. Denies any recent cough, cold, infection, fever or any significant changes in medical history since last office visit. PRIOR 09/05/2023: Patient present today to assess response to Diagnostic Bilateral Sacroiliac Joint Injections on 08/29/[address] Yuan. Patient reports 80% pain relief for first 24 hours with residual pressure in her buttocks and lateral hips. She reports no pain today and is content with pain improvement and improvement in her functinonig, mobility and sleep. Patient will monitor her symptoms and would like to proceed with therapeutic bilateral SIJ injections when pain returns to baseline. Denies any abdominal or groin pain, bladder or bowel dysfunction or saddle anesthesia. Past Procedures: 08/29/23: Bilateral Diagnostic Sacroiliac Joint Injections-80% pain relief for 24 hours, 1 week out-no pain still 07/25/23: Right L4-L5 Interlaminar SIVAKUMAR-70% ongoing pain relief PRIOR: Patient is a pleasant 57 years old Urdu speaking, morbidly obese female with presents today with worsening chronic lower back pain over the past year. Denies any recent trauma, injury or falls but reports a shelf from her drawer fell on her head and neck about 10 years ago. She also states pain increased over the past year as she started walking more while grieving when her mom . Her back pain has been gradually getting worse that she went to ER last month for evaluation and reports minimal improvement with Tramadol, NSAIDs, lidocaine patches and dexamethasone. Patient reports her back pain is axial with significnat radicular anterior right leg pain with numbness and tingling, paresthesias in her anterior thigh and trammell. Patient uses cane due to back pain and intermittent weakness in her right lower extremity. Reports occasional incontinent urine episodes with severe back pain. Patient also reports neck pain radiating to her left shoulder and periscapular region. Today we focused on her back as this has been progressively worsening and negatively affecting her mobility, ADLs, sleep, mood and quality of life. She is currently not working and has been on permanent disability. Patient denies previous spine surgery but notes she underwent nerve blocks in the past that provided her 3 years of pain relief. Most recent lumbar spine MRI and hip xray is noted below. Denies any fever, weight loss, abdominal or groin pain, bladder or bowel dysfunction or saddle anesthesia. Location Lower back pain with radiation to RLE in L4-L5 distribution Duration Over one 1 year after started walking for daily physical activity Characteristics of symptom or complaint Aching, tight, burning, numbness, throbbing, shooting, heavy Aggravating or associated factors Walking, prolonged standing, bending, lifting, twitsting, changing position Relieving factors Resting supine, Tramadol, Ibuprofen, lidocaine patches, dexamethasone Treatment PT- currently in, temporary relief while doing PT/HEP, uses cane PFSH Medical History Vitamin D deficiency Vitamin B12 deficiency Morbid obesity with BMI of 50.0-59.9, adult Diabetes Sleep apnea Gastroesophageal reflux disease Prediabetes DJD (degenerative joint disease) Insomnia Morbid obesity Tubular adenoma Chronic TMJ pain Hypercholesterolemia Snoring Chest pain Hypertension Migraines Asthma Surgical History S/P laparoscopic sleeve gastrectomy (~03/2024) History of esophagogastroduodenoscopy (EGD) Hx of colonoscopy Hx of cholecystectomy Hx of hysterectomy, total Hx of section History of carpal tunnel release (~12/03/20) Family History Mother Diabetes Heart attack Ulcer of stomach due to bacteria Father Heart attack HTN (hypertension) Paternal Uncle Colon cancer Sister Lupus Social History Household Members: Spouse Housing: Apartment Are you a primary patient care secretary to a significant other at home: No Do you presently have visiting nurse or other home services: No Alcohol intake: never Patient Tobacco Use Status: Never used Tobacco Second Hand Smoke Exposure: No Current occupational status: retired Current occupation: right and left handed Review of Systems Const All systems reviewed & are unremarkable except as noted in HPI and below Physical Exam Vital Signs: Last Vital Signs Pulse 72 08/18/25 15:10 BP 157/66 H 08/18/25 15:11 Pulse Ox 100 08/18/25 15:10 Oxygen Delivery Method Room Air 08/18/25 15:10 BMI result Body Mass Index 43.1 General: Appears afebrile. Alert and oriented. Mood and affect appropriate. Follows and participates in conversation appropriately. Respiratory effort is unlabored. No cough. Able to transition from sit to stand unassisted. Back/Spine/Pelvis Other: Limited lumbar ROM, mild pain with flexion or extension. Nj sign + bilaterally, Irvin?s, Gaenslen, Stinchfield, Pelvic compression tests are positive bilaterally, right>left. No groin pain with I/E hip rotations. Valsalva maneuver negative. Cervical Spine: cervical ROM normal, cervical muscular tenderness and No Cervical spine tenderness Thoracic/Lumbar Spine: thoracic and lumbar spine normal to inspection, No Thoracic/lumbar spine scar(s), Lasegue's sign negative, straight leg raise negative bilaterally, pain with thoraco-lumbar ROM, paraspinal muscle tenderness on the right greater than left, thoraco-lumbar ROM limited, No thoracic spinal tenderness and lumbar spinal tenderness Pelvis: buttock tenderness on the right Sacroiliac joints: bilaterally tender to palpation Results Reviewed Results Reviewed: XR LUMBOSACRAL SPINE 06/05/23 CLINICAL INFORMATION: Low back pain. COMPARISON: Lumbar spine radiographs dated 02/16/2023. CT scan of the lumbar spine dated 05/25/2023. FINDINGS: There is normal lumbar lordosis. Minimal anterolisthesis is seen at L4-L5 with mild bilateral neural foraminal narrowing. The vertebral bodies are intact. The soft tissues are unremarkable. IMPRESSION: L4-L5 minimal grade 1 anterolisthesis and bilateral facet arthropathy without acute abnormality. MR LUMBAR SPINE WITHOUT CONTRAST 06/10/23 CLINICAL INFORMATION: Right sciatica and leg weakness. Assess for cauda equina. 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 Plain films of the lumbar spine agency 06/05/2023. FINDINGS: VERTEBRAL BODIES AND PARASPINAL STRUCTURES: The study redemonstrates a mild grade 1 anterolisthesis of L4 on L5. There is slight loss of intervertebral disc signal from the levels of L4-L5 and L5-S1. Vertebral body heights are maintained, and no fractures are demonstrated. Overall, marrow signal is slightly heterogenous. The visualized retroperitoneal and pelvic structures are unremarkable. CONUS MEDULLARIS AND CAUDA EQUINA: Normal, terminating at the level of L1. There appears to be ligamenta flava hypertrophy dorsally within the spinal canal at the level of T10-T11, incompletely visualized on these images. There is no definite spinal cord compression or central stenosis, and the neural foramina are patent bilaterally. The lower thoracic spinal cord has normal signal. The cauda equina nerve roots and filum terminale appear normal. SPINAL LEVELS: L1-L2: The facet joints appear normal bilaterally. Disc contour is normal. There is no central stenosis or foraminal narrowing. L2-L3: The facet joints appear normal bilaterally. Disc contour is normal. There is no central stenosis or foraminal narrowing. L3-L4: The facet joints appear normal. There is a left-sided disc protrusion which mildly narrows the left subarticular recess and extends into the left neural foramen, but there is no exiting nerve root impingement. There is no central stenosis. L4-L5: There is markedly severe right and severe left facet arthropathy with a prominent right-sided facet joint effusion. There is unroofing of the disc as a result of anterolisthesis, and there is flattening the ventral thecal sac with narrowing of the bilateral subarticular recesses. There is mild central stenosis. There is no foraminal nerve root impingement. L5-S1: There is mild bilateral facet arthropathy. There is a shallow posterior disc protrusion without mass effect on the thecal sac and there is no central stenosis. The neural foramina are patent bilaterally. IMPRESSION: 1. There is a grade 1 anterolisthesis of L4 on L5 secondary to severe facet arthropathy. There is narrowing of the bilateral subarticular recesses and there is mild central stenosis. There is no foraminal nerve root impingement. 2. At L3-L4 there is a left-sided disc protrusion with narrowing of the left subarticular recess. There is no exiting nerve root impingement and there is no central stenosis. 3. There appears to be ligamenta flava hypertrophy dorsally within the spinal canal at the level of T10-T11, incompletely visualized. There is no definite spinal cord compression or central stenosis, and the neural foramina are patent bilaterally. This could be further evaluated with MRI scan of the thoracic spine. XR HIP, RIGHT 05/25/23 CLINICAL INFORMATION: Right hip pain. FINDINGS: No fracture. Alignment is anatomic. Hip joint space is maintained. Soft tissues are unremarkable. IMPRESSION: Unremarkable right hip. NE electromyogram (EMG); NE nerve conduction velocity 08/12/2020 HISTORY OF PRESENT ILLNESS: This is a 54-year-old woman with a 2-year history of bilateral upper extremity pain, numbness, and tingling. Both sides affected equally. She has a history of diabetes for more than 5 years. Complete list of medications not available. PHYSICAL EXAMINATION: On examination, she is alert and oriented with normal intellectual functions. Cranial nerves II through XII are normal. Muscle tone and strength are normal in all 4 extremities. There is mild flattening of the thenar eminences on both sides with weakness of abductor pollicis brevis muscle particularly on the right. No sensory deficits. IMPRESSION: Carpal tunnel syndrome. NERVE CONDUCTION EMG STUDY: Moderately severe carpal tunnel syndrome bilaterally, worse on the left. Normal EMG of the left C5 through T1 innervated muscles. Assessment & Plan Assessment & Plan (1) Bilateral foot pain: Code(s): M79.671 - Pain in right foot; M79.672 - Pain in left foot Category: Medical (2) Lumbar spondylosis: Code(s): M47.816 - Spondylosis without myelopathy or radiculopathy, lumbar region Category: Medical (3) Sacroiliac joint pain: Code(s): M53.3 - Sacrococcygeal disorders, not elsewhere classified Category: Medical (4) Morbid obesity: Code(s): E66.01 - Morbid (severe) obesity due to excess calories Category: Medical Plan The plan includes scheduling a right therapeutic sacroiliac joint injection with a steroid with local and fluoroscopy for a longer term pain management. Expectations, risks and benefits were reviewed. Patient is aware she will be contacted to schedule this procedure. The patient will continue with weight management strategies and follow up after the injection to assess its effectiveness. An x-ray of the feet is recommended to evaluate for degenerative changes or bone spurs, given the recent onset of heel pain. All questions and concerns have been answered and patient agreed with the treatment plan. Follow up a and sooner as needed. Patient was informed and verbally consented to the use of an ambient scribe for clinic note documentation during this visit. Coding Level of Care Code Est Pt Level 4 (08851) Complex EM visit Add On G2211 Diagnoses Bilateral foot pain M79.671; M79.672 Lumbar spondylosis M47.816 Sacroiliac joint pain M53.3 Morbid obesity E66.01
[2025-08-18 15:10] VITALS: BP 219/98; PULSE 72; O2SAT 100; BMI 43.1
[2025-08-18 15:11] VITALS: BP 157/66
--- OUTSIDE RECORDS SUMMARY | 2025-08-18 19:13 | XMS_ITS | Encounter Summary ---
Author Organization [employer] Address [address] [place] [address] 7 [place] [address] Care Team Providers Care Long Chain Beamer Name Role Phone Vera Freeman MD Primary Care Provider + Encounter Details Date Type Department Care Team (Latest Contact Info) Description 11/20/2019 Abstract [facility] CONVERSIONS Dental, Provider, DDS Social History [...] as of this encounter Plan of Treatment Upcoming Encounters Date Type Department Care Team (Late st Contact Info) Description 10/10/2025 11:30 AM EST Office Visit [facility] MEDICINE [address] [place] [address] Vera Freeman MD [address] [place] [address] documented as of this encounter Visit Diagnoses Not on filedocumented in this encounter Care Teams Long Chain Beamer Relationship Specialty Start Date End Date Vera Freeman MD [address] [place] [address] PCP - General Family Medicine 11/13/20 documented as of this encounter
--- OUTSIDE RECORDS SUMMARY | 2025-08-18 19:13 | XMS_ITS | Encounter Summary ---
Author Organization [employer] Address [address] [facility] 7t [place] [address] Care Team Providers Care Freezing Machine Operator Name Role Phone Vera Freeman MD Primary Care Provider + Reason for Visit * Reason Comments Med Refill Encounter Details Date Type Department Care Team ([facility] st Contact Info) Description 09/10/2023 Refill [facility] MEDICINE [address] [place], [place] [phone] Vera Freeman MD [address] [place], [place] [phone] Acute exacerbation of chronic low back pain [...] Description 10/10/2025 11:30 AM EST Office Visit [facility] MEDICINE [address] [place] [address] Vera Freeman MD [address] [place] [address] documented as of this encounter Visit Diagnoses Diagnosis Acute exacerbation of chronic low back pain documented in this encounter Care Teams Freezing Machine Operator Relationship Specialty Start Date End Date Vera Freeman MD [address] [place] [address] PCP - General Family Medicine 11/13/20 documented as of this encounter
--- OUTSIDE RECORDS SUMMARY | 2025-08-18 19:13 | XMS_ITS | Encounter Summary ---
Author Organization [employer] Address [address] [place] [address] Care Team Providers Care Technical Administrative Assistant Name Role Phone Vera Freeman MD Primary Care Provider + Encounter Details Date Type Department Care Team (Late Contact Info) Description 06/10/2023 [facility] Individual Digital Information Management [address] [place] [address] Vera Freeman MD [address] [place], [place] [phone] Social History Tobacco Use Types Packs/Day Years [...] Description 10/10/2025 11:30 AM EST Office Visit [facility] MEDICINE [address] [place], [place] [phone] Vera Freeman MD [address] [place], [place] [phone] documented as of this encounter Visit Diagnoses Not on filedocumented in this encounter Care Teams Technical Administrative Assistant Relationship Specialty Start Date End Date Vera Freeman MD [address] [place] [phone] PCP - General Family Medicine 11/13/20 documented as of this encounter
--- OUTSIDE RECORDS SUMMARY | 2025-08-18 19:13 | XMS_ITS | Encounter Summary ---
Author Organization [employer] Address [address] [facility] 7t [place] [address] Care Team Providers Care Inspector Subassembly Name Role Phone Vera Freeman MD Primary Care Provider + Encounter Details Date Type Department Care Team ([facility] st Contact Info) Description 08/18/2025 Orders Only [facility] External Provider, [facility] Social History Tobacco Use Types Packs/Day Years [...] Description 10/10/2025 11:30 AM EST Office Visit [facility] MEDICINE [address] [place] [address] Vera Freeman MD [address] [place] [address] documented as of this encounter Goals Goal Patient Goal Type Associated Problems Recent Progress Patient-Stated? Author Blood Pressure < 140/90 Blood Pressure 123/69( 024 10:13 AM EST) No Andrea Levin documented as of this encounter Procedures Procedure Name Priority Date/Time Associated Diagnosis Comments XR FOOT 3+ VIEWS BILATERAL Routine 08/18/2025 3:45 PM EDT documented in this encounter Results * XR Foot 3+ Views Bilateral (08/18/2025 3:45 PM EDT) Anatomical Region Laterality Modality Lower Extremities, Foot Bilateral Radiogra phic Imaging 08/18/2025 3:45 PM EDT Narrative 08/18/2025 4:18 PM EDT [address] [address] XRay Report Signed Patient: Nereida Nair MR# : [id number] : 1965 Acct:[id number] Age/Sex: 59 / F ADM Date: 08/18/25 Loc: [facility] Attending Dr: Blanca DILLARD Ordering Physician: Blanca Diamond Date of Service: 08/18/25 Procedure(s): XR Foot Bnetley 3V Accession Number(s): [id number] cc: Blanca Diamond; Vera Freeman MD Reason for Exam: M79.671 - Pain in right foot EXAMINATION: X-ray bilateral feet CLINICAL INFORMATION: Pain COMPARISON: None TECHNIQUE: Left foot 3 views. Right foot 3 views. FINDINGS: Left foot: No fracture, dislocation or suspicious osseous lesion. No significant joint space narrowing or marginal osteophytes. No osseous erosion. Posterior calcaneus enthesopathy. Chronic appearing ossification in the distal Achilles tendon. No abnormal soft tissue calcification. Right foot: No acute fracture, dislocation is suspicious osseous lesion. No fracture or dislocation. No significant joint space narrowing or marginal osteophytes. No osseous erosion. Posterior calcaneal spurring. No abnormal soft tissue calcification. XR/XR Foot Bentley 3V IMPRESSION: Posterior calcaneal spurring in bilateral feet. Electronically signed by: Flip Quick MD 08/18/2025 04:15 PM EDT RP Dictated By: Flip Quick MD Signed By: <Electronically signed by Flip Quick MD in OV> 08/18/25 1615 DD/ 1545 TD/TT: 08/18/25 1548 Wheel Press Clerk: SMITHA Procedure Note Donotuseinterpreter, Image - 08/18/2025 [place] [address] XRay Report Signed Patient: Kun Nair# : [id number] : 1965Acct:[id number] Age/Sex: 59 / FADM Date: 08/18/25 Loc: [facility] Attending Dr: Blanca DILLARD Ordering Physician: Blanca Diamond Date of Service: 08/18/25 Procedure(s): XR Foot Bentley 3V Accession Number(s): [id number] cc: Blanca Diamond; Vera Freeman MD Reason for Exam: M79.671 - Pain in right foot EXAMINATION: X-ray bilateral feet CLINICAL INFORMATION: Pain COMPARISON: None TECHNIQUE: Left foot 3 views. Right foot 3 views. FINDINGS: Left foot: No fracture, dislocation or suspicious osseous lesion. No significant joint space narrowing or marginal osteophytes. No osseous erosion. Posterior calcaneus enthesopathy. Chronic appearing ossification in the distal Achilles tendon. No abnormal soft tissue calcification. Right foot: No acute fracture, dislocation is suspicious osseous lesion. No fracture or dislocation. No significant joint space narrowing or marginal osteophytes. No osseous erosion. Posterior calcaneal spurring. No abnormal soft tissue calcification. XR/XR Foot Bentley 3V IMPRESSION: Posterior calcaneal spurring in bilateral feet. Electronically signed by: Flip Quick MD 08/18/2025 04:15 PM EDT RP Dictated By: Flip Quick MD Signed By: <Electronically signed by Flip Quick MD in OV> 08/18/25 1615 DD/ 1545 TD/TT: 08/18/25 1548 Wheel Press Clerk: SMITHA [facility] External Provider IMG XR PROCEDURES Edited Result - Final documented in this encounter Visit Diagnoses Not on filedocumented in this encounter Care Teams Inspector Subassembly Relationship Specialty Start Date End Date Vera Freeman MD [address] [place] [address] PCP - General Family Medicine 11/13/20 documented as of this encounter
--- OUTSIDE RECORDS SUMMARY | 2025-08-18 19:13 | XMS_ITS | Clinical Summary ---
Author Organization [employer] Address [address] [place] [address] 7t [place] [address] Care Team Providers Care Surety Bond Agent Name Role Phone Jacqueline Burger MD Primary Care Provider + Allergies [...] OFF FOR 12 HOURS DIRECTED 023 Active traMADol (Ultram) 50 MG tablet TAKE 1 TABLET BY MOUTH THREE TIMES DAILY IN THE MORNING, AT NOON, AND AT BEDTIME NEEDED FOR SEVERE PAIN FOR UP TO 20 DAYS 023 Active atorvastatin (Lipitor) 80 MG tabletIndications:Pure hypercholesterolemia Take 1 tablet (80 mg) by mouth at bedtime. 90 tablet 3 024 Active Multiple Vitamins-Minerals (CELEBRATE MULTI-COMPLETE 18 PO) Take 1 tablet by mouth Once per day. OTC (per bariatric surgery) Active ProAir HFA 108 (90 Base) MCG/ACT inhaler Inhale 2 puffs every 4 (four) hours if needed for shortness of breath or wheezing. 18 g 024 Active acetaminophen (Tylenol) 500 MG tablet Take 1 tablet (500 mg) by mouth every 6 (six) hours if needed for mild pain, moderate pain, headaches or fever. 120 tablet 024 Active fluticasone (Flonase) 50 MCG/ACT nasal sprayIndications:Acute rhinitis USE 1 SPRAY IN EACH NOSTRIL ONCE DAILY 48 g Active traZODone (Desyrel) 50 MG tablet TAKE 1 TABLET BY MOUTH EVERY DAY AT BEDTIME 90 tablet 1 Active albuterol (Ventolin HFA) 108 (90 Base) MCG/ACT inhaler Inhale 2 puffs every 4 (four) hours if needed for wheezing. 18 g 025 2025 Active Diclofenac Sodium 1 % gel APPLY 2 GRAMS TOPICALLY TO AFFECTED AREA(S) FOUR TIMES DAILY. Usar si el parche de lidocana no proporciona suficiente control del dolor. 100 g 1 025 Active Active Problems Problem Noted Date Diagnosed Date Acute rhinitis 10/24/2024 Assessment & Plan (10/24/2024 1:51 PM EST): Viral tests are negative. Use Flonase + NS. Re consult PRN. Dietary counseling 02/26/2024 Severe obesity (CMS/HCC) 02/26/2024 Assessment & Plan (07/25/2024 4:01 PM EDT): Sp bariatric surgery, lost 40+ lb since surgery. Continue dietary modifications, takes protein shakes FU with Bariatric surgery office FU with me in Assessment & Plan (02/26/2024 4:10 PM EDT): [...] (08/01/2023 2:38 PM EDT): MRI on 07/14 (Ray) showed multilevel cervical disc disease with various degrees of foraminal and canal stenosis and disc bulging. Patient agreed to be referred to [facility] for further management of disc disease Continue [...] COntinue dexamethasone and tramadol 50mg + tylenol [id number] prn pain cousnedl to go to ED if she develops urinary retention, worsening of pain even with medications, severe leg weakness, persistent leg paresthesias r/o right trochanteric bursitis Dysuria 06/09/2023 Assessment & Plan (06/09/2023 9:33 AM EDT): r/o UTI Acute bilateral low back pain with right-sided s ciatica 05/04/2023 Assessment & Plan (05/04/2023 9:32 AM EDT): Doing well at PT at [facility] Will call PT to work out a [...] X 2, sp Colonoscopy on 10/27/23 at [facility] Gastroesophageal reflux dise ase with esophagitis without hemorrhage 05/04/2023 Overview (05/04/2023): SP EGD 10/27/23 at [facility] Postnasal drip 03/28/2023 Assessment & Plan (10/24/2024 [...] PREDIABETES WRITTEN ON 03/28/2023 11:42 AM BY HERO DOTY RBS is at goal Counseled re more frequent low calorie/carb meals. Encouraged physical activity as tolerated. FU in 6 months Assessment & Plan (10/24/2024 10:13 AM EST): >>ASSESSMENT AND PLAN FOR PREDIABETES WRITTEN ON 11/06/2023 12:49 PM BY JACQUELINE BURGER MD Doing well, may have more [...] seems to be off amlodipine. She will citrus picker amlodipine at pharmacy and fu with me in 3m Continue CPAP use, no other med changes. [...] Encounters Date Type Department Care Team Description 08/18/2025 Orders Only [facility] External Provider, [facility] 06/11/2025 Refill [facility] [address] [place] [address] Jacqueline Burger MD from Last 3 Months Immunizations Immunization Administration Dates Next Due HepB-CpG 08/01/2024,03/27/2024 Influenza [...] 71 10/24/2024 10:13 AM EST Temperature 35.6 C (96 F) 10/24/2024 10:13 AM EST Respiratory Rate 20 10/24/2024 10:13 AM EST Oxygen Saturation 100% 10/24/2024 10:13 AM EST Inhaled Oxygen Concentration - - Weight 92.1 kg (203 lb) 10/24/2024 10:13 AM EST Height 152.4 cm (5') 10/24/2024 10:13 AM EST Body Mass Index 39.65 10/24/2024 10:13 AM EST Plan of Treatment Upcoming Encounters Date Type Department Care Team (Late st Contact Info) Description 10/10/2025 11:30 AM EST Office Visit [facility] MEDICINE [address] [place] [address] Jacqueline Burger MD [address] [place] [address] Health Maintenance Due Date Last Done Comments CT Colonography 1967 FIT DNA/Cologuard 1967 FIT 1965 FOBT 1965 HIV Screening 1965 Sigmoidoscopy 1965 Disability Screening 1967 Alcohol/Substance Use Screening 1979 Hepatitis C Screening 1985 DTaP/Tdap/Td Vaccines (1 - Tdap) 1986 Pap Smear 1988 Cervical Cancer Screening 1997 HPV/Cotest 1997 Depression Screening 03/28/2024 03/28/2023, 03/28/20 23 Zoster Vaccines (2 of 2) 10/31/2024 09/05/2024 SDOH Screening 02/15/2025 02/16/2024 Influenza Vaccine (#1) 2025 , 08/02/2022, 08/02/2022, Additional history exists Tobacco Screening 08/01/2025 08/01/2024 Mammogram 12/17/2025 12/17/2024, 11/30, 05/31/2022, Additional history exists Colonoscopy 10/27/2027 Colorectal Cancer Screening 10/27/2027 Lipid Panel 02/17/2030 02/17/2025, 12/0 12/2023, 07/18/2024, Additional history exists RSV Patients and Patients Aged 60 years or older (1 - 1-dose 75+ series) 2042 COVID-19 Vaccine Discontinued 04/05/2021, 03/08/2021 Pneumococcal Vaccine: 50+ Years Completed 03/27/2024 Hepatitis B Vaccines Completed 08/01/2024, 03/27/20 24 HIB Vaccines Aged Out No longer eligi [...] patient's age to complete this topic Meningococcal B Vaccine Aged Out No l onger eligible based on patient's age to complete [...] VIEWS BILATERAL Routine 08/18/2025 3:45 PM EDT LIPID PANEL, STANDARD Routine 02/17/2025 7:58 AM EDT BI MAMMOGRAM SCREENING TOMOSYNTHESIS BILATERAL Routine 12/17/2024 3:20 PM EST from Last 3 Months or Most Recently Relevant to Health Maintenance Results * XR Foot 3+ Views Bilateral (08/18/2025 3:45 PM EDT) Anatomical Region Laterality Modality Lower Extremities, Foot Bilateral Radiogra phic Imaging 08/18/2025 3:45 PM EDT Narrative 08/18/2025 4:18 PM EDT [address] [address] XRay Report Signed Patient: Nereida Nair MR# : [id number] : 1965 Acct:[id number] Age/Sex: 59 / F ADM Date: 08/18/25 Loc: [facility] Attending Dr: Blanca DILLARD Ordering Physician: Blanca Diamond Date of Service: 08/18/25 Procedure(s): XR Foot Bentley 3V Accession Number(s): [id number] cc: Blanca Diamond; Jacqueline Burger MD Reason for Exam: M79.671 - Pain [...] Flip Quick MD 08/18/2025 04:15 PM EDT Dictated By: Flip Quick MD Signed By: <Electronically signed by Flip Quick MD in OV> 08/18/25 161 DD/ 154 TD/TT: 08/18/251547 [employer] Physical Education Teacher: SMITHA Procedure Note Donotshayyter, Image - 08/18/2025 [place] [address] XRay Report Signed Patient: Nereida NairMR# : [id number] : 1965Acct:[id number] Age/Sex: 59 / FADM Date: 08/18/25 Loc: [facility] Attending Dr: Blanca DILLARD Ordering Physician: Blanca Diamond Date of Service: 08/18/25 Procedure(s): XR Foot Bentley 3V Accession Number(s): [id number] cc: Blanca Diamond; Jacqueline Burger MD Reason for Exam: M79.671 - Pain [...] Flip Quick MD 08/18/2025 04:15 PM EDT Dictated By: Flip Quick MD Signed By: <Electronically signed by Flip Quick MD in OV> 08/18/25 161 DD/ 1545 TD/TT: 08/18/251547 [employer] Physical Education Teacher: SMITHA us [facility] External Provider IMG XR PROCEDURES Edited Result - Final * (ABNORMAL) Lipid Panel, Standard (02/17/2025 7:58 AM EDT) Triglycerides 138 <150 mg/dL [facility] Comment:Desirable Triglyceri de: less than 150 mg/dLBorderline High Triglyceride 150-199 mg/dLHigh Triglyceride: 200-499 mg/dLVery High Triglyceride: greater than or equal to 5OO mg/dL Cholesterol 238(H) <200 mg/dL [facility] Comment:Desirable Cholestero l: less than 200 mg/dLBorderline High Cholesterol: 200-239 mg/dLHigh Cholesterol: greater than 239 mg/dL LDL Cholesterol Calculated 155(H) <100 mg/dL [facility] Comment:Desirable LDL: less than 100 mg/dLNear Optimal/Above Optimal LDL: 110- 129 mg/dLBorderline High LDL: 130-159 mg/dLHigh LDL: 160-189 mg/dLVery High LDL: greater than or equal to 190 mg/dL HDL Cholesterol 56 >40 mg/dL [facility] Comment:Desirable HDL: great er than 40 mg/dL Note: This HDL assay may give artificially low results in patients with liver disease. 02/17/2025 7:58 AM EDT 02/17/2025 7:58 AM EDT Generic External Data Provider LAB BLOOD ORDERAB LES Final Result [facility] [address] [place] [phone] * BI Mammogram Screening Tomosynthesis Bilateral (12/17/2024 3:20 PM EST) Anatomical Region Laterality Modality Breast Bilateral Mammography 12/17/2024 3:20 PM EST Narrative 12/23/2024 4:05 PM EST [facility] [address] [place] [address] Mammography Report Signed Patient: Nereida Nair MR# : [id number] : 1965 Acct:[id number] Age/Sex: 59 / F ADM Date: 12/17/24 Loc: HO.MAMMO Attending Dr: Jacqueline Burger MD Ordering Physician: Jacqueline Burger MD Results: 2Be nign Findings Date of Service: 12/17/24 Follow Up: 1 Year From Orig ina Mammogram Procedure(s): MM tomosynthesis screening BI Accession Number(s): [id number] cc: Jacqueline Burger MD EXAMINATION: MM SCREENING DIGITAL BREAST [...] Maria Luisa Salamanca DO 12/23/2024 04:02 PM [facility] Dictated By: Maria Luisa Salamanca DO Signed By: <Electronically signed by Maria Luisa Salamanca DO in OV> 12/23/24 1602 DD/ 1520 TD/TT: 12/17/24 1535 [employer] Physical Education Teacher: Procedure Note Donotuseinterpreter, Image - 12/23/2024 [facility] [address] [place] [address] Mammography Report Signed Patient: Nereida Nair# : [id number] : 1965Acct:[id number] Age/Sex: 59 / FADM Date: 12/17/24 Loc: HO.MAMMO Attending Dr: Jacqueline Burger MD Ordering Physician: Jacqueline Burger MDResults: 2Be nign Findings Date of Service: 12/17/24Follow Up: 1 Year From [facility] ina Mammogram Procedure(s): MM tomosynthesis screening BI Accession Number(s): [id number] cc: Jacqueline Burger MD EXAMINATION: MM SCREENING DIGITAL BREAST [...] Maria Luisa Salamanca DO 12/23/2024 04:02 PM [facility] Dictated By: Maria Luisa Salamanca DO Signed By: <Electronically signed by Maria Luisa Salamanca DO in OV> 12/23/24 1602 DD/ 1520 TD/TT: 12/17/24 1535 [employer] Physical Education Teacher: us Jacqueline Burger MD IMG BI PROCEDURES Final Result from Last 3 Months or Most Recently Relevant to Health Maintenance Insurance [facility] C3 Care Teams Surety Bond Agent Relationship Specialty Start Date End Date Jacqueline Burger MD [address] [place] [phone] PCP - General Family Medicine 11/13/20
--- OUTSIDE RECORDS SUMMARY | 2025-08-18 19:13 | XMS_ITS | Encounter Summary ---
Author Organization [employer] [facility] Address [address] [place] [address] 7 [place] [address] Care Team Providers Care Package Car Driver Name Role Phone Vera Freeman MD Primary Care Provider + Encounter Details Date Type Department Care Team (Late st Contact Info) Description 11/10/2022 Orders Only [facility] [address] [place] [address] Blanca Mccrary LPN Social History Tobacco Use [...] Description 10/10/2025 11:30 AM EST Office Visit [facility] [address] [place] [phone] Vera Freeman MD [address] [place] [address] documented as of this encounter Visit Diagnoses Not on filedocumented in this encounter Care Teams Package Car Driver Relationship Specialty Start Date End Date Vera Freeman MD [address] [place] [phone] PCP - General Family Medicine 11/13/20 documented as of this encounter
== END 2025-08-18 15:28 | disposition home or self-care (01) ==
PROVIDERS: PCP Internal Medicine; Visit Provider Nurse Practitioner Family
DX: M79.671 Pain in right foot (principal); M79.672 Pain in left foot; M47.816 Spondylosis without myelopathy or radiculopathy, lumbar region; M53.3 Sacrococcygeal disorders, not elsewhere classified; E66.01 Morbid (severe) obesity due to excess calories
CPT/HCPCS: 99214; G2211

== ENCOUNTER 2025-08-18 14:59 | Outpatient (REF) | payer MEDICAID, SELFPAY ==
--- NOTE | ~2025-08-18 | XR_ITS ---
EXAMINATION: X-ray bilateral feet CLINICAL INFORMATION: Pain COMPARISON: None TECHNIQUE: Left foot 3 views. Right foot 3 views. FINDINGS: Left foot: No fracture, dislocation or suspicious osseous lesion. No significant joint space narrowing or marginal osteophytes. No osseous erosion. Posterior calcaneus enthesopathy. Chronic appearing ossification in the distal Achilles tendon. No abnormal soft tissue calcification. Right foot: No acute fracture, dislocation is suspicious osseous lesion. No fracture or dislocation. No significant joint space narrowing or marginal osteophytes. No osseous erosion. Posterior calcaneal spurring. No abnormal soft tissue calcification. XR/XR Foot Bentley 3V IMPRESSION: Posterior calcaneal spurring in bilateral feet. Electronically signed by: Flip Quick MD 08/18/2025 04:15 PM EDT
== END 2025-08-18 15:00 | disposition home or self-care (01) ==
LOC: HO.XRAY 14:59
PROVIDERS: PCP Internal Medicine; Visit Provider Nurse Practitioner Family
DX: M47.816 Spondylosis without myelopathy or radiculopathy, lumbar region (principal); M79.671 Pain in right foot; M53.3 Sacrococcygeal disorders, not elsewhere classified; E66.01 Morbid (severe) obesity due to excess calories; Z68.41 Body mass index [BMI] 40.0-44.9, adult
CPT/HCPCS: 73630; 99212

== ENCOUNTER → 2025-08-18 15:39 | Outpatient (BNV) | payer MEDICAID, SELFPAY | PROVIDERS: PCP Internal Medicine; Visit Provider Radiology Diagnostic Ultrasound | DX: M77.31 Calcaneal spur, right foot (principal); M77.32 Calcaneal spur, left foot | CPT/HCPCS: 73630 ==

== ENCOUNTER 2025-08-31 06:01 | Emergency (ER) | payer MEDICARE, MEDICAID, SELFPAY ==
--- NOTE | ~2025-08-31 | XR_ITS ---
CLINICAL HISTORY: cough 1 view chest x-ray Comparison: 11/24/2023 Findings: No consolidation or effusion. Normal size heart. No acute fracture. Surgical clips projecting over the left upper abdomen. IMPRESSION: 1. No acute findings. This document has been electronically signed by: Bernarda Lozano MD on 08/31/2025 07:07:43
[2025-08-31 06:07] VITALS: BP 139/65; PULSE 80; RESP 20; TEMP 36.3; O2SAT 98; BMI 48.8
--- OUTSIDE RECORDS SUMMARY | 2025-08-31 06:16 | XMS_ITS | Encounter Summary ---
Author Organization [employer] Address [address] [place] [address] 7 [place] [address] Care Team Providers Care Heel Trimmer Name Role Phone Vera Freeman MD Primary Care Provider + Encounter Details Date Type Department Care Team (Latest Contact Info) Description 11/20/2019 Abstract [facility] CONVERSIONS Dental, Provider, DDS Social History [...] Description 10/10/2025 11:30 AM EST Office Visit [facility] MEDICINE [address] [place] [address] Vera Freeman MD [address] [place] [address] documented as of this encounter Visit Diagnoses Not on filedocumented in this encounter Care Teams Heel Trimmer Relationship Specialty Start Date End Date Vera Freeman MD [address] [place] [address] PCP - General Family Medicine 11/13/20 documented as of this encounter
--- OUTSIDE RECORDS SUMMARY | 2025-08-31 06:16 | XMS_ITS | Clinical Summary ---
Author Organization [employer] Address [address] [place] [address] [address] [place] [address] Care Team Providers Care Api Architect Name Role Phone Jacqueline Burger MD Primary [...] bulging. Patient agreed to be referred [place] [facility] [place] of disc disease Continue [...] COntinue dexamethasone and tramadol 50mg + tylenol [id number] prn pain cousnedl to go to ED if she develops urinary retention, worsening of pain even with medications, severe leg weakness, persistent leg paresthesias r/o right trochanteric bursitis Dysuria 06/09/2023 Assessment & Plan (06/09/2023 9:33 AM EDT): r/o UTI Acute bilateral low back pain with right-sided s ciatica 05/04/2023 Assessment & Plan (05/04/2023 9:32 AM EDT): Doing well at PT at [facility] Will call PT to work out a [...] X 2, sp Colonoscopy on 10/27/23 at [facility] Gastroesophageal reflux dise ase with esophagitis without hemorrhage 05/04/2023 Overview (05/04/2023): SP EGD 10/27/23 at [facility] Postnasal drip 03/28/2023 Assessment & Plan (10/24/2024 [...] seems to be off amlodipine. 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 and fu with [...] Department Care Team Description 08/18/2025 Orders Only [facility] External Provider, [facility] 06/11/2025 Refill [facility] [address] [place] [address] Jacqueline Burger MD from Last 3 Months [...] Description 10/10/2025 11:30 AM EST Office Visit [facility] [address] [place] [address] Jacqueline Burger MD [address] [place] [address] Health Maintenance Due Date Last Done Comments [...] PM EDT Narrative 08/18/2025 4:18 PM EDT [address] [address] XRay Report Signed Patient: Nereida Nair MR# : [id number] : 1965 Acct:[id number] Age/Sex: 59 / F ADM Date: 08/18/25 Loc: UDAY Attending Dr: Blanca DILLARD Ordering Physician: Blanca Diamond Date of Service: 08/18/25 Procedure(s): XR Foot Bentley 3V Accession Number(s): [id number] cc: Blanca Diamond; Jacqueline Burger MD Reason [...] OV> 08/18/25 161 DD/ 154 TD/TT: 08/18/251547 Cad Cam Programmer: SMITHA Procedure Note Donotshayyter, Image - 08/18/2025 [place] [address] XRay Report Signed Patient: Nereida NairMR# : [id number] : 1965Acct:[id number] Age/Sex: 59 / FADM Date: 08/18/25 Loc: UDAY Attending Dr: Blanca DILLARD Ordering Physician: Blanca Diamond Date of Service: 08/18/25 Procedure(s): XR Foot Bentley 3V Accession Number(s): [id number] cc: Blanca Diamond; Jacqueline Burger MD Reason [...] OV> 08/18/25 161 DD/ 1545 TD/TT: 08/18/251547 Cad Cam Programmer: SMITHA us [facility] External Provider IMG XR PROCEDURES Edited Result - Final * (ABNORMAL) Lipid Panel, Standard (02/17/2025 7:58 AM EDT) Triglycerides 138 <150 mg/dL [facility] Comment:Desirable Triglyceri de: less than 150 mg/dLBorderline High Triglyceride 150-199 mg/dLHigh Triglyceride: 200-499 mg/dLVery High Triglyceride: greater than or equal to 5OO mg/dL Cholesterol 238(H) <200 mg/dL [facility] Comment:Desirable Cholestero l: less than 200 mg/dLBorderline High Cholesterol: 200-239 mg/dLHigh Cholesterol: greater than 239 mg/dL LDL Cholesterol Calculated 155(H) <100 mg/dL [facility] Comment:Desirable LDL: less than 100 mg/dLNear Optimal/Above Optimal LDL: 110- 129 mg/dLBorderline High LDL: 130-159 mg/dLHigh LDL: 160-189 mg/dLVery High LDL: greater than or equal to 190 mg/dL HDL Cholesterol 56 >40 mg/dL [facility] Comment:Desirable HDL: great er than 40 mg/dL Note: This HDL assay may give artificially low results in patients with liver disease. 02/17/2025 7:58 AM EDT 02/17/2025 7:58 AM EDT Generic External Data Provider LAB BLOOD ORDERAB LES Final Result [facility] [address] [place] [phone] * BI Mammogram Screening Tomosynthesis Bilateral (12/17/2024 3:20 PM EST) Anatomical Region Laterality Modality Breast Bilateral Mammography 12/17/2024 3:20 PM EST Narrative 12/23/2024 4:05 PM EST [facility] [address] [place] [address] Mammography Report Signed Patient: Nereida Nair MR# : [id number] : 1965 Acct:[id number] Age/Sex: 59 / F ADM Date: 12/17/24 Loc: HO.MAMMO Attending Dr: Jacqueline Burger MD Ordering Physician: Jacqueline Burger MD Results: 2Be nign Findings Date of Service: 12/17/24 Follow Up: 1 Year From Orig ina Mammogram Procedure(s): MM tomosynthesis screening BI Accession Number(s): [id number] cc: Jacqueline Burger MD EXAMINATION: MM SCREENING [...] Maria Luisa Salamanca DO 12/23/2024 04:02 PM [facility] Dictated By: Maria Luisa Salamanca DO Signed By: <Electronically signed by Maria Luisa Salamanca DO in OV> 12/23/24 1602 DD/ 1520 TD/TT: 12/17/24 1535 Cad Cam Programmer: Procedure Note Donotuseinterpreter, Image - 12/23/2024 [facility] [address] [place] [address] Mammography Report Signed Patient: Nereida Nair# : [id number] : 1965Acct:[id number] Age/Sex: 59 / FADM Date: 12/17/24 Loc: HO.MAMMO Attending Dr: Jacqueline Burger MD Ordering Physician: Jacqueline Burger MDResults: 2Be nign Findings Date of Service: 12/17/24Follow Up: 1 Year From [facility] ina Mammogram Procedure(s): MM tomosynthesis screening BI Accession Number(s): [id number] cc: Jacqueline Burger MD EXAMINATION: MM SCREENING [...] Maria Luisa Salamanca DO 12/23/2024 04:02 PM [facility] Dictated By: Maria Luisa Salamanca DO Signed By: <Electronically signed by Maria Luisa Salamanca DO in OV> 12/23/24 1602 DD/ 1520 TD/TT: 12/17/24 1535 Cad Cam Programmer: us Jacqueline Burger MD IMG BI PROCEDURES Final Result from Last 3 Months or Most Recently Relevant to Health Maintenance Insurance [facility] C3 Care Teams Api Architect Relationship Specialty Start Date End Date Jacqueline Burger MD [address] [place] [phone] PCP - General Family Medicine 11/13/20
--- OUTSIDE RECORDS SUMMARY | 2025-08-31 06:16 | XMS_ITS | Encounter Summary ---
Author Organization [facility] Address [address] [place] [address] [address] [place] [address] Care Team Providers Care Paper Gluing Operator Name Role Phone Vera Freeman MD Primary Care Provider + Encounter Details Date Type Department Care Team (Late st Contact Info) Description 11/10/2022 Orders Only [facility] MED[facility] [address] [place] [phone] Blanca Mccrary LPN Social History Tobacco Use [...] Description 10/10/2025 11:30 AM EST Office Visit [facility] [address] [place] [phone] Vera Freeman MD [address] [place] [phone] documented as of this encounter Visit Diagnoses Not on filedocumented in this encounter Care Teams Paper Gluing Operator Relationship Specialty Start Date End Date Vera Freeman MD [address] [place] [phone] PCP - General Family Medicine 11/13/20 documented as of this encounter
--- OUTSIDE RECORDS SUMMARY | 2025-08-31 06:16 | XMS_ITS | Encounter Summary ---
Author Organization [employer] Address [address] [facility] 7[address] [place] [address] Care Team Providers Care Head Inspector And Center Marker Name Role Phone Vera Freeman MD Primary Care Provider + Reason for Visit * Reason Comments Med Refill Encounter Details Date Type Department Care Team ([facility] st Contact Info) Description 09/10/2023 Refill [facility] [address] [place], [place] [phone] Vera Freeman MD [address] [place], [place] [phone] Acute exacerbation of chronic low back pain [...] Description 10/10/2025 11:30 AM EST Office Visit [facility] [address] [place] [address] Vera Freeman MD [address] [place] [address] documented as of this encounter Visit Diagnoses Diagnosis Acute exacerbation of chronic low back pain documented in this encounter Care Teams Head Inspector And Center Marker Relationship Specialty Start Date End Date Vera Freeman MD [address] [place] [address] PCP - General Family Medicine 11/13/20 documented as of this encounter
--- OUTSIDE RECORDS SUMMARY | 2025-08-31 06:16 | XMS_ITS | Encounter Summary ---
Author Organization [employer] Address [address] [place] [address] Care Team Providers Care Milking System Installer Name Role Phone Vera Freeman MD Primary Care Provider + Encounter Details Date Type Department Care Team (Late Contact Info) Description 06/10/2023 [facility] [employer] [address] [place] [address] Vera Freeman MD [address] [place], [place] [phone] Social History Tobacco Use Types Packs/Day Years [...] Description 10/10/2025 11:30 AM EST Office Visit [facility] [address] [place], [place] [phone] Vera Freeman MD [address] [place], [place] [phone] documented as of this encounter Visit Diagnoses Not on filedocumented in this encounter Care Teams Milking System Installer Relationship Specialty Start Date End Date Vera Freeman MD [address] [place] [phone] PCP - General Family Medicine 11/13/20 documented as of this encounter
[2025-08-31 06:44] LABS: IDNOW Serial# 6674DD1D; Influenza B2 Negative (Negative)
--- NOTE | 2025-08-31 06:56 | ED.URI ---
HPI - URI/Sore Throat General Chief Complaint: Upper Respiratory Symptoms Stated Complaint: headache blood pressure sore throat Time Seen by Provider: 08/31/25 06:27 History of Present Illness HPI Narrative: Patient is a 59-year-old female presents today with coughing congestion upper respiratory symptoms ongoing for the last 2 weeks. Has a history of gastric sleeve. History of prediabetic. Larger in size history of high cholesterol. Hypertension. No fever no chills. Patient from home. Related Data Home Medications ?Medication ?Instructions ?Recorded ?Confirmed amlodipine 10 mg tablet 1 tab PO BEDTIME 10/21/22 01/15/25 Held on 04/10/24. Instructions: Resume on 04/11/24. Check your blood pressure every morning as soon as you wake up and send it to Dr. Murrell. Do no take the blood pressure medication if the blood pressure is below 120/70. Wait every day to hear back from Dr. Murrell before you take the medication. losartan 100 mg tablet 1 tab PO DAILY 10/21/22 01/15/25 Held on 04/10/24. Instructions: Resume on 04/11/24. Check your blood pressure every morning as soon as you wake up and send it to Dr. Murrell. Do no take the blood pressure medication if the blood pressure is below 120/70. Wait every day to hear back from Dr. Murrell before you take the medication. trazodone 50 mg tablet 1 tab PO BEDTIME 10/21/22 01/15/25 fluticasone propionate 50 1 spray intranasal DAILY 11/13/23 01/15/25 mcg/actuation nasal spray,suspension albuterol sulfate 90 mcg/actuation 2 puff inhalation Q6H PRN 04/01/24 01/15/25 aerosol inhaler (Ventolin HFA) Shortness Of Breath Or Wheezing atorvastatin 80 mg tablet 80 mg PO BEDTIME 08/18/25 Previous Rx's ?Medication ?Instructions ?Recorded bisacodyl 10 mg rectal suppository 10 mg LA DAILY PRN constipation 04/05/24 (Dulcolax (bisacodyl)) #12 ea polyethylene glycol 3350 17 17 g PO DAILY #238 grams 07/09/24 gram/dose oral powder clotrimazole 1 % topical cream 1 appl topical BID #45 grams 10/08/24 sennosides 8.6 mg tablet (senna) 17.2 mg (2 x 8.6 mg) PO BEDTIME 01/01/25 for constipation #180 tabs azithromycin 250 mg tablet See Rx Instructions PO .COMPLEX 08/31/25 upper resp infection #6 tabs Allergies Allergy/AdvReac Type Severity Reaction Status Date / Time No Known Allergies (No Known Allergy Verified 08/31/25 06:09 Allergies*) Review of Systems Review of Systems: Positive coughing upper respiratory symptoms Yes all other systems are reviewed and are negative [facility] Past Medical History Attestation statement: The following information was validated with the patient. Medical History Vitamin D deficiency Vitamin B12 deficiency Morbid obesity with BMI of 50.0-59.9, adult Diabetes Sleep apnea Gastroesophageal reflux disease Prediabetes DJD (degenerative joint disease) Insomnia Morbid obesity Tubular adenoma Chronic TMJ pain Hypercholesterolemia Snoring Chest pain Hypertension Migraines Asthma Surgical History S/P laparoscopic sleeve gastrectomy (~03/2024) History of esophagogastroduodenoscopy (EGD) Hx of colonoscopy Hx of cholecystectomy Hx of hysterectomy, total Hx of section History of carpal tunnel release (~12/03/20) Family History Family History Mother Diabetes Heart attack Ulcer of stomach due to bacteria Father Heart attack HTN (hypertension) Paternal Uncle Colon cancer Sister Lupus Social History Social History Household Members: Spouse Housing: Apartment Are you a primary pediatric critical care nurse to a significant other at home: No Do you presently have visiting nurse or other home services: No Alcohol intake: never Patient Tobacco Use Status: Never used Tobacco Smoked in Last 30 Days: No Second Hand Smoke Exposure: No Use of substances other than those prescribed or required for medical reasons: No Advance Directives: No Advance Directives Information Provided: Yes Do you have a plan to hurt others: No Plan Current occupational status: retired Current occupation: right and left handed Physical Exam Exam: Exam: Appearance: Alert. Oriented X3. No acute distress. Eyes: Pupils equal, round and reactive to light. ENT: Pharynx normal. Neck: Normal inspection. Neck supple. No lymph nodes noted. No crepitus CVS: Normal heart rate and rhythm. Pulses normal. Normal S1 and S2 Respiratory: No respiratory distress. Breath sounds normal. No Wheezing. No rales Abdomen: Soft and nontender. No rigidity. No distention. good BS x4 Skin: Skin warm and dry. Normal skin color. Normal skin turgor. Extremities: No lower extremity edema. Neurovascular intact to all extremities. No Lacerations. No Rash Neuro: Oriented X 3. No motor deficit. No sensory deficit. Moving all extermities. No slurred speech Vital Signs: Vital Signs: Last Vital Signs Temp 97.7 F 08/31/25 07:10 Pulse 79 08/31/25 07:10 Resp 20 08/31/25 07:10 BP 126/62 08/31/25 07:10 Pulse Ox 97 08/31/25 09:07 O2 Del Method Room Air 08/31/25 09:07 BMI result Body Mass Index 48.8 Medical Decision Making Medical Decision Making MDM Narrative: COVID flu RSV were all negative. My interpretation patient's chest x-ray is grossly negative. No acute evidence of pneumonia no pneumothorax. Positive coughing congestion upper respiratory symptoms positive symptoms getting worse over the last 2 days with some yellow sputum O2 sats 98% lungs are clear will give patient a Z-Gregorio. Follow-up on an outpatient basis. Or likely viral. Differential Diagnosis Differential Diagnoses: The differential diagnosis associated with the presentation includes Upper respiratory infection, pneumonia, asthma Admission/Observation Consideration of admission/observation: Escalation of care including admission/observation considered Symptom improved Lab Data [facility] Lab Attestation statement: I reviewed the patient's lab results. Labs: Lab Results 08/31/25 Range/Units 06:24 COVID-19 (LACIE) Negative (Negative) COVID-19 Clin Com See Note Influenza Type A (ALISA) Negative (Negative) Influenza Type B (ALISA) Negative (Negative) Influenza A & B Note See Note Independent Interpretation I performed an independent interpretation of an: Plain X-Ray (Chest x-ray was negative for pneumonia no pneumothorax) Radiology Impression Discussion of test interpretation with radiology: I have reviewed the radiologist's reading. External Record Review External record reviewed: Outpatient record Social Determinants Patient?s care significantly limited by Social Determinants of Health including: Problems related to primary support group Discharge Plan Discharge Clinical Impression: Upper respiratory infection Patient Disposition: Home, Self-Care Instructions: Upper Respiratory Infection (DC) Prescriptions: New azithromycin 250 mg tablet See Rx Instructions .ROUTE .COMPLEX Qty: 6 0RF Rx Instructions: take 500 mg today (day 1), then 250 mg for 4 days (days 2-5) No Action bisacodyl [Dulcolax (bisacodyl)] 10 mg suppository 10 mg LA DAILY PRN (Reason: constipation) Qty: 12 0RF sennosides [senna] 8.6 mg tablet 17.2 mg PO BEDTIME Qty: 180 3RF trazodone 50 mg tablet 1 tab PO BEDTIME amlodipine 10 mg tablet 1 tab PO BEDTIME losartan 100 mg tablet 1 tab PO DAILY albuterol sulfate [Ventolin HFA] 90 mcg/actuation HFA aerosol inhaler 2 puff INHALATION Q6H PRN (Reason: Shortness Of Breath Or Wheezing) clotrimazole 1 % cream 1 appl topical BID Qty: 45 3RF fluticasone propionate 50 mcg/actuation spray,suspension 1 spray intranasal DAILY polyethylene glycol 3350 17 gram/dose powder 17 g PO DAILY Qty: 238 3RF atorvastatin 80 mg tablet 80 mg PO BEDTIME Referrals: Vera Freeman MD [Primary Care Provider, Internal Medicine] - 09/02/25 Print Language: Puerto Rican
[2025-08-31 06:59] LABS: IDNOW Serial# 55D5AD1C
[2025-08-31 07:00] LABS: COVID-19 Test Negative (Negative)
[2025-08-31 07:10] VITALS: BP 126/62; PULSE 79; RESP 20; TEMP 36.5; O2SAT 97
[2025-08-31 09:07] VITALS: O2SAT 97
--- NOTE | 2025-08-31 09:10 | PC.NURSE ---
pt is alert and oriented, skin appropriate for ethnicity, respirations even and unlabored, ls clear, pt is reporting for the last 2 weeks not feeling well, cough/congestion/body aches/headaches/chest tightens with cough, vs stable at this time
[2025-08-31 09:39] VITALS: BP 124/60; PULSE 70; RESP 16; O2SAT 99
[2025-08-31 10:41] VITALS: BP 141/83; PULSE 72; RESP 18; TEMP 36.5; O2SAT 100
== END 2025-08-31 10:50 | disposition home or self-care (01) ==
PROVIDERS: Emergency Provider Emergency Medicine Emergency Medical Services; PCP Internal Medicine
DX: J06.9 Acute upper respiratory infection, unspecified (principal); J02.9 Acute pharyngitis, unspecified; Z98.84 Bariatric surgery status; R73.03 Prediabetes; I10 Essential (primary) hypertension; Z03.818 Encounter for observation for suspected exposure to other biological agents ruled out
CPT/HCPCS: 71045; 87502; 87635; 99283; 99284

== ENCOUNTER 2025-09-16 06:33 | Outpatient (REF) | payer MEDICARE, MEDICAID, SELFPAY ==
--- NOTE | ~2025-09-16 | FL_ITS ---
EXAMINATION: FL GUIDANCE ONLY HISTORY: M53.3 - Sacrococcygeal disorders, not elsewhere classified COMPARISON: None available. TECHNIQUE: Fluoroscopy time: 14 seconds. Cumulative Dose: 3.40 mGy. DAP: 721.50 mGycm2 [id number]: 2. FINDINGS: Fluoroscopic spot films of the right abdomen demonstrate a needle and contrast material in the region of the sacroiliac joint. FL/FL guidance in treatment room IMPRESSION: Fluoroscopy during procedure. Please see procedure report for additional information. Electronically signed by: Chris Moncada MD 09/17/2025 07:54 AM EST
== END 2025-09-16 06:34 | disposition home or self-care (01) ==
LOC: CF 06:33
PROVIDERS: Visit Provider Anesthesiology
DX: M53.3 Sacrococcygeal disorders, not elsewhere classified (principal)
CPT/HCPCS: J2795; J3301; Q9967

== ENCOUNTER 2025-09-16 13:43 | Outpatient (AMB) | payer MEDICARE, MEDICAID, SELFPAY ==
--- NOTE | 2025-09-16 13:45 | MHC.OFFVIS ---
Vital Signs 09/16/25 13:49 09/16/25 14:40 BP 128/73 121/63 Blood Pressure Location Lt radial Lt radial Position Sitting Sitting Respiration 16 16 Pulse 84 80 Pulse Source Pulse Oximeter Pulse Oximeter Pulse Oximetry (%) 97 98 Oxygen Delivery Method Room Air Room Air Intake Visit Reasons: Right therapeutic sacroiliac joint injection Allergies No Known Allergies (No Known Allergies*) Allergy (Verified 08/31/25 06:09) PFSH Medical History Vitamin D deficiency Vitamin B12 deficiency Morbid obesity with BMI of 50.0-59.9, adult Diabetes Sleep apnea Gastroesophageal reflux disease Prediabetes DJD (degenerative joint disease) Insomnia Morbid obesity Tubular adenoma Chronic TMJ pain Hypercholesterolemia Snoring Chest pain Hypertension Migraines Asthma Surgical History S/P laparoscopic sleeve gastrectomy (~03/2024) History of esophagogastroduodenoscopy (EGD) Hx of colonoscopy Hx of cholecystectomy Hx of hysterectomy, total Hx of section History of carpal tunnel release (~12/03/20) Family History Mother Diabetes Heart attack Ulcer of stomach due to bacteria Father Heart attack HTN (hypertension) Paternal Uncle Colon cancer Sister Lupus Social History Household Members: Spouse Housing: Apartment Are you a primary family member caretaker to a significant other at home: No Do you presently have visiting nurse or other home services: No Alcohol intake: never Patient Tobacco Use Status: Never used Tobacco Second Hand Smoke Exposure: No Current occupational status: retired Current 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 the risks, benefits and alternatives were discussed with the patient and informed consent was obtained, patient was placed in the prone position and padded to foster comfort. Time out was performed delineating correct site and side of the procedure , name and of the patient, patient participated in time out procedure. The lower back and upper buttocks of the patient were prepped with ChloraPrep and draped with sterile self adhesive utility towels. C-arm was brought over the operating field and picture of the right SI joint was demonstrated on the screen. Tilting C-arm contralateral to the left the posterior silhouette of the sacroiliac joint was superimposed on anterior silhouette of the sacroiliac joint. The point slightly medial to the sacroiliac joint silhouette was injected with lidocaine 2%, forming skin wheal. After that 22 gauge 3-1/2 inch spinal needle was inserted through the skin wheal and advanced to were the sacroiliac joint in tunnel vision fashion. When the needle entered the sacroiliac joint capsule injection of the contrast was performed delineating intra-articular and minimally periarticular spread of the contrast. After that injection of the treatment solution of ropivacaine 0.5% 5 cc mixed with kenalog 40 mg into the joint was performed. Upon completion of the injection needle was withdrawn sterile Band-Aid was applied. The patient tolerated the procedure well. Orders: Orders FL guidance in treatment room 09/16/25 M53.3 - Sacrococcygeal disorders, not elsewhere classified Coding Level of Care Code Procedure Only Diagnoses Sacroiliac joint pain M53.3
[2025-09-16 13:49] VITALS: BP 128/73; PULSE 84; RESP 16; O2SAT 97
[2025-09-16 14:40] VITALS: BP 121/63; PULSE 80; RESP 16; O2SAT 98
== END 2025-09-16 14:40 | disposition home or self-care (01) ==
LOC: HO.PMCPRC 13:43
PROVIDERS: PCP Internal Medicine; Visit Provider Anesthesiology
DX: M53.3 Sacrococcygeal disorders, not elsewhere classified (principal)
CPT/HCPCS: 27096

== ENCOUNTER 2025-09-18 12:10 | Outpatient (REF) | payer MEDICARE, MEDICAID, SELFPAY ==
--- NOTE | ~2025-09-18 | XR_ITS ---
EXAMINATION: XR CHEST CLINICAL INFORMATION: persistant cough with wheeze x 1 month COMPARISON: X-ray 08/31/2025 TECHNIQUE: 2 views of the chest were obtained. FINDINGS: Cardiomediastinal structures within normal limits. Stable central pulmonary vasculature. Mild peribronchial thickening. No consolidation or effusion. No pneumothorax. Surgical clips projected over the left upper quadrant. No acute fracture XR/XR chest 2V IMPRESSION: Bilateral peribronchial thickening can be seen with inflammatory/ infectious process. Electronically signed by: Flip Quick MD 09/18/2025 05:00 PM [facility]KE
== END 2025-09-18 12:11 | disposition home or self-care (01) ==
LOC: HO.XRAY 12:10
PROVIDERS: PCP Internal Medicine; Visit Provider Family Medicine
DX: R06.2 Wheezing (principal); R05.9 Cough, unspecified
CPT/HCPCS: 71046

== ENCOUNTER → 2025-09-18 12:15 | Outpatient (BNV) | payer MEDICARE, MEDICAID, SELFPAY | PROVIDERS: PCP Internal Medicine; Visit Provider Radiology Diagnostic Ultrasound | DX: R05.8 Other specified cough (principal); R06.2 Wheezing | CPT/HCPCS: 71046 ==

== ENCOUNTER 2025-10-14 13:17 | Outpatient (AMB) | payer MEDICARE, MEDICAID, SELFPAY ==
--- NOTE | 2025-10-14 13:26 | MHC.OFFVIS ---
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 She currently reports no pain, rating it as 0 out of 10, and indicates that her ability to sleep, walk, sit, and stand is good. She denies any other complaints or concerns today. Denies any back or leg pain and transitions well from sitting to standing and walking without discomfort. Denies any recent cough, cold, infection, fever or any significant changes in medical history since last office visit. Pain Description - Pain Level: The patient reports her current pain level is 0/10. - Impact on Function: The patient reports no limitations in sleeping, walking, sitting, or standing. Pain Management - Analgesia: The patient is one month post-right therapeutic SI joint injection and reports her pain level is currently 0 out of 10. - Activities of Daily Living: She reports she is doing well with sleeping, walking, sitting, and standing. - Affect: The patient appears to be in good spirits, smiling during the encounter. Past Procedures: 09/16/25: Right Therapeutic SIJ injection-100% ongoing pain relief 08/29/23: Bilateral Diagnostic Sacroiliac Joint Injections-80% pain relief for 24 hours, 1 week out-no pain still 07/25/23: Right L4-L5 Interlaminar SIVAKUMAR-70% ongoing pain relief PFSH Medical History Vitamin D deficiency Vitamin B12 deficiency Morbid obesity with BMI of 50.0-59.9, adult Diabetes Sleep apnea Gastroesophageal reflux disease Prediabetes DJD (degenerative joint disease) Insomnia Morbid obesity Tubular adenoma Chronic TMJ pain Hypercholesterolemia Snoring Chest pain Hypertension Migraines Asthma Surgical History S/P laparoscopic sleeve gastrectomy (~03/2024) History of esophagogastroduodenoscopy (EGD) Hx of colonoscopy Hx of cholecystectomy Hx of hysterectomy, total Hx of section History of carpal tunnel release (~12/03/20) Family History Mother Diabetes Heart attack Ulcer of stomach due to bacteria Father Heart attack HTN (hypertension) Paternal Uncle Colon cancer Sister Lupus Social History Household Members: Spouse Housing: Apartment Are you a primary nonfarm animal caretaker to a significant other at home: No Do you presently have visiting nurse or other home services: No Alcohol intake: never Patient Tobacco Use Status: Never used Tobacco Second Hand Smoke Exposure: No Current occupational status: retired Current occupation: right and left handed Review of Systems Const All systems reviewed & are unremarkable except as noted in HPI and below Physical Exam Exam Exam: - Musculoskeletal: No significant tenderness on palpation of the sacroiliac joint. - KAYY test performed on the left elicits tightness but no pain. General: Appears afebrile. Alert and oriented. Mood and affect appropriate. Follows and participates in conversation appropriately. Respiratory effort is unlabored. No cough. Able to transition from sit to stand unassisted. Back/Spine/Pelvis Cervical Spine: cervical ROM normal and No Cervical spine tenderness Thoracic/Lumbar Spine: thoracic and lumbar spine normal to inspection, No Thoracic/lumbar spine scar(s), Lasegue's sign negative, straight leg raise negative bilaterally, pain with thoraco-lumbar ROM, thoraco-lumbar ROM limited, No thoracic spinal tenderness and lumbar spinal tenderness Pelvis: no buttock tenderness Sacroiliac joints: bilaterally nontender Results Reviewed Results Reviewed: XR LUMBOSACRAL SPINE 06/05/23 CLINICAL INFORMATION: Low back pain. COMPARISON: Lumbar spine radiographs dated 02/16/2023. CT scan of the lumbar spine dated 05/25/2023. FINDINGS: There is normal lumbar lordosis. Minimal anterolisthesis is seen at L4-L5 with mild bilateral neural foraminal narrowing. The vertebral bodies are intact. The soft tissues are unremarkable. IMPRESSION: L4-L5 minimal grade 1 anterolisthesis and bilateral facet arthropathy without acute abnormality. MR LUMBAR SPINE WITHOUT CONTRAST 06/10/23 CLINICAL INFORMATION: Right sciatica and leg weakness. Assess for cauda equina. 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 Plain films of the lumbar spine agency 06/05/2023. FINDINGS: VERTEBRAL BODIES AND PARASPINAL STRUCTURES: The study redemonstrates a mild grade 1 anterolisthesis of L4 on L5. There is slight loss of intervertebral disc signal from the levels of L4-L5 and L5-S1. Vertebral body heights are maintained, and no fractures are demonstrated. Overall, marrow signal is slightly heterogenous. The visualized retroperitoneal and pelvic structures are unremarkable. CONUS MEDULLARIS AND CAUDA EQUINA: Normal, terminating at the level of L1. There appears to be ligamenta flava hypertrophy dorsally within the spinal canal at the level of T10-T11, incompletely visualized on these images. There is no definite spinal cord compression or central stenosis, and the neural foramina are patent bilaterally. The lower thoracic spinal cord has normal signal. The cauda equina nerve roots and filum terminale appear normal. SPINAL LEVELS: L1-L2: The facet joints appear normal bilaterally. Disc contour is normal. There is no central stenosis or foraminal narrowing. L2-L3: The facet joints appear normal bilaterally. Disc contour is normal. There is no central stenosis or foraminal narrowing. L3-L4: The facet joints appear normal. There is a left-sided disc protrusion which mildly narrows the left subarticular recess and extends into the left neural foramen, but there is no exiting nerve root impingement. There is no central stenosis. L4-L5: There is markedly severe right and severe left facet arthropathy with a prominent right-sided facet joint effusion. There is unroofing of the disc as a result of anterolisthesis, and there is flattening the ventral thecal sac with narrowing of the bilateral subarticular recesses. There is mild central stenosis. There is no foraminal nerve root impingement. L5-S1: There is mild bilateral facet arthropathy. There is a shallow posterior disc protrusion without mass effect on the thecal sac and there is no central stenosis. The neural foramina are patent bilaterally. IMPRESSION: 1. There is a grade 1 anterolisthesis of L4 on L5 secondary to severe facet arthropathy. There is narrowing of the bilateral subarticular recesses and there is mild central stenosis. There is no foraminal nerve root impingement. 2. At L3-L4 there is a left-sided disc protrusion with narrowing of the left subarticular recess. There is no exiting nerve root impingement and there is no central stenosis. 3. There appears to be ligamenta flava hypertrophy dorsally within the spinal canal at the level of T10-T11, incompletely visualized. There is no definite spinal cord compression or central stenosis, and the neural foramina are patent bilaterally. This could be further evaluated with MRI scan of the thoracic spine. XR HIP, RIGHT 05/25/23 CLINICAL INFORMATION: Right hip pain. FINDINGS: No fracture. Alignment is anatomic. Hip joint space is maintained. Soft tissues are unremarkable. IMPRESSION: Unremarkable right hip. NE electromyogram (EMG); NE nerve conduction velocity 08/12/2020 HISTORY OF PRESENT ILLNESS: This is a 54-year-old woman with a 2-year history of bilateral upper extremity pain, numbness, and tingling. Both sides affected equally. She has a history of diabetes for more than 5 years. Complete list of medications not available. PHYSICAL EXAMINATION: On examination, she is alert and oriented with normal intellectual functions. Cranial nerves II through XII are normal. Muscle tone and strength are normal in all 4 extremities. There is mild flattening of the thenar eminences on both sides with weakness of abductor pollicis brevis muscle particularly on the right. No sensory deficits. IMPRESSION: Carpal tunnel syndrome. NERVE CONDUCTION EMG STUDY: Moderately severe carpal tunnel syndrome bilaterally, worse on the left. Normal EMG of the left C5 through T1 innervated muscles. Assessment & Plan Assessment & Plan (1) Lumbar spondylosis: Code(s): M47.816 - Spondylosis without myelopathy or radiculopathy, lumbar region Category: Medical (2) Sacroiliac joint pain: Code(s): M53.3 - Sacrococcygeal disorders, not elsewhere classified Category: Medical (3) Lumbar degenerative disc disease: Code(s): M51.36 - Other intervertebral disc degeneration, lumbar region Category: Medical Plan The patient has experienced excellent pain relief from the right therapeutic sacroiliac joint injection, reporting 0/10 pain with good function. She was advised that the pain relief is expected to last for at least two more months, with the potential to extend up to six months. No further immediate intervention is planned. She was instructed to call the office for a repeat injection if the pain returns, provided at least two to three months have passed since the last procedure. Although she is not diabetic, she was counseled to monitor her sugar intake as a precaution, given that steroid injections can temporarily elevate blood sugar levels. All questions and concerns have been answered and patient agreed with the treatment plan. Follow up as needed. Patient was informed and verbally consented to the use of an ambient scribe for clinic note documentation during this visit. Coding Level of Care Code Est Pt Level 3 (30073) Diagnoses Lumbar spondylosis M47.816 Sacroiliac joint pain M53.3 Lumbar degenerative disc disease M51.36
[2025-10-14 13:38] VITALS: BP 142/66; PULSE 78; O2SAT 100; BMI 43.8
== END 2025-10-14 13:42 | disposition home or self-care (01) ==
LOC: HO.PMC 13:18
PROVIDERS: PCP Internal Medicine; Visit Provider Nurse Practitioner Family
DX: M47.816 Spondylosis without myelopathy or radiculopathy, lumbar region (principal); M53.3 Sacrococcygeal disorders, not elsewhere classified; M51.369 Other intervertebral disc degeneration, lumbar region without mention of lumbar back pain or lower extremity pain
CPT/HCPCS: 99213

== ENCOUNTER → 2025-10-14 13:17 | Outpatient (BNVA) | payer MEDICARE, MEDICAID, SELFPAY | PROVIDERS: PCP Internal Medicine; Visit Provider Nurse Practitioner Family | DX: M47.816 Spondylosis without myelopathy or radiculopathy, lumbar region (principal); M53.3 Sacrococcygeal disorders, not elsewhere classified; M51.369 Other intervertebral disc degeneration, lumbar region without mention of lumbar back pain or lower extremity pain | CPT/HCPCS: 99212 ==